=== PATIENT | male | born 1955 | race Caucasian/White ===

== ENCOUNTER 2021-02-10 14:35 | Inpatient (IN) | payer MEDICARE, MEDICAID, SELFPAY ==
[2021-02-10] VITALS (17 sets, daily range): BP systolic 111–136; BP diastolic 11–86; PULSE 93–125; RESP 23–47; TEMP 36.7–37.4; O2SAT 28–97
--- NOTE | ~2021-02-10 | XR_ITS ---
XR chest 1V portable DATE: 02/10/2021 16:22 INDICATION: Shortness of breath, cough TECHNIQUE: Portable upright AP chest on 02/10/2021 at 1611 hours COMPARISON: None FINDINGS: There is extensive diffuse bilateral pulmonary infiltrate, relatively sparing the apices du e to bullous change. Probable cardiomegaly, although heart size is not optimally evaluated on AP projection because of mag nification. Aortic arch calcification. No definite pleural effusion. No apparent pneumothorax. Diffuse osteopenia. IMPRESSION: Diffuse severe bilateral pulmonary infiltrates Reviewed, dictated and finalized at location A.
--- NOTE | ~2021-02-10 | XR_ITS ---
XR chest 1V portable 02/18/2021 08:15 Indication: Dyspnea. Pneumonia. Procedure: AP portable chest Comparison: 02/10/2021 Findings: Diffuse bilateral airspace disease. There is emphysema. No significant effusion. No pneumot horax. Cardiomegaly. No acute osseous abnormality. Impression: 1: Stable diffuse bilateral airspace disease, compatible with pneumonia versus edema. 2: Emphysema. Reviewed, dictated and finalized at location B. Impression: 1: Stable diffuse bilateral airspace disease, compatible with pneumonia versus edema. 2: Emphysema.
--- NOTE | ~2021-02-10 | CT_ITS ---
EXAMINATION: CTA chest PE protocol DATE: 02/10/2021 16:53 INDICATION: Shortness of breath. Elevated d-dimer. COPD. TECHNIQUE: Computed tomography angiography (CTA) of the chest was performed with 100 mL Omnipaque-350 intravenous contrast timed to evaluate the pulmonary arteries. Coronal maximum intensity projection 3D-reconstructions were created by the technologist. Automated exposure control and iterative reconst ruction technique were employed. Exam dose: 527.67 mGy-cm total exam DLP. COMPARISON: 02/10/2021 portable AP chest FINDINGS: There is diagnostic contrast enhancement of the pulmonary arteries and no evidence of pulmo nary embolism. No thoracic aortic aneurysm or dissection is evident. Borderline heart size. No pericardial effusion or pleural effusion. Mild hilar and mediastinal lymph node prominence, likely reactive. There is severe bullous emphysema of the lungs and extensive patchy groundglass infiltrates throughou t the lung caceres, relatively sparing only the bullae which predominate in the apical areas. IMPRESSION: Severe bullous emphysema No evidence of pulmonary embolism Extensive bilateral pulmonary infiltrates suggesting extensive bilateral pneumonia Reviewed, dictated and finalized at Location A. Reviewed, dictated and finalized at location A. IMPRESSION: Severe bullous emphysema No evidence of pulmonary embolism Extensive bilateral pulmonary infiltrates suggesting extensive bilateral pneumo giacomo
--- NOTE | 2021-02-10 14:47 | PC.NURSE ---
Respiratory therapy at bedside, placed on Bipap at this time. Dr Mathew spoke with family and stated patient wishes to be transferred to [place] when stabilized where his specialists are located.
--- NOTE | 2021-02-10 14:48 | ECG_ITS ---
Measurements Intervals [place] Rate: 116 P: 77 IA: 129 QRS: 228 QRSD: 86 T: 76 QT: 231 QTc: 322 Interpretive Statements SINUS TACHYCARDIA ATRIAL PREMATURE COMPLEX BORDERLINE R WAVE PROGRESSION, ANTERIOR LEADS BORDERLINE ST-T WAVE ABNORMALITY- DIFFUSE LEADS BASELINE ARTIFACT- I, II, III, AVR, AVL, AVF, V1-V6 ABNORMAL ECG Electronically Signed On 02-10-2021 21:54:14 CDT by Vinod Villa D.O.
--- NOTE | 2021-02-10 14:51 | ED.SOB ---
HPI - SOB/Dyspnea General Chief Complaint: Shortness of Breath/Dyspnea Stated Complaint: SOB Time Seen by Provider: 02/10/21 14:48 Source: family and RN notes reviewed Mode of arrival: ambulatory Limitations: clinical condition History of Present Illness HPI Narrative: Patient is 66 years old white male brought to the emergency room in a private car by his daughter, complaining of increased shortness of breath over the last 2 weeks since he had COVID-19 vaccine for the first time. History of COPD, on 3 to 8 L/day. Patient denies any fever, chills, nausea, vomiting or chest pain. The daughter requested to transfer patient to [facility] once becomes stable because all his doctors are working there Related Data Home Medications Medication Instructions Recorded Confirmed albuterol sulfate INHALATION 02/10/21 atorvastatin 02/10/21 celecoxib mg 02/10/21 cyanocobalamin (vitamin B-12) mcg 02/10/21 fluticasone propion-salmeterol INHALATION 02/10/21 [Advair Diskus] metoprolol tartrate 02/10/21 omeprazole 02/10/21 tamsulosin mg PO 02/10/21 umeclidinium [Incruse Ellipta] INHALATION 02/10/21 Allergies Allergy/AdvReac Type Severity Reaction Status Date / Time No Known Allergies Allergy Verified 02/10/21 14:46 Review of Systems Review of Systems: ROS unobtainable: Yes unobtainable due to medical condition PMFSH Social History Social History Gender identity (if verbalized by the patient): Male Exam Narrative: Exam Narrative: General appearance: Well-developed, well-nourished, very anxious, restless, hyperventilating Skin: Normal color Head: Normocephalic, nontraumatic Eyes: Clear conjunctiva ENT: Oropharynx normal, ears normal, nose normal Neck: Supple, nontender Chest and respiratory: Diminution of air entry bilaterally, few scattered rhonchi Heart: Tachycardia Abdomen: Soft, nontender, no organomegaly, quiet bowel sounds Neurologic: Alert and oriented, hyperventilating unable to answer question because of the respiratory distress Course Course Emergency Course: Stable Consultations Consultation #1: DR ALVARADO/medical doctor at [facility] who accepted patient transfer Date: 02/10/21 Time: 18:13 Vital Signs Vital signs: Vital Signs Temperature 37.4 C 02/10/21 14:41 Pulse Rate 125 H 02/10/21 14:41 Respiratory Rate 32 H 02/10/21 14:41 Blood Pressure 136/55 L 02/10/21 14:41 Pulse Oximetry 28 L 02/10/21 14:41 Temperature 37.4 C 02/10/21 14:41 Pulse Rate 108 H 02/10/21 17:46 Respiratory Rate 24 H 02/10/21 17:46 Blood Pressure 123/63 02/10/21 17:46 Pulse Oximetry 94 02/10/21 17:46 MDM - SOB/Dyspnea MDM Narrative Medical decision making narrative: COPD exacerbation, pneumonia is my concern. Labs, chest x-ray, ABG, CPAP, albuterol and Atrovent treatment started. Further plan to follow Differential Diagnosis Differential diagnosis: Likely acute exacerbation of chronic obstructive airways disease, congestive heart failure, community acquired pneumonia and pulmonary embolism Lab Data Result diagrams: 02/10/21 14:55 02/10/21 14:55 Labs: Lab Results 02/10/21 02/10/21 02/10/21 Range/Units 14:55 14:55 14:55 WBC 11.5 H (4.5-10.0) K/mm3 RBC 4.88 (4.6-6.20) M/mm3 Hgb 13.2 L (14.0-18.0) g/dL Hct 42.2 (42.0-52.0) % MCV 86.5 (80-100) fl MCH 27.0 (26-34) pg MCHC 31.3 L (32-36) g/dl RDW 15.6 H (11.5-14.5) % Plt Count 580 H (150-375) k/mm3 MPV 9.4 (7.4-10.4) fl Immature Gran % (Auto) 3.4 H (0-0.5) % Neut % (Auto) 74.6 H (45.5-73.1) % Lymph % (A
[2021-02-10] MEDS: methylPREDNISolone SOD SUCC 125 MG VIAL 60 MG IV PUSH (14:58)
[2021-02-10] MEDS: ALBUTEROL SULFATE NEB 2.5 MG/0.5 ML INH 5 MG INHALATION (15:02)
[2021-02-10] MEDS: IPRATROPIUM BR 0.02% INH SOLN 0.5 MG/2.5 ML VIAL INHALATION (15:02)
[2021-02-10 15:19] LABS: Basophils Percent Auto 0.3 % (0.2-1.2); Eosinophils Percent Auto 0.2 % (0-4.4); Hematocrit 42.2 % (42.0-52.0); Hemoglobin 13.2 g/dL (14.0-18.0); Immature Granulocyte Absolute 0.39 K/mm3 (0.00-0.031); Immature Granulocyte Percent A 3.4 % (0-0.5); Lymphocytes Absolute Auto 1.57 K/mm3 (0.9-3.2); Lymphocytes Percent Auto 13.7 % (18.3-44.2); Mean Corpuscular HGB Conc 31.3 g/dl (32-36); Mean Corpuscular Volume 86.5 fl (80-100); Mean Platelet Volume 9.4 fl (7.4-10.4); Monocytes Absolute Auto 0.9 K/mm3 (0.1-0.6); Monocytes Percent Auto 7.8 % (2.6-8.5); Neutrophils Absolute Auto 8.6 K/mm3 (1.3-6.7); Neutrophils Percent Auto 74.6 % (45.5-73.1); Platelet Count Result 580 k/mm3 (150-375); Red Blood Count 4.88 M/mm3 (4.6-6.20); Red Cell Distribution Width 15.6 % (11.5-14.5); White Blood Count 11.5 K/mm3 (4.5-10.0)
[2021-02-10 15:27] LABS: Alanine Aminotransferase 19 U/L (4-50); Albumin Level 3.8 g/dL (3.5-5.1); Alkaline Phosphatase 87 U/L (38-126); Anion Gap 9 mmol/L (8-16); Aspartate Amino Transferase 33 U/L (17-59); Blood Urea Nitrogen 13 mg/dL (9-20); Calcium 8.8 mg/dL (8.4-10.2); Carbon Dioxide 27 mmol/L (22-30); Chloride 98 mmol/L (98-107); Estimated CRCL calculation 78 ml/min; Estimated Glomerular Filt Rate > 60; Glucose 153 mg/dL (75-110); Magnesium 1.6 mg/dL (1.6-2.3); Potassium 3.9 mmol/L (3.4-5.0); Sodium 134 mmol/L (137-145)
[2021-02-10 15:34] LABS: INR 1.2; Prothrombin Time 15.7 Seconds (11.1-14.7)
[2021-02-10 15:35] LABS: Partial Thromboplastin Time 26.7 SECONDS (22.3-36.8)
[2021-02-10 15:38] LABS: NT Pro B Type Natriuretic Pept 305 PG/ML (5-100); Troponin I < 0.012 ng/mL (0.000-0.034)
[2021-02-10 15:41] LABS: Fractional Inspired Oxygen 45 %; Oxygen Content ABG 17.1 %vol (16.0-22.0); Oxygen Saturation ABG 94.6 % (95.0-100.0); PCO2 ABG 33.3 mmHg (35.0-45.0); PO2 FiO2 Ratio Arterial Blood 1.49 %; Total Hemoglobin 13.2 g/dL (12.0-18.0); pH ABG 7.476 (7.350-7.450)
[2021-02-10 15:43] LABS: Device NON-INVASIVE VENT; Modified Allen's Test Pass; Non-Invasive Vent Rate 14 /MIN; Site Drawn RIGHT RADIAL
[2021-02-10 15:44] LABS: Non-Invasive Expiratory Pressure 8 CMH2O; Non-Invasive Inspiratory Pressure 14 CMH2O
[2021-02-10 15:51] LABS: D Dimer 2.04 ug/mL (<0.48)
--- NOTE | 2021-02-10 16:28 | PC.NURSE ---
Contacted ED respiratory to find out how pt can safely transport for CT scan. Confirmed 6L nonrebreather is ok.
--- NOTE | 2021-02-10 16:37 | PC.NURSE ---
RN checked with doctor about conversation with ED respiratory, Dr. Mathew request pt be taken to CT scan on BiPAP. ED respiratory notified.
--- NOTE | 2021-02-10 20:33 | PC.NURSE ---
marisa called for triage report, after report nurse at [facility] stated it could be days before they could get a room there, pt was informed of situation and agreed to be admitted here until a bed could be had at [facility], Dr. Fox agreed and will admit here, call out to hospitalist.
--- NOTE | 2021-02-10 21:08 | PC.NURSE ---
called [facility] again to confirm bed placement, intake nurse stated pt would not get a bed tonight and poss of tomm not any better, informed Dr. Jomar MD stated that Dr. perez wants to wait a couple hrs. before excepting pt. Racheal Hickman feels pt will get a bed before she wants to admit here. charge nurse aware.
[2021-02-11] VITALS (19 sets, daily range): BP systolic 110–141; BP diastolic 59–66; PULSE 70–107; RESP 20–35; TEMP 36–37.1; O2SAT 84–97; BMI 25.3
--- NOTE | 2021-02-11 00:42 | ADMGEN ---
This patient, Giuseppe Rosa III, was admitted to IMU Room 210-01. Patient/family oriented to hospital policies and general routines including ID bracelet, bed and alarms, visiting hours, pain management, procedures, bathroom and other care routines, personal items, smoking policy, room service/diet, and visiting hours. Information on how to activate the Rapid Response Team has been discussed. Patient/Family are encouraged to report perceived risks to care and to ask questions if they do not understand what they are told or what they should do. Anthony HERNANDEZ approx 0000
--- NOTE | 2021-02-11 01:17 | PM.IMHP ---
H&P: HPI History of Present Illness Date/Time: 02/11/21 01:17 Chief Complaint: Increased shortness of breath Narrative: 66-year-old male with past medical history of emphysema, prior pneumonectomy, and chronic hypoxic respiratory failure who presented to the ER from home via private vehicle due to increasing shortness of breath. EMS reported that the patient's oxygen saturations were 28% on arrival to the ER. The patient is usually on 2-3 L nasal cannula at rest and he is supposed to increase his oxygen to 5 L when active. In triage patient was placed on 15 L non-rebreather with oxygen saturations of 86%. He was subsequently placed on BiPAP 08/06 with improvement in oxygen saturations to the mid 90s. His ABG on BiPAP demonstrated pH of 7.47 pCO2 of 33 and PO2 of 67. The patient's reports that approximately 10 days ago the patient received his 1st med during a vaccine. The following day he had increasing shortness of breath. The patient reported that he also had increased cough at that time. He had occasional sputum production in his sputum appeared to be light albarran or brown in color. He also has some subjective fevers but did not measure his temperature., vomiting or diarrhea. He denied any loss of sense of taste or smell. He has had decreased appetite. He has no known COVID exposures. His also became sick at the same time as the patient is currently hospitalized for acute a hypoxic respiratory failure and pneumonia The patient is alert and oriented. He is only a fair historian and tells me to go asked his questions regarding his history. He was last hospitalized in early 2019. Review of Systems Review of Systems: Narrative: 12 systems were reviewed with pertinent positives and negatives per HPI. Except as documented in the HPI, all other systems were reviewed and are negative. [facility] Past Medical History Medical History (Updated 02/11/21 @ 08:38 by Kristin Barroso DO) Chronic respiratory failure with hypoxia, on home O2 therapy COPD with emphysema Essential hypertension GERD (gastroesophageal reflux disease) History of BPH Hyperlipidemia Surgical History Surgical History (Updated 02/11/21 @ 08:17 by Kristin Barroso DO) History of pneumonectomy Left upper lobe History of right inguinal hernia repair Family History Family History Other Unknown family medical history Social History Social History (Updated 02/11/21 @ 08:21 by Kristin Barroso DO) Social History: The patient is originally from [facility]. He and his moved in with her daughter December 2019 when his lost her job due to the COVID-19 pandemic. He is a former smoker who smoked 3 packs of cigarettes per day for 42 years. He quit smoking in approximately 2012. He denies any alcohol use or illicit substance use. 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 Code status: Full code Surrogate decision maker: Rosa Maria () Smoking packs per day: 3 Smoking cigarettes per day: 60.0 Years smoked: 42 Smoking pack-years: 126.00 Smoking status: Former smoker Tobacco type: cigarettes Alcohol intake: never Substance use: never Substance use type: does not use Gender identity (if verbalized by the patient): Male Spiritual care concerns: No Meds Home Medications and Allergies Home Medications Medication Instructions Recorded Confirmed Type albuterol sulfate 2 puff INHALATION PRN PRN 02/10/21 02/11/21 History atorvastatin 40 mg PO DAILY 02/10/21 02/11/21 History celecoxib 200 mg PO DAILY 02/10/21 02/11/21 History cyanocobalamin (vitamin B-12) 1,000 mcg PO DAILY 02/10/21 02/11/21 History fluticasone propion-salmeterol 1 inh INHALATION BID 02/10/21 02/11/21 History [Advair Diskus] metoprolol tartrate 50 mg PO BID 02/10/2101/24
[2021-02-11 09:55] LABS: Mean Corpuscular HGB Conc 32.4 g/dl (32-36); Mean Corpuscular Hemoglobin 27.6 pg (26-34); Mean Corpuscular Volume 85.1 fl (80-100); Mean Platelet Volume 9.2 fl (7.4-10.4); Platelet Count Result 559 k/mm3 (150-375); Red Blood Count 4.35 M/mm3 (4.6-6.20); Red Cell Distribution Width 15.4 % (11.5-14.5)
[2021-02-11 10:11] LABS: Anion Gap 9 mmol/L (8-16); Blood Urea Nitrogen 17 mg/dL (9-20); Calcium 8.9 mg/dL (8.4-10.2); Carbon Dioxide 24 mmol/L (22-30); Chloride 100 mmol/L (98-107); Estimated CRCL calculation 98 ml/min; Estimated Glomerular Filt Rate > 60; Glucose 148 mg/dL (75-110); Potassium 3.8 mmol/L (3.4-5.0); Sodium 133 mmol/L (137-145)
[2021-02-11] MEDS: UMECLIDINIUM BROMIDE 62.5 MCG ELLIPTA 1 PUFF INHALATION (11:33)
[2021-02-11] MEDS: ALBUTEROL SULFATE (*SP) AEROSOL 1 PUFF 4 PUFF INHALATION ×3 (11:33→21:11)
[2021-02-11] MEDS: ATORVASTATIN 40 MG TABLET PO (11:48)
[2021-02-11] MEDS: CYANOCOBALAMIN 1,000 MCG TABLET 1000 MCG PO (11:48)
[2021-02-11] MEDS: ENOXAPARIN 40 MG/0.4 ML SYRINGE SUB-Q ×2 (11:48→21:58)
[2021-02-11] MEDS: CELECOXIB 200 MG CAPSULE PO (11:48)
[2021-02-11] MEDS: PANTOPRAZOLE 40 MG TABLET PO ×2 (11:48→21:10)
[2021-02-11] MEDS: TAMSULOSIN HCL 0.4 MG CAPSULE PO (11:49)
[2021-02-11] MEDS: methylPREDNISolone SOD SUCC 40 MG VIAL IV PUSH ×2 (11:49→16:35)
[2021-02-11] MEDS: METOPROLOL TARTRATE 50 MG TAB PO ×2 (11:49→21:10)
--- NOTE | 2021-02-11 16:44 | PM.IMPN ---
Progress Note: A&P Assessment and Plan (1) Acute and chronic respiratory failure with hypoxia: Code(s): J96.21 - Acute and chronic respiratory failure with hypoxia Status: Acute Assessment and Plan: Acute respiratory failure most likely related to COPD exacerbation and pneumonia. Some improvement today. Able to be be weaned off the NIV. Continue to wean oxygen as tolerated down to his baseline. Continue albuterol HFA. (2) Sepsis: Qualifiers: Sepsis type: sepsis due to unspecified organism Sepsis acute organ dysfunction status: with acute organ dysfunction Severe sepsis acute organ dysfunction type: acute respiratory failure Acute respiratory failure type: with hypoxia Severe sepsis shock status: without septic shock Qualified Code(s): A41.9 - Sepsis, unspecified organism; R65.20 - Severe sepsis without septic shock; J96.01 - Acute respiratory failure with hypoxia Code(s): A41.9 - Sepsis, unspecified organism Status: Acute Assessment and Plan: Present on admission with the acute respiratory failure, tachycardia and leukocytosis related to pneumonia. Blood and sputum cultures are pending. Continue IV antibiotics. (3) Pneumonia: Qualifiers: Laterality: bilateral Lung location: unspecified part of lung Pneumonia type: due to unspecified organism Qualified Code(s): J18.9 - Pneumonia, unspecified organism Code(s): J18.9 - Pneumonia, unspecified organism Status: Acute Assessment and Plan: CTA of the chest showing no pulmonary emboli but does show extensive bilateral pulmonary infiltrates consistent with extensive bilateral pneumonia. COVID swab has been obtained. Continue albuterol. Continue IV antibiotics. (4) COPD with lower respiratory infection: Code(s): J44.0 - Chronic obstructive pulmonary disease with (acute) lower respiratory infection Status: Acute Assessment and Plan: Patient with COPD exacerbation. CT of the chest showing severe bullous emphysema. He obtains his care [facility] with plans for transfer there although patient may want to stay here now. Continue to wean oxygen as he tolerates. (5) DVT prophylaxis: Code(s): Z29.9 - Encounter for prophylactic measures, unspecified Status: Acute Assessment and Plan: Lovenox Subjective Date/time seen: 02/11/21 16:45 Interval history: 66yo male with chronic respiratory failure, COPD and HTN here for SOB. Patient has been weaned off the BiPAP and currently on 10 L high-flow nasal cannula. He feels much better today. No chest pain. Cough is minimally productive of brown sputum. No hemoptysis. Exam Narrative: Exam Narrative: AF 98.8 113/66 90 28 93% 10L Gen - NARD lying semi-recumbent in bed Chest - left base inspiratory crackles o/w very distatn BS, nml RR, no conversatinal dyspnea CV - RRR S1/S2 Abd - Soft, NT/ND, Positive BS Ext - No pedal edema Psych - Nml mood and affect Skin - Warm and dry Objective Data Vital Signs Vital Signs: Vital Signs - 24 hr 02/10/21 16:55 02/10/21 17:46 02/10/21 19:16 Temperature Pulse Rate 105 H 108 H 100 Respiratory Rate 30 H 24 H 24 H Blood Pressure 123/63 Pulse Oximetry 95 94 95 02/10/21 20:37 02/10/21 20:48 02/10/21 23:17 Temperature 98.0 F Pulse Rate 94 93 Respiratory Rate 28 H 23 H Blood Pressure 114/86 114/67 Pulse Oximetry 95 92 95 02/10/21 23:28 02/11/21 00:00 02/11/21 00:08 Temperature 97.9 F Pulse Rate 102 H 105 H Respiratory Rate 23 H 20 35 H Blood Pressure 121/60 Pulse Oximetry 95 91 94 02/11/21 02:00 02/11/21 02:21 02/11/21 04:00 Temperature 97.3 F L Pulse Rate 89 78 Respiratory Rate 22 H 23 H Blood Pressure 110/59 L Pulse Oximetry 97 96 96 02/11/21 06:00 02/11/21 08:00 02/11/21 09:15 Temperature 96.8 F L Pulse Rate 92 89 98 Respiratory Rate 28 H 20 Blood Pressure 141/63 H Pulse Oximetry 94 84 L
[2021-02-11 19:04] LABS: SARS-CoV-2 RNA PCR Positive
[2021-02-11] MEDS: REMDESIVIR 200 MG/NS 250 ML 200 MG/250 ML BAG 250 MG IVPB (21:58)
[2021-02-12] VITALS (16 sets, daily range): BP systolic 106–127; BP diastolic 53–84; PULSE 53–98; RESP 12–20; TEMP 36.2–36.6; O2SAT 91–99
[2021-02-12 05:04] LABS: Basophils Percent Auto 0.1 % (0.2-1.2); Hematocrit 35.4 % (42.0-52.0); Hemoglobin 11.3 g/dL (14.0-18.0); Immature Granulocyte Absolute 0.24 K/mm3 (0.00-0.031); Immature Granulocyte Percent A 1.8 % (0-0.5); Lymphocytes Absolute Auto 0.62 K/mm3 (0.9-3.2); Lymphocytes Percent Auto 4.6 % (18.3-44.2); Mean Corpuscular HGB Conc 31.9 g/dl (32-36); Mean Corpuscular Hemoglobin 27.9 pg (26-34); Mean Corpuscular Volume 87.4 fl (80-100); Mean Platelet Volume 9.3 fl (7.4-10.4); Monocytes Absolute Auto 1.1 K/mm3 (0.1-0.6); Monocytes Percent Auto 7.8 % (2.6-8.5); Neutrophils Absolute Auto 11.6 K/mm3 (1.3-6.7); Neutrophils Percent Auto 85.7 % (45.5-73.1); Platelet Count Result 637 k/mm3 (150-375); Red Blood Count 4.05 M/mm3 (4.6-6.20); Red Cell Distribution Width 15.6 % (11.5-14.5); White Blood Count 13.5 K/mm3 (4.5-10.0)
[2021-02-12 05:12] LABS: INR 1.2; Prothrombin Time 16.2 Seconds (11.1-14.7)
[2021-02-12 05:15] LABS: Alanine Aminotransferase 18 U/L (4-50); Anion Gap 5 mmol/L (8-16); Blood Urea Nitrogen 19 mg/dL (9-20); CRP 6.4 mg/dL (<1.0); Calcium 8.6 mg/dL (8.4-10.2); Carbon Dioxide 29 mmol/L (22-30); Chloride 101 mmol/L (98-107); Estimated CRCL calculation 87 ml/min; Estimated Glomerular Filt Rate > 60; Glucose 157 mg/dL (75-110); Lactate Dehydrogenase 465 U/L (313-618); Sodium 135 mmol/L (137-145)
[2021-02-12 05:47] LABS: D Dimer 1.31 ug/mL (<0.48)
--- NOTE | 2021-02-12 06:12 | PCRCNOTE ---
SPUTUM INDUCTION HELD DUE TO POSITIVE COVID TEST, PER DR AQUINO
[2021-02-12] MEDS: UMECLIDINIUM BROMIDE 62.5 MCG ELLIPTA 1 PUFF INHALATION (08:38)
[2021-02-12] MEDS: ALBUTEROL SULFATE (*SP) AEROSOL 1 PUFF 4 PUFF INHALATION ×3 (08:38→20:17)
[2021-02-12] MEDS: ENOXAPARIN 40 MG/0.4 ML SYRINGE SUB-Q ×2 (08:39→20:16)
[2021-02-12] MEDS: ATORVASTATIN 40 MG TABLET PO (08:39)
[2021-02-12] MEDS: CYANOCOBALAMIN 1,000 MCG TABLET 1000 MCG PO (08:39)
[2021-02-12] MEDS: METOPROLOL TARTRATE 50 MG TAB PO ×2 (08:39→20:16)
[2021-02-12] MEDS: CELECOXIB 200 MG CAPSULE PO (08:39)
[2021-02-12] MEDS: PANTOPRAZOLE 40 MG TABLET PO ×2 (08:39→20:16)
[2021-02-12] MEDS: TAMSULOSIN HCL 0.4 MG CAPSULE PO (08:39)
[2021-02-12] MEDS: DEXAMETHASONE SOD PHOS INJ 4 MG/ML VIAL 6 MG IV PUSH (08:40)
--- NOTE | 2021-02-12 16:13 | PM.IMPN ---
Progress Note: A&P Assessment and Plan (1) COPD with lower respiratory infection: Code(s): J44.0 - Chronic obstructive pulmonary disease with (acute) lower respiratory infection Status: Acute (2) Sepsis: Qualifiers: Sepsis type: sepsis due to unspecified organism Sepsis acute organ dysfunction status: with acute organ dysfunction Severe sepsis acute organ dysfunction type: acute respiratory failure Acute respiratory failure type: with hypoxia Severe sepsis shock status: without septic shock Qualified Code(s): A41.9 - Sepsis, unspecified organism; R65.20 - Severe sepsis without septic shock; J96.01 - Acute respiratory failure with hypoxia Code(s): A41.9 - Sepsis, unspecified organism Status: Acute (3) Acute and chronic respiratory failure with hypoxia: Code(s): J96.21 - Acute and chronic respiratory failure with hypoxia Status: Acute (4) Acute respiratory failure with hypoxia: Code(s): J96.01 - Acute respiratory failure with hypoxia Status: Acute (5) Pneumonia: Qualifiers: Laterality: bilateral Lung location: unspecified part of lung Pneumonia type: due to unspecified organism Qualified Code(s): J18.9 - Pneumonia, unspecified organism Code(s): J18.9 - Pneumonia, unspecified organism Status: Acute (6) Pneumonia due to COVID-19 virus: Code(s): U07.1 - COVID-19; J12.82 - Pneumonia due to coronavirus disease 2019 Status: Acute Additional Plan # Acute on chronic respiratory failure, on home oxygen 2-3 l 24 x7: cxr with bialteral pneumonia, cta with no PE. weaned off NIV. wean oxygen as toelrated. continue albuterol HFA. COVID testing positive. on decadronl and remdesivir. # Sepsis: Present on admission with the acute respiratory failure, tachycardia and leukocytosis related to pneumonia. Blood and sputum cultures are pending. Continue IV antibiotics. # Bilateral Pneumonia: CTA of the chest showing no pulmonary emboli but does show extensive bilateral pulmonary infiltrates consistent with extensive bilateral pneumonia. COVID swab positive. Continue albuterol. Continue IV antibiotics. # COPD exacerbation with lower respiratory infection: CT of the chest showing severe bullous emphysema. He obtains his care [facility] with plans for transfer there although patient may want to stay here now. Continue to wean oxygen as he tolerates. will consult pulmonary here # DVT proph: lovenox # hx of pneuonnectomy # HTN: home emdciations. Subjective Date/time seen: 02/12/21 16:13 Interval history: 66yo male with chronic respiratory failure, COPD and HTN here for SOB. he is still on hi dandy xogyen. he feeling better though in terms of his breathing. he feels he does nto need to go to [place]. no chest pain. cough present Review of Systems Review of Systems: Narrative: - CONSTITUTIONAL: Denies weight loss, fever and chills. - HEENT: Denies changes in vision and hearing - RESPIRATORY: reports SOB and cough. - CV: Denies palpitations and CP. - GI: Denies abdominal pain, nausea, vomiting and diarrhea. - : Denies dysuria and urinary frequency. - MSK: Denies myalgia and joint pain. - SKIN: Denies rash and pruritus. - NEUROLOGICAL: Denies headache and syncope. - PSYCHIATRIC: Denies recent changes in mood. Denies anxiety and depression. All systems reviewed & are unremarkable except as noted in HPI and below Exam Narrative: Exam Narrative: GENERAL: The patient is well developed, not in acute distress, on hiflo oxygen. HEENT: Nonicteric sclerae, PERRLA, EOMI. Oropharynx clear. Moist mucous membranes. Conjunctivae appear well perfused. CHEST: Chest wall is nontender. HEART: Regular rate and rhythm without murmur, rubs, or gallops LUNGS: decreased breath sounds, rhonchi presnt, no respiratory distress ABDOMEN: Soft, positive bowel sounds, non-tender, no organomegaly. SKIN: No rash, no excessive bruising, petechiae, or purpura. TREY
[2021-02-12] MEDS: REMDESIVIR 100 MG/NS 250 ML 100 MG/250 ML BAG 250 MG IVPB (20:15)
[2021-02-13] VITALS (25 sets, daily range): BP systolic 98–117; BP diastolic 49–60; PULSE 53–92; RESP 18–24; TEMP 36.1–36.7; O2SAT 94–99
[2021-02-13 05:42] LABS: INR 1.2; Prothrombin Time 15.8 Seconds (11.1-14.7)
[2021-02-13 05:48] LABS: Alanine Aminotransferase 21 U/L (4-50); Estimated CRCL calculation 87 ml/min; Estimated Glomerular Filt Rate > 60
[2021-02-13] MEDS: ALBUTEROL SULFATE (*SP) AEROSOL 1 PUFF 4 PUFF INHALATION (08:48)
[2021-02-13] MEDS: UMECLIDINIUM BROMIDE 62.5 MCG ELLIPTA 1 PUFF INHALATION (08:49)
[2021-02-13] MEDS: DEXAMETHASONE SOD PHOS INJ 4 MG/ML VIAL 6 MG IV PUSH (08:49)
[2021-02-13] MEDS: CELECOXIB 200 MG CAPSULE PO (08:50)
[2021-02-13] MEDS: ENOXAPARIN 40 MG/0.4 ML SYRINGE SUB-Q ×2 (08:50→20:36)
[2021-02-13] MEDS: METOPROLOL TARTRATE 50 MG TAB PO ×2 (08:50→20:36)
[2021-02-13] MEDS: ATORVASTATIN 40 MG TABLET PO (08:50)
[2021-02-13] MEDS: PANTOPRAZOLE 40 MG TABLET PO ×2 (08:50→20:36)
[2021-02-13] MEDS: CYANOCOBALAMIN 1,000 MCG TABLET 1000 MCG PO (08:50)
[2021-02-13] MEDS: TAMSULOSIN HCL 0.4 MG CAPSULE PO (08:50)
[2021-02-13] MEDS: IPRATROPIUM BR 0.02% INH SOLN 0.5 MG/2.5 ML VIAL INHALATION ×2 (10:03→13:40)
[2021-02-13] MEDS: BUDESONIDE RESPULE NEB 0.5 MG/2 ML AMP 1 MG INHALATION ×2 (10:03→21:09)
--- NOTE | 2021-02-13 13:05 | PM.CNPUL ---
Assessment and Plan Assessment and plan (1) Pneumonia due to COVID-19 virus: Code(s): U07.1 - COVID-19; J12.82 - Pneumonia due to coronavirus disease 2019 Status: Acute Assessment and Plan: continue with dexamethasone for 10 days continue with remdesivir for 10 days There is no significant evidence that complex and plasma improves outcomes prone positioning would be helpful if patient is able to tolerate (2) Acute and chronic respiratory failure with hypoxia: Code(s): J96.21 - Acute and chronic respiratory failure with hypoxia Status: Acute Assessment and Plan: continue high-flow oxygen weaning for O2 saturations of 92-96% (3) COPD exacerbation: Code(s): J44.1 - Chronic obstructive pulmonary disease with (acute) exacerbation Status: Acute Assessment and Plan: it is less likely that he has a superimposed bacterial infection but I will switch him to ceftriaxone and azithromycin because that can developed during the course of his illness. Zosyn can be discontinued will start Pulmicort 0.5 mg q.12 hours nebulized Will start ipratropium 0.5 mg q.6 hours nebulized. History of Present Illness History of Present Illness Consult date: 02/13/21 Chief complaint: acute respiratory failure with hypoxia Narrative: this is a very pleasant 66-year-old male with history of severe COPD on home oxygen who presents with acute COVID-19 pneumonia and acute hypoxemic respiratory failure. He is normally on 2-4 L of oxygen at home but currently on 15 L. claims his symptoms began immediately after having a fight eyes are vaccination yet all of his clothes level ones including his daughter and his son-in-law had some viral symptoms. He was started on dexamethasone and remdesivir on admission and his symptoms began a few days prior to admission. CT scan of the chest shows bibasilar mostly peripheral ground-glass infiltrates as well as severe bilateral apical bullous emphysema which is chronic. Review of Systems Review of Systems: All systems reviewed & are unremarkable except as noted in HPI and below PMFSH Past Medical History Medical History (Updated 02/13/21 @ 13:10 by Esdras Luis MD) Chronic respiratory failure with hypoxia, on home O2 therapy COPD with emphysema Essential hypertension GERD (gastroesophageal reflux disease) History of BPH Hyperlipidemia Surgical History Surgical History (Updated 02/11/21 @ 08:17 by Kristin Barroso DO) History of pneumonectomy Left upper lobe History of right inguinal hernia repair Family History Family History Other Unknown family medical history Social History Social History (Updated 02/11/21 @ 08:21 by Kristin Barroso DO) Social History: The patient is originally from [facility]. He and his moved in with her daughter December 2019 when his lost her job due to the COVID-19 pandemic. He is a former smoker who smoked 3 packs of cigarettes per day for 42 years. He quit smoking in approximately 2012. He denies any alcohol use or illicit substance use. 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 Code status: Full code Surrogate decision maker: Rosa Maria () Smoking packs per day: 3 Smoking cigarettes per day: 60.0 Years smoked: 42 Smoking pack-years: 126.00 Smoking status: Former smoker Tobacco type: cigarettes Alcohol intake: never Substance use: never Substance use type: does not use Gender identity (if verbalized by the patient): Male Spiritual care concerns: No Meds Home Medications and Allergies Home Medications Medication Instructions Recorded Confirmed Type albuterol sulfate 2 puff INHALATION PRN PRN 02/10/21 02/11/21 History atorvastatin 40 mg PO DAILY 02/10/21 02/11/21 History celecoxib
--- NOTE | 2021-02-13 13:38 | PM.IMPN ---
Progress Note: A&P Assessment and Plan (1) COPD exacerbation: Code(s): J44.1 - Chronic obstructive pulmonary disease with (acute) exacerbation Status: Acute (2) Pneumonia due to COVID-19 virus: Code(s): U07.1 - COVID-19; J12.82 - Pneumonia due to coronavirus disease 2019 Status: Acute (3) COPD with lower respiratory infection: Code(s): J44.0 - Chronic obstructive pulmonary disease with (acute) lower respiratory infection Status: Acute (4) Acute and chronic respiratory failure with hypoxia: Code(s): J96.21 - Acute and chronic respiratory failure with hypoxia Status: Acute (5) Sepsis: Qualifiers: Sepsis type: sepsis due to unspecified organism Sepsis acute organ dysfunction status: with acute organ dysfunction Severe sepsis acute organ dysfunction type: acute respiratory failure Acute respiratory failure type: with hypoxia Severe sepsis shock status: without septic shock Qualified Code(s): A41.9 - Sepsis, unspecified organism; R65.20 - Severe sepsis without septic shock; J96.01 - Acute respiratory failure with hypoxia Code(s): A41.9 - Sepsis, unspecified organism Status: Acute Additional Plan # Acute on chronic respiratory failure, on home oxygen 2-3 l 24 x7: cxr with bialteral pneumonia, cta with no PE. weaned off NIV. wean oxygen as toelrated. continue albuterol HFA. COVID testing positive. on decadronl and remdesivir. ?convalescent plasma use. he is against it though as he got worse with COVID vaccine Pfizer dose. # Sepsis: Present on admission with the acute respiratory failure, tachycardia and leukocytosis related to pneumonia. Blood and sputum cultures are pending. Continue IV antibiotics. # Bilateral Pneumonia: CTA of the chest showing no pulmonary emboli but does show extensive bilateral pulmonary infiltrates consistent with extensive bilateral pneumonia. COVID swab positive. Continue albuterol. Continue IV antibiotics. # COPD exacerbation with lower respiratory infection: CT of the chest showing severe bullous emphysema. He obtains his care [facility] with plans for transfer there although patient may want to stay here now. Continue to wean oxygen as he tolerates. pulmoanry consult reviewed. appreciate their recs. # DVT proph: lovenox # hx of pneuonnectomy # HTN: home medications. Subjective Date/time seen: 02/13/21 13:38 Interval history: 66yo male with chronic respiratory failure, COPD and HTN here for SOB. he is still on hi dandy xogyen. he is feeling better overall though still on same amount of oxygen. he is ambualting better and gets less sob upon exertion. coughing up some with albuterol linahler that he gets. Review of Systems Review of Systems: Narrative: - CONSTITUTIONAL: Denies weight loss, fever and chills. - HEENT: Denies changes in vision and hearing - RESPIRATORY: reports SOB and cough. - CV: Denies palpitations and CP. - GI: Denies abdominal pain, nausea, vomiting and diarrhea. - : Denies dysuria and urinary frequency. - MSK: Denies myalgia and joint pain. - SKIN: Denies rash and pruritus. - NEUROLOGICAL: Denies headache and syncope. - PSYCHIATRIC: Denies recent changes in mood. Denies anxiety and depression. All systems reviewed & are unremarkable except as noted in HPI and below Exam Narrative: Exam Narrative: GENERAL: The patient is well developed, not in acute distress, on hiflo oxygen. HEENT: Nonicteric sclerae, PERRLA, EOMI. Oropharynx clear. Moist mucous membranes. Conjunctivae appear well perfused. CHEST: Chest wall is nontender. HEART: Regular rate and rhythm without murmur, rubs, or gallops LUNGS: decreased breath sounds, rhonchi presnt, no respiratory distress ABDOMEN: Soft, positive bowel sounds, non-tender, no organomegaly. SKIN: No rash, no excessive bruising, petechiae, or purpura. NEUROLOGIC: Cranial nerves II-XII intact, alert and oriented x 3, no gross motor deficits EXTREMIT
[2021-02-13] MEDS: REMDESIVIR 100 MG/NS 250 ML 100 MG/250 ML BAG 250 MG IVPB (20:35)
[2021-02-13] MEDS: ALBUTEROL SULFATE NEB 2.5 MG/0.5 ML INH INHALATION (21:09)
[2021-02-13 22:58] LABS: Pneumococcal Antigen Urine Not Detected (Not Detected)
[2021-02-14] VITALS (28 sets, daily range): BP systolic 102–119; BP diastolic 47–67; PULSE 52–108; RESP 16–23; TEMP 36.1–36.8; O2SAT 92–100
[2021-02-14] MEDS: ALBUTEROL SULFATE NEB 2.5 MG/0.5 ML INH INHALATION ×4 (02:19→20:28)
[2021-02-14 05:24] LABS: Alanine Aminotransferase 32 U/L (4-50); Estimated CRCL calculation 87 ml/min; Estimated Glomerular Filt Rate > 60
[2021-02-14 05:29] LABS: INR 1.3; Prothrombin Time 16.7 Seconds (11.1-14.7)
[2021-02-14] MEDS: BUDESONIDE RESPULE NEB 0.5 MG/2 ML AMP 1 MG INHALATION ×2 (07:42→20:28)
[2021-02-14] MEDS: CELECOXIB 200 MG CAPSULE PO (08:26)
[2021-02-14] MEDS: CYANOCOBALAMIN 1,000 MCG TABLET 1000 MCG PO (08:26)
[2021-02-14] MEDS: ATORVASTATIN 40 MG TABLET PO (08:26)
[2021-02-14] MEDS: METOPROLOL TARTRATE 50 MG TAB PO ×2 (08:26→20:27)
[2021-02-14] MEDS: DEXAMETHASONE SOD PHOS INJ 4 MG/ML VIAL 6 MG IV PUSH (08:27)
[2021-02-14] MEDS: PANTOPRAZOLE 40 MG TABLET PO ×2 (08:27→20:27)
[2021-02-14] MEDS: TAMSULOSIN HCL 0.4 MG CAPSULE PO (08:27)
[2021-02-14] MEDS: ENOXAPARIN 40 MG/0.4 ML SYRINGE SUB-Q ×2 (08:27→20:26)
--- NOTE | 2021-02-14 11:34 | PM.IMPN ---
Progress Note: A&P Assessment and Plan (1) COPD exacerbation: Code(s): J44.1 - Chronic obstructive pulmonary disease with (acute) exacerbation Status: Acute (2) Pneumonia due to COVID-19 virus: Code(s): U07.1 - COVID-19; J12.82 - Pneumonia due to coronavirus disease 2019 Status: Acute (3) Sepsis: Qualifiers: Sepsis type: sepsis due to unspecified organism Sepsis acute organ dysfunction status: with acute organ dysfunction Severe sepsis acute organ dysfunction type: acute respiratory failure Acute respiratory failure type: with hypoxia Severe sepsis shock status: without septic shock Qualified Code(s): A41.9 - Sepsis, unspecified organism; R65.20 - Severe sepsis without septic shock; J96.01 - Acute respiratory failure with hypoxia Code(s): A41.9 - Sepsis, unspecified organism Status: Acute (4) Acute and chronic respiratory failure with hypoxia: Code(s): J96.21 - Acute and chronic respiratory failure with hypoxia Status: Acute Additional Plan # Acute on chronic respiratory failure, on home oxygen 2-3 l 24 x7: cxr with bialteral pneumonia, cta with no PE. weaned off NIV. wean oxygen as toelrated. continue albuterol HFA. COVID testing positive. on decadronl and remdesivir. ?convalescent plasma use. he is against it though as he got worse with COVID vaccine Pfizer dose. # Sepsis: Present on admission with the acute respiratory failure, tachycardia and leukocytosis related to pneumonia. Blood and sputum cultures are pending. Continue IV antibiotics. switched to cef and azithr by pulmoanry. sputum culture with normal oral armando. # Bilateral Pneumonia: CTA of the chest showing no pulmonary emboli but does show extensive bilateral pulmonary infiltrates consistent with extensive bilateral pneumonia. COVID swab positive. Continue albuterol. Continue IV antibiotics. # COPD exacerbation with lower respiratory infection: CT of the chest showing severe bullous emphysema. He obtains his care [facility] with plans for transfer there although patient may want to stay here now. Continue to wean oxygen as he tolerates. pulmoanry consult reviewed. appreciate their recs. # DVT proph: lovenox # hx of pneuonnectomy # HTN: home medications. Subjective Date/time seen: 02/14/21 11:34 Interval history: 66yo male with chronic respiratory failure, COPD and HTN here for SOB. he went on bipap last ngiht for few hours. he feeling better everyday. his oxyge level is down to 10 l today. he desaturates easy when he exerts. Review of Systems Review of Systems: Narrative: - CONSTITUTIONAL: Denies weight loss, fever and chills. - HEENT: Denies changes in vision and hearing - RESPIRATORY: reports SOB and cough. - CV: Denies palpitations and CP. - GI: Denies abdominal pain, nausea, vomiting and diarrhea. - : Denies dysuria and urinary frequency. - MSK: Denies myalgia and joint pain. - SKIN: Denies rash and pruritus. - NEUROLOGICAL: Denies headache and syncope. - PSYCHIATRIC: Denies recent changes in mood. Denies anxiety and depression. All systems reviewed & are unremarkable except as noted in HPI and below Constitutional: Constitutional: Reports fatigue and Reports weakness Neurologic: Reports weakness Endocrine: Endocrine: Reports fatigue Exam Narrative: Exam Narrative: GENERAL: The patient is well developed, not in acute distress, on hiflo oxygen. HEENT: Nonicteric sclerae, PERRLA, EOMI. Oropharynx clear. Moist mucous membranes. Conjunctivae appear well perfused. CHEST: Chest wall is nontender. HEART: Regular rate and rhythm without murmur, rubs, or gallops LUNGS: decreased breath sounds, rhonchi presnt, no respiratory distress ABDOMEN: Soft, positive bowel sounds, non-tender, no organomegaly. SKIN: No rash, no excessive bruising, petechiae, or purpura. NEUROLOGIC: Cranial nerves II-XII intact, alert and oriented x 3, no gross motor deficits EXTREMITIES:
[2021-02-14 17:46] LABS: Legionella pneumophila Ag Ur Not Detected (Not Detected)
[2021-02-14] MEDS: REMDESIVIR 100 MG/NS 250 ML 100 MG/250 ML BAG 250 MG IVPB (20:27)
[2021-02-15] VITALS (24 sets, daily range): BP systolic 101–138; BP diastolic 50–60; PULSE 58–96; RESP 18–24; TEMP 36.1–36.6; O2SAT 90–100
[2021-02-15] MEDS: ALBUTEROL SULFATE NEB 2.5 MG/0.5 ML INH INHALATION ×4 (01:33→22:20)
[2021-02-15 04:48] LABS: Hematocrit 34.9 % (42.0-52.0); Hemoglobin 10.8 g/dL (14.0-18.0); Mean Corpuscular HGB Conc 30.9 g/dl (32-36); Mean Corpuscular Hemoglobin 27.1 pg (26-34); Mean Corpuscular Volume 87.5 fl (80-100); Mean Platelet Volume 9.2 fl (7.4-10.4); Platelet Count Result 751 k/mm3 (150-375); Red Blood Count 3.99 M/mm3 (4.6-6.20); Red Cell Distribution Width 15.9 % (11.5-14.5); White Blood Count 12.8 K/mm3 (4.5-10.0)
[2021-02-15 04:59] LABS: INR 1.3; Prothrombin Time 16.6 Seconds (11.1-14.7)
[2021-02-15 05:03] LABS: Alanine Aminotransferase 37 U/L (4-50); Anion Gap 2 mmol/L (8-16); Blood Urea Nitrogen 17 mg/dL (9-20); Calcium 8.1 mg/dL (8.4-10.2); Carbon Dioxide 29 mmol/L (22-30); Chloride 105 mmol/L (98-107); Estimated CRCL calculation 87 ml/min; Estimated Glomerular Filt Rate > 60; Glucose 97 mg/dL (75-110); Sodium 136 mmol/L (137-145)
[2021-02-15 05:44] LABS: Band Neutrophils Percent 1 % (0-6); Lymphocytes Absolute Manual 1.66 K/mm3 (1.1-4.5); Monocytes Absolute Manual 0.38 K/mm3 (0.1-0.90); Monocytes Percent Manual 3 % (3-9); Neutrophils Absolute Manual 10.75 K/mm3 (1.3-6.7); Neutrophils Percent Manual 83 % (46-73); Total Cells Counted 100
[2021-02-15 05:45] LABS: Atypical Lymphocytes Present; Large Platelets Present; Ovalocytes 1+ (NORMAL)
[2021-02-15] MEDS: METOPROLOL TARTRATE 50 MG TAB PO ×2 (08:34→21:14)
[2021-02-15] MEDS: PANTOPRAZOLE 40 MG TABLET PO ×2 (08:34→21:14)
[2021-02-15] MEDS: ATORVASTATIN 40 MG TABLET PO (08:34)
[2021-02-15] MEDS: CELECOXIB 200 MG CAPSULE PO (08:34)
[2021-02-15] MEDS: CYANOCOBALAMIN 1,000 MCG TABLET 1000 MCG PO (08:34)
[2021-02-15] MEDS: TAMSULOSIN HCL 0.4 MG CAPSULE PO (08:34)
[2021-02-15] MEDS: DEXAMETHASONE SOD PHOS INJ 4 MG/ML VIAL 6 MG IV PUSH (08:35)
[2021-02-15] MEDS: ENOXAPARIN 40 MG/0.4 ML SYRINGE SUB-Q ×2 (08:35→21:14)
[2021-02-15] MEDS: BUDESONIDE RESPULE NEB 0.5 MG/2 ML AMP 1 MG INHALATION ×2 (09:19→22:20)
--- NOTE | 2021-02-15 11:08 | PM.PNPUL ---
Progress Note: A&P Assessment and Plan (1) COPD exacerbation: Code(s): J44.1 - Chronic obstructive pulmonary disease with (acute) exacerbation Status: Acute Assessment and Plan: Continue current bronchodilator regimen by nebulization. Wean for oxygen her O2 sats of 92-96%. (2) Pneumonia due to COVID-19 virus: Code(s): U07.1 - COVID-19; J12.82 - Pneumonia due to coronavirus disease 2019 Status: Acute Assessment and Plan: He is clinically improving: continue with dexamethasone for 10 days continue with remdesivir for 10 days (3) Acute and chronic respiratory failure with hypoxia: Code(s): J96.21 - Acute and chronic respiratory failure with hypoxia Status: Acute Subjective Date/time seen: 02/15/21 11:08 Interval history: He appears to be clinically improving. Oxygen demands are weaning. He feels better. Review of Systems Review of Systems: All systems reviewed & are unremarkable except as noted in HPI and below Exam Const: General: cooperative, healthy appearing, comfortable, no acute distress, well developed, alert, awake and Physically active HENMT: Head: normal to inspection, normocephalic and atraumatic Eyes: General: appearance normal, both eyes and all related structures Neck: Neck: trachea midline and supple Resp: Effort & Inspection: normal respiratory effort Auscultation: clear to auscultation bilaterally and diminished lung sounds Cardio: Rate: regular rate Rhythm: regular rhythm Heart sounds: S1 normal heart sound present and S2 normal heart sound present GI: Inspection: normal to inspection Auscultation: normal bowel sounds Skin: General skin exam: no rashes or lesions noted Neuro: General: oriented to person, oriented to place, oriented to time and patient oriented x3 Cognition (Neuro): normal cognition Speech: normal speech Psych: Appearance: grossly normal and well kempt Mental Status: mental status grossly normal Objective Data Vital Signs Vital Signs: Vital Signs - 24 hr 02/14/21 11:54 02/14/21 12:00 02/14/21 14:00 Temperature 36.6 C Pulse Rate 67 65 85 Respiratory Rate 22 H Blood Pressure 106/55 L Pulse Oximetry 97 97 02/14/21 14:19 02/14/21 14:30 02/14/21 16:00 Temperature 36.8 C Pulse Rate 74 74 75 Respiratory Rate 20 20 16 Blood Pressure 102/47 L Pulse Oximetry 94 02/14/21 18:00 02/14/21 20:00 02/14/21 20:27 Temperature 36.1 C L Pulse Rate 84 77 83 Respiratory Rate 20 Blood Pressure 116/58 L Pulse Oximetry 99 02/14/21 20:28 02/14/21 20:45 02/14/21 22:00 Temperature Pulse Rate 76 77 76 Respiratory Rate 20 20 Blood Pressure Pulse Oximetry 99 02/14/21 22:42 02/14/21 23:38 02/15/21 00:00 Temperature 36.2 C L Pulse Rate 64 63 63 Respiratory Rate 23 H 21 H 21 H Blood Pressure 119/67 Pulse Oximetry 98 100 100 02/15/21 01:38 02/15/21 01:39 02/15/21 01:48 Temperature Pulse Rate 58 L 58 L 71 Respiratory Rate 23 H 23 H 22 H Blood Pressure Pulse Oximetry 99 02/15/21 01:52 02/15/21 01:58 02/15/21 03:36 Temperature 36.6 C Pulse Rate 75 70 Respiratory Rate 18 Blood Pressure 120/60 Pulse Oximetry 95 96 02/15/21 03:47 02/15/21 04:00 02/15/21 05:35 Temperature Pulse Rate 70 83 75 Respiratory Rate 18 Blood Pressure Pulse Oximetry 96 02/15/21 08:00 02/15/21 08:34 02/15/21 09:19 Temperature 36.1 C L Pulse Rate 70 80 84 Respiratory Rate 24 H 20 Blood Pressure 138/60 Pulse Oximetry 94 96 02/15/21 09:35 02/15/21 10:00 Temperature Pulse Rate 96 82 Respiratory Rate 20 Blood Pressure Pulse Oximetry Intake/Output Intake/Output: Intake & Output 02/12/21 02/13/21 02/14/21 02/15/21 23:59 23:59 23:59 23:59 Intake Total 1170 3810 4240 Output Total 9961 699 9376 730 Balance -340 2250 1714 -355 Meds/Results Medications: Active Medications Generic Name Dose Route Start Last Admin Tr
--- NOTE | 2021-02-15 12:10 | PC.NURSE ---
This patient, Giuseppe Rosa III, was received from [facility] [place] on 02/15/21 at 1210. Patient/family oriented to unit policies and routines. Report received from Allen HERNANDEZ
--- NOTE | 2021-02-15 14:20 | PM.IMPN ---
Progress Note: A&P Assessment and Plan (1) COPD exacerbation: Code(s): J44.1 - Chronic obstructive pulmonary disease with (acute) exacerbation Status: Acute (2) Pneumonia due to COVID-19 virus: Code(s): U07.1 - COVID-19; J12.82 - Pneumonia due to coronavirus disease 2019 Status: Acute (3) COPD with lower respiratory infection: Code(s): J44.0 - Chronic obstructive pulmonary disease with (acute) lower respiratory infection Status: Acute (4) Acute and chronic respiratory failure with hypoxia: Code(s): J96.21 - Acute and chronic respiratory failure with hypoxia Status: Acute (5) Sepsis: Qualifiers: Sepsis type: sepsis due to unspecified organism Sepsis acute organ dysfunction status: with acute organ dysfunction Severe sepsis acute organ dysfunction type: acute respiratory failure Acute respiratory failure type: with hypoxia Severe sepsis shock status: without septic shock Qualified Code(s): A41.9 - Sepsis, unspecified organism; R65.20 - Severe sepsis without septic shock; J96.01 - Acute respiratory failure with hypoxia Code(s): A41.9 - Sepsis, unspecified organism Status: Acute Additional Plan # Acute on chronic respiratory failure, on home oxygen 2-3 l 24 x7: cxr with bialteral pneumonia, cta with no PE. weaned off NIV. wean oxygen as toelrated. continue albuterol HFA. COVID testing positive. on decadronl and remdesivir. ?convalescent plasma use. he is against it though as he got worse with COVID vaccine Pfizer dose. COntineu remdesivir for 10 days?? # Sepsis: Present on admission with the acute respiratory failure, tachycardia and leukocytosis related to pneumonia. Blood and sputum cultures are pending. Continue IV antibiotics. switched to cef and azithr by pulmoanry. sputum culture with normal oral armando. # Bilateral Pneumonia: CTA of the chest showing no pulmonary emboli but does show extensive bilateral pulmonary infiltrates consistent with extensive bilateral pneumonia. COVID swab positive. Continue albuterol. Continue IV antibiotics. # COPD exacerbation with lower respiratory infection: CT of the chest showing severe bullous emphysema. He obtains his care [facility] with plans for transfer there although patient may want to stay here now. Continue to wean oxygen as he tolerates. pulmoanry consult reviewed. appreciate their recs. # DVT proph: lovenox # hx of pneuonnectomy # HTN: home medications. downgrde, clinically improoved. plan for remdesivir 5 days total, decadron for 10 days. home soon hopefully. Subjective Date/time seen: 02/15/21 14:20 Interval history: 66yo male with chronic respiratory failure, COPD and HTN here for SOB. no overnight events. feeling better. sob is improving. his oxygen needs are lower as well, no fever, chills. Review of Systems Review of Systems: Narrative: - CONSTITUTIONAL: Denies weight loss, fever and chills. - HEENT: Denies changes in vision and hearing - RESPIRATORY: reports SOB and cough. - CV: Denies palpitations and CP. - GI: Denies abdominal pain, nausea, vomiting and diarrhea. - : Denies dysuria and urinary frequency. - MSK: Denies myalgia and joint pain. - SKIN: Denies rash and pruritus. - NEUROLOGICAL: Denies headache and syncope. - PSYCHIATRIC: Denies recent changes in mood. Denies anxiety and depression. All systems reviewed & are unremarkable except as noted in HPI and below Constitutional: Constitutional: Reports fatigue and Reports weakness Neurologic: Reports weakness Endocrine: Endocrine: Reports fatigue Exam Narrative: Exam Narrative: GENERAL: The patient is well developed, not in acute distress, on hiflo oxygen. HEENT: Nonicteric sclerae, PERRLA, EOMI. Oropharynx clear. Moist mucous membranes. Conjunctivae appear well perfused. CHEST: Chest wall is nontender. HEART: Regular rate and rhythm without murmur, rubs, or gallops LUNGS: decreased breath s
[2021-02-15] MEDS: REMDESIVIR 100 MG/NS 250 ML 100 MG/250 ML BAG 250 MG IVPB (20:05)
[2021-02-16] VITALS (18 sets, daily range): BP systolic 102–120; BP diastolic 49–69; PULSE 61–78; RESP 18–24; TEMP 36.2–36.6; O2SAT 90–96
--- NOTE | 2021-02-16 00:46 | PC.NURSE ---
2445: Pt c/o heartburn and says he takes Nexium at home. Reports that he cannot sleep. Dr. Thai Campa notified and aware. Will take care of it.//cr
[2021-02-16] MEDS: CALCIUM CARBONATE (TUMS) 500 MG (200 MG ELEMENTAL) PO ×2 (01:36→20:22)
[2021-02-16] MEDS: ALBUTEROL SULFATE NEB 2.5 MG/0.5 ML INH INHALATION ×4 (02:38→20:43)
[2021-02-16] MEDS: PANTOPRAZOLE 40 MG TABLET PO (08:24)
[2021-02-16] MEDS: METOPROLOL TARTRATE 50 MG TAB PO ×2 (08:24→20:22)
[2021-02-16] MEDS: CELECOXIB 200 MG CAPSULE PO (08:26)
[2021-02-16] MEDS: DEXAMETHASONE SOD PHOS INJ 4 MG/ML VIAL 6 MG IV PUSH (08:26)
[2021-02-16] MEDS: TAMSULOSIN HCL 0.4 MG CAPSULE PO (08:26)
[2021-02-16] MEDS: ATORVASTATIN 40 MG TABLET PO (08:26)
[2021-02-16] MEDS: CYANOCOBALAMIN 1,000 MCG TABLET 1000 MCG PO (08:26)
[2021-02-16] MEDS: ENOXAPARIN 40 MG/0.4 ML SYRINGE SUB-Q ×2 (08:27→20:22)
[2021-02-16] MEDS: BUDESONIDE RESPULE NEB 0.5 MG/2 ML AMP 1 MG INHALATION ×2 (09:17→20:43)
--- NOTE | 2021-02-16 12:41 | PM.PNPUL ---
Progress Note: A&P Assessment and Plan (1) COPD exacerbation: Code(s): J44.1 - Chronic obstructive pulmonary disease with (acute) exacerbation Status: Acute Assessment and Plan: Continue current bronchodilator regimen by nebulization. Wean for oxygen her O2 sats of 92-96%. (2) Pneumonia due to COVID-19 virus: Code(s): U07.1 - COVID-19; J12.82 - Pneumonia due to coronavirus disease 2019 Status: Acute Assessment and Plan: He is clinically improving: continue with dexamethasone for 10 days continue with remdesivir for 10 days (3) Acute and chronic respiratory failure with hypoxia: Code(s): J96.21 - Acute and chronic respiratory failure with hypoxia Status: Acute Subjective Date/time seen: 02/16/21 12:41 Interval history: The patient continues to feel better. BiPAP can be discontinued. he is currently on 5 L of oxygen and his baseline dose is 3-4 L. Review of Systems Review of Systems: All systems reviewed & are unremarkable except as noted in HPI and below Exam Const: General: cooperative, healthy appearing, comfortable, no acute distress, well developed, alert, awake and Physically active HENMT: Head: normal to inspection, normocephalic and atraumatic Eyes: General: appearance normal, both eyes and all related structures Neck: Neck: trachea midline and supple Resp: Effort & Inspection: normal respiratory effort Auscultation: clear to auscultation bilaterally and diminished lung sounds Cardio: Rate: regular rate Rhythm: regular rhythm Heart sounds: S1 normal heart sound present and S2 normal heart sound present GI: Inspection: normal to inspection Auscultation: normal bowel sounds Skin: General skin exam: no rashes or lesions noted Neuro: General: oriented to person, oriented to place, oriented to time and patient oriented x3 Cognition (Neuro): normal cognition Speech: normal speech Psych: Appearance: grossly normal and well kempt Mental Status: mental status grossly normal Objective Data Vital Signs Vital Signs: Vital Signs - 24 hr 02/15/21 14:21 02/15/21 14:31 02/15/21 16:00 Temperature 36.4 C Pulse Rate 72 96 78 Respiratory Rate 20 20 24 H Blood Pressure 101/57 L Pulse Oximetry 92 02/15/21 17:15 02/15/21 20:00 02/15/21 22:21 Temperature 36.4 C Pulse Rate 78 66 Respiratory Rate 18 18 Blood Pressure 114/55 L Pulse Oximetry 90 94 93 02/15/21 22:42 02/16/21 00:00 02/16/21 02:39 Temperature 36.2 C L Pulse Rate 66 64 64 Respiratory Rate 18 18 18 Blood Pressure 119/63 Pulse Oximetry 90 02/16/21 02:50 02/16/21 04:00 02/16/21 08:00 Temperature 36.4 C L 36.4 C Pulse Rate 67 75 75 Respiratory Rate 18 18 24 H Blood Pressure 109/62 115/69 Pulse Oximetry 90 91 02/16/21 08:24 02/16/21 08:25 02/16/21 09:21 Temperature Pulse Rate 76 73 Respiratory Rate 18 Blood Pressure Pulse Oximetry 92 96 02/16/21 09:34 02/16/21 12:00 Temperature 36.4 C Pulse Rate 64 68 Respiratory Rate 18 20 Blood Pressure 111/59 L Pulse Oximetry 96 Intake/Output Intake/Output: Intake & Output 02/13/21 02/14/21 02/15/21 02/16/21 23:59 23:59 23:59 23:59 Intake Total 3810 4240 1810 1040 Output Total 800 2585 1230 Balance 3010 2275 382 9794 Meds/Results Medications: Active Medications Generic Name Dose Route Start Last Admin Trade Name Freq PRN Reason Stop Dose Admin Albuterol 2.5 mg 02/13/21 20:00 02/16/21 09:17 Albuterol Sulfate Neb 2.5 Mg/0.5 Ml Inh INHALATION 2.5 mg Q6HRT LIZET Administration Atorvastatin Calcium 40 mg 02/11/21 09:00 02/16/21 08:26 Atorvastatin 40 Mg Tablet PO 40 mg DAILY LIZET Administration Budesonide 1 mg 02/13/21 09:10 02/16/21 09:17 Budesonide Respule Neb 0.5 Mg/2 Ml Amp INHALATION 1 mg Q12HRT LIZET Administration Calcium Carbonate 200 mg 02/16/21 00:57 02/16/21 01:36 Calcium Carbonate (Tums) 500 Mg (200 Mg Elemental) PO 200
--- NOTE | 2021-02-16 14:04 | PM.IMPN ---
Progress Note: A&P Assessment and Plan (1) COPD exacerbation: Code(s): J44.1 - Chronic obstructive pulmonary disease with (acute) exacerbation Status: Acute (2) Pneumonia due to COVID-19 virus: Code(s): U07.1 - COVID-19; J12.82 - Pneumonia due to coronavirus disease 2019 Status: Acute (3) COPD with lower respiratory infection: Code(s): J44.0 - Chronic obstructive pulmonary disease with (acute) lower respiratory infection Status: Acute (4) Acute and chronic respiratory failure with hypoxia: Code(s): J96.21 - Acute and chronic respiratory failure with hypoxia Status: Acute (5) Sepsis: Qualifiers: Sepsis type: sepsis due to unspecified organism Sepsis acute organ dysfunction status: with acute organ dysfunction Severe sepsis acute organ dysfunction type: acute respiratory failure Acute respiratory failure type: with hypoxia Severe sepsis shock status: without septic shock Qualified Code(s): A41.9 - Sepsis, unspecified organism; R65.20 - Severe sepsis without septic shock; J96.01 - Acute respiratory failure with hypoxia Code(s): A41.9 - Sepsis, unspecified organism Status: Acute Additional Plan # Acute on chronic respiratory failure, on home oxygen 2-3 l 24 x7: cxr with bialteral pneumonia, cta with no PE. weaned off NIV. wean oxygen as toelrated. continue albuterol HFA. COVID testing positive. on decadronl and remdesivir. ?convalescent plasma use. he is against it though as he got worse with COVID vaccine Pfizer dose. COntineu remdesivir for 10 days # Sepsis: Present on admission with the acute respiratory failure, tachycardia and leukocytosis related to pneumonia. Blood and sputum cultures are pending. Continue IV antibiotics. switched to cef and azithr by pulmoanry. sputum culture with normal oral armando. # Bilateral Pneumonia: CTA of the chest showing no pulmonary emboli but does show extensive bilateral pulmonary infiltrates consistent with extensive bilateral pneumonia. COVID swab positive. Continue albuterol. Continue IV antibiotics. # COPD exacerbation with lower respiratory infection: CT of the chest showing severe bullous emphysema. He obtains his care [facility] with plans for transfer there although patient may want to stay here now. Continue to wean oxygen as he tolerates. pulmoanry consult reviewed. appreciate their recs. # DVT proph: lovenox # hx of pneuonnectomy # HTN: home medications. downgrde, clinically improoved. plan for remdesivir 10 days totoal and decadron 10 days total. Subjective Date/time seen: 02/16/21 14:04 Interval history: 66yo male with chronic respiratory failure, COPD and HTN here for SOB. he is working with therapy this am, feeling better, cough and sob on exertion persists, Review of Systems Review of Systems: All systems reviewed & are unremarkable except as noted in HPI and below Constitutional: Constitutional: Reports fatigue and Reports weakness Neurologic: Reports weakness Endocrine: Endocrine: Reports fatigue Exam Narrative: Exam Narrative: GENERAL: The patient is well developed, not in acute distress, on hiflo oxygen. HEENT: Nonicteric sclerae, PERRLA, EOMI. Oropharynx clear. Moist mucous membranes. Conjunctivae appear well perfused. CHEST: Chest wall is nontender. HEART: Regular rate and rhythm without murmur, rubs, or gallops LUNGS: decreased breath sounds, rhonchi presnt, no respiratory distress ABDOMEN: Soft, positive bowel sounds, non-tender, no organomegaly. SKIN: No rash, no excessive bruising, petechiae, or purpura. NEUROLOGIC: Cranial nerves II-XII intact, alert and oriented x 3, no gross motor deficits EXTREMITIES: no edema, cyanosis or clubbing Objective Data Vital Signs Vital Signs: Vital Signs - 24 hr 02/15/21 14:21 02/15/21 14:31 02/15/21 16:00 Temperature 97.6 F Pulse Rate 72 96 78 Respiratory Rate 20 20 24 H Blood Pressure 101/57 L Pulse Oximetry
[2021-02-17] VITALS (17 sets, daily range): BP systolic 95–124; BP diastolic 56–70; PULSE 67–92; RESP 20–24; TEMP 36.3–36.7; O2SAT 92–94
[2021-02-17] MEDS: ALBUTEROL SULFATE NEB 2.5 MG/0.5 ML INH INHALATION ×4 (02:41→20:29)
[2021-02-17] MEDS: TAMSULOSIN HCL 0.4 MG CAPSULE PO (08:47)
[2021-02-17] MEDS: CYANOCOBALAMIN 1,000 MCG TABLET 1000 MCG PO (08:47)
[2021-02-17] MEDS: CELECOXIB 200 MG CAPSULE PO (08:47)
[2021-02-17] MEDS: PANTOPRAZOLE 40 MG TABLET PO (08:47)
[2021-02-17] MEDS: DEXAMETHASONE SOD PHOS INJ 4 MG/ML VIAL 6 MG IV PUSH (08:47)
[2021-02-17] MEDS: METOPROLOL TARTRATE 50 MG TAB PO ×2 (08:48→20:14)
[2021-02-17] MEDS: ATORVASTATIN 40 MG TABLET PO (08:48)
[2021-02-17] MEDS: ENOXAPARIN 40 MG/0.4 ML SYRINGE SUB-Q ×2 (08:52→20:14)
[2021-02-17] MEDS: BUDESONIDE RESPULE NEB 0.5 MG/2 ML AMP 1 MG INHALATION ×2 (09:25→20:29)
[2021-02-17 09:43] LABS: Alanine Aminotransferase 41 U/L (4-50); Estimated CRCL calculation 78 ml/min; Estimated Glomerular Filt Rate > 60
[2021-02-17 09:55] LABS: INR 1.2; Prothrombin Time 15.7 Seconds (11.1-14.7)
[2021-02-17] MEDS: REMDESIVIR 100 MG/NS 250 ML 100 MG/250 ML BAG 250 MG IVPB (12:09)
--- NOTE | 2021-02-17 12:56 | PM.PNPUL ---
Progress Note: A&P Assessment and Plan (1) COPD exacerbation: Code(s): J44.1 - Chronic obstructive pulmonary disease with (acute) exacerbation Status: Acute Assessment and Plan: Continue current bronchodilator regimen by nebulization. Wean for oxygen her O2 sats of 92-96%. (2) Pneumonia due to COVID-19 virus: Code(s): U07.1 - COVID-19; J12.82 - Pneumonia due to coronavirus disease 2019 Status: Acute Assessment and Plan: He is clinically improving: continue with dexamethasone for 10 days continue with remdesivir for 10 days (3) Acute and chronic respiratory failure with hypoxia: Code(s): J96.21 - Acute and chronic respiratory failure with hypoxia Status: Acute Subjective Date/time seen: 02/17/21 12:56 Interval history: Continues to slowly improve. He is starting to ambulate more. Oxygen is at 5 L today. Review of Systems Review of Systems: All systems reviewed & are unremarkable except as noted in HPI and below Exam Const: General: cooperative, healthy appearing, comfortable, no acute distress, well developed, alert, awake and Physically active HENMT: Head: normal to inspection, normocephalic and atraumatic Eyes: General: appearance normal, both eyes and all related structures Neck: Neck: trachea midline and supple Resp: Effort & Inspection: normal respiratory effort Auscultation: clear to auscultation bilaterally and diminished lung sounds Cardio: Rate: regular rate Rhythm: regular rhythm Heart sounds: S1 normal heart sound present and S2 normal heart sound present GI: Inspection: normal to inspection Auscultation: normal bowel sounds Skin: General skin exam: no rashes or lesions noted Neuro: General: oriented to person, oriented to place, oriented to time and patient oriented x3 Cognition (Neuro): normal cognition Speech: normal speech Psych: Appearance: grossly normal and well kempt Mental Status: mental status grossly normal Objective Data Vital Signs Vital Signs: Vital Signs - 24 hr 02/16/21 14:22 02/16/21 14:35 02/16/21 15:59 Temperature 36.6 C Pulse Rate 72 77 78 Pulse Rate [With Activity During Therapy Session] Respiratory Rate 20 20 20 Blood Pressure 120/49 L Pulse Oximetry 91 02/16/21 20:00 02/16/21 20:43 02/16/21 20:54 Temperature 36.6 C Pulse Rate 76 78 75 Pulse Rate [With Activity During Therapy Session] Respiratory Rate 18 18 18 Blood Pressure 113/53 L Pulse Oximetry 92 93 02/16/21 23:45 02/17/21 02:41 02/17/21 02:51 Temperature 36.6 C Pulse Rate 61 73 77 Pulse Rate [With Activity During Therapy Session] Respiratory Rate 18 20 20 Blood Pressure 102/55 L Pulse Oximetry 91 02/17/21 04:00 02/17/21 08:00 02/17/21 08:45 Temperature 36.6 C 36.6 C Pulse Rate 90 69 Pulse Rate [With Activity During Therapy Session] Respiratory Rate 20 24 H Blood Pressure 108/61 118/68 Pulse Oximetry 93 94 93 02/17/21 08:48 02/17/21 08:55 02/17/21 09:40 Temperature Pulse Rate 80 73 Pulse Rate [With Activity During Therapy Session] 92 Respiratory Rate 20 Blood Pressure Pulse Oximetry 93 02/17/21 09:50 02/17/21 12:00 Temperature 36.3 C L Pulse Rate 76 67 Pulse Rate [With Activity During Therapy Session] Respiratory Rate 20 24 H Blood Pressure 95/56 L Pulse Oximetry 94 Intake/Output Intake/Output: Intake & Output 02/14/21 02/15/21 02/16/21 02/17/21 23:59 23:59 23:59 23:59 Intake Total 4240 1810 2130 1170 Output Total 2585 1230 650 700 Balance 6295 193 8939 470 Meds/Results Medications: Active Medications Generic Name Dose Route Start Last Admin Trade Name Freq PRN Reason Stop Dose Admin Albuterol 2.5 mg 02/13/21 20:00 02/17/21 09:25 Albuterol Sulfate Neb 2.5 Mg/0.5 Ml Inh INHALATION 2.5 mg Q6HRT LIZET Administration Atorvastatin Calcium 40 mg 02/11/21 09:00 02/17/21 08:48 Atorvastatin 40 Mg Tablet PO 40 mg DAILY [facility]
--- NOTE | 2021-02-17 13:17 | PM.IMPN ---
Progress Note: A&P Additional Plan # Acute on chronic respiratory failure, on home oxygen 2-3 l 24 x7: cxr with bialteral pneumonia, cta with no PE. weaned off NIV. wean oxygen as toelrated. continue albuterol HFA. COVID testing positive. on decadronl and remdesivir. ?convalescent plasma use. he is against it though as he got worse with COVID vaccine Pfizer dose. COntineu remdesivir for 10 days, fell off from the protocol order. reordered. goes for 5 more days. will stop his azirhromycin today. finished 5 day course. # Sepsis: Present on admission with the acute respiratory failure, tachycardia and leukocytosis related to pneumonia. Blood and sputum cultures are pending. Continue IV antibiotics. switched to cef and azithr by pulmoanry. sputum culture with normal oral armando. # Bilateral Pneumonia: CTA of the chest showing no pulmonary emboli but does show extensive bilateral pulmonary infiltrates consistent with extensive bilateral pneumonia. COVID swab positive. Continue albuterol. Continue IV antibiotics. # COPD exacerbation with lower respiratory infection: CT of the chest showing severe bullous emphysema. He obtains his care [facility] with plans for transfer there although patient may want to stay here now. Continue to wean oxygen as he tolerates. pulmoanry consult reviewed. appreciate their recs. # DVT proph: lovenox # hx of pneuonnectomy # HTN: home medications. downgrde, clinically improoved. plan for remdesivir 10 days totoal and decadron 10 days total. Subjective Date/time seen: 02/17/21 13:17 Interval history: 66yo male with chronic respiratory failure, COPD and HTN here for SOB. he is working with physical therapy and walked in the room. he got sob but this is improving. he is coughing some. no chest pain. Review of Systems Review of Systems: Narrative: - CONSTITUTIONAL: Denies weight loss, fever and chills. - HEENT: Denies changes in vision and hearing - RESPIRATORY: reports SOB and cough. - CV: Denies palpitations and CP. - GI: Denies abdominal pain, nausea, vomiting and diarrhea. - : Denies dysuria and urinary frequency. - MSK: Denies myalgia and joint pain. - SKIN: Denies rash and pruritus. - NEUROLOGICAL: Denies headache and syncope. - PSYCHIATRIC: Denies recent changes in mood. Denies anxiety and depression. All systems reviewed & are unremarkable except as noted in HPI and below Constitutional: Constitutional: Reports fatigue and Reports weakness Neurologic: Reports weakness Endocrine: Endocrine: Reports fatigue Exam Narrative: Exam Narrative: GENERAL: The patient is well developed, not in acute distress, on hiflo oxygen. HEENT: Nonicteric sclerae, PERRLA, EOMI. Oropharynx clear. Moist mucous membranes. Conjunctivae appear well perfused. CHEST: Chest wall is nontender. HEART: Regular rate and rhythm without murmur, rubs, or gallops LUNGS: decreased breath sounds, rhonchi presnt, no respiratory distress ABDOMEN: Soft, positive bowel sounds, non-tender, no organomegaly. SKIN: No rash, no excessive bruising, petechiae, or purpura. NEUROLOGIC: Cranial nerves II-XII intact, alert and oriented x 3, no gross motor deficits EXTREMITIES: no edema, cyanosis or clubbing Objective Data Vital Signs Vital Signs: Vital Signs - 24 hr 02/16/21 14:22 02/16/21 14:35 02/16/21 15:59 Temperature 97.8 F Pulse Rate 72 77 78 Pulse Rate [With Activity During Therapy Session] Respiratory Rate 20 20 20 Blood Pressure 120/49 L Pulse Oximetry 91 02/16/21 20:00 02/16/21 20:43 02/16/21 20:54 Temperature 97.8 F Pulse Rate 76 78 75 Pulse Rate [With Activity During Therapy Session] Respiratory Rate 18 18 18 Blood Pressure 113/53 L Pulse Oximetry 92 93 02/16/21 23:45 02/17/21 02:41 02/17/21 02:51 Temperature 97.8 F Pulse Rate 61 73 77 Pulse Rate [With Activity During Therapy Session] Respiratory Rate 18 20 20 Blood Pressure 102/55 L Pulse Oximetry
[2021-02-17] MEDS: CALCIUM CARBONATE (TUMS) 500 MG (200 MG ELEMENTAL) PO (20:18)
[2021-02-18] VITALS (19 sets, daily range): BP systolic 99–125; BP diastolic 52–63; PULSE 59–80; RESP 16–20; TEMP 36.3–37.2; O2SAT 90–95
[2021-02-18] MEDS: ALBUTEROL SULFATE NEB 2.5 MG/0.5 ML INH INHALATION ×4 (01:25→20:24)
[2021-02-18 06:21] LABS: INR 1.1; Prothrombin Time 15.1 Seconds (11.1-14.7)
[2021-02-18 06:33] LABS: Alanine Aminotransferase 34 U/L (4-50); Estimated CRCL calculation 78 ml/min; Estimated Glomerular Filt Rate > 60
[2021-02-18] MEDS: DEXAMETHASONE SOD PHOS INJ 4 MG/ML VIAL 6 MG IV PUSH (08:13)
[2021-02-18] MEDS: ENOXAPARIN 40 MG/0.4 ML SYRINGE SUB-Q ×2 (08:13→20:39)
[2021-02-18] MEDS: CELECOXIB 200 MG CAPSULE PO (08:14)
[2021-02-18] MEDS: ATORVASTATIN 40 MG TABLET PO (08:14)
[2021-02-18] MEDS: PANTOPRAZOLE 40 MG TABLET PO (08:14)
[2021-02-18] MEDS: TAMSULOSIN HCL 0.4 MG CAPSULE PO (08:14)
[2021-02-18] MEDS: METOPROLOL TARTRATE 50 MG TAB PO ×2 (08:14→20:39)
[2021-02-18] MEDS: CYANOCOBALAMIN 1,000 MCG TABLET 1000 MCG PO (08:14)
[2021-02-18] MEDS: BUDESONIDE RESPULE NEB 0.5 MG/2 ML AMP 1 MG INHALATION ×2 (08:59→20:25)
--- NOTE | 2021-02-18 09:54 | PCNWS ---
Weekly nutritional screen. Patient is tolerating current diet-heart healthy with adequate intake-greater than 75% of meals. No weight loss reported. No nutritional needs at this time.
[2021-02-18] MEDS: REMDESIVIR 100 MG/NS 250 ML 100 MG/250 ML BAG 250 MG IVPB (09:55)
--- NOTE | 2021-02-18 10:04 | PM.PNPUL ---
Progress Note: A&P Assessment and Plan (1) Pneumonia due to COVID-19 virus: Code(s): U07.1 - COVID-19; J12.82 - Pneumonia due to coronavirus disease 2019 Status: Acute Assessment and Plan: Patient improving and now 95% back to normal. On 3 L with 91% and on 3.5 L 92%. He wears 2-3L at home and self adjusts this for his symptoms and activity and 2 l at night. Sputum wiht normal armando and I DC ceftriaxone today (completed 7 days). Agree with remdesivir for total 10 days and dexamethsone 6 mg IV for total of 10 days. Obtain apnea link on 2 L and home O2 assessment prior to discharge to determine oxygen requirements at rest, with ambulation and when sleeps. Obtain CXR prior to discharge to serve as a discharge baseline. Prefers to follow up with his pulmonary doctors at [facility]. Discussed with Dr. Sanders, will sign off, please call with any questions. (2) COPD exacerbation: Code(s): J44.1 - Chronic obstructive pulmonary disease with (acute) exacerbation Status: Acute Assessment and Plan: Home medications are advair 500/50 at 1 puff BID, incruse ellipta 62.5 at 1 puff Qday and albuterol rescue. Currenlty no wheezes on budsonide 1 mg neb Q 12, albuterol 2.5 neb Q 6 and I will add ipratroprium 0.5 mg neb Q 6. Discharge on prior home medicine regimen. Subjective Date/time seen: 02/18/21 10:04 Interval history: Patient continues to improve, states he is 95% better now, saturations on 3 L 91% and on 3.5 L 92%. He wears 2-3L at home and self adjusts this for his symptoms. I DC ceftriaxone today (completed 7 days). Review of Systems Review of Systems: All systems reviewed & are unremarkable except as noted in HPI and below Eyes: Eyes: Reports no additional eye complaints ENT: Reports system reviewed and no additional complaints, except as documented Cardiovascular: Cardiovascular: Reports no additional cardiovascular complaints Respiratory: Respiratory: Reports no additional respiratory complaints Gastrointestinal: Gastrointestinal: Reports no additional gastrointestinal complaints Musculoskeletal: Musculoskeletal: Reports no additional musculoskeletal complaints Integumentary/Breasts: Skin/Breast: Reports system reviewed and no additional complaints, except as docu Neurologic: Reports system reviewed and no additional complaints, except as documented Psychiatric: Psychiatric: Reports no additional psychiatric complaints Endocrine: Endocrine: Reports no additional endocrine complaints Exam Const: General: cooperative and healthy appearing Orientation/consciousness: oriented to person, oriented to place and oriented to time HENMT: Head: normal to inspection Ears: hearing grossly normal bilaterally Mouth: Yes Normal oral and palatal mucosa present Throat: tonsils absent Eyes: General: appearance normal, both eyes and all related structures Neck: Neck: normal visual inspection Chest: Chest palpation & inspection: normal inspection of the chest Resp: Effort & Inspection: normal respiratory effort and able to speak in complete sentences Auscultation: crackles, no rales, no rhonchi, no wheezes and diminished lung sounds (upper) Cardio: Jugular venous distension: no JVD GI: Inspection: normal to inspection Skin: General skin exam: normal color Neuro: General: oriented to person, oriented to place and oriented to time Extrem: General: normal to inspection Psych: Appearance: grossly normal Objective Data Vital Signs Vital Signs: Vital Signs - 24 hr 02/17/21 12:00 02/17/21 14:27 02/17/21 14:46 Temperature 36.3 C L Pulse Rate 67 73 76 Respiratory Rate 24 H 20 20 Blood Pressure 95/56 L Pulse Oximetry 94 02/17/21 15:54 02/17/21 20:00 02/17/21 20:14 Temperature 36.7 C 36.4 C Pulse Rate 83 70 83 Respiratory Rate 24 H 20 Blood Pressure 124/70 110/59 L Pulse Oximetry 94 92 02/17/21 20:29 02/17/21 20:39 02/18/21 00
--- NOTE | 2021-02-18 12:16 | PM.IMPN ---
Progress Note: A&P Additional Plan # Acute on chronic respiratory failure, on home oxygen 2-3 l 24 x7: cxr with bialteral pneumonia, cta with no PE. weaned off NIV. wean oxygen as toelrated. continue albuterol HFA. COVID testing positive. on decadronl and remdesivir. ?convalescent plasma use. he is against it though as he got worse with COVID vaccine Pfizer dose. COntineu remdesivir for 10 days, fell off from the protocol order. reordered. goes for 5 more days. stoped azithromycin 02/17. pulmoanry pans to stop ceftraixone tday finished the 7 days course . # Sepsis: Present on admission with the acute respiratory failure, tachycardia and leukocytosis related to pneumonia. Blood and sputum cultures are pending. Continue IV antibiotics. switched to cef and azithr by pulmoanry. sputum culture with normal oral armando. # Bilateral Pneumonia: CTA of the chest showing no pulmonary emboli but does show extensive bilateral pulmonary infiltrates consistent with extensive bilateral pneumonia. COVID swab positive. Continue albuterol. Continue IV antibiotics. # COPD exacerbation with lower respiratory infection: CT of the chest showing severe bullous emphysema. He obtains his care [facility] with plans for transfer there although patient may want to stay here now. Continue to wean oxygen as he tolerates. pulmoanry consult reviewed. appreciate their recs. # DVT proph: lovenox # hx of pneuonnectomy # HTN: home medications. downgrde, clinically improoved. plan for remdesivir 10 days totoal and decadron 10 days total. apnea link a nigth prior to the discharge. along with home oxgyen evaluation. ordered for 02/20 night, home oxygen eval on 02/20. for planned discharge on 02/21 after finishig his last remdesivir dosing. Subjective Date/time seen: 02/18/21 12:16 Interval history: 66yo male with chronic respiratory failure, COPD and HTN here for SOB. he is feeling better everyday. no nausea, vomitig. sob on exertion. almost back to baseline. no fever, chlls. no chest pain. Review of Systems Review of Systems: Narrative: - CONSTITUTIONAL: Denies weight loss, fever and chills. - HEENT: Denies changes in vision and hearing - RESPIRATORY: repots SOB and cough. - CV: Denies palpitations and CP. - GI: Denies abdominal pain, nausea, vomiting and diarrhea. - : Denies dysuria and urinary frequency. - MSK: Denies myalgia and joint pain. - SKIN: Denies rash and pruritus. - NEUROLOGICAL: Denies headache and syncope. - PSYCHIATRIC: Denies recent changes in mood. Denies anxiety and depression. All systems reviewed & are unremarkable except as noted in HPI and below Constitutional: Constitutional: Reports fatigue and Reports weakness Neurologic: Reports weakness Endocrine: Endocrine: Reports fatigue Exam Narrative: Exam Narrative: GENERAL: The patient is well developed, not in acute distress, on hiflo oxygen. HEENT: Nonicteric sclerae, PERRLA, EOMI. Oropharynx clear. Moist mucous membranes. Conjunctivae appear well perfused. CHEST: Chest wall is nontender. HEART: Regular rate and rhythm without murmur, rubs, or gallops LUNGS: decreased breath sounds, rhonchi presnt, no respiratory distress ABDOMEN: Soft, positive bowel sounds, non-tender, no organomegaly. SKIN: No rash, no excessive bruising, petechiae, or purpura. NEUROLOGIC: Cranial nerves II-XII intact, alert and oriented x 3, no gross motor deficits EXTREMITIES: no edema, cyanosis or clubbing Objective Data Vital Signs Vital Signs: Vital Signs - 24 hr 02/17/21 14:27 02/17/21 14:46 02/17/21 15:54 Temperature 98.0 F Pulse Rate 73 76 83 Respiratory Rate 20 20 24 H Blood Pressure 124/70 Pulse Oximetry 94 02/17/21 20:00 02/17/21 20:14 02/17/21 20:29 Temperature 97.6 F Pulse Rate 70 83 81 Respiratory Rate 20 22 H Blood Pressure 110/59 L Pulse Oximetry 92 93 02/17/21 20:39 02/18/21 00:00 02/18/21 01:25 Temperature 98 F Pulse Rate 80
[2021-02-18] MEDS: IPRATROPIUM BR 0.02% INH SOLN 0.5 MG/2.5 ML VIAL INHALATION ×2 (13:35→20:25)
[2021-02-18] MEDS: CALCIUM CARBONATE (TUMS) 500 MG (200 MG ELEMENTAL) PO (20:43)
[2021-02-19] VITALS (14 sets, daily range): BP systolic 96–122; BP diastolic 46–62; PULSE 57–89; RESP 16–22; TEMP 36.3–36.8; O2SAT 86–95
[2021-02-19] MEDS: ALBUTEROL SULFATE NEB 2.5 MG/0.5 ML INH INHALATION ×4 (02:06→19:59)
[2021-02-19] MEDS: IPRATROPIUM BR 0.02% INH SOLN 0.5 MG/2.5 ML VIAL INHALATION ×4 (02:07→19:59)
[2021-02-19 06:17] LABS: INR 1.2; Prothrombin Time 15.7 Seconds (11.1-14.7)
[2021-02-19 06:25] LABS: Alanine Aminotransferase 32 U/L (4-50); Estimated CRCL calculation 78 ml/min; Estimated Glomerular Filt Rate > 60
[2021-02-19] MEDS: BUDESONIDE RESPULE NEB 0.5 MG/2 ML AMP 1 MG INHALATION ×2 (08:20→19:59)
[2021-02-19] MEDS: ATORVASTATIN 40 MG TABLET PO (09:08)
[2021-02-19] MEDS: CYANOCOBALAMIN 1,000 MCG TABLET 1000 MCG PO (09:08)
[2021-02-19] MEDS: CELECOXIB 200 MG CAPSULE PO (09:08)
[2021-02-19] MEDS: DEXAMETHASONE SOD PHOS INJ 4 MG/ML VIAL 6 MG IV PUSH (09:09)
[2021-02-19] MEDS: PANTOPRAZOLE 40 MG TABLET PO (09:09)
[2021-02-19] MEDS: TAMSULOSIN HCL 0.4 MG CAPSULE PO (09:09)
[2021-02-19] MEDS: REMDESIVIR 100 MG/NS 250 ML 100 MG/250 ML BAG 250 MG IVPB (09:09)
[2021-02-19] MEDS: ENOXAPARIN 40 MG/0.4 ML SYRINGE SUB-Q ×2 (09:09→21:15)
[2021-02-19] MEDS: METOPROLOL TARTRATE 50 MG TAB PO ×2 (09:10→21:14)
--- NOTE | 2021-02-19 15:58 | PM.IMPN ---
Progress Note: A&P Assessment and Plan (1) Acute and chronic respiratory failure with hypoxia: Code(s): J96.21 - Acute and chronic respiratory failure with hypoxia Status: Acute Assessment and Plan: Acute respiratory failure related to COPD exacerbation and COVID pneumonia. Able to be be weaned off the NIV. Also now able to wean down to his 2L O2. Continue nebs. Home O2 evaluation to assess needs when ambulating. Home soon. (2) Sepsis: Qualifiers: Acute respiratory failure type: with hypoxia Sepsis acute organ dysfunction status: with acute organ dysfunction Sepsis type: sepsis due to unspecified organism Severe sepsis acute organ dysfunction type: acute respiratory failure Severe sepsis shock status: without septic shock Qualified Code(s): A41.9 - Sepsis, unspecified organism; R65.20 - Severe sepsis without septic shock; J96.01 - Acute respiratory failure with hypoxia Code(s): A41.9 - Sepsis, unspecified organism Status: Acute Assessment and Plan: Present on admission with the acute respiratory failure, tachycardia and leukocytosis related to COVID pneumonia. Blood and sputum cultures are negative. Symptoms improved. (3) Pneumonia due to COVID-19 virus: Code(s): U07.1 - COVID-19; J12.82 - Pneumonia due to coronavirus disease 2019 Status: Acute Assessment and Plan: CTA of the chest showing no pulmonary emboli but does show extensive bilateral pulmonary infiltrates consistent with extensive bilateral pneumonia. COVID swab positive. Patient is on his 2nd 5 day course of Remdesivir. He is day 8 of dexamethasone. Continue albuterol. (4) COPD with lower respiratory infection: Code(s): J44.0 - Chronic obstructive pulmonary disease with (acute) lower respiratory infection Status: Acute Assessment and Plan: Patient with COPD exacerbation. CT of the chest showing severe bullous emphysema. He obtains his care [facility]. Continue to wean oxygen as he tolerates. Continue steroids and nebulizer treatments as mentioned above. (5) DVT prophylaxis: Code(s): Z29.9 - Encounter for prophylactic measures, unspecified Status: Acute Assessment and Plan: Lovenox Subjective Date/time seen: 02/19/21 15:58 Interval history: 66yo male with chronic respiratory failure, COPD and HTN here for SOB. Resuming care. Chart reviewed. Patient feels well. Shortness of breath is better. He is walking in the room. Cough is improved. Exam Narrative: Exam Narrative: AF 97.3 102/56 80 20 95% Gen - NARD lying semi recumbent in bed Chest -dry inspiratory crackles in the right base otherwise distant breath sounds. Normal respiratory rate. No conversational dyspnea. CV - RRR S1/S2 Abd - Soft, NT/ND, Positive BS Ext - No pedal edema Psych - Nml mood and affect Skin - Warm and dry Objective Data Vital Signs Vital Signs: Vital Signs - 24 hr 02/18/21 16:00 02/18/21 20:00 02/18/21 20:27 Temperature 97.8 F 99.0 F Pulse Rate 60 71 80 Respiratory Rate 16 18 20 Blood Pressure 99/52 L 109/52 L Pulse Oximetry 90 91 91 02/18/21 20:39 02/18/21 23:48 02/19/21 02:10 Temperature 98.1 F Pulse Rate 79 59 L 66 Respiratory Rate 20 20 22 H Blood Pressure 106/59 L Pulse Oximetry 92 02/19/21 02:18 02/19/21 04:00 02/19/21 08:00 Temperature 98.2 F 97.3 F L Pulse Rate 57 L 68 71 Respiratory Rate 20 20 16 Blood Pressure 102/57 L 102/56 L Pulse Oximetry 93 90 02/19/21 08:15 02/19/21 08:20 02/19/21 08:39 Temperature Pulse Rate 75 76 Respiratory Rate 20 20 Blood Pressure Pulse Oximetry 86 L 02/19/21 09:10 02/19/21 09:24 02/19/21 13:51 Temperature Pulse Rate 62 72 Respiratory Rate 20 Blood Pressure Pulse Oximetry 95 02/19/21 14:03 Temperature Pulse Rate 80 Respiratory Rate 20 Blood Pressure Pulse Oximetry Intake/Output Intake/Output: Intake & Output
[2021-02-19] MEDS: CALCIUM CARBONATE (TUMS) 500 MG (200 MG ELEMENTAL) PO (21:14)
[2021-02-19] MEDS: ACETAMINOPHEN 325 MG TABLET 650 MG PO (22:45)
[2021-02-19] MEDS: FAMOTIDINE 20 MG/2 ML VIAL IV PUSH (22:58)
[2021-02-20] VITALS (24 sets, daily range): BP systolic 99–139; BP diastolic 50–98; PULSE 54–96; RESP 16–22; TEMP 36–37; O2SAT 85–93
[2021-02-20] MEDS: IPRATROPIUM BR 0.02% INH SOLN 0.5 MG/2.5 ML VIAL INHALATION ×4 (02:07→20:24)
[2021-02-20] MEDS: ALBUTEROL SULFATE NEB 2.5 MG/0.5 ML INH INHALATION ×4 (02:07→20:24)
[2021-02-20 07:17] LABS: Alanine Aminotransferase 32 U/L (4-50); Estimated CRCL calculation 87 ml/min; Estimated Glomerular Filt Rate > 60
[2021-02-20 07:21] LABS: INR 1.2; Prothrombin Time 15.3 Seconds (11.1-14.7)
[2021-02-20] MEDS: BUDESONIDE RESPULE NEB 0.5 MG/2 ML AMP 1 MG INHALATION ×2 (08:33→20:24)
[2021-02-20] MEDS: CELECOXIB 200 MG CAPSULE PO (09:26)
[2021-02-20] MEDS: PANTOPRAZOLE 40 MG TABLET PO (09:26)
[2021-02-20] MEDS: TAMSULOSIN HCL 0.4 MG CAPSULE PO (09:26)
[2021-02-20] MEDS: CYANOCOBALAMIN 1,000 MCG TABLET 1000 MCG PO (09:26)
[2021-02-20] MEDS: ATORVASTATIN 40 MG TABLET PO (09:26)
[2021-02-20] MEDS: METOPROLOL TARTRATE 50 MG TAB PO ×2 (09:26→21:15)
[2021-02-20] MEDS: DEXAMETHASONE SOD PHOS INJ 4 MG/ML VIAL 6 MG IV PUSH (09:27)
[2021-02-20] MEDS: ENOXAPARIN 40 MG/0.4 ML SYRINGE SUB-Q ×2 (09:27→21:14)
[2021-02-20] MEDS: REMDESIVIR 100 MG/NS 250 ML 100 MG/250 ML BAG 250 MG IVPB (09:27)
--- NOTE | 2021-02-20 09:34 | PCRCNOTE ---
HOME O2 EVAL COMPLETE, 2 LITERS AT REST AND 5 LITERS WITH ACTIVITY. PT'S ALREADY HAS HOME O2. HIS WILL BRING IN HIS PORTABLE CONCENTRATOR.
--- NOTE | 2021-02-20 17:30 | PM.IMPN ---
Progress Note: A&P Assessment and Plan (1) Acute and chronic respiratory failure with hypoxia: Code(s): J96.21 - Acute and chronic respiratory failure with hypoxia Status: Acute Assessment and Plan: Acute respiratory failure related to COPD exacerbation and COVID pneumonia. Able to be be weaned off the NIV. Also now able to wean down to his 2L O2. Home O2 evaluation showing 2L at rest and 5L with activity. Continue nebs. Home tomorrow. (2) Sepsis: Qualifiers: Acute respiratory failure type: with hypoxia Sepsis acute organ dysfunction status: with acute organ dysfunction Sepsis type: sepsis due to unspecified organism Severe sepsis acute organ dysfunction type: acute respiratory failure Severe sepsis shock status: without septic shock Qualified Code(s): A41.9 - Sepsis, unspecified organism; R65.20 - Severe sepsis without septic shock; J96.01 - Acute respiratory failure with hypoxia Code(s): A41.9 - Sepsis, unspecified organism Status: Acute Assessment and Plan: Present on admission with the acute respiratory failure, tachycardia and leukocytosis related to COVID pneumonia. Blood and sputum cultures are negative. Symptoms improved. (3) Pneumonia due to COVID-19 virus: Code(s): U07.1 - COVID-19; J12.82 - Pneumonia due to coronavirus disease 2019 Status: Acute Assessment and Plan: CTA of the chest showing no pulmonary emboli but does show extensive bilateral pulmonary infiltrates consistent with extensive bilateral pneumonia. COVID swab positive. Patient is on his 2nd 5 day course of Remdesivir. He is day 9 of dexamethasone. He will finish dexamethasone and Remdesivir tomorrow. Continue albuterol. (4) COPD with lower respiratory infection: Code(s): J44.0 - Chronic obstructive pulmonary disease with (acute) lower respiratory infection Status: Acute Assessment and Plan: Patient with COPD exacerbation. CT of the chest showing severe bullous emphysema. He obtains his care [facility]. Continue to wean oxygen as he tolerates. Continue steroids and nebulizer treatments as mentioned above. (5) DVT prophylaxis: Code(s): Z29.9 - Encounter for prophylactic measures, unspecified Status: Acute Assessment and Plan: Lovenox Subjective Date/time seen: 02/20/21 17:30 Interval history: 66yo male with chronic respiratory failure, COPD and HTN here for SOB. Feels well. No complaints. Cough better. No CP. Eating okay. GASPAR still present. Feels close to his baseline Exam Narrative: Exam Narrative: AF 96.8 99/50 75 22 90% 2L Gen - NARD Chest - bibasilar inspiratory crackles otherwise distant breath sounds. CV - RRR S1/S2 Abd - Soft, NT/ND, Positive BS Ext - No pedal edema Psych - Nml mood and affect Skin - Warm and dry Objective Data Vital Signs Vital Signs: Vital Signs - 24 hr 02/19/21 20:00 02/19/21 20:15 02/20/21 00:00 Temperature 97.7 F 97.7 F Pulse Rate 62 78 65 Respiratory Rate 22 H 18 20 Blood Pressure 122/62 139/98 H Pulse Oximetry 91 93 02/20/21 02:08 02/20/21 02:16 02/20/21 04:00 Temperature 98.6 F Pulse Rate 66 54 L 70 Respiratory Rate 16 18 20 Blood Pressure 111/54 L Pulse Oximetry 90 02/20/21 08:00 02/20/21 08:30 02/20/21 08:34 Temperature 97.8 F Pulse Rate 63 70 64 Respiratory Rate 20 18 Blood Pressure 114/69 Pulse Oximetry 91 86 L 02/20/21 08:35 02/20/21 08:40 02/20/21 08:45 Temperature Pulse Rate 70 69 90 Respiratory Rate Blood Pressure Pulse Oximetry 88 L 90 85 L 02/20/21 08:50 02/20/21 08:55 02/20/21 09:00 Temperature Pulse Rate 94 96 96 Respiratory Rate Blood Pressure Pulse Oximetry 86 L 88 L 90 02/20/21 09:20 02/20/21 09:23 02/20/21 09:26 Temperature Pulse Rate 65 94 Respiratory Rate Blood Pressure Pulse Oximetry 90 91 02/20/21 13:46 02/20/21 14:00 Temperature 96.8 F L P
[2021-02-20] MEDS: FAMOTIDINE 20 MG/2 ML VIAL IV PUSH (21:15)
[2021-02-21] VITALS (7 sets, daily range): BP systolic 99–105; BP diastolic 55–56; PULSE 62–84; RESP 18–22; TEMP 36.2–36.7; O2SAT 90–96
--- NOTE | 2021-02-21 02:46 | PCRCNOTE ---
apnea study; neb tx was omitted
[2021-02-21 06:24] LABS: INR 1.2; Prothrombin Time 15.3 Seconds (11.1-14.7)
[2021-02-21 06:28] LABS: Alanine Aminotransferase 29 U/L (4-50); Estimated CRCL calculation 87 ml/min; Estimated Glomerular Filt Rate > 60
[2021-02-21] MEDS: ALBUTEROL SULFATE NEB 2.5 MG/0.5 ML INH INHALATION ×2 (07:59→13:44)
[2021-02-21] MEDS: BUDESONIDE RESPULE NEB 0.5 MG/2 ML AMP 1 MG INHALATION (08:00)
[2021-02-21] MEDS: IPRATROPIUM BR 0.02% INH SOLN 0.5 MG/2.5 ML VIAL INHALATION ×2 (08:00→13:44)
[2021-02-21] MEDS: DEXAMETHASONE SOD PHOS INJ 4 MG/ML VIAL 6 MG IV PUSH (08:42)
[2021-02-21] MEDS: FAMOTIDINE 20 MG/2 ML VIAL IV PUSH (08:43)
[2021-02-21] MEDS: ATORVASTATIN 40 MG TABLET PO (08:43)
[2021-02-21] MEDS: ENOXAPARIN 40 MG/0.4 ML SYRINGE SUB-Q (08:43)
[2021-02-21] MEDS: CYANOCOBALAMIN 1,000 MCG TABLET 1000 MCG PO (08:43)
[2021-02-21] MEDS: CELECOXIB 200 MG CAPSULE PO (08:43)
[2021-02-21] MEDS: METOPROLOL TARTRATE 50 MG TAB PO (08:43)
[2021-02-21] MEDS: PANTOPRAZOLE 40 MG TABLET PO (08:44)
[2021-02-21] MEDS: TAMSULOSIN HCL 0.4 MG CAPSULE PO (08:44)
[2021-02-21] MEDS: REMDESIVIR 100 MG/NS 250 ML 100 MG/250 ML BAG 250 MG IVPB (09:55)
--- NOTE | 2021-02-21 11:30 | PM.DS ---
DS: Admitting Diagnosis Admitting Diagnosis Admitting Diagnosis: Shortness of breath DS: Discharge Diagnosis Discharge Diagnosis (1) Acute and chronic respiratory failure with hypoxia: Code(s): J96.21 - Acute and chronic respiratory failure with hypoxia Status: Acute Assessment and Plan: Patient present with acute respiratory failure related to COPD exacerbation and COVID pneumonia. Required NIV but able to be be weaned off the NIV to HFNC. Able to wean down to his 2L O2 nasal cannula. Home O2 evaluation showing 2L at rest and 5L with activity. (2) Sepsis: Qualifiers: Sepsis type: sepsis due to unspecified organism Sepsis acute organ dysfunction status: with acute organ dysfunction Severe sepsis acute organ dysfunction type: acute respiratory failure Acute respiratory failure type: with hypoxia Severe sepsis shock status: without septic shock Qualified Code(s): A41.9 - Sepsis, unspecified organism; R65.20 - Severe sepsis without septic shock; J96.01 - Acute respiratory failure with hypoxia Code(s): A41.9 - Sepsis, unspecified organism Status: Acute Assessment and Plan: Present on admission with the acute respiratory failure, tachycardia and leukocytosis related to COVID pneumonia. Blood and sputum cultures are negative. Symptoms improved. (3) Pneumonia due to COVID-19 virus: Code(s): U07.1 - COVID-19; J12.82 - Pneumonia due to coronavirus disease 2018 Status: Acute Assessment and Plan: CTA of the chest showing no pulmonary emboli but does show extensive bilateral pulmonary infiltrates consistent with extensive bilateral pneumonia. COVID swab positive on 02/10. Patient completed a 10 day course of Remdesivir and of dexamethasone. He has had clinical improvement. (4) COPD with lower respiratory infection: Code(s): J44.0 - Chronic obstructive pulmonary disease with (acute) lower respiratory infection Status: Acute Assessment and Plan: Patient with COPD exacerbation. CT of the chest showing severe bullous emphysema. He obtains his care at [facility]. We were able to wean oxygen as he tolerates. Treatments as mentioned above. DS: Summary Hospital Course Reason for hospitalization: 66yo male with chronic respiratory failure and COPD here for acute respiratory failure from COPD exacerbation and COVID PNA. Please see H&P for details. Hospital Course: Please see above for details of hospital course. Status at Discharge Cognitive/behavioral status at discharge: Stable Time Spent with Patient Time attestation: Total time spent providing and/or coordinating discharge services: 34 minutes Time spent: Greater than 30 minutes Exam Narrative: Exam Narrative: AF 97.2 105/55 80 20 93% 2L Gen - NARD Chest - bibasilar inspiratory dry crackles otherwise distant breath sounds. Normal respiratory rate. No conversational dyspnea CV - RRR S1/S2 Abd - Soft, NT/ND, Positive BS Ext - No pedal edema Psych - Nml mood and affect Skin - Warm and dry DS: Data Data Completed and Pending Labs on day of discharge: Labs from last 24 hours 02/21/21 02/21/21 05:52 05:52 PT 15.3 H INR 1.2 Creatinine 0.80 Estim Creat Clear Calc 87 Estimated GFR > 60 ALT 29 Discharge Plan Discharge Attending physician on discharge: Nigel Morocho Consulting providers: Esdras Luis Discharging Clinician: Nigel Morocho Anticipated Discharge Date/Time: 02/21/21 11:37 Patient Disposition: Home, Self-Care Activity: as tolerated Diet: heart healthy Discharge Instructions: Please avoid large gathering, wear face coverings in public and practice social distance. Stay in a separate room from other household members if possible. Uses separate bathroom if possible Avoid contact with other members of the household and pets. Do not share personal household items like cups, towels continue tonsils.
== END 2021-02-21 14:40 | disposition home or self-care (01) | DRG 871 ==
LOC: ANHED 18:17 → ANHIMU 23:23 → ANH3MEDSUR 02-15 11:53
PROVIDERS: Internal Medicine; Admitting Provider Internal Medicine; Emergency Provider Emergency Medicine; PCP Physician Assistant; Visit Provider Internal Medicine Pulmonary Disease
DX: A41.89 Other specified sepsis (principal); U07.1 COVID-19; J12.82 Pneumonia due to coronavirus disease 2019; J96.21 Acute and chronic respiratory failure with hypoxia; R65.20 Severe sepsis without septic shock; J43.9 Emphysema, unspecified; K21.9 Gastro-esophageal reflux disease without esophagitis; N40.0 Benign prostatic hyperplasia without lower urinary tract symptoms; E78.5 Hyperlipidemia, unspecified; I10 Essential (primary) hypertension; Z87.891 Personal history of nicotine dependence; Z99.81 Dependence on supplemental oxygen
CPT/HCPCS: 36415; 36600; 71045; 71275; 80048; 80053; 82565; 82728; 82805; 83615; 83735; 83880; 84460; 84484; 85025; 85027; 85380; 85610; 85730; 86140; 87040; 87070; 87205; 87449; 87804; 87899; 93005; 94002; 94003; 94618; 94640; 94660; 94762; 96365; 96366; 96375; 97162; 97165; 99285; A9270; C9803; G0378; J0456; J0696; J1100; J1650; J1956; J2543; J2920; J2930; Q9967; U0003; U0005

== ENCOUNTER 2021-04-01 12:56 | Inpatient (IN) | payer MEDICARE, MEDICAID, SELFPAY ==
[2021-04-01] VITALS (16 sets, daily range): BP systolic 119–145; BP diastolic 68–87; PULSE 67–92; RESP 16–35; TEMP 36.8; O2SAT 92–100; BMI 24.8
--- NOTE | ~2021-04-01 | XR_ITS ---
EXAMINATION: XR chest 1V portable DATE: 04/01/2021 15:34 INDICATION: Dyspnea TECHNIQUE: frontal view of the chest was obtained. COMPARISON: Chest radiograph dated 02/18/[address] dated 04/01/2021 FINDINGS: Emphysema with severe bullous changes at the bilateral apices and paramediastinal upper lungs. Airspa ce opacities throughout the remainder of the lungs consistent with pneumonia, pulmonary edema, organi zing pneumonia or some combination thereof. Small right and tiny left pleural effusions are better ap preciated on prior CT. No pneumothorax. Cardiomegaly. IMPRESSION: 1. Diffuse bilateral lung disease which could represent pneumonia, pulmonary edema, organizing pneumo giacomo or some combination thereof. 2. Small right and tiny left pleural effusions. 3. Severe bullous emphysema with upper lung predominance. 4. Cardiomegaly. Reviewed, dictated and finalized at location A. IMPRESSION: 1. Diffuse bilateral lung disease which could represent pneumonia, pulmonary ed jesus alberto, organizing pneumonia or some combination thereof. 2. Small right and tiny left pleural effusions. 3. Severe bullous emphysema with upper lung predominance. 4. Cardiomegaly.
--- NOTE | ~2021-04-01 | XR_ITS ---
EXAMINATION: XR chest 1V portable EXAM DATE: 04/03/2021 05:15 INDICATION: Pneumonia . COVID pneumonia in January. TECHNIQUE: Portable AP frontal chest x-ray was obtained. Comparison is made to prior examination from 04/02/2021. FINDINGS: Diffuse bilateral airspace disease with sparing of the upper lung zones probably due to bul lous disease. Appearance most consistent with pneumonia. Edema also possible. The cardiomediastinal s ilhouette is prominent but magnified on this AP technique. There is no pneumothorax suspected. There are no pleural effusions. There are mild bony degenerative changes. IMPRESSION: Diffuse bilateral pneumonia unchanged. Reviewed, dictated and finalized at location A.
--- NOTE | ~2021-04-01 | CT_ITS ---
EXAMINATION: CTA chest PE protocol DATE: 04/01/2021 15:30 INDICATION: Shortness of breath. COVID-19 positive on 02/10/21. TECHNIQUE: Computed tomography angiography (CTA) of the chest was performed with 100 mL Omnipaque-350 intravenous contrast timed to evaluate the pulmonary arteries. Coronal maximum intensity projection 3D-reconstructions were created by the technologist. Automated exposure control and iterative reconst ruction technique were employed. The dose-length product was 483.64 mGy-cm. COMPARISON: Chest CT 02/10/2021 FINDINGS: There is severe emphysema. There is a staple line at left lung apex. There are groundglass and airspace opacities and septal thickening involving all lobes. There are small bilateral pleural e ffusions. The heart size is normal. No pericardial effusion. There is no pulmonary embolus. There is mild thoracic spondylosis. There is a compression fracture of T3 with less than 1/5 loss of height. IMPRESSION: 1. No pulmonary embolus. 2. Worsened diffuse lung disease, consistent with COVID-19 pneumonia superimposed on severe emphysema . 3. Worsened small pleural effusions. Reviewed, dictated and finalized at location A. IMPRESSION: 1. No pulmonary embolus. 2. Worsened diffuse lung disease, consistent with COVID-19 pneumonia superimpos ed on severe emphysema. 3. Worsened small pleural effusions.
--- NOTE | ~2021-04-01 | XR_ITS ---
EXAMINATION: XR chest 1V portable EXAM DATE: 04/02/2021 05:26 INDICATION: Respiratory failure . COVID pneumonia in January. TECHNIQUE: Portable AP frontal chest x-ray was obtained. Comparison is made to prior examination from 04/01/2021. FINDINGS: Diffuse bilateral airspace disease with sparing of the upper lung zones probably due to bul lous disease. Appearance most consistent with pneumonia. Edema also possible. The cardiomediastinal s ilhouette is prominent but magnified on this AP technique. There is no pneumothorax suspected. There are no pleural effusions. There are mild bony degenerative changes. IMPRESSION: Diffuse bilateral pneumonia unchanged compared to yesterday. Reviewed, dictated and finalized at location A.
--- NOTE | 2021-04-01 13:07 | ECG_ITS ---
Measurements Intervals Sandy Rate: 88 P: AL: 0 QRS: -21 QRSD: 97 T: 40 QT: 345 QTc: 418 Interpretive Statements SINUS RHYTHM ATRIAL PREMATURE COMPLEXES DELAYED PRECORDIAL R/S TRANSITION BASELINE ARTIFACT- I, II, III, AVL, AVF, V1, V3, V5-V6 ABNORMAL ECG Electronically Signed On 04-01-2021 21:03:11 CDT by Vinod Villa D.O.
--- NOTE | 2021-04-01 13:34 | ED.SOB ---
HPI - SOB/Dyspnea General Chief Complaint: Shortness of Breath/Dyspnea Stated Complaint: SOB Time Seen by Provider: 04/01/21 13:19 Source: patient and family Mode of arrival: ambulatory Limitations: no limitations History of Present Illness HPI Narrative: Patient is a 66-year-old male with a history of chronic respiratory failure, COPD and recent Covid pneumonia in January who presents for evaluation of shortness of breath. Patient was recently hospitalized at [facility], discharged home March 22 for COPD exacerbation. Patient was doing well at home over the past week when his dyspnea and oxygen requirement began to increase over the past 48 hours. Patient denies fever, chills, chest pain. He reports increased shortness of breath despite albuterol treatments at home. No current antibiotic or steroids. In the past, patient is followed at this facility and with pulmonology. Patient was diagnosed with Covid February 10 after his first vaccination. He was hospitalized at this facility for 12 days but did not require intubation. Patient oxygen saturation 76% on 8L via nasal cannula at the time of assessment. Patient was placed on BiPAP due to respiratory distress. Patient otherwise is awake and alert. Related Data Home Medications Medication Instructions Recorded Confirmed Incruse Ellipta 1 inh INHALATION DAILY 02/10/21 02/11/21 albuterol sulfate 2 puff INHALATION PRN PRN 02/10/21 02/11/21 atorvastatin 40 mg PO DAILY 02/10/21 02/11/21 celecoxib 200 mg PO DAILY 02/10/21 02/11/21 cyanocobalamin (vitamin B-12) 1,000 mcg PO DAILY 02/10/21 02/11/21 fluticasone propion-salmeterol 1 inh INHALATION BID 02/10/21 02/11/21 [Advair Diskus] metoprolol tartrate 50 mg PO BID 02/10/21 02/11/21 omeprazole 40 mg PO DAILY 02/10/21 02/11/21 tamsulosin 0.4 mg PO DAILY 02/10/21 02/11/21 Allergies Allergy/AdvReac Type Severity Reaction Status Date / Time No Known Allergies Allergy Verified 02/10/21 14:46 Review of Systems Review of Systems: ROS unobtainable: Yes unobtainable due to medical condition PMFSH Past Medical History Medical History Chronic respiratory failure with hypoxia, on home O2 therapy COPD with emphysema Essential hypertension GERD (gastroesophageal reflux disease) History of BPH Hyperlipidemia Surgical History Surgical History History of pneumonectomy Left upper lobe History of right inguinal hernia repair Family History Family History Other Unknown family medical history Social History Social History Social History: The patient is originally from [facility]. He and his moved in with her daughter December 2019 when his lost her job due to the COVID-19 pandemic. He is a former smoker who smoked 3 packs of cigarettes per day for 42 years. He quit smoking in approximately 2012. He denies any alcohol use or illicit substance use. 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 Code status: Full code Surrogate decision maker: Rosa Maria () Smoking packs per day: 3 Smoking cigarettes per day: 60.0 Years smoked: 42 Smoking pack-years: 126.00 Smoking status: Former smoker Tobacco type: cigarettes Alcohol intake: never Substance use: never Substance use type: does not use Gender identity (if verbalized by the patient): Male Spiritual care concerns: No Exam Narrative: Exam Narrative: GENERAL: Awake, alert, conversant HEAD: Normocephalic, atraumatic. EYES: PERRLA and EOMI. ENT: Nares clear, no rhinorrhea or epistaxis. Mucous membranes moist. NECK: Supple. CHEST: Respiratory distress, tachypneic, hypoxic oxygen saturations 77% on room air
[2021-04-01] MEDS: ALBUTEROL SULFATE NEB 2.5 MG/0.5 ML INH 20 MG INHALATION (13:54)
[2021-04-01] MEDS: IPRATROPIUM BR 0.02% INH SOLN 0.5 MG/2.5 ML VIAL 2 MG INHALATION (13:54)
[2021-04-01] MEDS: methylPREDNISolone SOD SUCC 125 MG VIAL IV PUSH (14:05)
[2021-04-01] MEDS: SODIUM CHLORIDE 0.9% IV 1,000 ML 999 ML IV CONT (14:05)
[2021-04-01 14:09] LABS: Alveolar/Arterial O2 Gradient 342.6 mmHg; Base Excess ABG 1.7 mEq/l (+/-2.0); Carboxyhemoglobin 0.8 % THb (0-2.0); Fractional Inspired Oxygen 70 %; HCO3 ABG 26.2 mEq/l (22.0-26.0); Methemoglobin ABG 0.3 %THb (0-1.5); Oxygen Content ABG 20.2 %vol (16.0-22.0); Oxygen Saturation ABG 98.2 % (95.0-100.0); Oxyhemoglobin 96.7 % THb (90.0-100.0); PCO2 ABG 40.7 mmHg (35.0-45.0); PO2 ABG 112.8 mmHg (80.0-100.0); PO2 FiO2 Ratio Arterial Blood 1.61 %; Reduced Hemoglobin 2.2 %THb (0-5.0); Total Hemoglobin 14.8 g/dL (12.0-18.0); pH ABG 7.426 (7.350-7.450)
[2021-04-01 14:10] LABS: Device NON-INVASIVE VENT; Non-Invasive Expiratory Pressure 8 CMH2O; Non-Invasive Inspiratory Pressure 14 CMH2O; Non-Invasive Vent Rate 16 /MIN; Site Drawn LEFT BRACHIAL
[2021-04-01] MEDS: MAGNESIUM SULF 2 GM/WATER 50ML 2 GM/50 ML BAG IVPB (14:10)
[2021-04-01 15:00] LABS: Basophils Absolute Auto 0.1 K/mm3 (0.0-0.1); Basophils Percent Auto 0.5 % (0.2-1.2); Eosinophils Absolute Auto 0.2 K/mm3 (0-0.3); Eosinophils Percent Auto 1.6 % (0-4.4); Hematocrit 46.5 % (42.0-52.0); Hemoglobin 14.1 g/dL (14.0-18.0); Immature Granulocyte Absolute 0.33 K/mm3 (0.00-0.031); Lymphocytes Absolute Auto 2.47 K/mm3 (0.9-3.2); Lymphocytes Percent Auto 22.6 % (18.3-44.2); Mean Corpuscular HGB Conc 30.3 g/dl (32-36); Mean Corpuscular Hemoglobin 27.8 pg (26-34); Mean Corpuscular Volume 91.7 fl (80-100); Monocytes Absolute Auto 0.9 K/mm3 (0.1-0.6); Monocytes Percent Auto 7.9 % (2.6-8.5); Neutrophils Percent Auto 64.4 % (45.5-73.1); Platelet Count Result 330 k/mm3 (150-375); Red Blood Count 5.07 M/mm3 (4.6-6.20); Red Cell Distribution Width 18.8 % (11.5-14.5); White Blood Count 10.9 K/mm3 (4.5-10.0)
[2021-04-01 15:09] LABS: Alanine Aminotransferase 12 U/L (4-50); Albumin Level 3.2 g/dL (3.5-5.1); Alkaline Phosphatase 85 U/L (38-126); Anion Gap 6 mmol/L (8-16); Aspartate Amino Transferase 17 U/L (17-59); Bilirubin,Total 0.5 mg/dL (0.2-1.3); Blood Urea Nitrogen 9 mg/dL (9-20); Calcium 8.8 mg/dL (8.4-10.2); Carbon Dioxide 29 mmol/L (22-30); Chloride 104 mmol/L (98-107); Estimated CRCL calculation 80 ml/min; Estimated Glomerular Filt Rate > 60; Glucose 106 mg/dL (75-110); Potassium 3.9 mmol/L (3.4-5.0); Sodium 139 mmol/L (137-145)
[2021-04-01 16:49] LABS: NT Pro B Type Natriuretic Pept 647 pg/mL (5-100)
--- NOTE | 2021-04-01 19:30 | PC.NURSE ---
report received from DAVID Andersen.
--- NOTE | 2021-04-01 20:04 | ADMGEN ---
This patient, Giuseppe Rosa III, was admitted to IMU Room 214-01 at 1957. Patient/family oriented to hospital policies and general routines including ID bracelet, bed and alarms, visiting hours, pain management, procedures, bathroom and other care routines, personal items, smoking policy, room service/diet, and visiting hours. Information on how to activate the Rapid Response Team has been discussed. Patient/Family are encouraged to report perceived risks to care and to ask questions if they do not understand what they are told or what they should do.
--- NOTE | 2021-04-01 20:28 | PM.IMHP ---
H&P: HPI History of Present Illness Date/Time: 04/01/21 20:28 Chief Complaint: Shortness of breath Narrative: 66-year-old male with past medical history of COPD, prior left upper lobe pneumonectomy, and chronic hypoxic respiratory failure who presented to the ER with shortness of breath. The patient was diagnosed with COVID pneumonia in January 2021. He was hospitalized for couple of weeks at [facility] and discharged home for 4-5 days. He subsequently was rehospitalized for 2 weeks at [facility]. He was just discharged from the hospital 5 days ago. Since he was discharged from the hospital he has had progressive worsening shortness of breath. He reports that while he was in the hospital he was on high-flow nasal cannula. Was discharged home he was discharged back home on normal nasal cannula. His baseline home O2 requirement prior to his recent hospitalization was 3 L nasal cannula. After his most recent hospitalization he was discharged on 6 L nasal cannula. On arrival to the hospital today the patient was up to 8 L nasal cannula and satting 74%. He was and placed on 15 L non-rebreather with sats improving 85%. The patient reports that he he is okay as long as he is at rest and is not in any distress. Once he tries to exert himself in a way such as using the urinal or trying to ambulate to the bathroom he developed severe respiratory distress. He reports that he is becomes profoundly weak with the least bit of exertion. He has not had any chest pain. He denies any increased cough or congestion. He has not had any recent fevers or chills. He has not noticed any orthopnea or paroxysmal nocturnal dyspnea. He denies any lower extremity edema. He was placed on BiPAP 14/8 with 70% FiO2 backup rate of 16. His ABG was unremarkable except for an elevated PO2 of 116. He received a continuous nebulizer treatment, IV Solu-Medrol and antibiotic therapy with cefepime and vancomycin in the ER. Review of Systems Review of Systems: Narrative: 12 systems were reviewed with pertinent positives and negatives per HPI. Except as documented in the HPI, all other systems were reviewed and are negative. [facility] Past Medical History Medical History (Updated 04/01/21 @ 20:33 by Kristin Barroso DO) Chronic respiratory failure with hypoxia, on home O2 therapy COPD with emphysema Essential hypertension GERD (gastroesophageal reflux disease) History of BPH Hyperlipidemia Pneumonia due to COVID-19 virus (01/2021) Surgical History Surgical History History of pneumonectomy Left upper lobe History of right inguinal hernia repair Family History Family History Father Heart problem Social History Social History Social History: The patient is originally from [facility]. He and his moved in with her daughter December 2019 when his lost her job due to the COVID-19 pandemic. He is a former smoker who smoked 3 packs of cigarettes per day for 42 years. He quit smoking in approximately 2012. He denies any alcohol use or illicit substance use. He used to work on the [employer] for approximately 17 years before he had a back injury. 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 Code status: Full code Surrogate decision maker: Rosa Maria () Smoking packs per day: 2.5 Smoking cigarettes per day: 50.0 Years smoked: 50 Smoking pack-years: 125.00 Smoking status: Former smoker Tobacco type: cigarettes Alcohol intake: never Substance use: never Substance use type: does not use Gender identity (if verbalized by the patient): Male Spiritual care concerns: No Meds Home Medications and Allergies Home Medications Medication Instructions Recorded Confirmed Type Incruse Ellipta 1 inh INHALATION DAILY 02/10/21 04/01/21
[2021-04-01] MEDS: methylPREDNISolone SOD SUCC 125 MG VIAL 60 MG IV PUSH (20:33)
[2021-04-02] VITALS (27 sets, daily range): BP systolic 109–135; BP diastolic 51–88; PULSE 67–97; RESP 12–28; TEMP 36.1–36.8; O2SAT 88–97
[2021-04-02] MEDS: ALBUTEROL SULFATE NEB 2.5 MG/0.5 ML INH 5 MG INHALATION ×2 (02:35→10:23)
[2021-04-02] MEDS: IPRATROPIUM BR 0.02% INH SOLN 0.5 MG/2.5 ML VIAL INHALATION ×4 (02:35→22:28)
[2021-04-02] MEDS: TAMSULOSIN HCL 0.4 MG CAPSULE PO ×2 (03:16→20:39)
[2021-04-02] MEDS: methylPREDNISolone SOD SUCC 125 MG VIAL 60 MG IV PUSH ×5 (03:17→23:48)
[2021-04-02] MEDS: ATORVASTATIN 40 MG TABLET PO ×2 (03:17→20:39)
[2021-04-02] MEDS: PANTOPRAZOLE 40 MG TABLET PO ×3 (03:17→20:39)
[2021-04-02] MEDS: METOPROLOL TARTRATE 50 MG TAB PO ×3 (03:17→20:39)
[2021-04-02 04:51] LABS: Hematocrit 40.5 % (42.0-52.0); Hemoglobin 12.6 g/dL (14.0-18.0); Mean Corpuscular HGB Conc 31.1 g/dl (32-36); Mean Corpuscular Hemoglobin 27.5 pg (26-34); Mean Corpuscular Volume 88.2 fl (80-100); Mean Platelet Volume 9.5 fl (7.4-10.4); Platelet Count Result 347 k/mm3 (150-375); Red Blood Count 4.59 M/mm3 (4.6-6.20); Red Cell Distribution Width 18.1 % (11.5-14.5); White Blood Count 7.9 K/mm3 (4.5-10.0)
[2021-04-02 05:05] LABS: Anion Gap 6 mmol/L (8-16); Blood Urea Nitrogen 13 mg/dL (9-20); Calcium 8.6 mg/dL (8.4-10.2); Carbon Dioxide 26 mmol/L (22-30); Chloride 103 mmol/L (98-107); Estimated CRCL calculation 98 ml/min; Estimated Glomerular Filt Rate > 60; Glucose 201 mg/dL (75-110); Potassium 4.4 mmol/L (3.4-5.0); Sodium 135 mmol/L (137-145)
[2021-04-02] MEDS: UMECLIDINIUM BROMIDE 62.5 MCG ELLIPTA 1 PUFF INHALATION (09:26)
[2021-04-02] MEDS: CYANOCOBALAMIN 1,000 MCG TABLET 1000 MCG PO (09:27)
[2021-04-02] MEDS: CELECOXIB 200 MG CAPSULE PO (09:27)
[2021-04-02] MEDS: ENOXAPARIN 40 MG/0.4 ML SYRINGE SUB-Q (09:27)
[2021-04-02] MEDS: FLUTICASONE/SALMETEROL 230-21 MCG INHALER 1 PUFF 2 PUFF INHALATION ×2 (10:23→22:29)
--- NOTE | 2021-04-02 11:08 | PM.CNPUL ---
Assessment and Plan Assessment and plan (1) Pneumonia due to COVID-19 virus: Onset Date: 01/2021 Code(s): U07.1 - COVID-19; J12.82 - Pneumonia due to coronavirus disease 2019 Status: Inactive Assessment and Plan: Patient has a history of COVID pneumonia diagnosed on 02/10/2021 status post treatment with 10 days of Remdesivir and dexamethasone. Initially his chest x-ray showed minimal improvement on 02/18. Since that time patient has been admitted to [facility] for approximately 12 days receiving a course of steroids and was discharged on 5 L nasal cannula oxygen and 8 with activity. After he finished this course of steroids patient again deteriorated and now presents with hypoxemic respiratory failure and worsening interstitial alveolar infiltrates. He denies fever, chills, phlegm production. 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 This has been described in the literature (Annals ATS Volume 18, number 5, February 2021). I agree with empirical treatment with steroids and at this time given his severe hypoxemic respiratory failure agree with Solu-Medrol 60 mg IV q.6. I agree with empirically treating the patient with vancomycin, ceftriaxone and azithromycin for possible healthcare associated bacterial pneumonia. I will order blood cultures today. Patient has no wheezing on exam is today. I will continue albuterol and ipratropium nebulizers q.4 hours today. I will order an echocardiogram with a bubble study to exclude alternative causes for his hypoxemic respiratory failure. Regarding his hypoxemic respiratory failure I agree with high-flow nasal cannula to maintain saturations between 90-94%. Patient was empirically placed on CPAP last night but if he has increased work of breathing or hypoxemic respiratory failure I would favor BiPAP with initial settings 12/5 and 100% FiO2. Will follow with you. History of Present Illness History of Present Illness Consult date: 04/02/21 Requesting physician: Mackenzie Colbert PA-C Reason for consult: hypoxemia Chief complaint: Hypoxic Respiratory Failure,COPD Exacerbation,Pneu Narrative: This is a new pulmonary consult for hypoxemic respiratory failure. Patient with a history of COPD, history of pneumonia in 2018, history of collapsed left lung in 2019 treated at [facility] with a left upper lobectomy and talc pleurodesis after chest tube did not resolve the issue. Patient had been maintained on 2 L home O2 18/05 and is followed at [facility] on triple inhalers. Patient was discharged from [facility] in the spring of this year and then received his 1st COVID vaccination. Patient states that a few days after this he developed a respiratory illness and was admitted to [facility] from [phone] and received 10 days of rum de severe and dexamethasone for COVID pneumonia with hypoxemia. Patient was initially treated with BiPAP and high-flow nasal cannula oxygen and ultimately discharged on 3 L nasal cannula and said that he felt 95-100% normal he was walking around his house and had no issues. Patient states approximately 5 days after he was discharged from [facility] that he developed worsening shortness of breath a minimal dry cough and again had hypoxemic respiratory failure. The ambulance could not bring him to our hospital and took him to [facility]. The patient states that he was admitted to [facility] approximately 12-13 days and treated with steroids and oxygen. Patient did slowly get better and was discharged on 03/22 with 5 L of oxygen at rest and 8 L with activity. Patient was discharged with 2 days of oral steroids which he finished on 03/24. Patient states that since 03/24 he has been getting continually worse at home. He denied any fever, chills, phlegm production, hemoptysis. Patient at times would have desaturation stations at rest on 5 L into
--- NOTE | 2021-04-02 12:12 | ECHO_ITS ---
Patient Info Name: Giuseppe Rosa Age: 66 years : 1955 Gender: Male Ht: 72 in Wt: 181 lbs BSA: 2.05 m2 HR: 88 bpm BP: 110 / 51 mmHg Heart Rhythm: Sinus Rhythm Technical Quality: Fair Exam Date: 04/02/2021 2:44 PM Exam Location: [facility] Patient Status: Inpatient Admit Date: 04/01/2021 Staff Ordering Physician: Jimmie Ray MD Senior Label Specialist: Sandrine Celestin RDCS Attending Provider: Mackenzie Colbert PA-C Referring Physician: Cory MAI; Exam Type: CA echo dop bubble study w con Study Info Indications - HYPOXIA, ASSESS FOR PFO Complete two-dimentional, color flow and Doppler transthoracic echocardiogram is performed with agitated saline and with contrast to opacify the left ventricle and to improve the delineation of the left ventricle endocardial borders. Contrast/Agitated Saline Contrast/Ag. Saline: Agitated Saline Amount: 30.00 ml Administered By: Ching Dunn RN Existing IV Access: Yes Contrast/Ag. Saline: Definity Amount: 1.00 ml Administered By: Ching Dunn RN Existing IV Access: Yes Summary 1. Left ventricular systolic function is normal, estimated at 60-65%. 2. There is no increased left ventricular wall thickness. 3. The left ventricular diastolic function is grade I diastolic dysfunction. 4. Right ventricular chamber dimension is mildly enlarged. 5. Right ventricular systolic function is normal. 6. Right atrial chamber dimension is mildly enlarged. 7. There is trace mitral valve regurgitation. 8. There is mild tricuspid valve regurgitation. 9. Severe pulmonary hypertension, estimated pulmonary arterial systolic pressure is 72 mmHg. 10. Evidence of right to left interatrial shunt on bubble study seen with Valsalva only suggestive of patent foramen ovale. Left Ventricle Left ventricular chamber dimension is normal. Left ventricular systolic function is normal, estimated at 60-65%. There is no increased left ventricular wall thickness. The left ventricular diastolic function is grade I diastolic dysfunction. Right Ventricle Right ventricular chamber dimension is mildly enlarged. Right ventricular systolic function is normal. Left Atria Left atrial chamber dimension is normal. Right Atria Right atrial chamber dimension is mildly enlarged. Atrial Septum Evidence of right to left interatrial shunt on bubble study seen with Valsalva only suggestive of patent foramen ovale. Aortic Valve The aortic valve is trileaflet. There is no aortic valve stenosis. There is no aortic valve regurgitation. Pulmonic Valve The pulmonic valve is not well visualized. Mitral Valve The mitral valve has normal leaflets. There is trace mitral valve regurgitation. The mitral valve annulus is mildly calcified. Tricuspid Valve The tricuspid valve leaflets are normal. There is mild tricuspid valve regurgitation. Severe pulmonary hypertension, estimated pulmonary arterial systolic pressure is 72 mmHg. Pericardium/Pleural The pericardium appears normal. There is trivial pericardial effusion. Inferior Vena Cava Normal inferior vena cava with >50% collapse upon inspiration consistent with normal right atrial pressure, 5 mmHg. Aorta The aortic root size at the sinus of Valsalva is normal. Left Ventricular Outflow Tract Name
--- NOTE | 2021-04-02 13:12 | PM.IMPN ---
Progress Note: A&P Assessment and Plan (1) [id number] condition: Code(s): B94.8 - Sequelae of other specified infectious and parasitic diseases Status: Acute Assessment and Plan: Pt was diagnosed with COVID 02/10/21 and has not been able to fully recover with multiple hospital stays and o2 requirement -CTA showed no PE but did show worsen diffuse lung disease consistent with COVID superimposed on severe emphysema with worsened small pleural effusions -Pt now on high flow o2 and doing okay -Vanc, ceftriaxone and azithromcyin started to cover for post-viral bacterial PNA -Continue steroids 60mg Q6 -Pt was hospitalized at [place] and given steroids and abx as well. 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 (2) COPD with lower respiratory infection: Code(s): J44.0 - Chronic obstructive pulmonary disease with (acute) lower respiratory infection Status: Acute Assessment and Plan: As above -Continue solu-medrol, ipratropium, advair, and albuterol (3) Acute and chronic respiratory failure with hypoxia: Code(s): J96.21 - Acute and chronic respiratory failure with hypoxia Status: Acute Assessment and Plan: Continue O2 to keep sats >90 (4) Hyperglycemia: Code(s): R73.9 - Hyperglycemia, unspecified Status: Acute Assessment and Plan: Last glucose 201 likely due to steroids -obtain A1c in the morning -Continue with daily glucose checks at this time (5) Pneumonia: Qualifiers: Laterality: bilateral Lung location: unspecified part of lung Pneumonia type: due to unspecified organism Qualified Code(s): J18.9 - Pneumonia, unspecified organism Code(s): J18.9 - Pneumonia, unspecified organism Status: Acute Assessment and Plan: as above (6) Compression fracture: Status: Acute Assessment and Plan: New T3 compression fracture when compared to 02/10/21 -Pt denies hx of falls and has no back pain -will need bone scan outpt Time Spent With Patient Time with patient: 25 - 35 minutes Subjective Date/time seen: 04/02/21 13:12 Interval history: Pt is a 6-year-old male here for pneumonia. Patient was seen today and states his shortness of breath at rest is a bit better. He still feels short of breath with any movement or talking. He denies chest pain, nausea, vomiting, fevers, diarrhea, constipation or leg swelling. He started coughing today and is coughing up white sputum. He has been in and out of the hospital for months and is not improving. He was last in [place] and received steroids as well as antibiotics. at bedside during exam. Review of Systems Review of Systems: All systems reviewed & are unremarkable except as noted in HPI and below Exam Narrative: Exam Narrative: General: Well developed well nourished patient in NAD on high-flow oxygen HEENT: normocephalic Neck: supple Neuro: Alert and oriented x4 CV:RRR. Telemetry showing occasional PACs Resp: Decreased breath sounds bilaterally with mild crackles. No conversational dyspnea. Abd: Soft, non distended. No pain to palpation. Positive bowel sounds Extremities: No swelling, erythema, or pain to palpation. Objective Data Vital Signs Vital Signs: Vital Signs - 24 hr 04/01/21 13:16 04/01/21 14:02 04/01/21 15:01 Temperature 98.2 F Pulse Rate 81 74 71 Respiratory Rate 16 24 H 22 H Blood Pressure 119/77 Pulse Oximetry 98 04/01/21 15:03 04/01/21 15:45 04/01/21 17:48 Temperature Pulse Rate 67 70 81 Respiratory Rate 32 H 21 H 27 H Blood Pressure 135/87 Pulse Oximetry 98 100 98 04/01/21 18:01 04/01/21 19:57 04/01/21 20:06 Temperature 98.3 F Pulse Rate 82 88 87 Respiratory Rate 18 35 H Blood Pressure 133/81 145/68 H Pulse Oximetry 99 98 04/01/21 20:30 04/01/21 20:46 04/01/21 21:00 [place]
[2021-04-02] MEDS: ALBUTEROL SULFATE NEB 2.5 MG/0.5 ML INH INHALATION ×2 (14:49→22:28)
[2021-04-02] MEDS: PERFLUTREN LIPID MICROSPHERES 1.5 ML VIAL DILUTED TO 10 ML TOTAL VOLUME IV PUSH (15:49)
[2021-04-02] MEDS: SACCHAROMYCES BOULARDII 250 MG CAPSULE PO (18:26)
[2021-04-03] VITALS (34 sets, daily range): BP systolic 106–113; BP diastolic 50–57; PULSE 57–89; RESP 20–22; TEMP 36–36.6; O2SAT 93–99
[2021-04-03] MEDS: ALBUTEROL SULFATE NEB 2.5 MG/0.5 ML INH INHALATION ×4 (02:07→19:21)
[2021-04-03] MEDS: IPRATROPIUM BR 0.02% INH SOLN 0.5 MG/2.5 ML VIAL INHALATION ×4 (02:07→19:21)
[2021-04-03 03:23] LABS: Hematocrit 42.1 % (42.0-52.0); Hemoglobin 12.8 g/dL (14.0-18.0); Mean Corpuscular HGB Conc 30.4 g/dl (32-36); Mean Corpuscular Hemoglobin 27.8 pg (26-34); Mean Corpuscular Volume 91.3 fl (80-100); Mean Platelet Volume 9.4 fl (7.4-10.4); Platelet Count Result 357 k/mm3 (150-375); Red Blood Count 4.61 M/mm3 (4.6-6.20); Red Cell Distribution Width 18.6 % (11.5-14.5); White Blood Count 17.6 K/mm3 (4.5-10.0)
[2021-04-03 03:45] LABS: Anion Gap 9 mmol/L (8-16); Blood Urea Nitrogen 12 mg/dL (9-20); Calcium 8.9 mg/dL (8.4-10.2); Carbon Dioxide 24 mmol/L (22-30); Chloride 104 mmol/L (98-107); Estimated CRCL calculation 87 ml/min; Estimated Glomerular Filt Rate > 60; Glucose 216 mg/dL (75-110); Potassium 4.8 mmol/L (3.4-5.0); Sodium 137 mmol/L (137-145)
[2021-04-03 03:56] LABS: Hemoglobin A1C 6.1 % (<5.7)
[2021-04-03] MEDS: methylPREDNISolone SOD SUCC 125 MG VIAL 60 MG IV PUSH ×3 (05:45→17:10)
[2021-04-03] MEDS: ENOXAPARIN 40 MG/0.4 ML SYRINGE SUB-Q (08:00)
[2021-04-03] MEDS: PANTOPRAZOLE 40 MG TABLET PO ×2 (08:01→21:21)
[2021-04-03] MEDS: SACCHAROMYCES BOULARDII 250 MG CAPSULE PO ×3 (08:01→17:11)
[2021-04-03] MEDS: METOPROLOL TARTRATE 50 MG TAB PO ×2 (08:01→21:21)
[2021-04-03] MEDS: CYANOCOBALAMIN 1,000 MCG TABLET 1000 MCG PO (08:02)
[2021-04-03] MEDS: CELECOXIB 200 MG CAPSULE PO (09:13)
[2021-04-03] MEDS: FLUTICASONE/SALMETEROL 230-21 MCG INHALER 1 PUFF 2 PUFF INHALATION ×2 (09:26→19:23)
--- NOTE | 2021-04-03 11:08 | PM.IMPN ---
Progress Note: A&P Assessment and Plan (1) [id number] condition: Code(s): B94.8 - Sequelae of other specified infectious and parasitic diseases Status: Acute Assessment and Plan: Pt was diagnosed with COVID 02/10/21 and has not been able to fully recover with multiple hospital stays and o2 requirement -CTA showed no PE but did show worsen diffuse lung disease consistent with COVID superimposed on severe emphysema with worsened small pleural effusions -Pt now on high flow o2 and doing okay, will wean o2 as tolerated -Vanc, ceftriaxone and azithromcyin will be continued to cover for post-viral bacterial PNA. will monitor for worsening diarrhea. -Continue steroids 60mg Q6 -Pt was hospitalized at [place] and given steroids and abx as well. 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 guarded halfway prognosis. -leukocytosis likely due to steroids (2) COPD with lower respiratory infection: Code(s): J44.0 - Chronic obstructive pulmonary disease with (acute) lower respiratory infection Status: Acute Assessment and Plan: As above -Continue solu-medrol, ipratropium, advair, and albuterol (3) Acute and chronic respiratory failure with hypoxia: Code(s): J96.21 - Acute and chronic respiratory failure with hypoxia Status: Acute Assessment and Plan: Continue O2 to keep sats >90 (4) Hyperglycemia: Code(s): R73.9 - Hyperglycemia, unspecified Status: Acute Assessment and Plan: Last glucose 216 likely due to steroids -A1c 6.1--glucose worse with steroids -Continue with daily glucose checks at this time (5) Pneumonia: Qualifiers: Laterality: bilateral Lung location: unspecified part of lung Pneumonia type: due to unspecified organism Qualified Code(s): J18.9 - Pneumonia, unspecified organism Code(s): J18.9 - Pneumonia, unspecified organism Status: Acute Assessment and Plan: as above (6) Compression fracture: Status: Acute Assessment and Plan: New T3 compression fracture when compared to 02/10/21 -Pt denies hx of falls and has no back pain -will need bone scan outpt Subjective Date/time seen: 04/03/21 11:08 Interval history: Pt is a 66-year-old male here for pneumonia. Patient was seen today and states his shortness of breath at rest is a bit better but still feels very SOB with any movement. He is occasionally coughing up sputum. He denies chest pain, nausea, vomiting, fevers, constipation or leg swelling. He had one loose bm today. He has been in and out of the hospital for months and is not improving. He was last in [place] and received steroids as well as antibiotics. Exam Narrative: Exam Narrative: General: Well developed well nourished patient in NAD on high-flow oxygen HEENT: normocephalic Neck: supple Neuro: Alert and oriented x4 CV:RRR. Telemetry showing occasional PACs Resp: Decreased breath sounds bilaterally with mild crackles. No conversational dyspnea. Abd: Soft, non distended. No pain to palpation. Positive bowel sounds Extremities: No swelling, erythema, or pain to palpation. Objective Data Vital Signs Vital Signs: Vital Signs - 24 hr 04/02/21 12:00 04/02/21 14:00 04/02/21 14:49 Temperature 98.3 F Pulse Rate 91 96 89 Respiratory Rate 12 18 Blood Pressure 110/51 L Pulse Oximetry 94 04/02/21 14:57 04/02/21 16:00 04/02/21 16:48 Temperature 98.3 F Pulse Rate 88 97 Respiratory Rate 18 24 H Blood Pressure 135/88 Pulse Oximetry 88 L 91 04/02/21 18:00 04/02/21 20:00 04/02/21 20:39 Temperature 97.6 F Pulse Rate 94 88 94 Respiratory Rate 18 Blood Pressure 123/55 L Pulse Oximetry 95 04/02/21 22:00 04/02/21 22:28 04/02/21 22:32 Temperature Pulse Rate 88 80 Respiratory Rate 22 H Blood Pressure Pulse Oximetry 96
--- NOTE | 2021-04-03 17:44 | PM.PNPUL ---
Progress Note: A&P Assessment and Plan (1) Pneumonia due to COVID-19 virus: Onset Date: 01/2021 Code(s): U07.1 - COVID-19; J12.82 - Pneumonia due to coronavirus disease 2019 Status: Inactive Assessment and Plan: Patient has a history of COVID pneumonia diagnosed on 02/10/2021 status post treatment with 10 days of Remdesivir and dexamethasone. Initially his chest x-ray showed minimal improvement on 02/18. Since that time patient has been admitted to [facility] for approximately 12 days receiving a course of steroids and was discharged on 5 L nasal cannula oxygen and 8 with activity. After he finished this course of steroids patient again deteriorated and now presents with hypoxemic respiratory failure and worsening interstitial alveolar infiltrates. He denies fever, chills, phlegm production. WBC is higher, 17 from 10 K. 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 This has been described in the literature (Annals ATS Volume 18, number 5, February 2021). I agree with empirical treatment with steroids and at this time given his severe hypoxemic respiratory failure agree with Solu-Medrol 60 mg IV q.6. Treatment currently is empirically vancomycin, ceftriaxone and azithromycin for possible healthcare associated bacterial pneumonia. There is no wheezing, and albuterol and ipratropium nebulizers q.4 hours is ordered as wheezing can come and go. Echo with bubble study is negative, so no intracardiac shunt. Continue high-flow nasal cannula to maintain saturations between 90-94%. He has required empiric CPAP at night, and BiPAP BiPAP with initial settings 12/5 and 100% FiO2 might be an option if this happens again. Subjective Date/time seen: 04/03/21 17:44 Patient with a history of COPD, history of pneumonia in 2018, history of collapsed left lung in 2019 treated at [place] with a left upper lobectomy and talc pleurodesis after chest tube did not resolve the issue. Patient had been maintained on 2 L home O2 18/05 and is followed at [facility] on triple inhalers. Patient was discharged from [facility] in spring, later had his first COVID vaccination, and a few days later, he developed a respiratory illness and was admitted to [facility] from 02/10-02/21 with 10 days of Remdesivir and dexamethasone for COVID pneumonia with hypoxemia; treated with BiPAP and high-flow nasal cannula oxygen, discharged on 3 L nasal cannula feeling 95-100% normal. He was walking around his house and had no issues. Approximately 5 days after he was discharged from [facility], he developed worsening shortness of breath a minimal dry cough and again had hypoxemic respiratory failure. The ambulance could not bring him to our hospital and took him to [facility] [place]. The patient states that he was admitted to [facility] [place] approximately 12-13 days and treated with steroids and oxygen. Patient did slowly get better and was discharged on 03/22 with 5 L of oxygen at rest and 8 L with activity. Patient was discharged with 2 days of oral steroids which he finished on 03/24. Patient states that since 03/24 he has been getting continually worse at home. He denied any fever, chills, phlegm production, hemoptysis. Patient at times would have desaturation stations at rest on 5 L into the 80 percentile range. With ambulation on 8 L his saturations got 50% on 04/01 and his daughter brought him to the emergency room. On 04/01 in the emergency room patient was afebrile and had a white blood cell count of 10.9, a CT angiogram of the chest demonstrated no pulmonary embolism, severe upper lobe panlobular emphysema and worsening interstitial and alveolar infiltrates throughout both lungs compared to his CT scan from 02/10/2021. Patient was treated with BiPAP and had a blood gas on 08/06, 70% FiO2 of 7.42/41 / 112. patient
[2021-04-03] MEDS: TAMSULOSIN HCL 0.4 MG CAPSULE PO (21:21)
[2021-04-03] MEDS: ATORVASTATIN 40 MG TABLET PO (21:21)
[2021-04-04] VITALS (28 sets, daily range): BP systolic 110–117; BP diastolic 51–58; PULSE 49–100; RESP 18–22; TEMP 36.1–36.6; O2SAT 88–98
[2021-04-04] MEDS: methylPREDNISolone SOD SUCC 125 MG VIAL 60 MG IV PUSH ×5 (00:13→23:26)
[2021-04-04] MEDS: ALBUTEROL SULFATE NEB 2.5 MG/0.5 ML INH INHALATION ×4 (02:34→22:06)
[2021-04-04] MEDS: IPRATROPIUM BR 0.02% INH SOLN 0.5 MG/2.5 ML VIAL INHALATION ×4 (02:34→22:06)
[2021-04-04 05:32] LABS: Basophils Percent Auto 0.2 % (0.2-1.2); Hematocrit 37.8 % (42.0-52.0); Hemoglobin 11.8 g/dL (14.0-18.0); Immature Granulocyte Absolute 0.23 K/mm3 (0.00-0.031); Immature Granulocyte Percent A 1.4 % (0-0.5); Lymphocytes Absolute Auto 0.87 K/mm3 (0.9-3.2); Lymphocytes Percent Auto 5.3 % (18.3-44.2); Mean Corpuscular HGB Conc 31.2 g/dl (32-36); Mean Corpuscular Volume 89.8 fl (80-100); Mean Platelet Volume 10.5 fl (7.4-10.4); Monocytes Absolute Auto 0.8 K/mm3 (0.1-0.6); Monocytes Percent Auto 4.7 % (2.6-8.5); Neutrophils Absolute Auto 14.5 K/mm3 (1.3-6.7); Neutrophils Percent Auto 88.4 % (45.5-73.1); Platelet Count Result 312 k/mm3 (150-375); Red Blood Count 4.21 M/mm3 (4.6-6.20); Red Cell Distribution Width 18.6 % (11.5-14.5); White Blood Count 16.4 K/mm3 (4.5-10.0)
[2021-04-04 05:42] LABS: Anion Gap 5 mmol/L (8-16); Blood Urea Nitrogen 14 mg/dL (9-20); Carbon Dioxide 26 mmol/L (22-30); Chloride 104 mmol/L (98-107); Estimated CRCL calculation 98 ml/min; Estimated Glomerular Filt Rate > 60; Glucose 158 mg/dL (75-110); Potassium 4.9 mmol/L (3.4-5.0); Sodium 135 mmol/L (137-145)
[2021-04-04] MEDS: FLUTICASONE/SALMETEROL 230-21 MCG INHALER 1 PUFF 2 PUFF INHALATION ×2 (08:49→22:07)
[2021-04-04] MEDS: CELECOXIB 200 MG CAPSULE PO (09:31)
[2021-04-04] MEDS: SACCHAROMYCES BOULARDII 250 MG CAPSULE PO ×3 (09:31→17:18)
[2021-04-04] MEDS: CYANOCOBALAMIN 1,000 MCG TABLET 1000 MCG PO (09:31)
[2021-04-04] MEDS: ENOXAPARIN 40 MG/0.4 ML SYRINGE SUB-Q (09:32)
[2021-04-04] MEDS: METOPROLOL TARTRATE 50 MG TAB PO ×2 (09:32→20:56)
[2021-04-04] MEDS: PANTOPRAZOLE 40 MG TABLET PO ×2 (09:32→20:56)
--- NOTE | 2021-04-04 12:16 | WPDINFPN2 ---
Progress Note: A&P Assessment and Plan (1) [id number] condition: Code(s): B94.8 - Sequelae of other specified infectious and parasitic diseases Status: Acute Assessment and Plan: Dyspnea and lung infiltrates, very likely as a non infectious sequela of his SARS-CoV2 infection in January (so I agree with Dr. Chase) REC MRSA nasal screen, stop Vancomycin if negative. For potential of bacterial superinfection, otherwise continue antibacterials until AM 6/13. Call if Qs. Subjective Date/time seen: 04/04/21 12:16 Objective Data Vital Signs Vital Signs: Vital Signs - 24 hr 04/03/21 12:20 04/03/21 14:00 04/03/21 14:48 Temperature 36.1 C L Pulse Rate 75 62 Respiratory Rate 22 H Blood Pressure 113/55 L Pulse Oximetry 97 98 04/03/21 14:49 04/03/21 15:01 04/03/21 15:24 Temperature Pulse Rate 83 78 Respiratory Rate 20 20 Blood Pressure Pulse Oximetry 95 04/03/21 16:00 04/03/21 17:24 04/03/21 18:00 Temperature 36.0 C L Pulse Rate 66 57 L 75 Respiratory Rate 21 H Blood Pressure 108/57 L Pulse Oximetry 97 96 04/03/21 19:23 04/03/21 19:35 04/03/21 20:00 Temperature 36.2 C L Pulse Rate 79 84 80 Respiratory Rate 20 20 20 Blood Pressure 111/50 L Pulse Oximetry 94 95 04/03/21 21:21 04/03/21 22:00 04/03/21 23:51 Temperature 36.3 C L Pulse Rate 82 70 74 Respiratory Rate 20 Blood Pressure 106/53 L Pulse Oximetry 96 04/04/21 00:00 04/04/21 02:00 04/04/21 02:34 Temperature Pulse Rate 72 52 L 60 Respiratory Rate 18 Blood Pressure Pulse Oximetry 95 04/04/21 02:36 04/04/21 02:43 04/04/21 04:00 Temperature 36.6 C Pulse Rate 67 52 L Respiratory Rate 18 22 H Blood Pressure 110/52 L Pulse Oximetry 95 98 04/04/21 06:00 04/04/21 08:00 04/04/21 08:49 Temperature 36.5 C Pulse Rate 49 L 76 85 Respiratory Rate 20 18 Blood Pressure 117/51 L Pulse Oximetry 98 92 04/04/21 09:01 04/04/21 09:17 04/04/21 09:32 Temperature Pulse Rate 87 76 Respiratory Rate 18 Blood Pressure Pulse Oximetry 88 L Intake/Output Intake/Output: Intake & Output 04/01/21 04/02/21 04/03/21 04/04/21 23:59 23:59 23:59 23:59 Intake Total 1350 1820 1820 1270 Output Total 450 600 500 Balance 1350 1370 1220 770 Meds/Results Medications: Active Medications Generic Name Dose Route Start Last Admin Trade Name Freq PRN Reason Stop Dose Admin Acetaminophen 650 mg 04/01/21 15:50 Acetaminophen 325 Mg Tablet PO Q4H PRN Mild Pain (1-3) or Fever Albuterol 2.5 mg 04/02/21 14:00 04/04/21 08:49 Albuterol Sulfate Neb 2.5 Mg/0.5 Ml Inh INHALATION 2.5 mg Q6HRT LIZET Administration Atorvastatin Calcium 40 mg 04/01/21 21:00 04/03/21 21:21 Atorvastatin 40 Mg Tablet PO 40 mg HS LIZET Administration Celecoxib 200 mg 04/02/21 09:00 04/04/21 09:31 Celecoxib 200 Mg Capsule PO 200 mg DAILY LIZET Administration Cyanocobalamin 1,000 mcg 04/02/21 09:00 04/04/21 09:31 Cyanocobalamin 1,000 Mcg Tablet PO 1,000 mcg DAILY LIZET Administration Enoxaparin Sodium 40 mg 04/02/21 09:00 04/04/21 09:32 Enoxaparin 40 Mg/0.4 Ml Syringe SUB-Q 40 mg DAILY LIZET Administration Hydrocortisone 1 applic 04/01/21 22:57 Hydrocortisone (Proctozone-Hc) 2.5% Cream 30 Gm Tube TOPICAL QID PRN Hemorrhoids Vancomycin HCl 1,250 mg in 250 mls @ 200 mls/hr 04/02/21 04:00 04/04/21 05:40 Vancomycin 1,250 Mg/D5w 250 Ml IVPB Infused Q12H LIZET Infusion Ceftriaxone Sodium/Dextrose 1 gm in 50 mls @ 100 mls/hr 04/02/21 13:30 04/03/21 13:56 Rocephin 1 Gm/D5w 50 Ml IVPB Infused Q24H LIZET Infusion Azithromycin 500 mg in 250 mls @ 250 mls/hr 04/03/21 13:30 04/03/21 15:04 Zithromax IVPB Infused Q24H LIZET Infusion Ipratropium [place] 0.5 mg 04/01/21 20:00 04/04/21 08:49 Ipratropium Br 0.02% Inh Soln 0.5 Mg/2.5 Ml Vial INHALATION 0.5 mg Q6HRT LIZET Administration Meth
--- NOTE | 2021-04-04 14:52 | PM.IMPN ---
Progress Note: A&P Assessment and Plan (1) [id number] condition: Code(s): B94.8 - Sequelae of other specified infectious and parasitic diseases Status: Acute Assessment and Plan: Pt was diagnosed with COVID 02/10/21 and has not been able to fully recover with multiple hospital stays and o2 requirement -CTA showed no PE but did show worsen diffuse lung disease consistent with COVID superimposed on severe emphysema with worsened small pleural effusions -Pt now on high flow o2 and doing okay, will wean o2 as tolerated -Vanc, ceftriaxone and azithromcyin will be continued to cover for post-viral bacterial PNA. will monitor for worsening diarrhea (he has had 3 today that are soft). -Continue steroids 60mg Q6 -Pt was hospitalized at [place] and given steroids and abx as well. The records are not complete but it looks like he got vanc and cefepime during his stay there and then transitioned to levofloxacin at discharge. 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 -leukocytosis likely due to steroids. diarrhea likely due to abx and cdiff felt to be less likely as he has no abdominal pain and is having soft stools. (2) COPD with lower respiratory infection: Code(s): J44.0 - Chronic obstructive pulmonary disease with (acute) lower respiratory infection Status: Acute Assessment and Plan: As above -Continue solu-medrol, ipratropium, advair, and albuterol (3) Acute and chronic respiratory failure with hypoxia: Code(s): J96.21 - Acute and chronic respiratory failure with hypoxia Status: Acute Assessment and Plan: Continue O2 to keep sats >88 (4) Hyperglycemia: Code(s): R73.9 - Hyperglycemia, unspecified Status: Acute Assessment and Plan: Last glucose 158 likely due to steroids -A1c 6.1--glucose worse with steroids -Continue with daily glucose checks at this time (5) Pneumonia: Qualifiers: Laterality: bilateral Lung location: unspecified part of lung Pneumonia type: due to unspecified organism Qualified Code(s): J18.9 - Pneumonia, unspecified organism Code(s): J18.9 - Pneumonia, unspecified organism Status: Acute Assessment and Plan: as above (6) Compression fracture: Status: Acute Assessment and Plan: New T3 compression fracture when compared to 02/10/21 -Pt denies hx of falls and has no back pain -will need bone scan outpt Subjective Date/time seen: 04/04/21 14:52 Interval history: Pt is a 66-year-old male here for post-COVID pneumonia. Patient was seen today and states his shortness of breath is unchanged. He still feels okay at rest with his high flow o2 but anytime he moves he feels very SOB. He has been going to the commode just a few steps from his bed but thats about it. He is occasionally coughing up sputum. He denies chest pain, nausea, vomiting, fevers, constipation or leg swelling. He had 3 loose BMs today but states this happens with abx at times. I told him to let us know if it worsens. Exam Narrative: Exam Narrative: General: Well developed well nourished patient in NAD on high-flow oxygen HEENT: normocephalic Neck: supple Neuro: Alert and oriented x4 CV:RRR. Telemetry showing occasional PACs Resp: Decreased breath sounds bilaterally (worse in the left lung) with mild crackles. No conversational dyspnea. Abd: Soft, non distended. No pain to palpation. Positive bowel sounds Extremities: No swelling, erythema, or pain to palpation. Objective Data Vital Signs Vital Signs: Vital Signs - 24 hr 04/03/21 15:01 04/03/21 15:24 04/03/21 16:00 Temperature Pulse Rate 78 66 Respiratory Rate 20 Blood Pressure Pulse Oximetry 95 97 04/03/21 17:24 04/03/21 18:00 04/03/21 19:23 Temperature 96.8 F L Pulse Rate 57 L 75 79 Respiratory Rate 21 H 20
--- NOTE | 2021-04-04 17:14 | CONS_ITS ---
DATE OF CONSULTATION: 04/04/2021 REASON FOR CONSULTATION: Lung infiltrates and dyspnea. HISTORY OF PRESENT ILLNESS: 66-year-old male who was previously a heavy smoker, 2 packs per day for 50 years and has now quit. He has had previous left upper lobe lobectomy and also talc pleurodesis on the left side. He is on multiple inhalers and home O2 for COPD and respiratory insufficiency. He was here in January shortly after receiving initial Moderna vaccination and was found to have active coronavirus infection. He was given remdesivir and dexamethasone. He required readmission at [place] shortly after discharge for respiratory insufficiency, was there for an additional 2 weeks approximately. Since then, he has been on high rate of O2 at 5 to 8 L depending upon his exertion. He presented back to the hospital here on April 01 with recurrent and worsened shortness of breath. X-ray was again abnormal. He has been given vancomycin, ceftriaxone and azithromycin, and consultation requested today. He has also been seen by Dr. Chase and Dr. Ray. He has had no new exposures. He has had no sputum production. He has minimal to no cough. No chest pain. No fever, chills, sweats, nausea, vomiting. ALLERGIES: NONE KNOWN. HABITS: See above. No alcohol. No illicit drugs. PRESENT MEDICATIONS: He is on steroids since arrival, not chronically. PAST MEDICAL HISTORY: In addition to the above, inguinal hernia repair, BPH, GERD, hypertension. FAMILY HISTORY: Not pertinent to his present illness. SOCIAL HISTORY: He is retired, . No family at the bedside. REVIEW OF SYSTEMS: 14-point review otherwise negative. PHYSICAL EXAMINATION: GENERAL: This is a middle-aged male who appears older than his actual age, in mild respiratory distress. VITAL SIGNS: Afebrile since arrival, 113/58, 51, 18, 98% on supplemental O2. SKIN: No rashes. Warm and dry. Normal turgor. EENT: The conjunctivae appear clear. The oral mucosa is well hydrated. Teeth in good repair. NECK: No masses, thyromegaly, or meningismus. LUNGS: Dry rales throughout the lung caceres, more prominent on the right. He has no egophony, no fremitus change. Hyperresonant to percussion. CARDIAC: Soft S1, S2. Bradycardic, regular. No murmurs. No gallops. No rubs. ABDOMEN: Soft, nontender. No masses. No organomegaly. EXTREMITIES: No cyanosis. He has clubbing. There is no edema. LABORATORY DATA: Blood cultures not done until the day after admission, and these are no growth so far. White count 10.9 at admission, down to 7.9 the following day, now 16.4; hemoglobin 11.8; platelets are 312. Blood gases, 7.43, 41, 113 and that is on supplemental O2 with positive pressure ventilation. His sodium is 135, glucose 158, otherwise electrolytes normal. His A1c is 6.1%, albumin 3.2. RADIOLOGY: I personally reviewed his chest x-ray, compared to previous x-ray on 02/18, showed modest improvement in the bilateral lung infiltrates, which spare the upper lobes. No effusions. Repeat chest x-ray on April 01 showed recrudescence in lung infiltrates, on 04/02, no significant change. I also read the interpretation of his chest CTs 02/10 and 04/01. ASSESSMENT: 1. Dyspnea with lung infiltrates due to chronic obstructive pulmonary disease and recent coronavirus infection with interstitial lung disease as a result. I agree with Dr. Chase that this is likely organizing pneumonia as a sequela. Possibility of bacterial superinfection with usual respiratory pathogens is a possibility that I cannot exclude without invasive testing. 2. Chronic obstructive pulmonary disease with chronic respiratory failure. 3. Diabetes mellitus, appears to be well controlled. 4. Leukocytosis due to corticosteroids largely that was minimally abno
[2021-04-04] MEDS: ATORVASTATIN 40 MG TABLET PO (20:56)
[2021-04-04] MEDS: TAMSULOSIN HCL 0.4 MG CAPSULE PO (20:56)
[2021-04-05] VITALS (25 sets, daily range): BP systolic 99–125; BP diastolic 50–64; PULSE 46–108; RESP 18–22; TEMP 36.2–36.6; O2SAT 91–99
[2021-04-05] MEDS: ALBUTEROL SULFATE NEB 2.5 MG/0.5 ML INH INHALATION ×4 (02:40→20:09)
[2021-04-05] MEDS: IPRATROPIUM BR 0.02% INH SOLN 0.5 MG/2.5 ML VIAL INHALATION ×4 (02:40→20:09)
[2021-04-05] MEDS: methylPREDNISolone SOD SUCC 125 MG VIAL 60 MG IV PUSH ×4 (04:33→23:57)
[2021-04-05] MEDS: FLUTICASONE/SALMETEROL 230-21 MCG INHALER 1 PUFF 2 PUFF INHALATION ×2 (08:30→20:09)
[2021-04-05] MEDS: ENOXAPARIN 40 MG/0.4 ML SYRINGE SUB-Q (08:42)
[2021-04-05] MEDS: METOPROLOL TARTRATE 50 MG TAB PO ×2 (08:42→21:00)
[2021-04-05] MEDS: CELECOXIB 200 MG CAPSULE PO (08:43)
[2021-04-05] MEDS: PANTOPRAZOLE 40 MG TABLET PO ×2 (08:44→21:00)
[2021-04-05] MEDS: CYANOCOBALAMIN 1,000 MCG TABLET 1000 MCG PO (08:44)
[2021-04-05] MEDS: SACCHAROMYCES BOULARDII 250 MG CAPSULE PO ×3 (08:45→17:42)
--- NOTE | 2021-04-05 15:31 | PM.IMPN ---
Progress Note: A&P Assessment and Plan (1) [id number]-[id number] condition: Code(s): B94.8 - Sequelae of other specified infectious and parasitic diseases Status: Acute Assessment and Plan: Pt was diagnosed with COVID 02/10/21 and has not been able to fully recover with multiple hospital stays and o2 requirement -CTA showed no PE but did show worsen diffuse lung disease consistent with COVID superimposed on severe emphysema with worsened small pleural effusions -Pt now on high flow o2 and doing okay, will wean o2 as tolerated now down to 25% (improved) -Vanc, ceftriaxone and azithromcyin will be continued to cover for post-viral bacterial PNA. will monitor for worsening diarrhea (he says it is slightly improved). Plan to stop vanc if MRSA screen is negative -Continue steroids 60mg Q6 -Pt was hospitalized at [facility] and given steroids and abx as well. The records are not complete but it looks like he got vanc and cefepime during his stay there and then transitioned to levofloxacin at discharge. 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 -leukocytosis likely due to steroids. diarrhea likely due to abx and cdiff felt to be less likely as he has no abdominal pain and is having soft stools. (2) COPD with lower respiratory infection: Code(s): J44.0 - Chronic obstructive pulmonary disease with (acute) lower respiratory infection Status: Acute Assessment and Plan: As above -Continue solu-medrol, ipratropium, advair, and albuterol (3) Acute and chronic respiratory failure with hypoxia: Code(s): J96.21 - Acute and chronic respiratory failure with hypoxia Status: Acute Assessment and Plan: Continue O2 to keep sats >88 (4) Hyperglycemia: Code(s): R73.9 - Hyperglycemia, unspecified Status: Acute Assessment and Plan: Last glucose 158 likely due to steroids -A1c 6.1--glucose worse with steroids -Continue with daily glucose checks at this time (5) Pneumonia: Qualifiers: Laterality: bilateral Lung location: unspecified part of lung Pneumonia type: due to unspecified organism Qualified Code(s): J18.9 - Pneumonia, unspecified organism Code(s): J18.9 - Pneumonia, unspecified organism Status: Acute Assessment and Plan: as above (6) Compression fracture: Status: Acute Assessment and Plan: New T3 compression fracture when compared to 02/10/21 -Pt denies hx of falls and has no back pain -will need bone scan outpt Subjective Date/time seen: 04/05/21 15:31 Interval history: Pt is a 66-year-old male here for post-COVID pneumonia. Patient was seen today and states his shortness of breath is unchanged. He still feels okay at rest with his high flow o2 but anytime he moves he feels very SOB. He has been going to the commode just a few steps from his bed but that is about it. His cough is now dry. He denies chest pain, nausea, vomiting, fevers, constipation or leg swelling. Pt's soft stool is improving. He has no hx of sleep apnea and does not use cpap. Exam Narrative: Exam Narrative: General: Well developed well nourished patient in NAD on high-flow oxygen HEENT: normocephalic Neck: supple Neuro: Alert and oriented x4 CV:RRR. Telemetry showing occasional PACs with some intermitten hypoxia noted down to 85%. He also had sinus adam cardia when he sleeps. Resp: Decreased breath sounds bilaterally (worse in the left lung) with slight wheezing. No conversational dyspnea. Abd: Soft, non distended. No pain to palpation. Positive bowel sounds Extremities: No swelling, erythema, or pain to palpation. Objective Data Vital Signs Vital Signs: Vital Signs - 24 hr 04/04/21 16:00 04/04/21 18:00 04/04/21 19:28 Temperature 97 F L 97.2 F L Pulse Rate 66 62 65 Respiratory Rate 20 18 Blood Pressure 112/58 L
[2021-04-05] MEDS: TAMSULOSIN HCL 0.4 MG CAPSULE PO (21:00)
[2021-04-05] MEDS: ATORVASTATIN 40 MG TABLET PO (21:00)
[2021-04-06] VITALS (27 sets, daily range): BP systolic 112–123; BP diastolic 54–85; PULSE 61–99; RESP 16–22; TEMP 36.1–36.6; O2SAT 91–99
[2021-04-06] MEDS: ALBUTEROL SULFATE NEB 2.5 MG/0.5 ML INH INHALATION ×4 (01:54→21:04)
[2021-04-06] MEDS: IPRATROPIUM BR 0.02% INH SOLN 0.5 MG/2.5 ML VIAL INHALATION ×4 (01:54→21:04)
[2021-04-06 03:33] LABS: Hematocrit 40.5 % (42.0-52.0); Hemoglobin 12.5 g/dL (14.0-18.0); Mean Corpuscular HGB Conc 30.9 g/dl (32-36); Mean Corpuscular Hemoglobin 28.2 pg (26-34); Mean Corpuscular Volume 91.2 fl (80-100); Mean Platelet Volume 9.6 fl (7.4-10.4); Platelet Count Result 384 k/mm3 (150-375); Red Blood Count 4.44 M/mm3 (4.6-6.20); Red Cell Distribution Width 18.1 % (11.5-14.5); White Blood Count 13.9 K/mm3 (4.5-10.0)
[2021-04-06 04:11] LABS: Alanine Aminotransferase 21 U/L (4-50); Albumin Level 2.8 g/dL (3.5-5.1); Alkaline Phosphatase 62 U/L (38-126); Anion Gap 7 mmol/L (8-16); Aspartate Amino Transferase 19 U/L (17-59); Bilirubin,Total 0.4 mg/dL (0.2-1.3); Blood Urea Nitrogen 17 mg/dL (9-20); Carbon Dioxide 27 mmol/L (22-30); Chloride 103 mmol/L (98-107); Estimated CRCL calculation 98 ml/min; Estimated Glomerular Filt Rate > 60; Glucose 181 mg/dL (75-110); Potassium 4.3 mmol/L (3.4-5.0); Sodium 137 mmol/L (137-145); Vancomycin Trough 13.3 ug/mL (10.0-20.0)
[2021-04-06] MEDS: methylPREDNISolone SOD SUCC 125 MG VIAL 60 MG IV PUSH ×3 (04:40→18:49)
[2021-04-06] MEDS: ENOXAPARIN 40 MG/0.4 ML SYRINGE SUB-Q (08:45)
[2021-04-06] MEDS: METOPROLOL TARTRATE 50 MG TAB PO ×2 (08:46→21:20)
[2021-04-06] MEDS: PANTOPRAZOLE 40 MG TABLET PO ×2 (08:46→21:20)
[2021-04-06] MEDS: SACCHAROMYCES BOULARDII 250 MG CAPSULE PO ×3 (08:46→18:48)
[2021-04-06] MEDS: CELECOXIB 200 MG CAPSULE PO (08:46)
[2021-04-06] MEDS: CYANOCOBALAMIN 1,000 MCG TABLET 1000 MCG PO (08:47)
[2021-04-06] MEDS: FLUTICASONE/SALMETEROL 230-21 MCG INHALER 1 PUFF 2 PUFF INHALATION ×2 (09:38→21:04)
--- NOTE | 2021-04-06 11:08 | PM.IMPN ---
Progress Note: A&P Assessment and Plan (1) [id number] condition: Code(s): B94.8 - Sequelae of other specified infectious and parasitic diseases Status: Acute Assessment and Plan: Pt was diagnosed with COVID 02/10/21 and has not been able to fully recover with multiple hospital stays and o2 requirement -CTA showed no PE but did show worsen diffuse lung disease consistent with COVID superimposed on severe emphysema with worsened small pleural effusions -Pt now on high flow o2 and doing okay. His FiO2 is 60% with a rate of 25%. I have asked respiratory to decrease his he is 98% and the goal is to be near 90% -Vanc, ceftriaxone and azithromcyin will be continued to cover for post-viral bacterial PNA. will monitor for worsening diarrhea (he says it is slightly improved). Plan to stop vanc if MRSA screen is negative -Continue steroids 60mg Q6. If he continues to require less oxygen, this may be able to be decreased in the near future. -Pt was hospitalized at [facility] and given steroids and abx as well. The records are not complete but it looks like he got vanc and cefepime during his stay there and then transitioned to levofloxacin at discharge. 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 -leukocytosis likely due to steroids. diarrhea likely due to abx and cdiff felt to be less likely as he has no abdominal pain and is having soft stools. - He sees Dr. Greer David at [facility] and has had a pneumonectomy in the past. He quit smoking in 2011. Because of his advanced disease, I have called [facility] to see if he would be eligible for transfer. (2) COPD with lower respiratory infection: Code(s): J44.0 - Chronic obstructive pulmonary disease with (acute) lower respiratory infection Status: Acute Assessment and Plan: As above -Continue solu-medrol, ipratropium, advair, and albuterol (3) Acute and chronic respiratory failure with hypoxia: Code(s): J96.21 - Acute and chronic respiratory failure with hypoxia Status: Acute Assessment and Plan: Continue O2 to keep sats >88 (4) Hyperglycemia: Code(s): R73.9 - Hyperglycemia, unspecified Status: Acute Assessment and Plan: Last glucose 181 likely due to steroids -A1c 6.1--glucose worse with steroids -Continue with daily glucose checks at this time (5) Pneumonia: Qualifiers: Laterality: bilateral Lung location: unspecified part of lung Pneumonia type: due to unspecified organism Qualified Code(s): J18.9 - Pneumonia, unspecified organism Code(s): J18.9 - Pneumonia, unspecified organism Status: Acute Assessment and Plan: as above (6) Compression fracture: Status: Acute Assessment and Plan: New T3 compression fracture when compared to 02/10/21 -Pt denies hx of falls and has no back pain -will need bone scan outpt Subjective Date/time seen: 04/06/21 11:08 Interval history: Pt is a 66-year-old male here for post-COVID pneumonia. Patient was seen today and has no new complaints. He continues to have shortness of breath with any exertion but does just fine at rest. He has only been able to go to the commode and back. He denies chest pain, nausea, vomiting, fevers, constipation or leg swelling. Pt's soft stool and unchanged. This usually happens when he is on antibiotics. He has no hx of sleep apnea and does not use cpap. Exam Narrative: Exam Narrative: General: Well developed well nourished patient in NAD on high-flow oxygen FiO2 [place] % with a rate of 25% HEENT: normocephalic Neck: supple Neuro: Alert and oriented x4 CV:RRR. Telemetry showing slight hypoxia 87% at night. Resp: Decreased breath sounds bilaterally (worse in the left lung) with slight wheezing. No conversational dyspnea. Abd: Soft, non distended. No pain to palp
--- NOTE | 2021-04-06 13:30 | PM.PNPUL ---
Progress Note: A&P Assessment and Plan (1) Pneumonia due to COVID-19 virus: Onset Date: 01/2021 Code(s): U07.1 - COVID-19; J12.82 - Pneumonia due to coronavirus disease 2019 Status: Inactive Assessment and Plan: Patient has a history of COVID pneumonia diagnosed on 02/10/2021 status post treatment with 10 days of Remdesivir and dexamethasone. Initially his chest x-ray showed minimal improvement on 02/18. Since that time patient has been admitted to [facility] for approximately 12 days receiving a course of steroids and was discharged on 5 L nasal cannula oxygen and 8 with activity. After he finished this course of steroids patient again deteriorated and now presents with hypoxemic respiratory failure and worsening interstitial alveolar infiltrates. He denies fever, chills, phlegm production. WBC is higher, 17 from 10 K. 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 This has been described in the literature (Annals ATS Volume 18, number 5, February 2021). I agree with empirical treatment with steroids and at this time given his severe hypoxemic respiratory failure agree with Solu-Medrol 60 mg IV q.6. Treatment currently is empirically vancomycin, ceftriaxone and azithromycin for possible healthcare associated bacterial pneumonia. There is no wheezing, and albuterol and ipratropium nebulizers q.4 hours is ordered as wheezing can come and go. Echo with bubble study is negative, so no intracardiac shunt. Continue high-flow nasal cannula to maintain saturations between 90-94%. He has required empiric CPAP at night, and BiPAP BiPAP with initial settings 12/5 and 100% FiO2 might be an option if this happens again. Subjective Date/time seen: 04/06/21 13:30 Giuseppe Rosa is a 66 year old man with post COVID long hauler syndrome with hypoxemia, about the same. Review of Systems Review of Systems: All systems reviewed & are unremarkable except as noted in HPI and below Exam Const: General: cooperative and healthy appearing Orientation/consciousness: oriented to person, oriented to place and oriented to time HENMT: Head: normal to inspection Ears: hearing grossly normal bilaterally Mouth: Yes Normal oral and palatal mucosa present Throat: tonsils absent Eyes: General: appearance normal, both eyes and all related structures Neck: Neck: normal visual inspection Chest: Chest palpation & inspection: normal inspection of the chest Resp: Effort & Inspection: normal respiratory effort and able to speak in complete sentences Auscultation: crackles, no rales, no rhonchi and no wheezes Cardio: Jugular venous distension: no JVD GI: Inspection: normal to inspection Skin: General skin exam: normal color Neuro: General: oriented to person, oriented to place and oriented to time Extrem: General: normal to inspection and no pedal edema Psych: Appearance: grossly normal Objective Data Vital Signs Vital Signs: Vital Signs - 24 hr 04/05/21 14:00 04/05/21 15:15 04/05/21 15:25 Temperature Pulse Rate 85 76 78 Respiratory Rate 20 20 Blood Pressure Pulse Oximetry 04/05/21 16:00 04/05/21 18:00 04/05/21 19:34 Temperature 36.6 C 36.2 C L Pulse Rate 75 83 77 Respiratory Rate 20 22 H Blood Pressure 120/56 L 123/62 Pulse Oximetry 91 93 04/05/21 20:00 04/05/21 20:10 04/05/21 20:25 Temperature Pulse Rate 77 71 76 Respiratory Rate 22 H 20 20 Blood Pressure Pulse Oximetry 93 94 04/05/21 21:00 04/05/21 22:00 04/06/21 00:00 Temperature 36.6 C Pulse Rate 82 55 L 61 Respiratory Rate 20 Blood Pressure 114/58 L Pulse Oximetry 97 04/06/21 01:54 04/06/21 02:00 04/06/21 02:04 Temperature Pulse Rate 79 66 83 Respiratory Rate 20 20 Blood Pressure Pulse Oximetry 04/06/21 04:00 04/06/21 06:00 04/06/21 07:24 Temperature 36.2 C L
[2021-04-06] MEDS: TAMSULOSIN HCL 0.4 MG CAPSULE PO (21:20)
[2021-04-06] MEDS: ATORVASTATIN 40 MG TABLET PO (21:20)
[2021-04-07] VITALS (27 sets, daily range): BP systolic 105–127; BP diastolic 51–63; PULSE 53–93; RESP 16–20; TEMP 36.1–36.5; O2SAT 76–97
[2021-04-07] MEDS: methylPREDNISolone SOD SUCC 125 MG VIAL 60 MG IV PUSH ×5 (00:58→23:47)
[2021-04-07] MEDS: ALBUTEROL SULFATE NEB 2.5 MG/0.5 ML INH INHALATION ×4 (02:51→20:24)
[2021-04-07] MEDS: IPRATROPIUM BR 0.02% INH SOLN 0.5 MG/2.5 ML VIAL INHALATION ×4 (02:51→20:24)
[2021-04-07] MEDS: FLUTICASONE/SALMETEROL 230-21 MCG INHALER 1 PUFF 2 PUFF INHALATION ×2 (08:32→20:25)
[2021-04-07] MEDS: ENOXAPARIN 40 MG/0.4 ML SYRINGE SUB-Q (09:40)
[2021-04-07] MEDS: CYANOCOBALAMIN 1,000 MCG TABLET 1000 MCG PO (09:42)
[2021-04-07] MEDS: SACCHAROMYCES BOULARDII 250 MG CAPSULE PO ×3 (09:42→18:26)
[2021-04-07] MEDS: METOPROLOL TARTRATE 50 MG TAB PO ×2 (09:42→20:54)
[2021-04-07] MEDS: CELECOXIB 200 MG CAPSULE PO (09:42)
[2021-04-07] MEDS: PANTOPRAZOLE 40 MG TABLET PO ×2 (09:43→20:55)
--- NOTE | 2021-04-07 15:09 | PM.IMPN ---
Progress Note: A&P Assessment and Plan (1) [id number] condition: Code(s): B94.8 - Sequelae of other specified infectious and parasitic diseases Status: Acute Assessment and Plan: Pt was diagnosed with COVID 02/10/21 and has not been able to fully recover with multiple hospital stays and o2 requirement -CTA showed no PE but did show worsen diffuse lung disease consistent with COVID superimposed on severe emphysema with worsened small pleural effusions -Pt now on high flow o2 and doing okay. His FiO2 is 49% with a rate of 25%. Continue to wean -Continue ceftriaxone and azithromcyin will be continued to cover for post-viral bacterial PNA. will monitor for worsening diarrhea (he says it is slightly improved). Vanc stopped due to - MRSA screen. -Continue steroids 60mg Q6. If he continues to require less oxygen, this may be able to be decreased in the near future. -Pt was hospitalized at [facility] and given steroids and abx as well. The records are not complete but it looks like he got vanc and cefepime during his stay there and then transitioned to levofloxacin at discharge. 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 -leukocytosis likely due to steroids. diarrhea likely due to abx and cdiff felt to be less likely as he has no abdominal pain and is having soft stools. - He sees Dr. Greer David at [facility] and has had a pneumonectomy in the past. He quit smoking in 2011. Because of his advanced disease,he is being transfered to [facility] for higher level of care admitting doctor is Dr. Cornell Hoyos (2) COPD with lower respiratory infection: Code(s): J44.0 - Chronic obstructive pulmonary disease with (acute) lower respiratory infection Status: Acute Assessment and Plan: As above -Continue solu-medrol, ipratropium, advair, and albuterol (3) Acute and chronic respiratory failure with hypoxia: Code(s): J96.21 - Acute and chronic respiratory failure with hypoxia Status: Acute Assessment and Plan: Continue O2 to keep sats >88 (4) Hyperglycemia: Code(s): R73.9 - Hyperglycemia, unspecified Status: Acute Assessment and Plan: Last glucose 181 likely due to steroids -A1c 6.1--glucose worse with steroids -Continue with daily glucose checks at this time (5) Pneumonia: Qualifiers: Laterality: bilateral Lung location: unspecified part of lung Pneumonia type: due to unspecified organism Qualified Code(s): J18.9 - Pneumonia, unspecified organism Code(s): J18.9 - Pneumonia, unspecified organism Status: Acute Assessment and Plan: as above (6) Compression fracture: Status: Acute Assessment and Plan: New T3 compression fracture when compared to 02/10/21 -Pt denies hx of falls and has no back pain -will need bone scan outpt Subjective Date/time seen: 04/07/21 15:09 Interval history: Pt is a 66-year-old male here for post-COVID pneumonia. Patient was seen today and has no new complaints. He continues to have shortness of breath with any exertion but does just fine at rest. He has only been able to go to the commode and back. He denies chest pain, nausea, vomiting, fevers, constipation or leg swelling. Pt's soft stool and unchanged. This usually happens when he is on antibiotics. He has no hx of sleep apnea and does not use cpap. at bedside and her questions answered. Awaiting a bed are [facility]. Exam Narrative: Exam Narrative: General: Well developed well nourished patient in NAD on high-flow oxygen FiO2 49% with a rate of 25% HEENT: normocephalic Neck: supple Neuro: Alert and oriented x4 CV:RRR. Telemetry showing slight hypoxia 87% at times Resp: Decreased breath sounds bilaterally (worse in the left lung) with no weezing today. No conversational dyspnea. Abd: Sof
--- NOTE | 2021-04-07 20:15 | WPDINFPN2 ---
Progress Note: A&P Additional Plan 1. Bilateral pulmonary infiltrate with history of COVID-19 pneumonia. Patient is afebrile and white count is trending down. Patient is currently on methylprednisolone as well as Rocephin and azithromycin. Blood cultures have been negative. MRSA screening has been so far negative. Post COVID persistent pulmonary infiltrate with respiratory syndrome is in the differential diagnosis. Awaiting transfer to [facility] as per patient for further investigation. Continue current care. 2. Chronic obstructive pulmonary lung disease with chronic respiratory failure continue methylprednisolone 3. Type 2 diabetes recommend tighter glycemic control 4. Leukocytosis improved with white count trending down at 13,000 Subjective Date/time seen: 04/07/21 20:15 Minimal shortness of breath with exertion Exam Const: General: cooperative HENMT: Head: normal to inspection Mouth: Yes Normal oral and palatal mucosa present Eyes: General: appearance normal, both eyes and all related structures Neck: Neck: normal visual inspection Resp: Effort & Inspection: normal respiratory effort Auscultation: crackles (Faint crackles bilaterally at the bases) Cardio: Jugular venous distension: no JVD Rate: regular rate Rhythm: regular rhythm Heart sounds: S1 normal heart sound present and S2 normal heart sound present GI: GI Palp: No abdominal tenderness, No Abdominal aortic bruit present, No Soft to palpation, No Firmness to palpation present (GI), No Tenderness to palpation present (GI), No Guarding due to palpation present (GI), No Rigid due to palpation, No No hepatosplenomegaly present, No Hepatosplenomegaly present, No Hepatomegaly present, No Splenomegaly present, No Hernia present, No Palpable mass present, No Pulsatile mass present, No Aortic enlargement present, No Ascites present, No Carnett's sign positive, No Rebound tenderness present, No Bladder palpation abnormal and No Other GI palpation findings present Objective Data Vital Signs Vital Signs: Vital Signs - 24 hr 04/06/21 21:04 04/06/21 21:11 04/06/21 21:19 Temperature Pulse Rate 74 84 84 Respiratory Rate 22 H 22 H Blood Pressure Pulse Oximetry 91 04/06/21 21:20 04/06/21 22:00 04/07/21 00:00 Temperature 36.3 C L Pulse Rate 87 77 68 Respiratory Rate 20 Blood Pressure 125/59 L Pulse Oximetry 96 04/07/21 02:00 04/07/21 02:52 04/07/21 02:56 Temperature Pulse Rate 56 L 53 L 56 L Respiratory Rate 20 Blood Pressure Pulse Oximetry 93 04/07/21 03:00 04/07/21 04:00 04/07/21 06:00 Temperature 36.3 C L Pulse Rate 64 53 L 70 Respiratory Rate 20 20 Blood Pressure 125/63 Pulse Oximetry 95 04/07/21 07:57 04/07/21 08:00 04/07/21 08:33 Temperature 36.5 C Pulse Rate 87 84 86 Respiratory Rate 20 20 20 Blood Pressure 105/56 L Pulse Oximetry 97 90 90 04/07/21 08:52 04/07/21 09:00 04/07/21 09:42 Temperature Pulse Rate 75 84 Respiratory Rate 20 Blood Pressure Pulse Oximetry 76 L 04/07/21 10:00 04/07/21 11:36 04/07/21 12:00 Temperature 36.4 C L Pulse Rate 93 68 84 Respiratory Rate 20 20 Blood Pressure 127/61 Pulse Oximetry 91 90 04/07/21 14:00 04/07/21 14:01 04/07/21 14:09 Temperature Pulse Rate 80 78 80 Respiratory Rate 20 20 Blood Pressure Pulse Oximetry 04/07/21 16:00 04/07/21 18:00 04/07/21 20:00 Temperature 36.1 C L 36.3 C L Pulse Rate 82 83 90 Respiratory Rate 20 18 Blood Pressure 107/51 L 127/62 Pulse Oximetry 93 90 Intake/Output Intake/Output: Intake & Output 04/04/21 04/05/21 04/06/21 04/07/21 23:59 23:59 23:59 23:59 Intake Total 2970 2240 2330 1700 Output Total 625 1175 1350 1400 Balance 2345 1065 980 300 Meds/Results Medications: Active Medications Generic Name Dose Route Start Last Admin Trade Name Freq PRN Reason Stop Dose Admin Acetaminophen 650 mg 04/01/21 15:50 Acetaminophen 325 Mg T
[2021-04-07] MEDS: ATORVASTATIN 40 MG TABLET PO (20:54)
[2021-04-07] MEDS: TAMSULOSIN HCL 0.4 MG CAPSULE PO (20:55)
[2021-04-08] VITALS (38 sets, daily range): BP systolic 104–129; BP diastolic 52–71; PULSE 60–150; RESP 18–22; TEMP 35.6–36.5; O2SAT 93–100
--- NOTE | 2021-04-08 00:38 | ECG_ITS ---
Measurements Intervals [place] Rate: 120 P: AK: 0 QRS: 6 QRSD: 123 T: -18 QT: 309 QTc: 437 Interpretive Statements ATRIAL FIBRILLATION WITH RAPID VENTRICULAR RESPONSE DELAYED PRECORDIAL R/S TRANSITION BORDERLINE T WAVE ABNORMALITY- INFERIOR LEADS BASELINE ARTIFACT- I, III, V2 ABNORMAL ECG Electronically Signed On 04-08-2021 5:48:31 CDT by Vinod Villa D.O.
[2021-04-08] MEDS: dilTIAZem HCl INJ 25 MG/5 ML VIAL 10 MG IV PUSH (01:38)
[2021-04-08] MEDS: ENOXAPARIN 100 MG/ML SYRINGE 90 MG SUB-Q ×2 (01:38→09:25)
[2021-04-08] MEDS: IPRATROPIUM BR 0.02% INH SOLN 0.5 MG/2.5 ML VIAL INHALATION ×4 (01:54→21:35)
[2021-04-08] MEDS: ALBUTEROL SULFATE NEB 2.5 MG/0.5 ML INH INHALATION ×4 (01:54→21:35)
[2021-04-08] MEDS: AMIODARONE 150 MG/D5W 100 ML 150 MG/100 ML BAG 600 MG IV CONT (04:34)
[2021-04-08] MEDS: methylPREDNISolone SOD SUCC 125 MG VIAL 60 MG IV PUSH ×2 (05:01→17:49)
[2021-04-08 05:33] LABS: Hematocrit 42.6 % (42.0-52.0); Hemoglobin 12.9 g/dL (14.0-18.0); Mean Corpuscular HGB Conc 30.3 g/dl (32-36); Mean Corpuscular Hemoglobin 27.8 pg (26-34); Mean Corpuscular Volume 91.8 fl (80-100); Mean Platelet Volume 9.3 fl (7.4-10.4); Platelet Count Result 444 k/mm3 (150-375); Red Blood Count 4.64 M/mm3 (4.6-6.20); Red Cell Distribution Width 18.2 % (11.5-14.5); White Blood Count 17.1 K/mm3 (4.5-10.0)
[2021-04-08 05:44] LABS: Anion Gap 8 mmol/L (8-16); Blood Urea Nitrogen 22 mg/dL (9-20); Calcium 8.2 mg/dL (8.4-10.2); Carbon Dioxide 28 mmol/L (22-30); Chloride 101 mmol/L (98-107); Estimated CRCL calculation 98 ml/min; Estimated Glomerular Filt Rate > 60; Glucose 164 mg/dL (75-110); Potassium 3.8 mmol/L (3.4-5.0); Sodium 137 mmol/L (137-145)
[2021-04-08] MEDS: FLUTICASONE/SALMETEROL 230-21 MCG INHALER 1 PUFF 2 PUFF INHALATION ×2 (07:51→21:35)
--- NOTE | 2021-04-08 07:51 | ECG_ITS ---
Measurements Intervals [place] Rate: 79 P: 30 SD: 127 QRS: -9 QRSD: 87 T: 15 QT: 231 QTc: 266 Interpretive Statements SINUS RHYTHM ATRIAL COUPLET AND ATRIAL PREMATURE COMPLEX POSSIBLE LEFT ATRIAL ENLARGEMENT DELAYED PRECORDIAL R/S TRANSITION NONSPECIFIC ST & T-WAVE ABNORMALITY- INFERIOR LEADS BORDERLINE ECG Electronically Signed On 04-08-2021 9:11:29 CDT by Vinod Vilal D.O.
--- NOTE | 2021-04-08 08:28 | PCDIET ---
Weekly nutritional screen. Patient is tolerating current diet with adequate intake. No weight loss reported. No nutritional needs at this time.
[2021-04-08] MEDS: CELECOXIB 200 MG CAPSULE PO (09:25)
[2021-04-08] MEDS: METOPROLOL TARTRATE 50 MG TAB PO ×2 (09:25→21:12)
[2021-04-08] MEDS: CYANOCOBALAMIN 1,000 MCG TABLET 1000 MCG PO (09:25)
[2021-04-08] MEDS: PANTOPRAZOLE 40 MG TABLET PO ×2 (09:25→21:12)
[2021-04-08] MEDS: SACCHAROMYCES BOULARDII 250 MG CAPSULE PO ×3 (09:25→17:49)
--- NOTE | 2021-04-08 09:26 | PM.IMPN ---
Progress Note: A&P Assessment and Plan (1) Atrial fibrillation with RVR: Code(s): I48.91 - Unspecified atrial fibrillation Status: Acute Assessment and Plan: Patient went into AFib RVR last night around midnight. This is a new diagnosis for the patient and patient was asymptomatic with this. -he was given Cardizem and loading dose of amiodarone which restored him to normal sinus rhythm -will check TSH, magnesium, BNP and troponin. -patient recently had an echocardiogram and I do not think this needs to be redone unless the BNP or troponin is significantly abnormal. BNP on admission was 647 -He had no PE on admission and had been on 40mg of Lovenox since then. His hypoxia is improving. PE seems less likely. -he has been started on full dosing Lovenox 90 kg b.i.d. -cardiology consulted (2) [id number] condition: Code(s): B94.8 - Sequelae of other specified infectious and parasitic diseases Status: Acute Assessment and Plan: Pt was diagnosed with COVID 02/10/21 and has not been able to fully recover with multiple hospital stays and o2 requirement -CTA showed no PE but did show worsen diffuse lung disease consistent with COVID superimposed on severe emphysema with worsened small pleural effusions -Pt now on high flow o2 and doing okay on 15L today -Will stop azithromycin since he completed 6 days. Continue ceftriaxone and will monitor for worsening diarrhea (stable). Vanc stopped 04/07 due to - MRSA screen. -Continue steroids 60mg but change to Q12 since pt's o2 requirements are improving. -Pt was hospitalized at [facility] and given steroids and abx as well. The records are not complete but it looks like he got vanc and cefepime during his stay there and then transitioned to levofloxacin at discharge. 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 -leukocytosis likely due to steroids. diarrhea likely due to abx and cdiff felt to be less likely as he has no abdominal pain and is having soft stools. -He sees Dr. Greer David at [facility] and has had a pneumonectomy in the past. He quit smoking in 2011. Because of his advanced disease,he is being transferred to [facility] for higher level of care admitting doctor is Dr. Cornell Hoyos (3) COPD with lower respiratory infection: Code(s): J44.0 - Chronic obstructive pulmonary disease with (acute) lower respiratory infection Status: Acute Assessment and Plan: As above -Continue solu-medrol, ipratropium, advair, and albuterol (4) Acute and chronic respiratory failure with hypoxia: Code(s): J96.21 - Acute and chronic respiratory failure with hypoxia Status: Acute Assessment and Plan: Continue O2 to keep sats >88 (5) Hyperglycemia: Code(s): R73.9 - Hyperglycemia, unspecified Status: Acute Assessment and Plan: Last glucose 164 likely due to steroids -A1c 6.1--he has been on steroids for months -Continue with daily glucose checks at this time (6) Pneumonia: Qualifiers: Laterality: bilateral Lung location: unspecified part of lung Pneumonia type: due to unspecified organism Qualified Code(s): J18.9 - Pneumonia, unspecified organism Code(s): J18.9 - Pneumonia, unspecified organism Status: Acute Assessment and Plan: as above (7) Compression fracture: Status: Acute Assessment and Plan: New T3 compression fracture when compared to 02/10/21 -Pt denies hx of falls and has no back pain -will need bone scan outpt Subjective Date/time seen: 04/08/21 09:26 Interval history: Pt is a 66-year-old male here for post-COVID pneumonia. Patient was seen today and has no new complaints. He states he did not feel his heart racing overnight and that they just came in and told him that his heart was racing. He felt no lightheadedness
[2021-04-08 10:01] LABS: Magnesium 2.2 mg/dL (1.6-2.3)
[2021-04-08 10:14] LABS: NT Pro B Type Natriuretic Pept 2930 pg/mL (5-100); Troponin I 0.028 ng/mL (0.000-0.034)
[2021-04-08 10:53] LABS: Thyroid Stimulating Hormone Reflex 0.508 uIU/mL (0.465-4.68)
--- NOTE | 2021-04-08 14:33 | PM.CNCAR ---
Assessment and Plan Additional Plan 66-year-old man with advanced chronic lung disease also unfortunately with recent david virus infection and ongoing respiratory difficulties following that event. He is in the hospital now and being treated with steroids and bronchodilators and yesterday in that setting developed an episode of atrial fib with which she was apparently asymptomatic. Echocardiogram does not show any other significant structural heart problems. At this point I would recommend starting him on oral anticoagulation therapy and observing his telemetry. If he has further episodes of atrial fibrillation I would advanced to a more aggressive antiarrhythmic regimen. I would also consider discontinue use of albuterol which certainly could be stimulating the sort of arrhythmias. If he transfers to [place] his care of course will be transferred to the physicians over there while he is at [facility] we will follow up his a arrhythmias. Thank you for consulting me to see him Jimmie Reyes MD [facility] History of Present Illness History of Present Illness Consult date/time: 04/08/21 14:33 Consult reason: atrial fibrillation Reason For Visit: Hypoxic Respiratory Failure,COPD Exacerbation,Pneu Narrative: This is a 66-year-old man who I am seeing this afternoon at the request of the hospitalist for assistance with the management of atrial fibrillation. The patient has been in the hospital here at [facility] for several days because of shortness of breath he apparently has chronic severe lung disease with COPD and a previous left upper lobectomy. His lung disease is managed by a calker at [facility]. Apparently he unfortunately also developed david virus a couple of months ago and was hospitalized and neck [place] and also at [place] and was treated as an inpatient he recovered somewhat but still is more short of breath than his usual baseline. He was hospitalized here last week with increasing shortness of breath and has been managed by the hospitalist and calker he is receiving antibiotics, steroids and bronchodilators including albuterol. He does not have any known history of significant cardiac problems that he is aware of. Last evening he is on telemetry in the IM [facility] was noted to go into atrial fib with RVR. He is not complaining of any arrhythmias so I am not sure why he was on telemetry in the 1st place but in any event this was documented on telemetry and we were consulted to see him. He was given a loading dose of amiodarone and a little while later looks like he converted back to sinus rhythm. He is taking metoprolol at a dosage of 50 mg q.12 hours. Since the occurrence of atrial fib last evening he has been placed on a therapeutic dose of Lovenox. Echocardiogram done earlier during this hospitalization demonstrates normal looking left ventricular systolic function and no significant valvular pathology was identified. According to the records it because his lung disease is severe and complex there was a been request and acceptance transfer this patient over a [facility] presumably they do not have any beds because he has been here for several days after that request was made and he was accepted. He does not have any other complaints today. He denies any sense of palpitations occurring intermittently outside of the hospital he has no history of exertional chest pain orthopnea or PND he has never had a syncopal episode. Review of Systems Constitutional: Constitutional: Reports fatigue and Reports lethargy Eyes: Eyes: Reports no additional eye complaints ENT: Reports system reviewed and no additional complaints, except as documented Cardiovascular: Cardiovascular: Reports no additional cardiovascular complaints Respiratory: Respiratory: Reports dyspnea and Reports wheezing Gastrointestinal: Gastrointestinal: Reports no additional gastrointestinal complaints Musculoskeletal: Musculoskeletal: Report
[2021-04-08] MEDS: TAMSULOSIN HCL 0.4 MG CAPSULE PO (21:11)
[2021-04-08] MEDS: ATORVASTATIN 40 MG TABLET PO (21:11)
[2021-04-08] MEDS: APIXABAN 5 MG TABLET PO (21:12)
[2021-04-09] VITALS (25 sets, daily range): BP systolic 116–126; BP diastolic 56–78; PULSE 68–98; RESP 16–24; TEMP 36.3–36.6; O2SAT 92–98
[2021-04-09] MEDS: IPRATROPIUM BR 0.02% INH SOLN 0.5 MG/2.5 ML VIAL INHALATION ×4 (03:27→20:57)
[2021-04-09] MEDS: ALBUTEROL SULFATE NEB 2.5 MG/0.5 ML INH INHALATION ×4 (03:27→20:57)
[2021-04-09 05:11] LABS: Basophils Percent Auto 0.1 % (0.2-1.2); Hematocrit 39.9 % (42.0-52.0); Hemoglobin 12.5 g/dL (14.0-18.0); Immature Granulocyte Absolute 2.08 K/mm3 (0.00-0.031); Immature Granulocyte Percent A 11.4 % (0-0.5); Lymphocytes Absolute Auto 0.78 K/mm3 (0.9-3.2); Lymphocytes Percent Auto 4.3 % (18.3-44.2); Mean Corpuscular HGB Conc 31.3 g/dl (32-36); Mean Corpuscular Hemoglobin 28.5 pg (26-34); Mean Corpuscular Volume 90.9 fl (80-100); Mean Platelet Volume 9.4 fl (7.4-10.4); Monocytes Absolute Auto 1.3 K/mm3 (0.1-0.6); Monocytes Percent Auto 7.2 % (2.6-8.5); Neutrophils Absolute Auto 14.1 K/mm3 (1.3-6.7); Platelet Count Result 436 k/mm3 (150-375); Red Blood Count 4.39 M/mm3 (4.6-6.20); Red Cell Distribution Width 18.4 % (11.5-14.5); White Blood Count 18.3 K/mm3 (4.5-10.0)
[2021-04-09 05:36] LABS: Anisocytosis 1+ (NORMAL); Platelet Estimate Adequate (Adequate)
[2021-04-09 05:39] LABS: Alanine Aminotransferase 41 U/L (4-50); Albumin Level 2.7 g/dL (3.5-5.1); Alkaline Phosphatase 46 U/L (38-126); Anion Gap 5 mmol/L (8-16); Aspartate Amino Transferase 34 U/L (17-59); Bilirubin,Total 0.7 mg/dL (0.2-1.3); Blood Urea Nitrogen 30 mg/dL (9-20); Calcium 7.9 mg/dL (8.4-10.2); Carbon Dioxide 30 mmol/L (22-30); Chloride 100 mmol/L (98-107); Estimated CRCL calculation 113 ml/min; Estimated Glomerular Filt Rate > 60; Glucose 136 mg/dL (75-110); Potassium 4.1 mmol/L (3.4-5.0); Sodium 135 mmol/L (137-145)
[2021-04-09] MEDS: methylPREDNISolone SOD SUCC 125 MG VIAL 60 MG IV PUSH ×2 (06:22→18:56)
[2021-04-09] MEDS: CELECOXIB 200 MG CAPSULE PO (08:43)
[2021-04-09] MEDS: METOPROLOL TARTRATE 50 MG TAB PO ×2 (08:43→20:11)
[2021-04-09] MEDS: APIXABAN 5 MG TABLET PO ×2 (08:43→20:12)
[2021-04-09] MEDS: CYANOCOBALAMIN 1,000 MCG TABLET 1000 MCG PO (08:44)
[2021-04-09] MEDS: PANTOPRAZOLE 40 MG TABLET PO ×2 (08:44→20:12)
[2021-04-09] MEDS: SACCHAROMYCES BOULARDII 250 MG CAPSULE PO ×3 (08:44→18:04)
[2021-04-09] MEDS: FLUTICASONE/SALMETEROL 230-21 MCG INHALER 1 PUFF 2 PUFF INHALATION ×2 (09:14→20:57)
--- NOTE | 2021-04-09 10:57 | PM.IMPN ---
Progress Note: A&P Assessment and Plan (1) [id number] condition: Code(s): B94.8 - Sequelae of other specified infectious and parasitic diseases Status: Acute Assessment and Plan: Patient diagnosed with COVID 02/10/21. At that time was admitted and treated with 10-day course of dexamethasone and remdesivir and discharged from our facility 02/21. Recently was hospitalized at [place] for over 1 week, treated with steroids and discharged with supplemental oxygen 5L at rest, 8L with activity. Presents again with worsening shortness of breath. CTA showed diffuse lung disease consistent with COVID superimposed on severe emphysema with small pleural effusions. Still on high flow O2 but oxygenation requirements are improving. He remains on ceftriaxone (day 8) - appreciate infectious disease input. Completed 7-day course of azithromycin 04/08, received 7 days of IV vancomycin stopped 04/07 due to negative MRSA screen. Remains on IV solu-medrol 60mg Q12 today. Suspect in part contributing to leukocytosis. May need cardiopulmonary rehab due to long-term effects of COVID. 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 History of collapsed left lung s/p left upper lobectomy in 2019 at [facility]. Quit smoking in 2011. Because of his advanced disease, he is being transferred to [facility] for higher level of care. He is accepted to [facility] and remains on the waitlist - accepting physician is Dr. Cornell Hoyos. I called this AM, still no beds. (2) Atrial fibrillation with RVR: Code(s): I48.91 - Unspecified atrial fibrillation Status: Acute Assessment and Plan: New diagnosis, brief episode with which he was asymptomatic. Suspect may have been precipitated by acute illness. He was treated with cardizem and amiodarone at that time. Remains now in normal sinus rhythm maintained on his home Lopressor. Appreciate cardiology recommendations. Notes reviewed. He has been started on Eliquis and we will continue to monitor with telemetry for further recurrence. (3) COPD with lower respiratory infection: Code(s): J44.0 - Chronic obstructive pulmonary disease with (acute) lower respiratory infection Status: Acute Assessment and Plan: Appreciate pulmonology input. Remains on nebulized bronchodilator therapy, advair, and steroids. Can consider cutting back on albuterol or changing to Xopenex if he has further issues with A fib. (4) Acute and chronic respiratory failure with hypoxia: Code(s): J96.21 - Acute and chronic respiratory failure with hypoxia Status: Acute Assessment and Plan: Secondary to above. Wean supplemental O2 as tolerated to keep O2 saturations > 90%. (5) Hyperglycemia: Code(s): R73.9 - Hyperglycemia, unspecified Status: Acute Assessment and Plan: Blood sugar 130s this AM. Hgb A1c is 6.1% and he has been on steroids for a prolonged period of time with multiple hospitalizations. Suspect steroids contributing to hyperglycemia. Continue daily glucose checks for now and monitor. (6) Pneumonia: Qualifiers: Laterality: bilateral Lung location: unspecified part of lung Pneumonia type: due to unspecified organism Qualified Code(s): J18.9 - Pneumonia, unspecified organism Code(s): J18.9 - Pneumonia, unspecified organism Status: Acute Assessment and Plan: As above (7) Compression fracture: Status: Acute Assessment and Plan: New T3 compression fracture when compared to 02/10/21. Patient denies falls or known injury. Denies pain today. Could benefit from outpatient bone scan once stable from a respiratory standpoint. Subje
--- NOTE | 2021-04-09 13:12 | PM.PNCARD ---
Progress Note: A&P Assessment and Plan (1) Paroxysmal atrial fibrillation: Code(s): I48.0 - Paroxysmal atrial fibrillation Status: Acute Assessment and Plan: Episode of AFib RVR early childhood hours of 04/08/2021 with no recurrence. Normal LV function and no valve disease but does have respiratory disease and severe pulmonary hypertension which may be the predisposing factors for AFib. Tolerating anticoagulation with Eliquis. If AFib burden is significant we may need to increase therapy with the addition of, perhaps, diltiazem. (2) Acute and chronic respiratory failure with hypoxia: Code(s): J96.21 - Acute and chronic respiratory failure with hypoxia Status: Acute Assessment and Plan: History of COPD, lobectomy and recent COVID pneumonia. Awaiting transfer to [facility] to see is regular pulmonary physician (3) Pulmonary hypertension: Code(s): I27.20 - Pulmonary hypertension, unspecified Status: Acute Assessment and Plan: Severe pulmonary hypertension related to his severe underlying lung disease. (4) Hypertension: Code(s): I10 - Essential (primary) hypertension Status: Acute Assessment and Plan: Blood pressure control Subjective Date/time seen: 04/09/21 13:12 Interval history: 66-year-old male with chronic severe lung disease with COPD and a previous left upper lobectomy. Had COVID pneumonia in January and his respiratory status has been more impaired. 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. While here he had a transient episode of AFib lasting for several hours through the night until the morning of 04/08/2021 which was asymptomatic and he was started on Eliquis. 60-65% with no significant valve disease but severe pulmonary hypertension with an RVSP of 72 mmHg and a PFO. Date of service 04/09/2021. Follow-up for PAF.He has feels fine at rest but gets winded and short of breath with any activity. Still on high-flow oxygen with O2 sats of 95%. at bedside. Telemetry has not shown any further atrial fibrillation. Review of Systems Constitutional: Constitutional: Reports fatigue ENT: Denies epistaxis Cardiovascular: Cardiovascular: Denies chest pain, Denies pedal edema, Denies leg edema and Denies lightheadedness Respiratory: Respiratory: Reports chest congestion, Reports dyspnea and Reports dyspnea on exertion Gastrointestinal: Gastrointestinal: Denies abdominal pain Genitourinary: Genitourinary: Denies dysuria Musculoskeletal: Musculoskeletal: Denies myalgias Integumentary/Breasts: Skin/Breast: Denies rash Neurologic: Denies confusion Psychiatric: Psychiatric: Denies behavioral changes Exam Narrative: Exam Narrative: Older white male with a semi productive cough lying supine, at the bedside, no distress Const: General: comfortable and no acute distress HENMT: General nose exam: no epistaxis Eyes: EOM: EOMs intact bilaterally Neck: Neck: supple Resp: Effort & Inspection: normal respiratory effort Auscultation: diminished lung sounds Other: Few scattered rales Cardio: Rate: regular rate Rhythm: regular rhythm Heart sounds: no murmurs GI: GI Palp: Yes Soft to palpation and No Tenderness to palpation present (GI) Skin: General skin exam: normal color and no rashes or lesions noted Neuro: Cognition (Neuro): normal cognition Speech: normal speech Extrem: General: no edema and no pedal edema Psych: Mental Status: mental status grossly normal Objective Data Vital Signs Vital Signs: Vital Signs - 24 hr 04/08/21 14:00 04/08/21 14:15 04/08/21 14:24 Temperature Pulse Rate 79 76 81 Respiratory Rate 20 20 Blood Pressure Pulse Oximetry 95 97 04/08/21 14:43 04/08/21 16:00 04/08/21 16:25 Temperature
[2021-04-09] MEDS: TAMSULOSIN HCL 0.4 MG CAPSULE PO (20:11)
[2021-04-09] MEDS: ATORVASTATIN 40 MG TABLET PO (20:12)
[2021-04-10] VITALS (26 sets, daily range): BP systolic 121–131; BP diastolic 58–70; PULSE 64–119; RESP 18–24; TEMP 35.9–36.6; O2SAT 87–97
[2021-04-10] MEDS: IPRATROPIUM BR 0.02% INH SOLN 0.5 MG/2.5 ML VIAL INHALATION ×4 (02:28→21:44)
[2021-04-10] MEDS: ALBUTEROL SULFATE NEB 2.5 MG/0.5 ML INH INHALATION ×4 (02:28→21:44)
[2021-04-10] MEDS: methylPREDNISolone SOD SUCC 125 MG VIAL 60 MG IV PUSH ×2 (05:36→17:29)
[2021-04-10 05:39] LABS: Anion Gap 3 mmol/L (8-16); Blood Urea Nitrogen 31 mg/dL (9-20); Calcium 7.9 mg/dL (8.4-10.2); Carbon Dioxide 30 mmol/L (22-30); Chloride 100 mmol/L (98-107); Estimated CRCL calculation 113 ml/min; Estimated Glomerular Filt Rate > 60; Glucose 125 mg/dL (75-110); Magnesium 2.4 mg/dL (1.6-2.3); Potassium 4.7 mmol/L (3.4-5.0); Sodium 133 mmol/L (137-145)
[2021-04-10 06:30] LABS: Basophils Percent Auto 0.1 % (0.2-1.2); Hematocrit 39.7 % (42.0-52.0); Hemoglobin 12.5 g/dL (14.0-18.0); Immature Granulocyte Absolute 1.94 K/mm3 (0.00-0.031); Lymphocytes Absolute Auto 0.82 K/mm3 (0.9-3.2); Lymphocytes Percent Auto 4.2 % (18.3-44.2); Mean Corpuscular HGB Conc 31.5 g/dl (32-36); Mean Corpuscular Hemoglobin 28.2 pg (26-34); Mean Corpuscular Volume 89.6 fl (80-100); Mean Platelet Volume 8.9 fl (7.4-10.4); Monocytes Absolute Auto 1.2 K/mm3 (0.1-0.6); Monocytes Percent Auto 6.3 % (2.6-8.5); Neutrophils Absolute Auto 15.4 K/mm3 (1.3-6.7); Neutrophils Percent Auto 79.4 % (45.5-73.1); Platelet Count Result 432 k/mm3 (150-375); Red Blood Count 4.43 M/mm3 (4.6-6.20); Red Cell Distribution Width 18.2 % (11.5-14.5); White Blood Count 19.4 K/mm3 (4.5-10.0)
[2021-04-10] MEDS: CYANOCOBALAMIN 1,000 MCG TABLET 1000 MCG PO (08:24)
[2021-04-10] MEDS: PANTOPRAZOLE 40 MG TABLET PO ×2 (08:24→21:19)
[2021-04-10] MEDS: SACCHAROMYCES BOULARDII 250 MG CAPSULE PO ×3 (08:24→17:25)
[2021-04-10] MEDS: APIXABAN 5 MG TABLET PO ×2 (08:25→21:20)
[2021-04-10] MEDS: CELECOXIB 200 MG CAPSULE PO (08:25)
[2021-04-10] MEDS: METOPROLOL TARTRATE 50 MG TAB PO ×2 (08:25→21:19)
[2021-04-10] MEDS: FLUTICASONE/SALMETEROL 230-21 MCG INHALER 1 PUFF 2 PUFF INHALATION ×2 (09:11→21:45)
--- NOTE | 2021-04-10 11:39 | PM.IMPN ---
Progress Note: A&P Assessment and Plan (1) [id number] condition: Code(s): B94.8 - Sequelae of other specified infectious and parasitic diseases Status: Acute Assessment and Plan: Patient diagnosed with COVID 02/10/21. At that time was admitted and treated with 10-day course of dexamethasone and remdesivir and discharged from our facility 02/21. Recently was hospitalized at [facility] for over 1 week, treated with steroids and discharged with supplemental oxygen 5L at rest, 8L with activity. Presents again with worsening shortness of breath. CTA showed diffuse lung disease consistent with COVID superimposed on severe emphysema with small pleural effusions. Still on high flow O2 but oxygenation requirements are improving. He remains on ceftriaxone (day 9) - appreciate infectious disease input. Completed 7-day course of azithromycin 04/08, received 7 days of IV vancomycin stopped 04/07 due to negative MRSA screen. Remains on IV solu-medrol 60mg Q12 today - appreciate pulmonology input. Suspect steroids are in part contributing to leukocytosis. May need cardiopulmonary rehab due to long-term effects of COVID. 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 History of collapsed left lung s/p left upper lobectomy in 2019 at [facility]. Quit smoking in 2011. Because of his advanced disease, he is being transferred to [facility] for higher level of care. He has been accepted to [place] and remains on the waitlist - accepting physician is Dr. Cornell Hoyos. (2) Atrial fibrillation with RVR: Code(s): I48.91 - Unspecified atrial fibrillation Status: Acute Assessment and Plan: New diagnosis, brief episode 04/08 early AM with which he was asymptomatic with no further recurrence. Suspect may have been precipitated by acute illness. He was treated with cardizem and amiodarone at that time. Remains now in normal sinus rhythm maintained on his home Lopressor. Appreciate cardiology recommendations. Notes reviewed. He has been started on Eliquis and we will continue to monitor with telemetry for any further recurrence. (3) COPD with lower respiratory infection: Code(s): J44.0 - Chronic obstructive pulmonary disease with (acute) lower respiratory infection Status: Acute Assessment and Plan: Appreciate pulmonology input. Remains on nebulized bronchodilator therapy, advair, and steroids. Can consider cutting back on albuterol or changing to Xopenex if he has further issues with A fib. (4) Acute and chronic respiratory failure with hypoxia: Code(s): J96.21 - Acute and chronic respiratory failure with hypoxia Status: Acute Assessment and Plan: Secondary to above. Wean supplemental O2 as tolerated to keep O2 saturations > 90%. Improving; tolerating 4L this AM. (5) Hyperglycemia: Code(s): R73.9 - Hyperglycemia, unspecified Status: Acute Assessment and Plan: Blood sugar 125 this AM. Hgb A1c is 6.1% and he has been on steroids for a prolonged period of time with multiple hospitalizations. Suspect steroids contributing to hyperglycemia. Continue daily glucose checks for now and monitor. (6) Pneumonia: Qualifiers: Laterality: bilateral Lung location: unspecified part of lung Pneumonia type: due to unspecified organism Qualified Code(s): J18.9 - Pneumonia, unspecified organism Code(s): J18.9 - Pneumonia, unspecified organism Status: Acute Assessment and Plan: As above (7) Compression fracture: Status: Acute Assessment and Plan: New T3 compression fracture when compared to 02/10/21. Patient denies falls or known injury. Denies pain today. Could benefit from outpatient bone s
--- NOTE | 2021-04-10 13:15 | PM.PNCARD ---
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 Normal LV function and no valve disease but does have respiratory disease and severe pulmonary hypertension which may be the predisposing factors for AFib. Tolerating anticoagulation with Eliquis. If AFib burden is significant we may need to increase therapy with the addition of, perhaps, diltiazem. (2) Acute and chronic respiratory failure with hypoxia: Code(s): J96.21 - Acute and chronic respiratory failure with hypoxia Status: Acute Assessment and Plan: History of COPD, lobectomy and recent COVID pneumonia. Awaiting transfer to [facility] to see is regular pulmonary physician (3) Pulmonary hypertension: Code(s): I27.20 - Pulmonary hypertension, unspecified Status: Acute Assessment and Plan: Severe pulmonary hypertension related to his severe underlying lung disease. (4) Hypertension: Code(s): I10 - Essential (primary) hypertension Status: Acute Assessment and Plan: Blood pressure controlled. (5) Elevated brain natriuretic peptide (BNP) level: Code(s): R79.89 - Other specified abnormal findings of blood chemistry Status: Acute Assessment and Plan: BNP was 2900 on admission which makes me wonder if there is any component of volume overload/diastolic CHF to the patient's respiratory problems. Chest x-ray (personally reviewed) looks terrible with respect to his bilateral pneumonia and scarring; unable to evaluate for any CHF by chest x-ray. However he has no PND orthopnea, no JVD and no edema so I do not think he has CHF or would benefit from diuretic tx. Additional Plan At this time the patient is stable with no further AFib so I will sign off and follow at a distance. Subjective Date/time seen: 04/10/21 13:15 Interval history: 66-year-old male with chronic severe lung disease with COPD and a previous left upper lobectomy. Had COVID pneumonia in January and his respiratory status has been more impaired. 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 While here he had a transient episode of AFib lasting for several hours through the night until the morning of 04/08/2021 which was asymptomatic and he was started on Eliquis. 60-65% with no significant valve disease but severe pulmonary hypertension with an RVSP of 72 mmHg and a PFO. Date of service 04/09/2021. Follow-up for PAF.He has feels fine at rest but gets winded and short of breath with any activity. Still on high-flow oxygen with O2 sats of 95%. at bedside. Telemetry has not shown any further atrial fibrillation. Date of service 04/10/2021: Follow-up for PAF. Patient feels fine at rest but still gets winded with activity. Oxygen requirement however is down to 4 L. Still with a cough. Telemetry has not shown any further atrial fibrillation. Review of Systems Constitutional: Constitutional: Reports fatigue ENT: Denies epistaxis Cardiovascular: Cardiovascular: Denies chest pain, Denies pedal edema, Denies leg edema, Denies lightheadedness, Reports dyspnea and Reports dyspnea on exertion Respiratory: Respiratory: Reports chest congestion, Reports dyspnea and Reports dyspnea on exertion Gastrointestinal: Gastrointestinal: Denies abdominal pain Genitourinary: Genitourinary: Denies dysuria Musculoskeletal: Musculoskeletal: Denies myalgias Integumentary/Breasts: Skin/Breast: Denies rash Neurologic: Denies behavioral changes and Denies confusion Psychiatric: Psychiatric: Denies behavioral changes and Denies confusion
[2021-04-10] MEDS: TAMSULOSIN HCL 0.4 MG CAPSULE PO (21:20)
[2021-04-10] MEDS: ATORVASTATIN 40 MG TABLET PO (21:20)
[2021-04-11] VITALS (28 sets, daily range): BP systolic 106–124; BP diastolic 43–70; PULSE 59–101; RESP 18–22; TEMP 35.7–36.6; O2SAT 88–97
[2021-04-11] MEDS: IPRATROPIUM BR 0.02% INH SOLN 0.5 MG/2.5 ML VIAL INHALATION ×4 (02:30→20:23)
[2021-04-11] MEDS: ALBUTEROL SULFATE NEB 2.5 MG/0.5 ML INH INHALATION ×4 (02:30→20:23)
--- NOTE | 2021-04-11 02:39 | PC.NURSE ---
marisa called and patient is still waiting on a bed.
[2021-04-11 05:11] LABS: Basophils Absolute Auto 0.1 K/mm3 (0.0-0.1); Basophils Percent Auto 0.7 % (0.2-1.2); Hematocrit 41.4 % (42.0-52.0); Hemoglobin 12.7 g/dL (14.0-18.0); Immature Granulocyte Percent A 10.2 % (0-0.5); Lymphocytes Absolute Auto 0.66 K/mm3 (0.9-3.2); Lymphocytes Percent Auto 3.4 % (18.3-44.2); Mean Corpuscular HGB Conc 30.7 g/dl (32-36); Mean Corpuscular Hemoglobin 28.1 pg (26-34); Mean Corpuscular Volume 91.6 fl (80-100); Mean Platelet Volume 9.2 fl (7.4-10.4); Monocytes Absolute Auto 1.3 K/mm3 (0.1-0.6); Monocytes Percent Auto 6.8 % (2.6-8.5); Neutrophils Absolute Auto 15.4 K/mm3 (1.3-6.7); Neutrophils Percent Auto 78.9 % (45.5-73.1); Platelet Count Result 448 k/mm3 (150-375); Red Blood Count 4.52 M/mm3 (4.6-6.20); Red Cell Distribution Width 18.6 % (11.5-14.5); White Blood Count 19.6 K/mm3 (4.5-10.0)
[2021-04-11] MEDS: methylPREDNISolone SOD SUCC 125 MG VIAL 60 MG IV PUSH ×2 (05:24→17:12)
[2021-04-11 05:25] LABS: Anion Gap 1 mmol/L (8-16); Blood Urea Nitrogen 31 mg/dL (9-20); Calcium 7.9 mg/dL (8.4-10.2); Carbon Dioxide 33 mmol/L (22-30); Chloride 100 mmol/L (98-107); Estimated CRCL calculation 98 ml/min; Estimated Glomerular Filt Rate > 60; Glucose 127 mg/dL (75-110); Magnesium 2.4 mg/dL (1.6-2.3); Potassium 4.4 mmol/L (3.4-5.0); Sodium 134 mmol/L (137-145)
--- NOTE | 2021-04-11 07:20 | PM.TDS ---
Transfer Discharge Sum: Prov Provider Date of admission: 04/01/21 15:50 Primary care physician: Pantera Spencer, PA Admitting clinician: Nubia Reyes MD Consults: Consulting Provider: Jimmie Ray house calls nurse practitioner/MD group to consult: pulmonology Consulting Provider: Willie Simon house calls nurse practitioner/MD group to consult: infectious disease Consulting Provider: Francois Fernando; cardiology Reason for consultation: NEW AFIB RVR DS: Admitting Diagnosis Admitting Diagnosis Admitting Diagnosis: respiratory failure DS: Discharge Diagnosis Discharge Diagnosis (1) [id number] condition: Code(s): B94.8 - Sequelae of other specified infectious and parasitic diseases Status: Acute Assessment and Plan: Patient diagnosed with COVID 02/10/21. At that time was admitted and treated with 10-day course of dexamethasone and remdesivir and discharged from our facility 02/21. Recently was hospitalized at [facility] for over 1 week, treated with steroids and discharged with supplemental oxygen 5L at rest, 8L with activity. Presents again with worsening shortness of breath. CTA showed diffuse lung disease consistent with COVID superimposed on severe emphysema with small pleural effusions. Still on high flow O2 - O2 requirements fluctuating between 5 - 7 L. Will discontinue ceftriaxone after today to complete a 10-day course- appreciate infectious disease input. Completed 7-day course of azithromycin 04/08, received 7 days of IV vancomycin stopped 04/07 due to negative MRSA screen. Remains on IV solu-medrol 60mg Q12 today - appreciate pulmonology input. Suspect steroids are in part contributing to leukocytosis. May need cardiopulmonary rehab due to long-term effects of COVID. 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 History of collapsed left lung s/p left upper lobectomy in 2019 at [place]. Quit smoking in 2011. Because of his advanced disease, he is being transferred to [facility] for higher level of care. He has been accepted to [facility] & accepting physician is Dr. Cornell Hoyos. (2) Atrial fibrillation with RVR: Code(s): I48.91 - Unspecified atrial fibrillation Status: Acute Assessment and Plan: New diagnosis, brief episode 04/08 early AM with which he was asymptomatic with no further recurrence. Suspect may have been precipitated by acute illness. He was treated with cardizem and amiodarone at that time. Remains now in normal sinus rhythm maintained on his home Lopressor. Appreciate cardiology recommendations. Notes reviewed. He has been started on Eliquis and we will continue to monitor with telemetry for any further recurrence. (3) COPD with lower respiratory infection: Code(s): J44.0 - Chronic obstructive pulmonary disease with (acute) lower respiratory infection Status: Acute Assessment and Plan: Appreciate pulmonology input. Remains on nebulized bronchodilator therapy, advair, and steroids. Can consider cutting back on albuterol or changing to Xopenex if he has further issues with A fib. (4) Acute and chronic respiratory failure with hypoxia: Code(s): J96.21 - Acute and chronic respiratory failure with hypoxia Status: Acute Assessment and Plan: Secondary to above. Wean supplemental O2 as tolerated to keep O2 saturations > 90%. Tolerating 7L this AM. (5) Hyperglycemia: Code(s): R73.9 - Hyperglycemia, unspecified Status: Acute Assessment and Plan: Blood sugar 127 this AM. Hgb A1c is 6.1% and he has been on steroids for a prolonged period of time with multiple hospitalizations. Suspect steroids contributing to hyperglycemia. Continue daily glucose checks for now and monitor. (6) Pneumonia: Qualifiers:
[2021-04-11] MEDS: SACCHAROMYCES BOULARDII 250 MG CAPSULE PO ×3 (07:27→17:12)
[2021-04-11] MEDS: METOPROLOL TARTRATE 50 MG TAB PO ×2 (07:28→20:26)
[2021-04-11] MEDS: PANTOPRAZOLE 40 MG TABLET PO ×2 (07:28→20:26)
[2021-04-11] MEDS: APIXABAN 5 MG TABLET PO ×2 (07:28→20:26)
[2021-04-11] MEDS: CYANOCOBALAMIN 1,000 MCG TABLET 1000 MCG PO (07:28)
[2021-04-11] MEDS: CELECOXIB 200 MG CAPSULE PO (07:28)
[2021-04-11] MEDS: FLUTICASONE/SALMETEROL 230-21 MCG INHALER 1 PUFF 2 PUFF INHALATION ×2 (07:56→20:23)
--- NOTE | 2021-04-11 12:46 | PM.IMPN ---
Progress Note: A&P Assessment and Plan (1) [id number] condition: Code(s): B94.8 - Sequelae of other specified infectious and parasitic diseases Status: Acute Assessment and Plan: Patient diagnosed with COVID 02/10/21. At that time was admitted and treated with 10-day course of dexamethasone and remdesivir and discharged from our facility 02/21. Recently was hospitalized at [facility] for over 1 week, treated with steroids and discharged with supplemental oxygen 5L at rest, 8L with activity. Presents again with worsening shortness of breath. CTA showed diffuse lung disease consistent with COVID superimposed on severe emphysema with small pleural effusions. Still on high flow O2 - O2 requirements fluctuating between 5 - 7 L. Will discontinue ceftriaxone after today to complete a 10-day course- appreciate infectious disease input. Completed 7-day course of azithromycin 04/08, received 7 days of IV vancomycin stopped 04/07 due to negative MRSA screen. Remains on IV solu-medrol 60mg Q12 today - appreciate pulmonology input. Suspect steroids are in part contributing to leukocytosis. May need cardiopulmonary rehab due to long-term effects of COVID. 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 Quit smoking in 2011. Because of his advanced disease, he is being transferred to [facility] for higher level of care. He has been accepted to [place] and remains on the waitlist - accepting physician is Dr. Cornell Hoyos. (2) Atrial fibrillation with RVR: Code(s): I48.91 - Unspecified atrial fibrillation Status: Acute Assessment and Plan: New diagnosis, brief episode 04/08 early AM with which he was asymptomatic with no further recurrence. Suspect may have been precipitated by acute illness. He was treated with cardizem and amiodarone at that time. Remains now in normal sinus rhythm maintained on his home Lopressor. Appreciate cardiology recommendations. Notes reviewed. He has been started on Eliquis and we will continue to monitor with telemetry for any further recurrence. (3) COPD with lower respiratory infection: Code(s): J44.0 - Chronic obstructive pulmonary disease with (acute) lower respiratory infection Status: Acute Assessment and Plan: Appreciate pulmonology input. Remains on nebulized bronchodilator therapy, advair, and steroids. Can consider cutting back on albuterol or changing to Xopenex if he has further issues with A fib. (4) Acute and chronic respiratory failure with hypoxia: Code(s): J96.21 - Acute and chronic respiratory failure with hypoxia Status: Acute Assessment and Plan: Secondary to above. Wean supplemental O2 as tolerated to keep O2 saturations > 90%. Tolerating 7L this AM. (5) Hyperglycemia: Code(s): R73.9 - Hyperglycemia, unspecified Status: Acute Assessment and Plan: Blood sugar 127 this AM. Hgb A1c is 6.1% and he has been on steroids for a prolonged period of time with multiple hospitalizations. Suspect steroids contributing to hyperglycemia. Continue daily glucose checks for now and monitor. (6) Pneumonia: Qualifiers: Laterality: bilateral Lung location: unspecified part of lung Pneumonia type: due to unspecified organism Qualified Code(s): J18.9 - Pneumonia, unspecified organism Code(s): J18.9 - Pneumonia, unspecified organism Status: Acute Assessment and Plan: As above (7) Compression fracture: Status: Acute Assessment and Plan: New T3 compression fracture when compared to 4/18/21. Patient denies falls or known injury. Denies pain today. Could bene
--- NOTE | 2021-04-11 18:00 | PC.NURSE ---
Patient accepted to [facility], room 8411 at 1730, report given to Jimmie HERNANDEZ. Ambulance called, awaiting for pickup
[2021-04-11] MEDS: TAMSULOSIN HCL 0.4 MG CAPSULE PO (20:26)
[2021-04-11] MEDS: ATORVASTATIN 40 MG TABLET PO (20:26)
--- NOTE | 2021-04-11 22:29 | PC.NURSE ---
This patient, Giuseppe Rosa III, was transferred to [facility] room 8411 on 04/11/21 at 2043. Personal belongings sent with patient. Report updated with DAVID Cantrell. Appropriate documentation sent with patient.
== END 2021-04-11 20:43 | disposition short-term general hospital (02) | DRG 193 ==
LOC: ANHED 16:57 → ANHIMU 04-02 00:28
PROVIDERS: Internal Medicine; Physician Assistant; Admitting Provider Family Medicine; Emergency Provider Emergency Medicine; PCP Physician Assistant; Visit Provider Physician Assistant
DX: J18.9 Pneumonia, unspecified organism; J96.21 Acute and chronic respiratory failure with hypoxia; M48.54XA Collapsed vertebra, not elsewhere classified, thoracic region, initial encounter for fracture; B94.8 Sequelae of other specified infectious and parasitic diseases; Z99.81 Dependence on supplemental oxygen; I48.0 Paroxysmal atrial fibrillation; I27.20 Pulmonary hypertension, unspecified; J43.9 Emphysema, unspecified; R79.89 Other specified abnormal findings of blood chemistry; K21.9 Gastro-esophageal reflux disease without esophagitis; I10 Essential (primary) hypertension; E78.5 Hyperlipidemia, unspecified; N40.0 Benign prostatic hyperplasia without lower urinary tract symptoms; D72.829 Elevated white blood cell count, unspecified; E11.9 Type 2 diabetes mellitus without complications; R19.7 Diarrhea, unspecified; Z79.899 Other long term (current) drug therapy; Z87.891 Personal history of nicotine dependence; Z90.2 Acquired absence of lung [part of]
CPT/HCPCS: 36415; 36600; 71045; 71275; 80048; 80053; 80076; 80202; 82375; 82805; 83036; 83050; 83735; 83880; 84443; 84484; 85025; 85027; 87040; 87081; 93005; 94002; 94640; 96361; 96365; 96375; 99291; A9270; C8929; J0282; J0456; J0692; J0696; J1650; J2930; J3370; J3475; J7030; J7060; Q9957; Q9967

== ENCOUNTER 2021-06-21 12:03 | Inpatient (IN) | payer MEDICARE, MEDICAID, SELFPAY ==
[2021-06-21] VITALS (19 sets, daily range): BP systolic 111–159; BP diastolic 56–82; PULSE 83–115; RESP 14–34; TEMP 36–36.7; O2SAT 84–98; BMI 27.6
--- NOTE | ~2021-06-21 | XR_ITS ---
EXAMINATION: XR chest 2V EXAM DATE: 06/21/2021 12:43 INDICATION: Shortness of breath. History of COVID, left lung partial lobectomy. COPD. TECHNIQUE: Frontal and lateral projections of the chest obtained and reviewed. Comparison is made to prior examination from 04/03/2021. FINDINGS: Diffuse bilateral edema and/or pneumonia, some interval improvement in the upper lung zones compared to prior study. Cardiac silhouette is enlarged but stable in size compared to prior exam. T here is no pneumothorax suspected. Biapical capping. There are bony degenerative changes. IMPRESSION: Diffuse bilateral pneumonia and/or edema. Reviewed, dictated and finalized at location A.
--- NOTE | ~2021-06-21 | XR_ITS ---
EXAMINATION: XR chest 2V DATE: 06/24/2021 10:35 INDICATION: Cough. COVID. TECHNIQUE: PA and lateral views of the chest were obtained. COMPARISON: Chest radiograph dated 06/21/2021 and 04/13/2021 FINDINGS: Again seen is severe bullous emphysema with pleural parenchymal scarring at the bilateral upper lungs . Suture line at the left apex consistent with prior partial left upper lobectomy. Continued slight i mprovement in interstitial and airspace opacities throughout the remainder of the lungs consistent wi th improving pneumonia. No pleural effusion or pneumothorax. The cardiomediastinal silhouette is norm al. Moderate thoracic spondylosis. IMPRESSION: 1. Continuing gradual decrease in diffuse bilateral interstitial and airspace opacities consistent wi th improving COVID pneumonia. 2. Severe emphysema. Reviewed, dictated and finalized at location A. IMPRESSION: 1. Continuing gradual decrease in diffuse bilateral interstitial and airspace o pacities consistent with improving COVID pneumonia. 2. Severe emphysema.
--- NOTE | 2021-06-21 12:21 | ECG_ITS ---
Measurements Intervals [place] Rate: 84 P: 13 MD: 143 QRS: -11 QRSD: 107 T: -18 QT: 343 QTc: 407 Interpretive Statements SINUS RHYTHM ATRIAL PREMATURE COMPLEXES BORDERLINE R WAVE PROGRESSION, ANTERIOR LEADS NONSPECIFIC T-WAVE ABNORMALITY- ANTEROLAT/INF LEADS BASELINE WANDER- I, II, AVR, AVL, AVF, V1-V6 BORDERLINE ECG Electronically Signed On 06-21-2021 13:02:30 CDT by Vinod Villa D.O.
--- NOTE | 2021-06-21 12:25 | ED.SOB ---
HPI - SOB/Dyspnea General Chief Complaint: Shortness of Breath/Dyspnea Stated Complaint: SOB Time Seen by Provider: 06/21/21 12:10 Source: patient Mode of arrival: ambulatory Limitations: no limitations History of Present Illness HPI Narrative: Patient is a 66-year-old male complaining of worsening shortness of breath accompanied by cough, productive, clear yellowish sputum x5 days. Patient states that his shortness of breath is worse with exertion. Patient has a history of COPD and respiratory failure. Patient is on home oxygen at 3 L. Patient denies any chest pain, abdominal pain, nausea, vomiting, fever or chills. Related Data Home Medications Medication Instructions Recorded Confirmed Incruse Ellipta 1 inh INHALATION DAILY 02/10/21 04/01/21 atorvastatin 40 mg PO HS 02/10/21 04/01/21 cyanocobalamin (vitamin B-12) 1,000 mcg PO DAILY 02/10/21 04/01/21 fluticasone propion-salmeterol 1 inh INHALATION BID 02/10/21 04/01/21 [Advair Diskus] metoprolol tartrate 50 mg PO BID 02/10/21 04/01/21 omeprazole 40 mg PO DAILY 02/10/21 04/01/21 tamsulosin 0.4 mg PO HS 02/10/21 04/01/21 apixaban [Eliquis] mg 06/21/21 Allergies Allergy/AdvReac Type Severity Reaction Status Date / Time No Known Allergies Allergy Verified 06/21/21 16:10 Review of Systems Review of Systems: All systems reviewed & are unremarkable except as noted in HPI and below Constitutional: Constitutional: Denies body ache(s), Denies chills, Denies excessive sweating, Denies fatigue, Denies fever(s), Denies headache(s), Denies lethargy, Denies malaise, Denies weakness and Denies weight loss Eyes: Eyes: Denies blurry vision, Denies change in vision and Denies loss of vision ENT: Denies dizziness, Denies ear discharge, Denies headache(s), Denies lip swelling, Denies epistaxis, Denies nasal congestion, Denies neck pain, Denies throat swelling and Denies tongue swelling Cardiovascular: Cardiovascular: Denies chest pain, Denies chest pain at rest, Denies chest pain with activity, Denies diaphoresis, Denies rapid heart rate, Denies edema, Denies irregular heart rhythm, Denies lightheadedness and Denies palpitations Respiratory: Respiratory: Denies chest congestion and Denies hemoptysis Gastrointestinal: Gastrointestinal: Denies abdominal pain, Denies melena, Denies hematochezia, Denies diarrhea, Denies nausea, Denies vomiting and Denies hematemesis Musculoskeletal: Musculoskeletal: Denies abnormal gait, Denies deformity, Denies joint swelling, Denies limited range of motion, Denies neck pain and Denies numbness Neurologic: Denies Abnormal speech present, Denies abnormal gait, Denies confusion, Denies dizziness, Denies headache(s), Denies focal weakness, Denies loss of vision, Denies numbness, Denies Other visual disturbances, Denies Sensory deficit (Neuro) and Denies weakness Psychiatric: Psychiatric: Denies confusion, Denies depression, Denies auditory hallucinations, Denies homicidal ideation and Denies suicidal ideation Endocrine: Endocrine: Denies cold intolerance, Denies excessive sweating, Denies fatigue, Denies heat intolerance and Denies palpitations Hematologic/Lymphatic: Hematologic/Lymphatic: Denies easy bleeding and Denies easy bruising Allergic/Immunologic: Allergic/Immunologic: Denies lip swelling, Denies throat swelling and Denies tongue swelling PMFSH Past Medical History Medical History Chronic respiratory failure with hypoxia, on home O2 therapy COPD with emphysema Essential hypertension GERD (gastroesophageal reflux disease) History of BPH Hyperlipidemia Pneumonia due to COVID-19 virus (01/2021) Surgical History Surgical History History of pneumonectomy Left upper lobe History of right inguinal hernia repair Family History Family History Father Heart problem Social History
[2021-06-21] MEDS: ALBUTEROL SULFATE NEB 2.5 MG/0.5 ML INH 5 MG INHALATION ×2 (12:40→21:41)
[2021-06-21] MEDS: IPRATROPIUM BR 0.02% INH SOLN 0.5 MG/2.5 ML VIAL INHALATION ×2 (12:40→21:41)
[2021-06-21 12:46] LABS: Alveolar/Arterial O2 Gradient 160.9 mmHg; Base Excess ABG 2.2 mEq/l (+/-2.0); Carboxyhemoglobin 0.9 % THb (0-2.0); Fractional Inspired Oxygen 40 %; HCO3 ABG 26.7 mEq/l (22.0-26.0); Methemoglobin ABG 0.3 %THb (0-1.5); Oxygen Content ABG 18.5 %vol (16.0-22.0); Oxygen Saturation ABG 95.6 % (95.0-100.0); Oxyhemoglobin 93.9 % THb (90.0-100.0); PCO2 ABG 41.4 mmHg (35.0-45.0); PO2 ABG 76.7 mmHg (80.0-100.0); PO2 FiO2 Ratio Arterial Blood 1.92 %; Reduced Hemoglobin 4.9 %THb (0-5.0); pH ABG 7.428 (7.350-7.450)
[2021-06-21 12:47] LABS: Device NASAL CANNULA; Modified Allen's Test Pass; Site Drawn RIGHT RADIAL
[2021-06-21 12:49] LABS: Basophils Absolute Auto 0.1 K/mm3 (0.0-0.1); Basophils Percent Auto 0.7 % (0.2-1.2); Eosinophils Absolute Auto 0.3 K/mm3 (0-0.3); Eosinophils Percent Auto 2.4 % (0-4.4); Hematocrit 42.6 % (42.0-52.0); Immature Granulocyte Absolute 0.58 K/mm3 (0.00-0.031); Immature Granulocyte Percent A 4.3 % (0-0.5); Lymphocytes Absolute Auto 1.26 K/mm3 (0.9-3.2); Lymphocytes Percent Auto 9.4 % (18.3-44.2); Mean Corpuscular HGB Conc 30.5 g/dl (32-36); Mean Corpuscular Hemoglobin 28.3 pg (26-34); Mean Corpuscular Volume 92.8 fl (80-100); Mean Platelet Volume 9.2 fl (7.4-10.4); Monocytes Percent Auto 7.6 % (2.6-8.5); Neutrophils Absolute Auto 10.2 K/mm3 (1.3-6.7); Neutrophils Percent Auto 75.6 % (45.5-73.1); Platelet Count Result 467 k/mm3 (150-375); Red Blood Count 4.59 M/mm3 (4.6-6.20); Red Cell Distribution Width 17.5 % (11.5-14.5); White Blood Count 13.4 K/mm3 (4.5-10.0)
[2021-06-21 12:59] LABS: Anion Gap 8 mmol/L (8-16); Blood Urea Nitrogen 8 mg/dL (9-20); Calcium 9.1 mg/dL (8.4-10.2); Carbon Dioxide 27 mmol/L (22-30); Chloride 99 mmol/L (98-107); Estimated CRCL calculation 87 ml/min; Estimated Glomerular Filt Rate > 60; Glucose 113 mg/dL (65-110); Potassium 3.4 mmol/L (3.4-5.0); Sodium 134 mmol/L (137-145)
[2021-06-21 13:10] LABS: NT Pro B Type Natriuretic Pept 361 pg/mL (5-100); Troponin I 0.018 ng/mL (0.000-0.034)
[2021-06-21 13:16] LABS: Partial Thromboplastin Time 25.6 SECONDS (22.3-36.8)
[2021-06-21] MEDS: methylPREDNISolone SOD SUCC 125 MG VIAL IV PUSH (13:46)
[2021-06-21 13:47] LABS: Basophils Absolute Auto 0.1 K/mm3 (0.0-0.1); Eosinophils Absolute Auto 0.3 K/mm3 (0-0.3); Eosinophils Percent Auto 2.3 % (0-4.4); Hematocrit 43.1 % (42.0-52.0); Hemoglobin 13.2 g/dL (14.0-18.0); Immature Granulocyte Absolute 0.59 K/mm3 (0.00-0.031); Immature Granulocyte Percent A 4.6 % (0-0.5); Lymphocytes Absolute Auto 1.43 K/mm3 (0.9-3.2); Lymphocytes Percent Auto 11.2 % (18.3-44.2); Mean Corpuscular HGB Conc 30.6 g/dl (32-36); Mean Corpuscular Hemoglobin 28.5 pg (26-34); Mean Corpuscular Volume 93.1 fl (80-100); Mean Platelet Volume 9.6 fl (7.4-10.4); Monocytes Percent Auto 7.9 % (2.6-8.5); Neutrophils Absolute Auto 9.4 K/mm3 (1.3-6.7); Platelet Count Result 454 k/mm3 (150-375); Red Blood Count 4.63 M/mm3 (4.6-6.20); Red Cell Distribution Width 17.5 % (11.5-14.5); White Blood Count 12.8 K/mm3 (4.5-10.0)
[2021-06-21 14:23] LABS: Lactic Acid Reflex 1.4 mmol/L (0.7-2.1)
--- NOTE | 2021-06-21 15:27 | PC.NURSE ---
Patient was noted to have decreased oxygen saturations when he was placed on 3 liters of oxygen. O2 saturations noted to decrease to 87%. Patient was placed back on 5 liters oxygen and the EDP was notified.
--- NOTE | 2021-06-21 17:53 | PM.IMHP ---
H&P: HPI History of Present Illness Date/Time: 06/21/21 17:53 THIS IS A 66-YEAR-OLD MALE PATIENT who has a history of COPD. The patient is chronically on oxygen at 2 L at rest and then increases oxygen up to 6 L per nasal cannula with exertion. The patient stated that he contracted COVID pneumonia back in January 5 days after receiving his 1st COVID vaccine. He did not complete his 2nd round of COVID vaccine. Patient stated he has been in and out of a hospital since then. The patient stated that he was in rehab facility until 2-3 weeks ago. At that time he was checked for COVID-19 was found to be negative. The patient has been complaining of worsening shortness of breath accompanied by cough, production of an occasional yellowish sputum for the last 5 days. He denies any fever chills. The patient's O2 saturation was noted to be 84-88 upon presentation to the emergency room. Patient's oxygen was increased to 5 L per nasal cannula from 2 L per nasal cannula. Patient had a chest x-ray that was read per radiology as diffuse bilateral pneumonia and/or edema. When I assessed the patient he was talking in full sentences and had no complaints. The patient was started on azithromycin Rocephin. He is also given Solu-Medrol. His white count was noted to be 12.8. The patient stated last time he had steroids was approximately 2 weeks ago. The patient was given Solu-Medrol, nebulizer treatments, azithromycin and Rocephin. The patient is being admitted to inpatient status on the date of service of 06/21/2021. Chief Complaint: Shortness of breath Review of Systems Review of Systems: All systems reviewed & are unremarkable except as noted in HPI and below Constitutional: Constitutional: Reports as per HPI and Reports no additional constitutional complaints Eyes: Eyes: Reports as per HPI and Reports no additional eye complaints ENT: Reports system reviewed and no additional complaints, except as documented and Reports Normal hearing present Cardiovascular: Cardiovascular: Reports no additional cardiovascular complaints Respiratory: Respiratory: Reports no additional respiratory complaints and Reports no additional respiratory complaints Gastrointestinal: Gastrointestinal: Reports as per HPI and Reports no additional gastrointestinal complaints Musculoskeletal: Musculoskeletal: Reports no additional musculoskeletal complaints Integumentary/Breasts: Skin/Breast: Reports system reviewed and no additional complaints, except as docu and Reports as per HPI Neurologic: Reports system reviewed and no additional complaints, except as documented, Reports as per HPI and Reports Normal hearing present Psychiatric: Psychiatric: Reports no additional psychiatric complaints and Reports as per HPI Endocrine: Endocrine: Reports no additional endocrine complaints Hematologic/Lymphatic: Hematologic/Lymphatic: Reports no additional hematologic/lymphatic complaints Allergic/Immunologic: Allergic/Immunologic: Reports no additional allergic/immunologic complaints [facility] Past Medical History Medical History (Updated 06/21/21 @ 18:15 by Arlet Jo NP) BPH (benign prostatic hyperplasia) Chronic respiratory failure with hypoxia Chronic respiratory failure with hypoxia, on home O2 therapy COPD with emphysema Essential hypertension GERD (gastroesophageal reflux disease) History of BPH Hyperlipidemia Pneumonia due to COVID-19 virus (01/2021) Surgical History Surgical History (Updated 06/21/21 @ 18:04 by Arlet Jo NP) History of back surgery History of pneumonectomy Left upper lobe History of right inguinal hernia repair Family History Family History (Updated 06/21/21 @ 18:08 by Arlet Jo NP) Father Heart problem Mother Tuberculosis Social History Social History (Updated 06/21/21 @ 18:09 by Arlet Jo NP) Social History: The patient is originally from [facility]. He and his moved in with her daughter Ma
--- NOTE | 2021-06-21 18:18 | PC.NURSE ---
This patient, Giuseppe Rosa III, was admitted to IMU Room 200-01. Patient/family oriented to hospital policies and general routines including ID bracelet, bed and alarms, visiting hours, pain management, procedures, bathroom and other care routines, personal items, smoking policy, room service/diet, and visiting hours. Information on how to activate the Rapid Response Team has been discussed. Patient/Family are encouraged to report perceived risks to care and to ask questions if they do not understand what they are told or what they should do.
[2021-06-21] MEDS: TAMSULOSIN HCL 0.4 MG CAPSULE PO (21:43)
[2021-06-21] MEDS: METOPROLOL TARTRATE 50 MG TAB PO (21:44)
[2021-06-21] MEDS: ATORVASTATIN 40 MG TABLET PO (21:44)
[2021-06-22] VITALS (28 sets, daily range): BP systolic 118–130; BP diastolic 63–80; PULSE 74–106; RESP 20–25; TEMP 36.1–36.8; O2SAT 90–96
[2021-06-22] MEDS: ALBUTEROL SULFATE NEB 2.5 MG/0.5 ML INH 5 MG INHALATION ×4 (02:01→20:34)
[2021-06-22] MEDS: IPRATROPIUM BR 0.02% INH SOLN 0.5 MG/2.5 ML VIAL INHALATION ×4 (02:01→20:34)
[2021-06-22] MEDS: PANTOPRAZOLE 40 MG TABLET PO (08:20)
[2021-06-22] MEDS: METOPROLOL TARTRATE 50 MG TAB PO ×2 (08:20→21:02)
[2021-06-22] MEDS: CYANOCOBALAMIN 1,000 MCG TABLET 1000 MCG PO (08:21)
[2021-06-22 08:41] LABS: Basophils Percent Auto 0.2 % (0.2-1.2); Hematocrit 41.6 % (42.0-52.0); Hemoglobin 12.6 g/dL (14.0-18.0); Immature Granulocyte Absolute 0.34 K/mm3 (0.00-0.031); Immature Granulocyte Percent A 2.6 % (0-0.5); Lymphocytes Percent Auto 6.8 % (18.3-44.2); Mean Corpuscular HGB Conc 30.3 g/dl (32-36); Mean Corpuscular Hemoglobin 28.6 pg (26-34); Mean Corpuscular Volume 94.3 fl (80-100); Mean Platelet Volume 9.3 fl (7.4-10.4); Monocytes Absolute Auto 0.7 K/mm3 (0.1-0.6); Neutrophils Absolute Auto 11.3 K/mm3 (1.3-6.7); Neutrophils Percent Auto 85.4 % (45.5-73.1); Platelet Count Result 405 k/mm3 (150-375); Red Blood Count 4.41 M/mm3 (4.6-6.20); Red Cell Distribution Width 17.3 % (11.5-14.5); White Blood Count 13.2 K/mm3 (4.5-10.0)
[2021-06-22] MEDS: UMECLIDINIUM BROMIDE 62.5 MCG ELLIPTA 1 PUFF INHALATION (08:53)
[2021-06-22 08:54] LABS: Alanine Aminotransferase 11 U/L (4-50); Albumin Level 3.6 g/dL (3.5-5.1); Alkaline Phosphatase 78 U/L (38-126); Anion Gap 6 mmol/L (8-16); Aspartate Amino Transferase 22 U/L (17-59); Bilirubin,Total 0.4 mg/dL (0.2-1.3); Blood Urea Nitrogen 8 mg/dL (9-20); Calcium 9.2 mg/dL (8.4-10.2); Carbon Dioxide 26 mmol/L (22-30); Chloride 104 mmol/L (98-107); Estimated CRCL calculation 113 ml/min; Estimated Glomerular Filt Rate > 60; Glucose 140 mg/dL (65-110); Magnesium 1.8 mg/dL (1.6-2.3); Phosphorus 3.3 mg/dL (2.5-4.5); Potassium 3.9 mmol/L (3.4-5.0); Sodium 136 mmol/L (137-145)
[2021-06-22] MEDS: FLUTICASONE/SALMETEROL 230-21 MCG INHALER 1 PUFF 2 PUFF INHALATION (08:54)
[2021-06-22] MEDS: APIXABAN 5 MG TABLET PO ×2 (10:22→21:02)
--- NOTE | 2021-06-22 10:40 | PM.IMPN ---
Progress Note: A&P Assessment and Plan (1) Acute respiratory failure: Code(s): J96.00 - Acute respiratory failure, unspecified whether with hypoxia or hypercapnia Status: Acute Assessment and Plan: Acute on chronic respiratory failure: Patient uses 2 L of oxygen at baseline, with noting that he was using 5-6 L at baseline at home, which is why he came in. While here he has been on 6-8 L of oxygen. Etiology unclear, potentially related to COPD decompensation, supported by wheezing, and changing amount of phlegm. Pulmonary edema also possible, given bilateral infiltrates on chest x-ray, however patient has no documented history of congestive heart failure. Pneumonia less likely based on no fever, chills, cough producing colored sputum. COVID is possible, as patient is unvaccinated, and chest x-ray findings are consistent with COVID. Asthma less likely as his never been diagnosed. ACS less likely given nonischemic EKG and negative troponin. Pulmonary embolism less likely given Wells score of 0. -Treat for COPD decompensation with IV methylprednisolone 80 mg q.6 hours, DuoNeb breathing treatments q.6 hours, and azithromycin. Can hold home inhalers in the meantime. -Will also hold ceftriaxone, as a low index of suspicion for pneumonia at this point. Sputum culture pending, if positive can restart ceftriaxone. -Echo pending, as there is some concern for undiagnosed congestive heart failure. -If evidence of heart failure, or COPD exacerbation treatment not effective, can try IV diuresis tomorrow. -Wean oxygen as tolerated, optimal oxygen saturation in patient with COPD is between 88-92%. -COVID test is pending, in the meantime patient is in isolation with COVID precautions. If positive, will titrate steroid dose and start remdesivir. (2) Atrial fibrillation: Code(s): I48.91 - Unspecified atrial fibrillation Status: Acute Assessment and Plan: Continue 50 q.12 metoprolol tartrate, which is patient's home regimen Continue Eliquis 5 b.i.d. (3) BPH (benign prostatic hyperplasia): Code(s): N40.0 - Benign prostatic hyperplasia without lower urinary tract symptoms Status: Chronic Assessment and Plan: Continue with Flomax (4) Paroxysmal atrial fibrillation: Code(s): I48.0 - Paroxysmal atrial fibrillation Status: Chronic Assessment and Plan: Continue with Eliquis and metoprolol Time Spent With Patient Time with patient: less than 15 minutes Subjective Date/time seen: 06/22/21 10:40 Breathing improved from admission, however not feeling at baseline yet. Continues to have some mild wheezing, and some cough productive of whitish clearish phlegm. Review of Systems Review of Systems: All systems reviewed & are unremarkable except as noted in HPI and below Exam Const: General: no acute distress Neck: Neck: no JVD Resp: Effort & Inspection: normal respiratory effort Auscultation: wheezes Cardio: Rate: regular rate Rhythm: regular rhythm GI: GI Palp: Yes Soft to palpation and No Tenderness to palpation present (GI) Objective Data Vital Signs Vital Signs: Vital Signs - 24 hr 06/21/21 12:11 06/21/21 12:13 06/21/21 12:16 Temperature 98.1 F Pulse Rate 86 86 88 Respiratory Rate 22 H 21 H 27 H Blood Pressure 133/78 125/79 133/78 Pulse Oximetry 88 L 97 97 06/21/21 12:22 06/21/21 12:40 06/21/21 13:42 Temperature 97.8 F Pulse Rate 83 86 89 Respiratory Rate 23 H 18 Blood Pressure 149/76 H Pulse Oximetry 95 96 06/21/21 15:03 06/21/21 15:34 06/21/21 16:00 Temperature 98.1 F 97.8 F Pulse Rate 85 91 Respiratory Rate 16 19 Blood Pressure 137/80 155/82 H Pulse Oximetry 94 98 98 06/21/21 17:01 06/21/21 17:19 06/21/21 18:01 Temperature 97.3 F L 97.5 F L Pulse Rate 89 98 Respiratory Rate 18 22 H Blood Pressure 159/82 H 153/78 H Pulse Oximetry 98 98 98 06/21/21 18:17 06/21/21 18:27 06/21/21 20:00 Temperature 97.8 F 96.8
[2021-06-22] MEDS: methylPREDNISolone SOD SUCC 125 MG VIAL 80 MG IV PUSH ×2 (18:53→23:44)
[2021-06-22] MEDS: TAMSULOSIN HCL 0.4 MG CAPSULE PO (21:02)
[2021-06-22] MEDS: ATORVASTATIN 40 MG TABLET PO (21:02)
[2021-06-22 22:45] LABS: SARS-CoV-2 RNA PCR Negative
[2021-06-23] VITALS (25 sets, daily range): BP systolic 111–138; BP diastolic 54–67; PULSE 75–113; RESP 12–22; TEMP 36.4–37; O2SAT 90–100
[2021-06-23] MEDS: ALBUTEROL SULFATE NEB 2.5 MG/0.5 ML INH 5 MG INHALATION ×4 (02:07→20:12)
[2021-06-23] MEDS: IPRATROPIUM BR 0.02% INH SOLN 0.5 MG/2.5 ML VIAL INHALATION ×4 (02:07→20:12)
[2021-06-23 05:21] LABS: Basophils Absolute Auto 0.1 K/mm3 (0.0-0.1); Basophils Percent Auto 0.4 % (0.2-1.2); Eosinophils Percent Auto 0.1 % (0-4.4); Hematocrit 41.2 % (42.0-52.0); Hemoglobin 11.8 g/dL (14.0-18.0); Immature Granulocyte Absolute 0.23 K/mm3 (0.00-0.031); Immature Granulocyte Percent A 1.7 % (0-0.5); Lymphocytes Absolute Auto 0.42 K/mm3 (0.9-3.2); Lymphocytes Percent Auto 3.1 % (18.3-44.2); Mean Corpuscular HGB Conc 28.6 g/dl (32-36); Mean Corpuscular Hemoglobin 29.4 pg (26-34); Mean Corpuscular Volume 102.7 fl (80-100); Mean Platelet Volume 9.8 fl (7.4-10.4); Monocytes Absolute Auto 0.2 K/mm3 (0.1-0.6); Monocytes Percent Auto 1.7 % (2.6-8.5); Neutrophils Absolute Auto 12.8 K/mm3 (1.3-6.7); Platelet Count Result 383 k/mm3 (150-375); Red Blood Count 4.01 M/mm3 (4.6-6.20); Red Cell Distribution Width 17.9 % (11.5-14.5); White Blood Count 13.8 K/mm3 (4.5-10.0)
[2021-06-23] MEDS: methylPREDNISolone SOD SUCC 125 MG VIAL 80 MG IV PUSH ×3 (05:39→18:48)
[2021-06-23 07:47] LABS: Alanine Aminotransferase 14 U/L (4-50); Albumin Level 3.5 g/dL (3.5-5.1); Alkaline Phosphatase 68 U/L (38-126); Anion Gap 8 mmol/L (8-16); Aspartate Amino Transferase 16 U/L (17-59); Bilirubin,Total 0.2 mg/dL (0.2-1.3); Blood Urea Nitrogen 11 mg/dL (9-20); Calcium 9.1 mg/dL (8.4-10.2); Carbon Dioxide 26 mmol/L (22-30); Chloride 100 mmol/L (98-107); Estimated CRCL calculation 98 ml/min; Estimated Glomerular Filt Rate > 60; Glucose 271 mg/dL (65-110); Magnesium 1.9 mg/dL (1.6-2.3); Phosphorus 3.5 mg/dL (2.5-4.5); Potassium 4.2 mmol/L (3.4-5.0); Sodium 134 mmol/L (137-145)
[2021-06-23 08:09] LABS: Anisocytosis 1+ (NORMAL); Hypochromasia 1+ (NORMAL); Platelet Estimate Increased (Adequate)
[2021-06-23] MEDS: METOPROLOL TARTRATE 50 MG TAB PO ×2 (08:24→20:48)
[2021-06-23] MEDS: APIXABAN 5 MG TABLET PO ×2 (08:25→20:49)
[2021-06-23] MEDS: PANTOPRAZOLE 40 MG TABLET PO (08:25)
[2021-06-23] MEDS: CYANOCOBALAMIN 1,000 MCG TABLET 1000 MCG PO (08:25)
--- NOTE | 2021-06-23 11:05 | PM.IMPN ---
Progress Note: A&P Assessment and Plan (1) Acute respiratory failure: Code(s): J96.00 - Acute respiratory failure, unspecified whether with hypoxia or hypercapnia Status: Acute Assessment and Plan: Acute on chronic respiratory failure: Patient uses 2 L of oxygen at baseline, with noting that he was using 5-6 L at baseline at home, which is why he came in. While here he has been on 6-8 L of oxygen. Etiology unclear, potentially related to COPD decompensation, supported by wheezing, and changing amount of phlegm. Pulmonary edema also possible, given bilateral infiltrates on chest x-ray, however patient has no documented history of congestive heart failure. Pneumonia less likely based on no fever, chills, cough producing colored sputum. COVID is possible, as patient is unvaccinated, and chest x-ray findings are consistent with COVID. Asthma less likely as his never been diagnosed. ACS less likely given nonischemic EKG and negative troponin. Pulmonary embolism less likely given Wells score of 0. -Treat for COPD decompensation with IV methylprednisolone 80 mg q.6 hours, DuoNeb breathing treatments q.6 hours, and azithromycin. Can hold home inhalers in the meantime. -Will also hold ceftriaxone, as a low index of suspicion for pneumonia at this point. Sputum culture pending, if positive can restart ceftriaxone. also ordered Legionella urine today. -Echo pending, as there is some concern for undiagnosed congestive heart failure, If evidence of heart failure, can try IV diuresis tomorrow. -Wean oxygen as tolerated, brought down to 5 L most recently, optimal oxygen saturation in patient with COPD is between 88-92%. -COVID test is Negative (2) Atrial fibrillation: Code(s): I48.91 - Unspecified atrial fibrillation Status: Acute Assessment and Plan: Continue 50 q.12 metoprolol tartrate, which is patient's home regimen Continue Eliquis 5 b.i.d. (3) BPH (benign prostatic hyperplasia): Code(s): N40.0 - Benign prostatic hyperplasia without lower urinary tract symptoms Status: Chronic Assessment and Plan: Continue with Flomax Time Spent With Patient Time with patient: less than 15 minutes Subjective Date/time seen: 06/23/21 11:05 Resting comfortably in, brought oxygen down to 5 L while talking to him, and he had no difficulty. No cough, continued wheezing. No chest pain able to tolerate some exertion without dyspnea. Review of Systems Review of Systems: All systems reviewed & are unremarkable except as noted in HPI and below Exam Narrative: Resting comfortably in bed, tolerating conversation. Const: General: no acute distress Neck: Neck: no JVD Resp: Effort & Inspection: normal respiratory effort Auscultation: no crackles and wheezes Cardio: Rate: abnormal rate Rhythm: abnormal rhythm GI: GI Palp: Yes Soft to palpation and No Tenderness to palpation present (GI) Objective Data Vital Signs Vital Signs: Vital Signs - 24 hr 06/22/21 12:00 06/22/21 12:42 06/22/21 14:00 Temperature 97.6 F Pulse Rate 93 92 90 Respiratory Rate 24 H Blood Pressure 126/64 Pulse Oximetry 94 96 06/22/21 14:20 06/22/21 14:40 06/22/21 16:00 Temperature Pulse Rate 84 92 96 Respiratory Rate 20 20 Blood Pressure Pulse Oximetry 94 06/22/21 16:43 06/22/21 18:00 06/22/21 19:26 Temperature 98.2 F 97.2 F L Pulse Rate 99 102 H 93 Respiratory Rate 22 H 22 H Blood Pressure 118/63 129/63 Pulse Oximetry 95 90 06/22/21 20:00 06/22/21 20:34 06/22/21 20:35 Temperature Pulse Rate 82 96 96 Respiratory Rate 22 H 25 H Blood Pressure Pulse Oximetry 90 94 06/22/21 20:45 06/22/21 21:02 06/22/21 22:00 Temperature Pulse Rate 92 106 H 103 H Respiratory Rate 20 Blood Pressure Pulse Oximetry 06/23/21 00:00 06/23/21 02:00 06/23/21 02:07 Temperature 97.6 F Pulse Rate 113 H 80 93 Respiratory Rate 20 20 Blood Pressure 113/57 L Pulse
--- NOTE | 2021-06-23 16:24 | PC.NURSE ---
This patient, Giuseppe Rosa III, was transferred to [ 312 ] on 06/23/21 at 1615. Personal belongings sent with patient. Report given to [ DAVID Beasley]. Appropriate documentation sent with patient.
--- NOTE | 2021-06-23 16:30 | ADMGEN ---
This patient, Giuseppe Rosa III, was admitted to [facility] Surg Room 312-01 at 1627 from room 200 of IMU. Report per DAVID Torres. Patient/family oriented to hospital policies and general routines including ID bracelet, bed and alarms, visiting hours, pain management, procedures, bathroom and other care routines, personal items, smoking policy, room service/diet, and visiting hours. Information on how to activate the Rapid Response Team has been discussed. Patient/Family are encouraged to report perceived risks to care and to ask questions if they do not understand what they are told or what they should do.
[2021-06-23] MEDS: WATER FOR IRRIGATION, STERILE 1,000 ML BOTTLE 1000 ML (18:50)
[2021-06-23] MEDS: TAMSULOSIN HCL 0.4 MG CAPSULE PO (20:49)
[2021-06-23] MEDS: ATORVASTATIN 40 MG TABLET PO (20:49)
--- NOTE | 2021-06-23 22:30 | PC.NURSE ---
This nurse heard yelling down the mclean from 312. Went down the mclean to see what was happening. As this nurse came down the hallway I saw the CAREER SERVICES OFFICER Vanessa Joshua and she told me that the patient was yelling about wet wipes. Vanessa stated that he asked about the disposable wet washcloths that he had in IMU. She stated to him that we don't have those wipes up on this floor. The patient started yelling at the CAREER SERVICES OFFICER that he had them downstairs and why didn't we have them up here. I went into the patient room and the patient stated I have hemorrhoids and I need those wipes , tell her not to get loud with me, I'll get loud back . I explained to the patient that his behavior was inappropriate and stated that I was the charge nurse and if there was anything I could do to solve the problem and he stated no. he wanted to talk to the day time prep room supervisor . I relayed the message to linda Dueñas/surg technical sales manager.
[2021-06-24] VITALS (20 sets, daily range): BP systolic 117–134; BP diastolic 61–72; PULSE 67–104; RESP 20; TEMP 36.1–36.7; O2SAT 89–98
--- NOTE | 2021-06-24 | ECHOL_ITS ---
Patient Info Name: Giuseppe Rosa Age: 66 years : 1955 Gender: Male Ht: 72 in Wt: 205 lbs BSA: 2.19 m2 HR: 62 bpm BP: 117 / 61 mmHg Heart Rhythm: Sinus Rhythm Technical Quality: Fair Exam Date: 06/24/2021 2:59 PM Exam Location: [facility] Patient Status: Inpatient Admit Date: 06/21/2021 Staff Ordering Physician: Milton Mckenna MD Enterprise Application Developer: Sandrine Celestin RDCS Attending Provider: Jonna Weber MD Exam Type: CA echo limited Study Info Indications - CONCERN FOR HEART FAILURE Limited two-dimensional transthoracic echocardiogram is performed. Summary 1. Technically difficult study with limited views. 2. Left ventricular systolic function is normal, estimated at 60-65%. 3. There is mildly increased left ventricular wall thickness. 4. Left ventricular septal wall motion is abnormal with septal motion related to bundle branch block. 5. Right atrial chamber dimension is moderately enlarged. 6. Left atrial chamber dimension is mildly enlarged. 7. There is trace tricuspid valve regurgitation. 8. Moderate pulmonary hypertension, estimated pulmonary arterial systolic pressure is 46 mmHg. 9. There is trace mitral valve regurgitation. Left Ventricle Left ventricular chamber dimension is normal. Left ventricular systolic function is normal, estimated at 60-65%. There is mildly increased left ventricular wall thickness. Left ventricular septal wall motion is abnormal with septal motion related to bundle branch block. Global longitudinal strain is mildly elevated at -17 %. Technically difficult study with limited views. Right Ventricle Right ventricular chamber dimension is normal. Right ventricular systolic function is normal. Left Atria Left atrial chamber dimension is mildly enlarged. Right Atria Right atrial chamber dimension is moderately enlarged. Aortic Valve The aortic valve is not well visualized. Pulmonic Valve The pulmonic valve is not well visualized. Mitral Valve The mitral valve has normal leaflets. There is trace mitral valve regurgitation. Tricuspid Valve The tricuspid valve leaflets are normal. There is trace tricuspid valve regurgitation. Moderate pulmonary hypertension, estimated pulmonary arterial systolic pressure is 46 mmHg. Pericardium/Pleural The pericardium appears epicardial fat pad. There is small pericardial effusion. Aorta The aortic root size at the sinus of Valsalva is not well visualized. Tricuspid Valve Name Value Normal TV Regurgitation Doppler TR Peak Velocity 299 cm/s TR Peak Gradient 36 mmHg Estimated PAP/RSVP RA Pressure 10 mmHg <=5 PA Systolic Pressure 46 mmHg <36 RV Systolic Pressure 46 mmHg <36 Septae/Shunt/Generic Name Value Normal Miscellaneous Measurements right atrium Area
[2021-06-24] MEDS: methylPREDNISolone SOD SUCC 125 MG VIAL 80 MG IV PUSH ×4 (00:15→17:21)
[2021-06-24] MEDS: IPRATROPIUM BR 0.02% INH SOLN 0.5 MG/2.5 ML VIAL INHALATION ×4 (01:33→21:15)
[2021-06-24] MEDS: ALBUTEROL SULFATE NEB 2.5 MG/0.5 ML INH 5 MG INHALATION ×4 (01:33→21:15)
[2021-06-24 06:41] LABS: Basophils Absolute Auto 0.1 K/mm3 (0.0-0.1); Basophils Percent Auto 0.3 % (0.2-1.2); Hematocrit 39.7 % (42.0-52.0); Hemoglobin 11.9 g/dL (14.0-18.0); Immature Granulocyte Absolute 0.48 K/mm3 (0.00-0.031); Immature Granulocyte Percent A 2.5 % (0-0.5); Lymphocytes Absolute Auto 0.56 K/mm3 (0.9-3.2); Lymphocytes Percent Auto 2.9 % (18.3-44.2); Mean Corpuscular Hemoglobin 27.8 pg (26-34); Mean Corpuscular Volume 92.8 fl (80-100); Mean Platelet Volume 9.2 fl (7.4-10.4); Monocytes Absolute Auto 0.7 K/mm3 (0.1-0.6); Monocytes Percent Auto 3.6 % (2.6-8.5); Neutrophils Absolute Auto 17.7 K/mm3 (1.3-6.7); Neutrophils Percent Auto 90.7 % (45.5-73.1); Platelet Count Result 450 k/mm3 (150-375); Red Blood Count 4.28 M/mm3 (4.6-6.20); Red Cell Distribution Width 17.5 % (11.5-14.5); White Blood Count 19.5 K/mm3 (4.5-10.0)
[2021-06-24 07:07] LABS: Alanine Aminotransferase 15 U/L (4-50); Albumin Level 3.4 g/dL (3.5-5.1); Alkaline Phosphatase 63 U/L (38-126); Anion Gap 8 mmol/L (8-16); Aspartate Amino Transferase 17 U/L (17-59); Bilirubin,Total 0.3 mg/dL (0.2-1.3); Blood Urea Nitrogen 13 mg/dL (9-20); Calcium 9.3 mg/dL (8.4-10.2); Carbon Dioxide 28 mmol/L (22-30); Chloride 98 mmol/L (98-107); Estimated CRCL calculation 113 ml/min; Estimated Glomerular Filt Rate > 60; Glucose 211 mg/dL (65-110); Phosphorus 3.2 mg/dL (2.5-4.5); Potassium 3.7 mmol/L (3.4-5.0); Sodium 134 mmol/L (137-145)
[2021-06-24] MEDS: METOPROLOL TARTRATE 50 MG TAB PO ×2 (08:28→21:54)
[2021-06-24] MEDS: CYANOCOBALAMIN 1,000 MCG TABLET 1000 MCG PO (08:29)
[2021-06-24] MEDS: APIXABAN 5 MG TABLET PO ×2 (08:29→21:54)
[2021-06-24] MEDS: PANTOPRAZOLE 40 MG TABLET PO (08:29)
[2021-06-24] MEDS: guaiFENesin 600 MG/DEXTROMETHORPHAN 30 MG SR TAB 12 HR 1 TAB PO ×2 (11:00→21:54)
[2021-06-24] MEDS: PSEUDOEPHEDRINE HCL 30 MG TABLET 60 MG PO (11:00)
--- NOTE | 2021-06-24 12:44 | PM.IMPN ---
Progress Note: A&P Assessment and Plan (1) Acute respiratory failure: Code(s): J96.00 - Acute respiratory failure, unspecified whether with hypoxia or hypercapnia Status: Acute Assessment and Plan: Acute on chronic respiratory failure: Patient uses 2 L of oxygen at baseline, with noting that he was using 5-6 L at baseline at home, which is why he came in. While here he has been on 6-8 L of oxygen. Etiology unclear, potentially related to COPD decompensation, supported by wheezing, and changing amount of phlegm. Pulmonary edema also possible, given bilateral infiltrates on chest x-ray, however patient has no documented history of congestive heart failure. Pneumonia less likely based on no fever, chills, cough producing colored sputum. COVID is possible, as patient is unvaccinated, and chest x-ray findings are consistent with COVID. Asthma less likely as his never been diagnosed. ACS less likely given nonischemic EKG and negative troponin. Pulmonary embolism less likely given Wells score of 0. COVID test was negative -Treat for COPD decompensation with IV methylprednisolone 80 mg q.6 hours, DuoNeb breathing treatments q.6 hours, and azithromycin. Can hold home inhalers in the meantime. -Will also hold ceftriaxone, as a low index of suspicion for pneumonia at this point. Sputum culture pending, if positive can restart ceftriaxone. also ordered Legionella urine today. -Echo pending, as there is some concern for undiagnosed congestive heart failure, however as patient does have persistent dry cough, will try 40 IV Lasix empirically. -Wean oxygen as tolerated, down to 3 L this morning, optimal oxygen saturation in patient with COPD is between 88-92%. -patient has some postnasal drip, will start guaifenesin, and nasal decongestant, possibly Sudafed. -aggressive pulmonary toilet -should be noted, that MRSA swab was positive, however not uncommon in asymptomatic-patient may be only a carrier (2) Atrial fibrillation: Code(s): I48.91 - Unspecified atrial fibrillation Status: Acute Assessment and Plan: Continue 50 q.12 metoprolol tartrate, which is patient's home regimen Continue Eliquis 5 b.i.d. (3) BPH (benign prostatic hyperplasia): Code(s): N40.0 - Benign prostatic hyperplasia without lower urinary tract symptoms Status: Chronic Assessment and Plan: Continue with Flomax Subjective Date/time seen: 06/24/21 12:44 Patient's oxygenation is improving, however he still gets dyspnea with exertion. Should be noted that this is his baseline. Review of Systems Review of Systems: All systems reviewed & are unremarkable except as noted in HPI and below Exam Neck: Neck: no JVD Resp: Other: Crackles, wheezes, patient does appear coughing, however no sputum, may be some spit or clear phlegm. Cardio: Rate: regular rate Rhythm: regular rhythm Objective Data Vital Signs Vital Signs: Vital Signs - 24 hr 06/23/21 14:00 06/23/21 15:03 06/23/21 15:06 Temperature Pulse Rate 104 H 83 83 Respiratory Rate 20 20 Blood Pressure Pulse Oximetry 92 06/23/21 15:11 06/23/21 16:00 06/23/21 16:30 Temperature 98.4 F Pulse Rate 92 95 Respiratory Rate 20 12 Blood Pressure 138/66 Pulse Oximetry 90 90 06/23/21 20:00 06/23/21 20:10 06/23/21 20:25 Temperature 98.6 F Pulse Rate 99 104 H 113 H Respiratory Rate 18 20 20 Blood Pressure 111/54 L Pulse Oximetry 91 91 91 06/23/21 20:48 06/23/21 21:35 06/24/21 00:00 Temperature Pulse Rate 113 H 85 Respiratory Rate Blood Pressure Pulse Oximetry 96 06/24/21 00:30 06/24/21 01:30 06/24/21 01:44 Temperature Pulse Rate 82 78 Respiratory Rate 20 20 Blood Pressure Pulse Oximetry 96 06/24/21 03:47 06/24/21 04:00 06/24/21 05:51 Temperature 97.6 F Pulse Rate 96 89 Respiratory Rate 20 Blood Pressure 117/61 Pulse Oximetry 97 90 06/24/21 08:00 06/24/21 08:28 06/24/21 09:04 Purdin
[2021-06-24] MEDS: FUROSEMIDE INJ 40 MG/4 ML VIAL IV PUSH (13:41)
[2021-06-24] MEDS: ATORVASTATIN 40 MG TABLET PO (21:54)
[2021-06-24] MEDS: TAMSULOSIN HCL 0.4 MG CAPSULE PO (21:54)
[2021-06-25] VITALS (22 sets, daily range): BP systolic 119–136; BP diastolic 64–82; PULSE 68–146; RESP 16–24; TEMP 36.1–36.8; O2SAT 89–98
[2021-06-25] MEDS: methylPREDNISolone SOD SUCC 125 MG VIAL 80 MG IV PUSH ×5 (00:57→23:13)
[2021-06-25] MEDS: ALBUTEROL SULFATE NEB 2.5 MG/0.5 ML INH 5 MG INHALATION ×4 (02:11→21:30)
[2021-06-25] MEDS: IPRATROPIUM BR 0.02% INH SOLN 0.5 MG/2.5 ML VIAL INHALATION ×4 (02:11→21:30)
[2021-06-25 06:56] LABS: Hematocrit 40.1 % (42.0-52.0); Mean Corpuscular HGB Conc 29.9 g/dl (32-36); Mean Corpuscular Volume 93.5 fl (80-100); Mean Platelet Volume 9.1 fl (7.4-10.4); Platelet Count Result 447 k/mm3 (150-375); Red Blood Count 4.29 M/mm3 (4.6-6.20); Red Cell Distribution Width 17.2 % (11.5-14.5); White Blood Count 18.2 K/mm3 (4.5-10.0)
[2021-06-25 07:19] LABS: Magnesium 2.1 mg/dL (1.6-2.3); Phosphorus 3.5 mg/dL (2.5-4.5)
[2021-06-25] MEDS: CYANOCOBALAMIN 1,000 MCG TABLET 1000 MCG PO (08:24)
[2021-06-25] MEDS: METOPROLOL TARTRATE 50 MG TAB PO ×2 (08:24→21:57)
[2021-06-25] MEDS: APIXABAN 5 MG TABLET PO ×2 (08:24→21:58)
[2021-06-25] MEDS: PANTOPRAZOLE 40 MG TABLET PO (08:25)
[2021-06-25 08:28] LABS: Band Neutrophils Percent 3 % (0-6); Lymphocytes Absolute Manual 0.18 K/mm3 (1.1-4.5); Monocytes Absolute Manual 1.09 K/mm3 (0.1-0.90); Monocytes Percent Manual 6 % (3-9); Neutrophils Absolute Manual 16.92 K/mm3 (1.3-6.7); Neutrophils Percent Manual 90 % (46-73); Nucleated Red Blood Cells 1 %; Platelet Estimate Adequate (Adequate); Total Cells Counted 100
[2021-06-25] MEDS: PSEUDOEPHEDRINE HCL 30 MG TABLET 60 MG PO (15:01)
[2021-06-25] MEDS: guaiFENesin 600 MG/DEXTROMETHORPHAN 30 MG SR TAB 12 HR 1 TAB PO ×2 (15:01→21:57)
--- NOTE | 2021-06-25 16:28 | PM.IMPN ---
Progress Note: A&P Assessment and Plan (1) Acute respiratory failure: Code(s): J96.00 - Acute respiratory failure, unspecified whether with hypoxia or hypercapnia Status: Acute Assessment and Plan: Acute on chronic respiratory failure: Patient uses 2 L of oxygen at baseline, with noting that he was using 5-6 L at baseline at home, which is why he came in. While here he has been on 6-8 L of oxygen. Etiology unclear, potentially related to COPD decompensation, supported by wheezing, and changing amount of phlegm. Pulmonary edema also possible, given bilateral infiltrates on chest x-ray, however patient has no documented history of congestive heart failure. Pneumonia less likely based on no fever, chills, cough producing colored sputum. COVID is possible, as patient is unvaccinated, and chest x-ray findings are consistent with COVID. Asthma less likely as his never been diagnosed. ACS less likely given nonischemic EKG and negative troponin. Pulmonary embolism less likely given Wells score of 0. COVID test was negative -Treat for COPD decompensation with IV methylprednisolone 80 mg q.6 hours, DuoNeb breathing treatments q.6 hours, and azithromycin. Can hold home inhalers in the meantime. -Will also hold ceftriaxone, as a low index of suspicion for pneumonia at this point. Sputum culture pending, if positive can restart ceftriaxone. also ordered Legionella urine today. -Echo pending, as there is some concern for undiagnosed congestive heart failure, however as patient does have persistent dry cough, will try 40 IV Lasix empirically. -Wean oxygen as tolerated, down to 3 L this morning, optimal oxygen saturation in patient with COPD is between 88-92%. -patient has some postnasal drip, will start guaifenesin, and nasal decongestant, possibly Sudafed. -aggressive pulmonary toilet -should be noted, that MRSA swab was positive, however not uncommon in asymptomatic-patient may be only a carrier 06/25/21 16:28 patient is 66-year-old male with history COPD and CHF presented emergency depart with complaint of shortness of breath, patient has chest x-ray it shows improving COVID pneumonia as well as severe emphysema, patient was started methylprednisone 80 mg every 6 hours and being treated updraft, today patient states he is still short of breath denies any fever chest pain or palpitation, will continue present managed continue to monitor (2) Atrial fibrillation: Code(s): I48.91 - Unspecified atrial fibrillation Status: Acute Assessment and Plan: Continue 50 q.12 metoprolol tartrate, which is patient's home regimen Continue Eliquis 5 b.i.d. (3) BPH (benign prostatic hyperplasia): Code(s): N40.0 - Benign prostatic hyperplasia without lower urinary tract symptoms Status: Chronic Assessment and Plan: Continue with Flomax Subjective Date/time seen: 06/25/21 16:28 patient is 66-year-old male with history COPD and CHF presented emergency depart with complaint of shortness of breath, patient has chest x-ray it shows improving COVID pneumonia as well as severe emphysema, patient was started methylprednisone 80 mg every 6 hours and being treated updraft, today patient states he is still short of breath denies any fever chest pain or palpitation, will continue present managed continue to monitor Review of Systems Review of Systems: All systems reviewed & are unremarkable except as noted in HPI and below Exam Narrative: Patient is comfortable, NAD HEENT: eyes are clear and none icteric LUNGS:CTA bilateral air fair entry with rhonchi and wheeze HEART: irregularly irregular ABD: distended Lower extremities: no edema SKIN: nonjaundiced Neuro: grossly intact normal speech. Objective Data Vital Signs Vital Signs: Vital Signs - 24 hr 06/24/21 20:00 06/24/21 21:15 06/24/21 21:25 Temperature Pulse Rate 83 67 72 Respiratory Rate 20 20 Blood Pressure Pulse Oximetry 94 06/24/21
[2021-06-25] MEDS: CLOTRIMAZOLE 10 MG TROC PO ×2 (17:28→21:57)
[2021-06-25] MEDS: TAMSULOSIN HCL 0.4 MG CAPSULE PO (21:57)
[2021-06-25] MEDS: ATORVASTATIN 40 MG TABLET PO (21:58)
--- NOTE | 2021-06-25 23:02 | ECG_ITS ---
Measurements Intervals [place] Rate: 145 P: [place]: 0 QRS: 11 QRSD: 123 T: -30 QT: 289 QTc: 450 Interpretive Statements ATRIAL FIBRILLATION WITH RAPID VENTRICULAR RESPONSE INTRAVENTRICULAR CONDUCTION DELAY BORDERLINE ST-T WAVE ABNORMALITY- INFERIOR LEADS ABNORMAL ECG Electronically Signed On 06-26-2021 6:30:24 CDT by Vinod Villa D.O.
[2021-06-26] VITALS (30 sets, daily range): BP systolic 106–140; BP diastolic 59–75; PULSE 72–155; RESP 16–26; TEMP 36.1–36.9; O2SAT 91–97
[2021-06-26] MEDS: LORazepam INJ (*CRX) 2 MG/ML VIAL 0.5 MG IV PUSH (00:05)
[2021-06-26] MEDS: ALBUTEROL SULFATE NEB 2.5 MG/0.5 ML INH 5 MG INHALATION ×5 (02:41→19:54)
[2021-06-26] MEDS: IPRATROPIUM BR 0.02% INH SOLN 0.5 MG/2.5 ML VIAL INHALATION ×4 (02:42→19:54)
[2021-06-26] MEDS: METOPROLOL TARTRATE 50 MG TAB PO ×3 (04:30→20:17)
--- NOTE | 2021-06-26 05:04 | PC.NURSE ---
06/26/21 at 0504--Dr Ayala called at this time, informed of patients condition, patient less short of breath at this time but heart rate remains 140's. No further orders at this time, doctor states to give patient some time to decrease heart rate after the lopressor administration. TDialRNC
[2021-06-26] MEDS: methylPREDNISolone SOD SUCC 125 MG VIAL 80 MG IV PUSH ×3 (05:27→18:17)
[2021-06-26] MEDS: CLOTRIMAZOLE 10 MG TROC PO ×4 (08:00→20:17)
[2021-06-26] MEDS: guaiFENesin 600 MG/DEXTROMETHORPHAN 30 MG SR TAB 12 HR 1 TAB PO ×2 (08:00→20:17)
[2021-06-26] MEDS: APIXABAN 5 MG TABLET PO ×2 (08:00→20:18)
[2021-06-26] MEDS: CYANOCOBALAMIN 1,000 MCG TABLET 1000 MCG PO (08:01)
[2021-06-26] MEDS: PANTOPRAZOLE 40 MG TABLET PO (08:01)
--- NOTE | 2021-06-26 08:56 | PC.NURSE ---
06/25/21 at 2305--patient noted to have converted into Afib on telemetry, heart rate 95-142. Arlet Walden NP called and notified, new orders received. TDialRNC
[2021-06-26 10:22] LABS: Anion Gap 14 mmol/L (8-16); Blood Urea Nitrogen 23 mg/dL (9-20); Carbon Dioxide 25 mmol/L (22-30); Chloride 96 mmol/L (98-107); Estimated CRCL calculation 98 ml/min; Estimated Glomerular Filt Rate > 60; Glucose 232 mg/dL (65-110); Magnesium 2.4 mg/dL (1.6-2.3); Potassium 3.7 mmol/L (3.4-5.0); Sodium 135 mmol/L (137-145)
--- NOTE | 2021-06-26 11:52 | PCPTNOTE ---
Patient refused to participate in PT evaluation this AM stating that he fell last night trying to get to the bedside commode. I verified this with DAVID Delarosa and she clarified the story that he was trying to get out of bed on his own to the commode and lowered himself to his knees. He had told the night nurse that he did not want to get out of bed much today. When asked if PT could come back this afternoon to check on him he said he might work if he feels better.
--- NOTE | 2021-06-26 15:11 | PM.CNCAR ---
Assessment and Plan Assessment and plan (1) Atrial fibrillation with RVR: Code(s): I48.91 - Unspecified atrial fibrillation Status: Acute Assessment and Plan: Patient has a history of paroxysmal atrial fibrillation who was previously on anticoagulation and metoprolol as an outpatient. Patient is relatively asymptomatic although AFib exacerbated due to acute on chronic hypoxic respiratory failure and pneumonia. Continue systemic anticoagulation with Eliquis 5 mg b.i.d.. Continue metoprolol 50 mg p.o. b.i.d. for now. Given degree of rapid ventricular response unlikely patient will respond favorably to uptitration of beta-luis enrique at this time. -Will start pt on Diltiazem infusion 5 milligrams/hour for improved heart rate control as he remains too rapid. -Electrolytes stable continue to monitor closely. Monitor BP. Limited echocardiogram 06/24/21 EF 60-65%, mild LVH moderate right atrial enlargement mild left atrial enlargement trace tricuspid regurgitation trace mitral regurgitation moderate pulmonary hypertension RVSP 46 mm Hg. Technically difficult study. (2) Acute respiratory failure: Code(s): J96.00 - Acute respiratory failure, unspecified whether with hypoxia or hypercapnia Status: Acute Assessment and Plan: Continue O2 supplementation, antibiotics, steroids, supportive therapy. Patient reports a history of sleep apnea but declined treatment with CPAP stating he does not need it. (3) Pneumonia: Qualifiers: Laterality: bilateral Lung location: unspecified part of lung Pneumonia type: due to unspecified organism Qualified Code(s): J18.9 - Pneumonia, unspecified organism Code(s): J18.9 - Pneumonia, unspecified organism Status: Acute Assessment and Plan: As above, per Primary Service, IV antibiotics and supportive care. (4) Pulmonary hypertension: Code(s): I27.20 - Pulmonary hypertension, unspecified Status: Acute Assessment and Plan: Secondary to underlying lung disease moderate severity RVSP 46 mm Hg. (5) Hypertension: Code(s): I10 - Essential (primary) hypertension Status: Acute Assessment and Plan: Controlled, no acute issues. Continue to monitor History of Present Illness History of Present Illness Consult date/time: Date of service:06/26/21 15:11 Cardiology consultation the request of Dr. Ovalles for our opinion regarding atrial fibrillation with rapid ventricular response Requesting physician: Jessica Ovalles MD Consult reason: atrial fibrillation Reason For Visit: Acute respiratory failure/pneumonia/COPD Narrative: Patient is a 66-year-old male with a past medical history significant for COPD, chronic respiratory failure on home O2 2 L at rest 6 L with exertion recent COVID-19 infection with pneumonia January 2021, admission in March for acute hypoxic respiratory failure with newly discovered atrial fibrillation with rapid ventricular response. Patient was admitted 06/21/2021 with worsening shortness of breath with productive cough with yellow sputum for least 5 days. He denies fevers or chills. He denies palpitations, chest pain. On presentation patient was hypoxic with O2 saturations in the mid 80s. He was started on antibiotics, steroids bronchodilator therapy. Chest x-ray revealed diffuse bilateral pneumonia and was started on azithromycin and Rocephin. Patient just recently completed tapering steroids as an outpatient just prior to admission. Patient states he ran out of [employer] 2 days prior to admission as there were no refills. Patient is feeling better but still feeling rather lightheaded upon standing and states last night after standing up he felt weak in the knees and fell down, no head injury, loss of consciousness. He has no palpitations or rapid heart rate sensation at any time. At admission he was noted be in sinus rhythm however today noted to be in atrial fibrillation with rapid ve
--- NOTE | 2021-06-26 16:57 | PM.IMPN ---
Progress Note: A&P Assessment and Plan (1) Acute respiratory failure: Code(s): J96.00 - Acute respiratory failure, unspecified whether with hypoxia or hypercapnia Status: Acute Assessment and Plan: Acute on chronic respiratory failure: Patient uses 2 L of oxygen at baseline, with noting that he was using 5-6 L at baseline at home, which is why he came in. While here he has been on 6-8 L of oxygen. Etiology unclear, potentially related to COPD decompensation, supported by wheezing, and changing amount of phlegm. Pulmonary edema also possible, given bilateral infiltrates on chest x-ray, however patient has no documented history of congestive heart failure. Pneumonia less likely based on no fever, chills, cough producing colored sputum. COVID is possible, as patient is unvaccinated, and chest x-ray findings are consistent with COVID. Asthma less likely as his never been diagnosed. ACS less likely given nonischemic EKG and negative troponin. Pulmonary embolism less likely given Wells score of 0. COVID test was negative -Treat for COPD decompensation with IV methylprednisolone 80 mg q.6 hours, DuoNeb breathing treatments q.6 hours, and azithromycin. Can hold home inhalers in the meantime. -Will also hold ceftriaxone, as a low index of suspicion for pneumonia at this point. Sputum culture pending, if positive can restart ceftriaxone. also ordered Legionella urine today. -Echo pending, as there is some concern for undiagnosed congestive heart failure, however as patient does have persistent dry cough, will try 40 IV Lasix empirically. -Wean oxygen as tolerated, down to 3 L this morning, optimal oxygen saturation in patient with COPD is between 88-92%. -patient has some postnasal drip, will start guaifenesin, and nasal decongestant, possibly Sudafed. -aggressive pulmonary toilet -should be noted, that MRSA swab was positive, however not uncommon in asymptomatic-patient may be only a carrier atient is 66-year-old male with history COPD and CHF presented emergency depart with complaint of shortness of breath, patient has chest x-ray it shows improving COVID pneumonia as well as severe emphysema, patient was started methylprednisone 80 mg every 6 hours and being treated updraft, today patient states he is still short of breath denies any fever chest pain or palpitation, will continue present managed continue to monitor 06/26 today patient complains of palpitation and on telemetry patient is in AFib with RVR currently patient is on metoprolol 50 mg b.i.d. and his rate is not controlled patient was seen by Cardiology and started the patient diltiazem drip, as patient has history of severe COPD increasing metoprolol was not an option, will transfer the patient IMU, patient is only been anticoagulated with Eliquis, patient shortness of breath secondary to exacerbation of COPD patient breathing symptoms are improved will taper methylprednisone 80 mg b.i.d. from 80 mg q.6, continue updraft, continue to monitor and further recommendation to follow. (2) Atrial fibrillation: Code(s): I48.91 - Unspecified atrial fibrillation Status: Acute Assessment and Plan: Continue 50 q.12 metoprolol tartrate, which is patient's home regimen Continue Eliquis 5 b.i.d. (3) BPH (benign prostatic hyperplasia): Code(s): N40.0 - Benign prostatic hyperplasia without lower urinary tract symptoms Status: Chronic Assessment and Plan: Continue with Flomax Subjective Date/time seen: 06/26/21 16:57 08/31patient is 66-year-old male with history COPD and CHF presented emergency depart with complaint of shortness of breath, patient has chest x-ray it shows improving COVID pneumonia as well as severe emphysema, patient was started methylprednisone 80 mg every 6 hours and being treated updraft, today patient states he is still short of breath denies any fever chest pain or palpitation, will continue present managed continue to monitor
--- NOTE | 2021-06-26 17:30 | PC.NURSE ---
This patient, Giuseppe Rosa III, was received from [facility] on 06/26/21 at 1730. Patient/family oriented to unit policies and routines.
--- NOTE | 2021-06-26 18:52 | PM.IMPN ---
Progress Note: A&P Assessment and Plan (1) Acute respiratory failure: Code(s): J96.00 - Acute respiratory failure, unspecified whether with hypoxia or hypercapnia Status: Acute Assessment and Plan: Acute on chronic respiratory failure: Patient uses 2 L of oxygen at baseline, with noting that he was using 5-6 L at baseline at home, which is why he came in. While here he has been on 6-8 L of oxygen. Etiology unclear, potentially related to COPD decompensation, supported by wheezing, and changing amount of phlegm. Pulmonary edema also possible, given bilateral infiltrates on chest x-ray, however patient has no documented history of congestive heart failure. Pneumonia less likely based on no fever, chills, cough producing colored sputum. COVID is possible, as patient is unvaccinated, and chest x-ray findings are consistent with COVID. Asthma less likely as his never been diagnosed. ACS less likely given nonischemic EKG and negative troponin. Pulmonary embolism less likely given Wells score of 0. COVID test was negative -Treat for COPD decompensation with IV methylprednisolone 80 mg q.6 hours, DuoNeb breathing treatments q.6 hours, and azithromycin. Can hold home inhalers in the meantime. -Will also hold ceftriaxone, as a low index of suspicion for pneumonia at this point. Sputum culture pending, if positive can restart ceftriaxone. also ordered Legionella urine today. -Echo pending, as there is some concern for undiagnosed congestive heart failure, however as patient does have persistent dry cough, will try 40 IV Lasix empirically. -Wean oxygen as tolerated, down to 3 L this morning, optimal oxygen saturation in patient with COPD is between 88-92%. -patient has some postnasal drip, will start guaifenesin, and nasal decongestant, possibly Sudafed. -aggressive pulmonary toilet -should be noted, that MRSA swab was positive, however not uncommon in asymptomatic-patient may be only a carrier atient is 66-year-old male with history COPD and CHF presented emergency depart with complaint of shortness of breath, patient has chest x-ray it shows improving COVID pneumonia as well as severe emphysema, patient was started methylprednisone 80 mg every 6 hours and being treated updraft, today patient states he is still short of breath denies any fever chest pain or palpitation, will continue present managed continue to monitor 06/26 today patient complains of palpitation and on telemetry patient is in AFib with RVR currently patient is on metoprolol 50 mg b.i.d. and his rate is not controlled patient was seen by Cardiology and started the patient diltiazem drip, as patient has history of severe COPD increasing metoprolol was not an option, will transfer the patient IMU, patient is only been anticoagulated with Eliquis, patient shortness of breath secondary to exacerbation of COPD patient breathing symptoms are improved will taper methylprednisone 80 mg b.i.d. from 80 mg q.6, continue updraft, continue to monitor and further recommendation to follow. (2) Atrial fibrillation: Code(s): I48.91 - Unspecified atrial fibrillation Status: Acute Assessment and Plan: Continue 50 q.12 metoprolol tartrate, which is patient's home regimen Continue Eliquis 5 b.i.d. (3) BPH (benign prostatic hyperplasia): Code(s): N40.0 - Benign prostatic hyperplasia without lower urinary tract symptoms Status: Chronic Assessment and Plan: Continue with Flomax Subjective Date/time seen: 06/26/21 18:52 Exam Narrative: Patient is comfortable, NAD HEENT: eyes are clear and none icteric LUNGS:CTA bilateral air fair entry with rhonchi and wheeze HEART: irregularly irregular ABD: distended Lower extremities: no edema SKIN: nonjaundiced Neuro: grossly intact normal speech. Objective Data Vital Signs Vital Signs: Vital Signs - 24 hr 06/25/21 20:00 06/25/21 21:30 06/25/21 21:40 Temperature Pulse Rate 92 84 78
[2021-06-26] MEDS: TAMSULOSIN HCL 0.4 MG CAPSULE PO (20:17)
[2021-06-26] MEDS: ATORVASTATIN 40 MG TABLET PO (20:17)
[2021-06-27] VITALS (24 sets, daily range): BP systolic 106–119; BP diastolic 54–72; PULSE 75–117; RESP 16–20; TEMP 36.3–36.6; O2SAT 89–96
[2021-06-27] MEDS: ALBUTEROL SULFATE NEB 2.5 MG/0.5 ML INH 5 MG INHALATION ×4 (02:23→20:41)
[2021-06-27] MEDS: IPRATROPIUM BR 0.02% INH SOLN 0.5 MG/2.5 ML VIAL INHALATION ×4 (02:24→20:41)
[2021-06-27 07:50] LABS: Legionella pneumophila Ag Ur Not Detected (Not Detected)
[2021-06-27] MEDS: CYANOCOBALAMIN 1,000 MCG TABLET 1000 MCG PO (08:19)
[2021-06-27] MEDS: guaiFENesin 600 MG/DEXTROMETHORPHAN 30 MG SR TAB 12 HR 1 TAB PO ×2 (08:19→21:04)
[2021-06-27] MEDS: APIXABAN 5 MG TABLET PO ×2 (08:19→21:04)
[2021-06-27] MEDS: PANTOPRAZOLE 40 MG TABLET PO (08:19)
[2021-06-27] MEDS: methylPREDNISolone SOD SUCC 125 MG VIAL 80 MG IV PUSH ×2 (08:19→16:00)
[2021-06-27] MEDS: METOPROLOL TARTRATE 50 MG TAB PO (08:19)
[2021-06-27 11:38] LABS: Glucose Point of Care 187 mg/dl (65-105)
--- NOTE | 2021-06-27 13:07 | PCNWS ---
Weekly nutritional screen. Patient is tolerating current diet with adequate intake. No weight loss reported. No nutritional needs at this time.
--- NOTE | 2021-06-27 13:25 | PCOTNOTE ---
Attempted to see patient twice this date however patient declined therapy both times. First attempt, patient stated, No not now. Second attempt, patient declined stating, I just got back from the potty chair, and I'm trying to catch my breath. I did all of that yesterday, so I'm not gonna do it all again today.
[2021-06-27 13:43] LABS: Anion Gap 14 mmol/L (8-16); Blood Urea Nitrogen 28 mg/dL (9-20); Calcium 8.6 mg/dL (8.4-10.2); Carbon Dioxide 25 mmol/L (22-30); Chloride 94 mmol/L (98-107); Estimated CRCL calculation 87 ml/min; Estimated Glomerular Filt Rate > 60; Glucose 258 mg/dL (65-110); Magnesium 2.4 mg/dL (1.6-2.3); Sodium 133 mmol/L (137-145)
--- NOTE | 2021-06-27 13:49 | PCPTNOTE ---
Patient declined PT this afternoon. Patient states he returned to bed after using the bathroom and feels winded. Patient states I can't do it today. PT will continue to follow per plan of care.
--- NOTE | 2021-06-27 16:27 | PM.IMPN ---
Progress Note: A&P Assessment and Plan (1) Acute respiratory failure: Code(s): J96.00 - Acute respiratory failure, unspecified whether with hypoxia or hypercapnia Status: Acute Assessment and Plan: Acute on chronic respiratory failure: Patient uses 2 L of oxygen at baseline, with noting that he was using 5-6 L at baseline at home, which is why he came in. While here he has been on 6-8 L of oxygen. Etiology unclear, potentially related to COPD decompensation, supported by wheezing, and changing amount of phlegm. Pulmonary edema also possible, given bilateral infiltrates on chest x-ray, however patient has no documented history of congestive heart failure. Pneumonia less likely based on no fever, chills, cough producing colored sputum. COVID is possible, as patient is unvaccinated, and chest x-ray findings are consistent with COVID. Asthma less likely as his never been diagnosed. ACS less likely given nonischemic EKG and negative troponin. Pulmonary embolism less likely given Wells score of 0. COVID test was negative -Treat for COPD decompensation with IV methylprednisolone 80 mg q.6 hours, DuoNeb breathing treatments q.6 hours, and azithromycin. Can hold home inhalers in the meantime. -Will also hold ceftriaxone, as a low index of suspicion for pneumonia at this point. Sputum culture pending, if positive can restart ceftriaxone. also ordered Legionella urine today. -Echo pending, as there is some concern for undiagnosed congestive heart failure, however as patient does have persistent dry cough, will try 40 IV Lasix empirically. -Wean oxygen as tolerated, down to 3 L this morning, optimal oxygen saturation in patient with COPD is between 88-92%. -patient has some postnasal drip, will start guaifenesin, and nasal decongestant, possibly Sudafed. -aggressive pulmonary toilet -should be noted, that MRSA swab was positive, however not uncommon in asymptomatic-patient may be only a carrier 06/27/21 16:27 [id number] is 66-year-old male with history COPD and CHF presented emergency depart with complaint of shortness of breath, patient has chest x-ray it shows improving COVID pneumonia as well as severe emphysema, patient was started methylprednisone 80 mg every 6 hours and being treated updraft, today patient states he is still short of breath denies any fever chest pain or palpitation, will continue present managed continue to monitor 06/26 today patient complains of palpitation and on telemetry patient is in AFib with RVR currently patient is on metoprolol 50 mg b.i.d. and his rate is not controlled patient was seen by Cardiology and started the patient diltiazem drip, as patient has history of severe COPD increasing metoprolol was not an option, will transfer the patient IMU, patient is only been anticoagulated with Eliquis, patient shortness of breath secondary to exacerbation of COPD patient breathing symptoms are improved will taper methylprednisone 80 mg b.i.d. from 80 mg q.6, continue updraft, continue to monitor and further recommendation to follow. 06/27 currently patient in IMU diltiazem drip his rate is trending, he has no complaint of chest pain or palpitation, patient be seen by Cardiology and further recommendation to follow, patient with a exacerbation of COPD being treated with methylprednisone 80 mg b.i.d. was tapered yesterday from 80 mg q.6, patient remains clinically stable will continue to monitor, appreciate Cardiology input. patient respiratory symptom remained stable will taper Solu-Medrol to once a day tomorrow. (2) Atrial fibrillation: Code(s): I48.91 - Unspecified atrial fibrillation Status: Acute Assessment and Plan: Continue 50 q.12 metoprolol tartrate, which is patient's home regimen Continue Eliquis 5 b.i.d. (3) BPH (benign prostatic hyperplasia): Code(s): N40.0 - Benign prostatic hyperplasia without lower urinary tract symptoms Status: Chronic Assessment and Plan: Cont
--- NOTE | 2021-06-27 16:45 | PM.PNCARD ---
Progress Note: A&P Assessment and Plan (1) Atrial fibrillation with RVR: Code(s): I48.91 - Unspecified atrial fibrillation Status: Acute Assessment and Plan: Patient has a history of paroxysmal atrial fibrillation who was previously on anticoagulation and metoprolol as an outpatient. Patient is relatively asymptomatic although AFib exacerbated due to acute on chronic hypoxic respiratory failure and pneumonia. -Continue systemic anticoagulation with Eliquis 5 mg b.i.d.. -Reduce Diltiazem to 5 milligrams/hour and stop if HR <60bpm or SBP<100mmHg. Increase Metoprolol to 75mg BID. Increase to 100mg BID in AM if HR permits and wean off Dilt gtt. Anticipate as respiratory status stabilizes heart rate will accordingly improved. -Electrolytes stable, continue to monitor closely. Monitor BP. Limited echocardiogram 06/24/21 EF 60-65%, mild LVH moderate right atrial enlargement mild left atrial enlargement trace tricuspid regurgitation trace mitral regurgitation moderate pulmonary hypertension RVSP 46 mm Hg. Technically difficult study. (2) Acute respiratory failure: Code(s): J96.00 - Acute respiratory failure, unspecified whether with hypoxia or hypercapnia Status: Acute Assessment and Plan: Continue O2 supplementation, antibiotics, steroids, supportive therapy. Patient reports a history of sleep apnea but declined treatment with CPAP stating he does not need it. (3) Pneumonia: Qualifiers: Laterality: bilateral Lung location: unspecified part of lung Pneumonia type: due to unspecified organism Qualified Code(s): J18.9 - Pneumonia, unspecified organism Code(s): J18.9 - Pneumonia, unspecified organism Status: Acute Assessment and Plan: As above, per Primary Service, IV antibiotics and supportive care. (4) Pulmonary hypertension: Code(s): I27.20 - Pulmonary hypertension, unspecified Status: Acute Assessment and Plan: Secondary to underlying lung disease moderate severity RVSP 46 mm Hg. (5) Hypertension: Code(s): I10 - Essential (primary) hypertension Status: Acute Assessment and Plan: Controlled, no acute issues. Continue to monitor Subjective Date/time seen: Date of service: 06/27/21 16:45 Follow-up for atrial fibrillation with rapid ventricular response Patient feels better. Shortness of breath improved. No new issues overnight. Heart rate much better controlled on diltiazem infusion heart rate generally in the 60s to 90s in atrial fibrillation on telemetry. Denies chest pain, palpitations, fevers or chills. No new concerns. Review of Systems Review of Systems: All systems reviewed & are unremarkable except as noted in HPI and below Constitutional: Constitutional: Reports as per HPI, Reports no additional constitutional complaints and Reports fatigue Eyes: Eyes: Reports as per HPI and Reports no additional eye complaints ENT: Reports system reviewed and no additional complaints, except as documented and Reports as per HPI Cardiovascular: Cardiovascular: Reports as per HPI, Reports no additional cardiovascular complaints, Denies chest pain, Denies diaphoresis, Denies pedal edema, Denies leg edema, Reports lightheadedness, Denies palpitations, Reports dyspnea and Reports dyspnea on exertion Respiratory: Respiratory: Reports as per HPI, Reports no additional respiratory complaints, Reports chest congestion, Reports cough, Reports dyspnea, Reports dyspnea on exertion and Reports wheezing Gastrointestinal: Gastrointestinal: Reports as per HPI, Reports no additional gastrointestinal complaints, Denies abdominal pain, Denies melena, Denies bloating, Denies hematochezia, Denies diarrhea, Denies nausea and Denies vomiting Genitourinary: Genitourinary: Reports no additional male genitourinary complaints, Reports as per HPI, Denies hematuria and Denies dysuria Musculoskeletal: Musculoskeletal: Reports no additional musculos
[2021-06-27] MEDS: METOPROLOL TARTRATE 25 MG TABLET 75 MG PO (21:04)
[2021-06-27] MEDS: TAMSULOSIN HCL 0.4 MG CAPSULE PO (21:04)
[2021-06-27] MEDS: ATORVASTATIN 40 MG TABLET PO (21:04)
[2021-06-27] MEDS: CLOTRIMAZOLE 10 MG TROC PO (21:05)
[2021-06-28] VITALS (27 sets, daily range): BP systolic 102–168; BP diastolic 53–78; PULSE 75–113; RESP 16–24; TEMP 35.6–37.1; O2SAT 90–95
[2021-06-28] MEDS: IPRATROPIUM BR 0.02% INH SOLN 0.5 MG/2.5 ML VIAL INHALATION ×4 (03:03→21:21)
[2021-06-28] MEDS: ALBUTEROL SULFATE NEB 2.5 MG/0.5 ML INH 5 MG INHALATION ×3 (03:03→13:55)
[2021-06-28 05:23] LABS: Hematocrit 40.7 % (42.0-52.0); Hemoglobin 12.2 g/dL (14.0-18.0); Mean Corpuscular Hemoglobin 28.6 pg (26-34); Mean Corpuscular Volume 95.5 fl (80-100); Mean Platelet Volume 9.2 fl (7.4-10.4); Platelet Count Result 452 k/mm3 (150-375); Red Blood Count 4.26 M/mm3 (4.6-6.20); Red Cell Distribution Width 17.2 % (11.5-14.5)
[2021-06-28 05:35] LABS: Anion Gap 9 mmol/L (8-16); Blood Urea Nitrogen 24 mg/dL (9-20); Calcium 8.5 mg/dL (8.4-10.2); Carbon Dioxide 25 mmol/L (22-30); Chloride 99 mmol/L (98-107); Estimated CRCL calculation 98 ml/min; Estimated Glomerular Filt Rate > 60; Glucose 241 mg/dL (65-110); Potassium 3.8 mmol/L (3.4-5.0); Sodium 133 mmol/L (137-145)
[2021-06-28] MEDS: guaiFENesin 600 MG/DEXTROMETHORPHAN 30 MG SR TAB 12 HR 1 TAB PO ×2 (08:42→20:51)
[2021-06-28] MEDS: CYANOCOBALAMIN 1,000 MCG TABLET 1000 MCG PO (08:42)
[2021-06-28] MEDS: APIXABAN 5 MG TABLET PO ×2 (08:42→20:50)
[2021-06-28] MEDS: PANTOPRAZOLE 40 MG TABLET PO (08:42)
[2021-06-28] MEDS: METOPROLOL TARTRATE 25 MG TABLET 75 MG PO (08:43)
[2021-06-28] MEDS: methylPREDNISolone SOD SUCC 125 MG VIAL 80 MG IV PUSH (08:43)
[2021-06-28] MEDS: METOPROLOL TARTRATE 25 MG TABLET PO (10:00)
--- NOTE | 2021-06-28 12:39 | PM.PNCARD ---
Progress Note: A&P Assessment and Plan (1) Atrial fibrillation with RVR: Code(s): I48.91 - Unspecified atrial fibrillation Status: Acute Assessment and Plan: Patient has a history of paroxysmal atrial fibrillation who was previously on anticoagulation and metoprolol as an outpatient. Patient is relatively asymptomatic although AFib exacerbated due to acute on chronic hypoxic respiratory failure and pneumonia. -Continue systemic anticoagulation with Eliquis 5 mg b.i.d.. -increase metoprolol tartrate to 100 mg b.i.d.. Tolerating well thus far. Discontinue diltiazem infusion. Monitor heart rate on telemetry. If heart rate remains stable continue current therapy without additional workup for intervention. He will follow up as an outpatient for management of atrial fibrillation. -Electrolytes stable, continue to monitor closely. Monitor BP. Limited echocardiogram 06/24/21 EF 60-65%, mild LVH moderate right atrial enlargement mild left atrial enlargement trace tricuspid regurgitation trace mitral regurgitation moderate pulmonary hypertension RVSP 46 mm Hg. Technically difficult study. (2) Acute respiratory failure: Code(s): J96.00 - Acute respiratory failure, unspecified whether with hypoxia or hypercapnia Status: Acute Assessment and Plan: Continue O2 supplementation, antibiotics, steroids, supportive therapy. Patient reports a history of sleep apnea but declined treatment with CPAP stating he does not need it. (3) Pneumonia: Qualifiers: Laterality: bilateral Lung location: unspecified part of lung Pneumonia type: due to unspecified organism Qualified Code(s): J18.9 - Pneumonia, unspecified organism Code(s): J18.9 - Pneumonia, unspecified organism Status: Acute Assessment and Plan: As above, per Primary Service, IV antibiotics and supportive care. (4) Pulmonary hypertension: Code(s): I27.20 - Pulmonary hypertension, unspecified Status: Acute Assessment and Plan: Secondary to underlying lung disease moderate severity RVSP 46 mm Hg. (5) Hypertension: Code(s): I10 - Essential (primary) hypertension Status: Acute Assessment and Plan: Controlled, no acute issues. Continue to monitor Subjective Date/time seen: Date of service: 06/28/21 12:39 Follow-up for atrial fibrillation Feels better. Short of breath but improving. Heart rate better controlled. IV diltiazem discontinued this morning, metoprolol increased. Tolerating well. He does feel fatigued denies dizziness, chest pain or palpitations. Review of Systems Review of Systems: All systems reviewed & are unremarkable except as noted in HPI and below Constitutional: Constitutional: Reports as per HPI, Reports no additional constitutional complaints and Reports fatigue Eyes: Eyes: Reports as per HPI and Reports no additional eye complaints ENT: Reports system reviewed and no additional complaints, except as documented and Reports as per HPI Cardiovascular: Cardiovascular: Reports as per HPI, Reports no additional cardiovascular complaints, Denies chest pain, Denies diaphoresis, Denies pedal edema, Denies leg edema, Reports lightheadedness, Denies palpitations, Reports dyspnea and Reports dyspnea on exertion Respiratory: Respiratory: Reports as per HPI, Reports no additional respiratory complaints, Reports chest congestion, Reports cough, Reports dyspnea, Reports dyspnea on exertion and Reports wheezing Gastrointestinal: Gastrointestinal: Reports as per HPI, Reports no additional gastrointestinal complaints, Denies abdominal pain, Denies melena, Denies bloating, Denies hematochezia, Denies diarrhea, Denies nausea and Denies vomiting Genitourinary: Genitourinary: Reports no additional male genitourinary complaints, Reports as per HPI, Denies hematuria and Denies dysuria Musculoskeletal: Musculoskeletal: Reports no additional musculoskeletal complaints and Reports
--- NOTE | 2021-06-28 13:29 | PCPTNOTE ---
Attempted to see patient in AM for Physical Therapy. Patient stated that he did not want to do therapy due to having a hard time breathing. Patient stated, They just cranked up my oxygen. Therapist told patient that she would check back later with him. Attempted to see patient in PM for Physical Therapy. Patient stated that he did not want to do therapy due to just getting back into bed and he was too tired. RN notified about attempts to see patient for Physical Therapy. Therapist told patient that Physical Therapy will see him tomorrow. Patient stated that he would like to do therapy tomorrow.
--- NOTE | 2021-06-28 16:15 | PM.IMPN ---
Progress Note: A&P Assessment and Plan (1) Acute respiratory failure: Code(s): J96.00 - Acute respiratory failure, unspecified whether with hypoxia or hypercapnia Status: Acute Assessment and Plan: Acute on chronic respiratory failure: Patient uses 2 L of oxygen at baseline, with noting that he was using 5-6 L at baseline at home, which is why he came in. While here he has been on 6-8 L of oxygen. Etiology unclear, potentially related to COPD decompensation, supported by wheezing, and changing amount of phlegm. Pulmonary edema also possible, given bilateral infiltrates on chest x-ray, however patient has no documented history of congestive heart failure. Pneumonia less likely based on no fever, chills, cough producing colored sputum. COVID is possible, as patient is unvaccinated, and chest x-ray findings are consistent with COVID. Asthma less likely as his never been diagnosed. ACS less likely given nonischemic EKG and negative troponin. Pulmonary embolism less likely given Wells score of 0. COVID test was negative -Treat for COPD decompensation with IV methylprednisolone 80 mg q.6 hours, DuoNeb breathing treatments q.6 hours, and azithromycin. Can hold home inhalers in the meantime. -Will also hold ceftriaxone, as a low index of suspicion for pneumonia at this point. Sputum culture pending, if positive can restart ceftriaxone. also ordered Legionella urine today. -Echo pending, as there is some concern for undiagnosed congestive heart failure, however as patient does have persistent dry cough, will try 40 IV Lasix empirically. -Wean oxygen as tolerated, down to 3 L this morning, optimal oxygen saturation in patient with COPD is between 88-92%. -patient has some postnasal drip, will start guaifenesin, and nasal decongestant, possibly Sudafed. -aggressive pulmonary toilet -should be noted, that MRSA swab was positive, however not uncommon in asymptomatic-patient may be only a carrier 06/27/21 16:27 [id number] is 66-year-old male with history COPD and CHF presented emergency depart with complaint of shortness of breath, patient has chest x-ray it shows improving COVID pneumonia as well as severe emphysema, patient was started methylprednisone 80 mg every 6 hours and being treated updraft, today patient states he is still short of breath denies any fever chest pain or palpitation, will continue present managed continue to monitor 06/26 today patient complains of palpitation and on telemetry patient is in AFib with RVR currently patient is on metoprolol 50 mg b.i.d. and his rate is not controlled patient was seen by Cardiology and started the patient diltiazem drip, as patient has history of severe COPD increasing metoprolol was not an option, will transfer the patient IMU, patient is only been anticoagulated with Eliquis, patient shortness of breath secondary to exacerbation of COPD patient breathing symptoms are improved will taper methylprednisone 80 mg b.i.d. from 80 mg q.6, continue updraft, continue to monitor and further recommendation to follow. 06/27 currently patient in IMU diltiazem drip his rate is trending, he has no complaint of chest pain or palpitation, patient be seen by Cardiology and further recommendation to follow, patient with a exacerbation of COPD being treated with methylprednisone 80 mg b.i.d. was tapered yesterday from 80 mg q.6, patient remains clinically stable will continue to monitor, appreciate Cardiology input. patient respiratory symptom remained stable will taper Solu-Medrol to once a day tomorrow. 06/28 Patient with history of atrial fibrillation went into RVR was seen by Cardiology place the patient on diltiazem drip, rate is trending down, today DW with Cardiology diltiazem drip is stopped and patient metoprolol is now increased 100 mg b.i.d. rate is trending down will continue to monitor, patient anticoagulated with Eliquis, patient with exacerbation of COPD lung sounds much better will taper methylpredni
[2021-06-28] MEDS: ATORVASTATIN 40 MG TABLET PO (20:51)
[2021-06-28] MEDS: TAMSULOSIN HCL 0.4 MG CAPSULE PO (20:51)
[2021-06-28] MEDS: METOPROLOL TARTRATE 50 MG TAB 100 MG PO (20:51)
[2021-06-28] MEDS: LEVALBUTEROL HFA (*SP) 15 GM INHALER 2 PUFF INHALATION (21:21)
[2021-06-29] VITALS (10 sets, daily range): BP systolic 105–122; BP diastolic 66–74; PULSE 53–107; RESP 16–18; TEMP 36.1–36.6; O2SAT 90–96
[2021-06-29] MEDS: IPRATROPIUM BR 0.02% INH SOLN 0.5 MG/2.5 ML VIAL INHALATION (03:15)
[2021-06-29 05:44] LABS: Hematocrit 39.5 % (42.0-52.0); Mean Corpuscular HGB Conc 30.4 g/dl (32-36); Mean Corpuscular Volume 92.3 fl (80-100); Mean Platelet Volume 9.5 fl (7.4-10.4); Platelet Count Result 467 k/mm3 (150-375); Red Blood Count 4.28 M/mm3 (4.6-6.20); Red Cell Distribution Width 17.1 % (11.5-14.5); White Blood Count 21.1 K/mm3 (4.5-10.0)
[2021-06-29 06:02] LABS: Anion Gap 6 mmol/L (8-16); Blood Urea Nitrogen 26 mg/dL (9-20); Calcium 8.2 mg/dL (8.4-10.2); Carbon Dioxide 29 mmol/L (22-30); Chloride 99 mmol/L (98-107); Estimated CRCL calculation 87 ml/min; Estimated Glomerular Filt Rate > 60; Glucose 160 mg/dL (65-110); Potassium 4.2 mmol/L (3.4-5.0); Sodium 134 mmol/L (137-145)
[2021-06-29] MEDS: METOPROLOL TARTRATE 50 MG TAB 100 MG PO (08:42)
[2021-06-29] MEDS: predniSONE 20 MG TABLET 60 MG PO (08:43)
[2021-06-29] MEDS: guaiFENesin 600 MG/DEXTROMETHORPHAN 30 MG SR TAB 12 HR 1 TAB PO (08:44)
[2021-06-29] MEDS: PANTOPRAZOLE 40 MG TABLET PO (08:44)
[2021-06-29] MEDS: APIXABAN 5 MG TABLET PO (08:44)
[2021-06-29] MEDS: CYANOCOBALAMIN 1,000 MCG TABLET 1000 MCG PO (08:44)
--- NOTE | 2021-06-29 11:12 | PM.DS ---
DS: Admitting Diagnosis Admitting Diagnosis COPD exacerbation DS: Discharge Diagnosis Discharge Diagnosis (1) Acute respiratory failure: Qualifiers: Respiratory failure complication: hypoxia Qualified Code(s): J96.01 - Acute respiratory failure with hypoxia Code(s): J96.00 - Acute respiratory failure, unspecified whether with hypoxia or hypercapnia Status: Acute Assessment and Plan: Acute on chronic respiratory failure: Patient uses 2 L of oxygen at baseline, with noting that he was using 5-6 L at baseline at home, which is why he came in. While here he has been on 6-8 L of oxygen. Etiology unclear, potentially related to COPD decompensation, supported by wheezing, and changing amount of phlegm. Pulmonary edema also possible, given bilateral infiltrates on chest x-ray, however patient has no documented history of congestive heart failure. Pneumonia less likely based on no fever, chills, cough producing colored sputum. COVID is possible, as patient is unvaccinated, and chest x-ray findings are consistent with COVID. Asthma less likely as his never been diagnosed. ACS less likely given nonischemic EKG and negative troponin. Pulmonary embolism less likely given Wells score of 0. COVID test was negative -Treat for COPD decompensation with IV methylprednisolone 80 mg q.6 hours, DuoNeb breathing treatments q.6 hours, and azithromycin. Can hold home inhalers in the meantime. -Will also hold ceftriaxone, as a low index of suspicion for pneumonia at this point. Sputum culture pending, if positive can restart ceftriaxone. also ordered Legionella urine today. -Echo pending, as there is some concern for undiagnosed congestive heart failure, however as patient does have persistent dry cough, will try 40 IV Lasix empirically. -Wean oxygen as tolerated, down to 3 L this morning, optimal oxygen saturation in patient with COPD is between 88-92%. -patient has some postnasal drip, will start guaifenesin, and nasal decongestant, possibly Sudafed. -aggressive pulmonary toilet -should be noted, that MRSA swab was positive, however not uncommon in asymptomatic-patient may be only a carrier 06/27/21 16:27 08/31patient is 66-year-old male with history COPD and CHF presented emergency depart with complaint of shortness of breath, patient has chest x-ray it shows improving COVID pneumonia as well as severe emphysema, patient was started methylprednisone 80 mg every 6 hours and being treated updraft, today patient states he is still short of breath denies any fever chest pain or palpitation, will continue present managed continue to monitor 06/26 today patient complains of palpitation and on telemetry patient is in AFib with RVR currently patient is on metoprolol 50 mg b.i.d. and his rate is not controlled patient was seen by Cardiology and started the patient diltiazem drip, as patient has history of severe COPD increasing metoprolol was not an option, will transfer the patient IMU, patient is only been anticoagulated with Eliquis, patient shortness of breath secondary to exacerbation of COPD patient breathing symptoms are improved will taper methylprednisone 80 mg b.i.d. from 80 mg q.6, continue updraft, continue to monitor and further recommendation to follow. 06/27 currently patient in IMU diltiazem drip his rate is trending, he has no complaint of chest pain or palpitation, patient be seen by Cardiology and further recommendation to follow, patient with a exacerbation of COPD being treated with methylprednisone 80 mg b.i.d. was tapered yesterday from 80 mg q.6, patient remains clinically stable will continue to monitor, appreciate Cardiology input. patient respiratory symptom remained stable will taper Solu-Medrol to once a day tomorrow. 06/28 Patient with history of atrial fibrillation went into RVR was seen by Cardiology place the patient on diltiazem drip, rate is trending down, today DW with Cardiology diltiazem drip is stopped and patient m
--- NOTE | 2021-06-29 11:37 | PM.PNCARD ---
Progress Note: A&P Assessment and Plan (1) Atrial fibrillation with RVR: Code(s): I48.91 - Unspecified atrial fibrillation Status: Acute Assessment and Plan: Patient has a history of paroxysmal atrial fibrillation who was previously on anticoagulation and metoprolol as an outpatient. Patient is relatively asymptomatic although AFib exacerbated due to acute on chronic hypoxic respiratory failure and pneumonia. -Continue systemic anticoagulation with Eliquis 5 mg b.i.d. Told pt he should not stop it even if prescription runs out (which he did in the past). -metoprolol tartrate increased to 100 mg b.i.d.. Tolerating well thus far; a fib control adequate. -He will follow up as an outpatient for management of atrial fibrillation. Limited echocardiogram 06/24/21 EF 60-65%, mild LVH moderate right atrial enlargement mild left atrial enlargement trace tricuspid regurgitation trace mitral regurgitation moderate pulmonary hypertension RVSP 46 mm Hg. Technically difficult stud y. (2) Acute respiratory failure: Qualifiers: Respiratory failure complication: hypoxia Qualified Code(s): J96.01 - Acute respiratory failure with hypoxia Code(s): J96.00 - Acute respiratory failure, unspecified whether with hypoxia or hypercapnia Status: Acute Assessment and Plan: Continue O2 supplementation, antibiotics, steroids, supportive therapy. Patient reports a history of sleep apnea but declined treatment with CPAP stating he does not need it. Improved, prob will be discharged today. (3) Pneumonia: Qualifiers: Laterality: bilateral Lung location: unspecified part of lung Pneumonia type: due to unspecified organism Qualified Code(s): J18.9 - Pneumonia, unspecified organism Code(s): J18.9 - Pneumonia, unspecified organism Status: Acute Assessment and Plan: As above, per Primary Service, IV antibiotics and supportive care. (4) Pulmonary hypertension: Code(s): I27.20 - Pulmonary hypertension, unspecified Status: Acute Assessment and Plan: Secondary to underlying lung disease moderate severity RVSP 46 mm Hg. (5) Hypertension: Code(s): I10 - Essential (primary) hypertension Status: Acute Assessment and Plan: Controlled, no acute issues. Continue to monitor Subjective Date/time seen: 06/29/21 11:37 Interval history: Follow-up for atrial fibrillation 06/28/2021: Feels better. Short of breath but improving. Heart rate better controlled. IV diltiazem discontinued this morning, metoprolol increased. Tolerating well. He does feel fatigued denies dizziness, chest pain or palpitations. Date of Service 06/29/2021: Says he is going home today, still of 4 L O2 (uses 2 at rest, 4 w/ activity at home). SOB getting to [facility], which is more than his usual. No palps. TEle shows a fib rates 90-105, sometimes up to 110. Review of Systems Constitutional: Constitutional: Reports fatigue ENT: Denies epistaxis Cardiovascular: Cardiovascular: Denies chest pain, Denies pedal edema, Denies leg edema, Denies lightheadedness and Denies palpitations Respiratory: Respiratory: Denies cough and Reports dyspnea on exertion Gastrointestinal: Gastrointestinal: Denies abdominal pain Genitourinary: Genitourinary: Denies dysuria Musculoskeletal: Musculoskeletal: Denies back pain Integumentary/Breasts: Skin/Breast: Denies rash Neurologic: Reports system reviewed and no additional complaints, except as documented Psychiatric: Psychiatric: Reports no additional psychiatric complaints Exam Const: General: comfortable and no acute distress HENMT: General nose exam: no epistaxis Eyes: EOM: EOMs intact bilaterally Neck: Neck: supple Resp: Effort & Inspection: normal respiratory effort Auscultation: no rhonchi, no wheezes and diminished lung sounds Other: decreased BS throughout Car
--- NOTE | 2021-06-29 16:03 | PC.NURSE ---
Patient discharged to home today at 1440. Discharge education was provided and home medication was returned. Patient had no further questions at this time.
== END 2021-06-29 14:40 | disposition home health service (06) | DRG 189 ==
LOC: ANHED 16:50 → ANHIMU 06-22 07:21 → ANH3MEDSUR 06-24 08:06 → ANHIMU 06-29 11:16 → ANH3MEDSUR 07-03 14:23 → ANHIMU 07-03 14:23
PROVIDERS: Family Medicine; Internal Medicine; Admitting Provider Hospitalist; Emergency Provider Emergency Medicine; PCP Physician Assistant; Visit Provider Internal Medicine
DX: J96.21 Acute and chronic respiratory failure with hypoxia (principal); J43.9 Emphysema, unspecified; Z20.822 Contact with and (suspected) exposure to COVID-19; Z99.81 Dependence on supplemental oxygen; K21.9 Gastro-esophageal reflux disease without esophagitis; N40.0 Benign prostatic hyperplasia without lower urinary tract symptoms; E78.5 Hyperlipidemia, unspecified; Z86.16 Personal history of COVID-19; Z87.891 Personal history of nicotine dependence; I48.0 Paroxysmal atrial fibrillation; I11.0 Hypertensive heart disease with heart failure; I50.9 Heart failure, unspecified; R42 Dizziness and giddiness; I27.20 Pulmonary hypertension, unspecified
CPT/HCPCS: 36415; 36600; 71046; 80048; 80053; 82375; 82805; 82948; 83050; 83605; 83735; 83880; 84100; 84484; 85025; 85027; 85610; 85730; 87040; 87081; 87449; 93005; 93308; 94640; 96365; 96368; 96375; 97161; 97165; 97530; 97535; 99291; A9270; C9803; J0456; J0696; J1940; J2060; J2930; J7512; U0003; U0005

== ENCOUNTER 2021-07-20 16:57 | Inpatient (IN) | payer MEDICARE, MEDICAID, SELFPAY ==
[2021-07-20] VITALS (45 sets, daily range): BP systolic 112–158; BP diastolic 70–111; PULSE 71–102; RESP 14–48; TEMP 36.3–36.6; O2SAT 86–99; BMI 27.1
--- NOTE | ~2021-07-20 | XR_ITS ---
EXAMINATION: XR chest 1V portable DATE: 07/20/2021 17:35 INDICATION: COPD presenting with increasing dyspnea TECHNIQUE: frontal view of the chest was obtained. COMPARISON: Chest radiograph dated 06/24/2021 FINDINGS: And seen is severe bullous emphysema in the bilateral upper lung zones. Interval progression of diffu se airspace opacities throughout both lungs. No pneumothorax or definitive pleural effusion. The card iomediastinal silhouette is normal. IMPRESSION: 1. Worsening diffuse bilateral lung disease which could represent pneumonia and/or pulmonary edema boland perimposed over severe upper lung predominant emphysema. Reviewed, dictated and finalized at location A. IMPRESSION: 1. Worsening diffuse bilateral lung disease which could represent pneumonia and /or pulmonary edema superimposed over severe upper lung predominant emphysema.
--- NOTE | ~2021-07-20 | CT_ITS ---
EXAMINATION: CTA chest PE protocol DATE: 07/20/2021 19:03 INDICATION: Dyspnea. Elevated d-dimer. TECHNIQUE: Computed tomography (CT) pulmonary angiogram of the chest was performed with 100 mL Omnipa que-350 intravenous contrast. Additional 3D reconstructions utilizing coronal maximum intensity proje ction (MIP) were performed. Automated exposure control and iterative reconstruction technique were em ployed. The dose-length product was 524.59 mGy-cm. COMPARISON: 04/11/2021 FINDINGS: Excellent contrast opacification of the pulmonary arteries. There is mild streak artifact from dense contrast in the superior vena cava and right atrium. Mild to moderate scattered respiratory motion ar tifact, greatest at the lower lung zones where it decreases sensitivity in the smaller subsegmental p ulmonary arteries. No pulmonary embolism. Again seen is severe emphysema with upper lung predominant prominent bullous changes. Suture line at the left apex. Interval decrease in size of a now 6 mm left apical nodule. Persistent diffuse groundglass opacities throughout both lungs with improvement of th e prior more dense small patchy areas of consolidation. Decrease in size of a now small right and tin y left pleural effusions. Heart size is normal. No pericardial effusion. Thoracic aorta is normal in caliber with no dissection. Mild likely reactive mediastinal and bilateral hilar lymphadenopathy. Mod erate thoracic spondylosis. Again seen is a T3 superior endplate compression fracture with one third central vertebral body height loss. IMPRESSION: 1. No pulmonary embolism, sensitivity decreased in some of the smaller basilar subsegmental pulmonary arteries due to respiratory motion. 2. Some interval improvement in diffuse lung disease consistent with COVID pneumonia and/or pulmonary edema superimposed over severe emphysema. 3. Decreased small right and tiny left pleural effusions. Reviewed, dictated and finalized at location A. IMPRESSION: 1. No pulmonary embolism, sensitivity decreased in some of the smaller basilar subsegmental pulmonary arteries due to respiratory motion. 2. Some interval improvement in diffuse lung disease consistent with COVID pneu monia and/or pulmonary edema superimposed over severe emphysema. 3. Decreased small right and tiny left pleural effusions.
--- NOTE | ~2021-07-20 | XR_ITS ---
EXAMINATION: XR chest 2V EXAM DATE: 07/23/2021 09:23 INDICATION: COPD, pneumonia. Home oxygen. TECHNIQUE: Frontal and lateral projections of the chest obtained and reviewed. Comparison is made to prior examination from 07/20/2021, 06/24/2021. FINDINGS: Extensive bilateral abnormal reticulation with regions of confluence appears unchanged com pared to prior studies. Pneumonia and/or edema likely, superimposed on chronic interstitial lung dise ase and emphysema. Mild cardiomegaly. No pneumothorax or pleural effusion. There are bony degenerativ e changes. IMPRESSION: Persistent diffuse abnormal reticulation likely pneumonia or edema superimposed on chroni c emphysema and interstitial lung disease. Reviewed, dictated and finalized at location A. IMPRESSION: Persistent diffuse abnormal reticulation likely pneumonia or edema superimposed on chronic emphysema and interstitial lung disease.
--- NOTE | 2021-07-20 16:58 | ECG_ITS ---
Measurements Intervals [place] Rate: 91 P: 32 FL: 131 QRS: -12 QRSD: 91 T: 17 QT: 380 QTc: 470 Interpretive Statements SINUS RHYTHM ATRIAL PREMATURE COMPLEXES BORDERLINE R WAVE PROGRESSION, ANTERIOR LEADS BORDERLINE ST-T WAVE ABNORMALITY- DIFFUSE LEADS BASELINE ARTIFACT- I, II, III, AVR, AVL, AVF, V1, V3-V6 ABNORMAL ECG Electronically Signed On 07-20-2021 18:50:02 CDT by Vinod Villa D.O.
[2021-07-20 17:32] LABS: Hematocrit 43.6 % (42.0-52.0); Hemoglobin 13.1 g/dL (14.0-18.0); Mean Corpuscular Hemoglobin 28.5 pg (26-34); Mean Corpuscular Volume 94.8 fl (80-100); Mean Platelet Volume 8.9 fl (7.4-10.4); Platelet Count Result 666 k/mm3 (150-375); Red Cell Distribution Width 17.7 % (11.5-14.5); White Blood Count 11.1 K/mm3 (4.5-10.0)
[2021-07-20] MEDS: ALBUTEROL SULFATE NEB 2.5 MG/0.5 ML INH 5 MG INHALATION ×4 (17:40→18:25)
[2021-07-20] MEDS: IPRATROPIUM BR 0.02% INH SOLN 0.5 MG/2.5 ML VIAL INHALATION ×4 (17:40→18:25)
[2021-07-20 17:45] LABS: Anion Gap 9 mmol/L (8-16); Blood Urea Nitrogen 8 mg/dL (9-20); Calcium 8.9 mg/dL (8.4-10.2); Carbon Dioxide 29 mmol/L (22-30); Chloride 104 mmol/L (98-107); Estimated CRCL calculation 78 ml/min; Estimated Glomerular Filt Rate > 60; Glucose 141 mg/dL (65-110); Lactic Acid Reflex 2.4 mmol/L (0.7-2.1); Potassium 3.5 mmol/L (3.4-5.0); Sodium 142 mmol/L (137-145)
[2021-07-20 17:57] LABS: Band Neutrophils Percent 1 % (0-6); D Dimer 2.29 ug/mL (<0.48); Lymphocytes Absolute Manual 2.55 K/mm3 (1.1-4.5); Monocytes Absolute Manual 1.44 K/mm3 (0.1-0.90); Monocytes Percent Manual 13 % (3-9); Neutrophils Percent Manual 63 % (46-73); Platelet Estimate Increased (Adequate); Total Cells Counted 100
[2021-07-20 17:58] LABS: Anisocytosis 2+ (NORMAL); Hypochromasia 1+ (NORMAL)
[2021-07-20 18:09] LABS: Alanine Aminotransferase 14 U/L (4-50); Alkaline Phosphatase 83 U/L (38-126); Aspartate Amino Transferase 25 U/L (17-59); Bilirubin,Total 0.4 mg/dL (0.2-1.3)
[2021-07-20] MEDS: methylPREDNISolone SOD SUCC 125 MG VIAL IV PUSH (18:12)
[2021-07-20 18:18] LABS: NT Pro B Type Natriuretic Pept 2310 pg/mL (5-100)
[2021-07-20 18:45] LABS: Alveolar/Arterial O2 Gradient 123.8 mmHg; Base Excess ABG 2.2 mEq/l (+/-2.0); Fractional Inspired Oxygen 30 %; HCO3 ABG 25.8 mEq/l (22.0-26.0); Oxygen Content ABG 15.8 %vol (16.0-22.0); Oxyhemoglobin 81.8 % THb (90.0-100.0); PCO2 ABG 36.9 mmHg (35.0-45.0); PO2 FiO2 Ratio Arterial Blood 1.56 %; Total Hemoglobin 13.8 g/dL (12.0-18.0); pH ABG 7.462 (7.350-7.450)
[2021-07-20 18:47] LABS: Oxygen Saturation ABG 85.2 % (95.0-100.0); PO2 ABG 46.7 mmHg (80.0-100.0)
[2021-07-20 18:48] LABS: Device BIPAP; Expiratory Pressure 5 cmH2O; Inspiratory Pressure 10 cmH2O; Modified Allen's Test Pass; Site Drawn LEFT RADIAL
--- NOTE | 2021-07-20 19:12 | ED.SOB ---
HPI - SOB/Dyspnea General Chief Complaint: Shortness of Breath/Dyspnea Stated Complaint: SOB Time Seen by Provider: 07/20/21 17:12 Source: patient and old records reviewed History of Present Illness HPI Narrative: Patient reports with shortness of breath. Reports his shortness of breath got progressively worse throughout the day. He has a known history of COPD and CHF he was discharged approximately 1 month ago for acute respiratory distress. Patient also reports chronic cough denies fevers denies focal areas of pain such as chest pain or abdominal pain denies any nausea or vomiting Related Data Home Medications Medication Instructions Recorded Confirmed Incruse Ellipta 1 inh INHALATION DAILY 02/10/21 07/20/21 atorvastatin 40 mg PO HS 02/10/21 07/20/21 cyanocobalamin (vitamin B-12) 1,000 mcg PO DAILY 02/10/21 07/20/21 fluticasone propion-salmeterol 1 inh INHALATION BID 02/10/21 07/20/21 [Advair Diskus] metoprolol tartrate 100 mg PO BID 02/10/21 07/20/21 omeprazole 40 mg PO DAILY 02/10/21 07/20/21 tamsulosin 0.4 mg PO HS 02/10/21 07/20/21 Allergies Allergy/AdvReac Type Severity Reaction Status Date / Time No Known Allergies Allergy Verified 07/20/21 17:05 Review of Systems Review of Systems: CONSTITUTIONAL: Denies fever, chills, or sweats. EYES: Denies visual changes, redness, or discharge. ENT: Denies rhinorrhea, congestion, sore throat, or otalgia. CARDIOVASCULAR: Denies chest pain, palpitations, or edema. RESPIRATORY: Reports cough and shortness of breath GASTROINTESTINAL: Denies abdominal pain, nausea, vomiting, or diarrhea. GENITOURINARY: Denies dysuria or hematuria. SKIN: Denies rash or itching. MUSCULOSKELETAL: Denies back pain, joint pain, or myalgia. NEUROLOGIC: Denies headache, numbness, dizziness, or weakness. PSYCHIATRIC: Denies anxiety or depression. All systems reviewed & are unremarkable except as noted in HPI and below PMFSH Past Medical History Medical History BPH (benign prostatic hyperplasia) Chronic respiratory failure with hypoxia Chronic respiratory failure with hypoxia, on home O2 therapy COPD with emphysema Essential hypertension GERD (gastroesophageal reflux disease) History of BPH Hyperlipidemia Pneumonia due to COVID-19 virus (01/2021) Surgical History Surgical History History of back surgery History of pneumonectomy Left upper lobe History of right inguinal hernia repair Family History Family History Father Heart problem Mother Tuberculosis Social History Social History Social History: The patient is originally from [facility]. He and his moved in with her daughter December 2019 when his lost her job due to the COVID-19 pandemic. He is a former smoker who smoked 3 packs of cigarettes per day for 42 years. He quit smoking in approximately 2012. He denies any alcohol use or illicit substance use. 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 He has 3 children Code status: Full code Surrogate decision maker: Rosa Maria () Smoking packs per day: 3 Smoking cigarettes per day: 60.0 Years smoked: 42 Smoking pack-years: 126.00 Smoking status: Former smoker Tobacco type: cigarettes Second hand tobacco smoke exposure: No Alcohol intake: never Substance use: never Substance use type: does not use Gender identity (if verbalized by the patient): Male Spiritual care concerns: No Exam Narrative: GENERAL: Patient acute respiratory distress HEAD: Normocephalic, atraumatic. EYES: PERRLA and EOMI. ENT: Nares clear, no rhinorrhea or epistaxis. Mucous membranes moist. NECK: Supple. No masses. No JVD CH
--- NOTE | 2021-07-20 19:25 | PC.NURSE ---
Report received from DAVID Posey. Assumed care of patient at this time. Patient placed back on bipap.
[2021-07-20] MEDS: FUROSEMIDE INJ 100 MG/10 ML VIAL 80 MG IV PUSH (19:26)
[2021-07-20 20:30] LABS: Reflex Lactic Acid Yes or No Add Lactic
[2021-07-20 22:01] LABS: Lactic Acid 1.6 mmol/L (0.7-2.1)
--- NOTE | 2021-07-20 22:43 | PM.IMHP ---
H&P: HPI History of Present Illness Date/Time: 07/20/21 22:43 Chief Complaint: Shortness of breath Narrative: The Patient is here in the ER with complaint of shortness of breath which has been progressively guarding worse since his discharge recently. He was discharged on 06/29/2021 and was in with pneumonia and respiratory failure. He uses 2-3 L of oxygen at baseline has underlying COPD and severe emphysema. He reports chronic cough which is unchanged and denies any fever chills. She denies any abdominal pain nausea vomiting. Upon arrival to the ER he was noted to be tachypneic and in distress with shortness of breath and was placed on BiPAP. He is currently feeling better on BiPAP and hence wants to get off the BiPAP. ED evaluation reports worsening diffuse bilateral lung disease which could represent pneumonia and/or pulmonary edema superimposed on severe upper lung predominant emphysema. CTA chest was done which ruled out PE but noted decreased small right and tiny left pleural effusions along with some interval improvement in diffuse lung disease consistent with COVID pneumonia and/or pulmonary edema some superimposed over severe emphysema. He is getting admitted for further evaluation and management. Review of Systems Review of Systems: - CONSTITUTIONAL: Denies weight loss, fever and chills. - HEENT: Denies changes in vision and hearing - RESPIRATORY: Reports SOB and cough. - CV: Denies palpitations and CP. - GI: Denies abdominal pain, nausea, vomiting and diarrhea. - : Denies dysuria and urinary frequency. - MSK: Denies myalgia and joint pain. - SKIN: Denies rash and pruritus. - NEUROLOGICAL: Denies headache and syncope. - PSYCHIATRIC: Denies recent changes in mood. Denies anxiety and depression. All systems reviewed & are unremarkable except as noted in HPI and below Constitutional: Constitutional: Reports fatigue and Reports weakness Neurologic: Reports weakness Endocrine: Endocrine: Reports fatigue PMFSH Past Medical History Medical History BPH (benign prostatic hyperplasia) Chronic respiratory failure with hypoxia Chronic respiratory failure with hypoxia, on home O2 therapy COPD with emphysema Essential hypertension GERD (gastroesophageal reflux disease) History of BPH Hyperlipidemia Pneumonia due to COVID-19 virus (01/2021) Surgical History Surgical History History of back surgery History of pneumonectomy Left upper lobe History of right inguinal hernia repair Family History Family History Father Heart problem Mother Tuberculosis Social History Social History Social History: The patient is originally from [facility]. He and his moved in with her daughter December 2019 when his lost her job due to the COVID-19 pandemic. He is a former smoker who smoked 3 packs of cigarettes per day for 42 years. He quit smoking in approximately 2012. He denies any alcohol use or illicit substance use. 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 He has 3 children Code status: Full code Surrogate decision maker: Rosa Maria () Smoking packs per day: 3 Smoking cigarettes per day: 60.0 Years smoked: 42 Smoking pack-years: 126.00 Smoking status: Former smoker Tobacco type: cigarettes Second hand tobacco smoke exposure: No Alcohol intake: never Substance use: never Substance use type: does not use Gender identity (if verbalized by the patient): Male Spiritual care concerns: No Meds Home Medications and Allergies Home Medications Medication Instructions Recorded Confirmed Type Incruse Ellipta 1 inh INHALATION DAILY 0
--- NOTE | 2021-07-20 23:23 | PC.NURSE ---
This patient, Giuseppe Rosa III, was admitted to IMU Room 201-01. Patient/family oriented to hospital policies and general routines including ID bracelet, bed and alarms, visiting hours, pain management, procedures, bathroom and other care routines, personal items, smoking policy, room service/diet, and visiting hours. Information on how to activate the Rapid Response Team has been discussed. Patient/Family are encouraged to report perceived risks to care and to ask questions if they do not understand what they are told or what they should do.
[2021-07-21] VITALS (20 sets, daily range): BP systolic 109–148; BP diastolic 57–81; PULSE 69–130; RESP 12–26; TEMP 36.5–37.2; O2SAT 89–98
--- NOTE | 2021-07-21 07:22 | PM.IMPN ---
Progress Note: A&P Assessment and Plan (1) Acute and chronic respiratory failure with hypoxia: Code(s): J96.21 - Acute and chronic respiratory failure with hypoxia Status: Acute (2) COPD exacerbation: Code(s): J44.1 - Chronic obstructive pulmonary disease with (acute) exacerbation Status: Acute (3) Pulmonary hypertension: Code(s): I27.20 - Pulmonary hypertension, unspecified Status: Acute (4) Paroxysmal atrial fibrillation: Code(s): I48.0 - Paroxysmal atrial fibrillation Status: Chronic (5) Pneumonia: Qualifiers: Laterality: bilateral Lung location: unspecified part of lung Pneumonia type: due to unspecified organism Qualified Code(s): J18.9 - Pneumonia, unspecified organism Code(s): J18.9 - Pneumonia, unspecified organism Status: Acute (6) Suspected COVID-19 virus infection: Code(s): Z20.822 - Contact with and (suspected) exposure to COVID-19 Status: Acute (7) Hypertension: Code(s): I10 - Essential (primary) hypertension Status: Acute (8) Elevated brain natriuretic peptide (BNP) level: Code(s): R79.89 - Other specified abnormal findings of blood chemistry Status: Acute Additional Plan 66yo male with acute on chronic respiratory failure, requiring 2-3L at baseline related to severe COPD requiring up to 6L over the last day or so. Etiology not certain, but copd most likely explanation: -No PE on CT angio -EKG not supportive of ACS, obtainting troponin. -COVID test positive in January, but negative in May. Repeat pending -BNP 2300 with some question of edema on cxr; echo from a few weeks ago showing preserved EF & GI diastolic dysfunction, will diurese 40 IV daily lasix -pneumonia a little less likely given no fever or significant leukocytosis, will d/c ctx when able -he has baseline pulm htn with RVSP 46, and history of left pneumonectomy, no doubt contributing to chronic respiratory failure As such treat for copd exacerbation: 60 q6 methylpred, azx, q6 breathing treatments, with prn albuterol for breakthrough s/x and follow pending labs Continue Eliquis for AFib, and home regimen of metoprolol 100 BID for rate control Patient is DNR, will discuss again today with him. Time Spent With Patient Time with patient: less than 15 minutes Subjective Date/time seen: 07/21/21 07:22 6L NC mild resp distress, but able to hold conversation Review of Systems Review of Systems: All systems reviewed & are unremarkable except as noted in HPI and below Exam Const: General: no acute distress Neck: Neck: no JVD Resp: Other: diffuse crackles some labored breathing 6L NC to maintain saturations Cardio: Rate: regular rate Rhythm: regular rhythm Objective Data Vital Signs Vital Signs: Vital Signs - 24 hr 07/20/21 16:59 07/20/21 17:18 07/20/21 17:25 Temperature 97.3 F L Pulse Rate 102 H 74 Respiratory Rate 48 H 28 H Blood Pressure 145/70 H Pulse Oximetry 90 86 L 94 07/20/21 17:29 07/20/21 17:30 07/20/21 17:35 Temperature Pulse Rate 79 77 83 Respiratory Rate 27 H 25 H 22 H Blood Pressure 129/74 Pulse Oximetry 95 94 07/20/21 17:40 07/20/21 17:45 07/20/21 17:47 Temperature Pulse Rate 85 89 82 Respiratory Rate 27 H 19 18 Blood Pressure 140/89 Pulse Oximetry 89 L 90 07/20/21 18:00 07/20/21 18:02 07/20/21 18:13 Temperature Pulse Rate 88 87 81 Respiratory Rate 25 H 25 H 23 H Blood Pressure 146/76 H 146/76 H Pulse Oximetry 89 L 93 07/20/21 18:16 07/20/21 18:17 07/20/21 18:31 Temperature Pulse Rate 71 72 87 Respiratory Rate 23 H 23 H 32 H Blood Pressure 158/72 H 128/74 Pulse Oximetry 94 95 07/20/21 18:32 07/20/21 18:45 07/20/21 18:55 Temperature Pulse Rate 86 75 89 Respiratory Rate 25 H 24 H 29 H Blood Pressure 144/85 H Pulse Oximetry 97 07/20/21 19:20 07/20/21 19:30 07/20/21 19:45 Temperature Pulse Rate 82 79 78 Respiratory Rate
[2021-07-21 08:56] LABS: Troponin I < 0.012 ng/mL (0.000-0.034)
[2021-07-21] MEDS: CYANOCOBALAMIN 1,000 MCG TABLET 1000 MCG PO (09:19)
[2021-07-21] MEDS: APIXABAN 5 MG TABLET PO ×2 (09:19→21:04)
[2021-07-21] MEDS: guaiFENesin 600 MG/DEXTROMETHORPHAN 30 MG SR TAB 12 HR 1 TAB PO ×2 (09:19→21:04)
[2021-07-21] MEDS: FUROSEMIDE INJ 40 MG/4 ML VIAL IV PUSH (09:19)
[2021-07-21] MEDS: METOPROLOL TARTRATE 50 MG TAB 100 MG PO ×2 (09:19→21:03)
[2021-07-21] MEDS: PANTOPRAZOLE 40 MG TABLET PO ×2 (09:20→17:50)
[2021-07-21] MEDS: UMECLIDINIUM BROMIDE 62.5 MCG ELLIPTA 1 PUFF INHALATION (09:20)
[2021-07-21] MEDS: methylPREDNISolone SOD SUCC 125 MG VIAL 60 MG IV PUSH ×3 (11:06→23:42)
[2021-07-21] MEDS: ALBUTEROL SULFATE NEB 2.5 MG/0.5 ML INH INHALATION ×2 (14:25→21:17)
[2021-07-21] MEDS: IPRATROPIUM BR 0.02% INH SOLN 0.5 MG/2.5 ML VIAL INHALATION ×2 (14:25→21:18)
--- NOTE | 2021-07-21 19:10 | PC.NURSE ---
Patient transferred to room 315 from room 201 in IMU via bed. Patient is alert and oriented and able to make needs known. Denies any pain or discomfort when asked. Call light within reach and oriented to its use.
[2021-07-21] MEDS: TAMSULOSIN HCL 0.4 MG CAPSULE PO (21:03)
[2021-07-21] MEDS: ATORVASTATIN 40 MG TABLET PO (21:06)
[2021-07-22] VITALS (17 sets, daily range): BP systolic 110–124; BP diastolic 57–66; PULSE 55–89; RESP 18–22; TEMP 36.5–37; O2SAT 78–94
[2021-07-22] MEDS: ALBUTEROL SULFATE NEB 2.5 MG/0.5 ML INH INHALATION ×4 (03:43→21:23)
[2021-07-22] MEDS: IPRATROPIUM BR 0.02% INH SOLN 0.5 MG/2.5 ML VIAL INHALATION ×4 (03:43→21:23)
[2021-07-22] MEDS: methylPREDNISolone SOD SUCC 125 MG VIAL 60 MG IV PUSH ×4 (05:55→23:18)
[2021-07-22 06:40] LABS: Basophils Absolute Auto 0.1 K/mm3 (0.0-0.1); Basophils Percent Auto 0.3 % (0.2-1.2); Hemoglobin 11.7 g/dL (14.0-18.0); Immature Granulocyte Absolute 0.67 K/mm3 (0.00-0.031); Immature Granulocyte Percent A 3.9 % (0-0.5); Lymphocytes Absolute Auto 1.05 K/mm3 (0.9-3.2); Lymphocytes Percent Auto 6.1 % (18.3-44.2); Mean Corpuscular HGB Conc 30.8 g/dl (32-36); Mean Corpuscular Hemoglobin 27.9 pg (26-34); Mean Corpuscular Volume 90.5 fl (80-100); Mean Platelet Volume 9.1 fl (7.4-10.4); Monocytes Percent Auto 5.8 % (2.6-8.5); Neutrophils Absolute Auto 14.5 K/mm3 (1.3-6.7); Neutrophils Percent Auto 83.9 % (45.5-73.1); Platelet Count Result 699 k/mm3 (150-375); Red Cell Distribution Width 17.9 % (11.5-14.5); White Blood Count 17.3 K/mm3 (4.5-10.0)
[2021-07-22 06:58] LABS: Alanine Aminotransferase 13 U/L (4-50); Albumin Level 3.5 g/dL (3.5-5.1); Alkaline Phosphatase 72 U/L (38-126); Anion Gap 9 mmol/L (8-16); Aspartate Amino Transferase 20 U/L (17-59); Bilirubin,Total 0.4 mg/dL (0.2-1.3); Blood Urea Nitrogen 13 mg/dL (9-20); Calcium 8.9 mg/dL (8.4-10.2); Carbon Dioxide 30 mmol/L (22-30); Chloride 99 mmol/L (98-107); Estimated CRCL calculation 98 ml/min; Estimated Glomerular Filt Rate > 60; Glucose 177 mg/dL (65-110); Magnesium 1.5 mg/dL (1.6-2.3); Phosphorus 3.3 mg/dL (2.5-4.5); Potassium 3.7 mmol/L (3.4-5.0); Sodium 138 mmol/L (137-145)
[2021-07-22] MEDS: FUROSEMIDE INJ 40 MG/4 ML VIAL IV PUSH (08:49)
[2021-07-22] MEDS: APIXABAN 5 MG TABLET PO ×2 (08:49→20:21)
[2021-07-22] MEDS: PANTOPRAZOLE 40 MG TABLET PO ×2 (08:49→17:06)
[2021-07-22] MEDS: guaiFENesin 600 MG/DEXTROMETHORPHAN 30 MG SR TAB 12 HR 1 TAB PO ×2 (08:49→20:21)
[2021-07-22] MEDS: UMECLIDINIUM BROMIDE 62.5 MCG ELLIPTA 1 PUFF INHALATION (08:50)
[2021-07-22] MEDS: CYANOCOBALAMIN 1,000 MCG TABLET 1000 MCG PO (08:50)
[2021-07-22] MEDS: METOPROLOL TARTRATE 50 MG TAB 100 MG PO ×2 (08:55→20:21)
[2021-07-22] MEDS: MAGNESIUM SULF 2 GM/WATER 50ML 2 GM/50 ML BAG IVPB (09:01)
--- NOTE | 2021-07-22 10:03 | PM.IMPN ---
Progress Note: A&P Assessment and Plan (1) Acute and chronic respiratory failure with hypoxia: Code(s): J96.21 - Acute and chronic respiratory failure with hypoxia Status: Acute Assessment and Plan: Patient normally wears 2-3 L/min at home due to COPD. Patient admitted for increasing shortness of breath most likely COPD exacerbation but COVID testing is pending. He admits to being noncompliant at times with wearing his oxygen continuously. He was educated about the benefits of using oxygen continuously. Wean oxygen as tolerated to baseline requirement. Start PT and OT. Increase activity as tolerated. Add incentive spirometry. Follow-up on COVID result. Encouraged him to complete his vaccination course. (2) COPD exacerbation: Code(s): J44.1 - Chronic obstructive pulmonary disease with (acute) exacerbation Status: Acute Assessment and Plan: CTA of the chest showing some interval improvement from March in the diffuse lung disease consistent with COVID pneumonia and/or pulmonary edema superimposed over severe emphysema. Patient is on azithromycin for possible bacterial pneumonia/bronchitis. He also is on Lasix IV for pulmonary edema. BNP 2300. Echo in March showed EF of 60-65%, grade 1 diastolic dysfunction, severe pulmonary hypertension and possible patent foramen ovale. He does have negative fluid balance since admission. Repeat COVID testing is pending. He remains on IV Solu-Medrol and nebulizer treatments for COPD exacerbation. Continue current treatment. Wean oxygen as tolerated back to baseline. Increase activity (3) Pulmonary hypertension: Code(s): I27.20 - Pulmonary hypertension, unspecified Status: Acute Assessment and Plan: Echocardiogram in March shows severe pulmonary hypertension with right ventricular systolic pressure of 72 mmHg. This is related to his severe COPD and severe lung disease. He did have an ApneaLink in January which showed no significant evidence of sleep apnea. (4) Paroxysmal atrial fibrillation: Code(s): I48.0 - Paroxysmal atrial fibrillation Status: Chronic Assessment and Plan: Patient's rhythm is irregular this morning. He has an EKG on admission showing sinus rhythm with PACs. Unclear if he is maintained in a sinus rhythm or paroxysmal AFib. Continue Lopressor for rate control. Continue Eliquis for stroke prophylaxis. (5) Pneumonia: Qualifiers: Laterality: bilateral Lung location: unspecified part of lung Pneumonia type: due to unspecified organism Qualified Code(s): J18.9 - Pneumonia, unspecified organism Code(s): J18.9 - Pneumonia, unspecified organism Status: Acute Assessment and Plan: As above. Continue azithromycin for now. (6) Suspected COVID-19 virus infection: Code(s): Z20.822 - Contact with and (suspected) exposure to COVID-19 Status: Acute Assessment and Plan: COVID testing pending. Follow-up on results. (7) Hypertension: Code(s): I10 - Essential (primary) hypertension Status: Acute Assessment and Plan: Patient's blood pressure was reviewed on 07/22 Blood pressure remains well controlled. Will continue current medications with metoprolol. (8) DVT prophylaxis: Code(s): Z29.9 - Encounter for prophylactic measures, unspecified Status: Acute Assessment and Plan: Christina Sanchez Date/time seen: 07/22/21 10:03 Interval history: 66yo male with chronic respiratory failure and COPD here for SOB and hypoxia. Assuming care. Chart reviewed. No chest pain . He stil feels SOB worse with exertion. Has persistenet nonproductive cough. Did have one COVID Vaccinine in December but refuses the 2nd dose because he feels this is what caused him to get COVID in January. He does admit that he sometimes takes off his O2 at home to walk to the [place] then forget to put it back on. Exam Narrative: AF
[2021-07-22 17:28] LABS: SARS-CoV-2 RNA PCR Negative
[2021-07-22] MEDS: TAMSULOSIN HCL 0.4 MG CAPSULE PO (20:21)
[2021-07-22] MEDS: ATORVASTATIN 40 MG TABLET PO (20:21)
[2021-07-23] VITALS (15 sets, daily range): BP systolic 116; BP diastolic 54–82; PULSE 58–83; RESP 16–20; TEMP 36.4–36.9; O2SAT 91–94
[2021-07-23] MEDS: IPRATROPIUM BR 0.02% INH SOLN 0.5 MG/2.5 ML VIAL INHALATION ×3 (02:13→20:27)
[2021-07-23] MEDS: ALBUTEROL SULFATE NEB 2.5 MG/0.5 ML INH INHALATION ×3 (02:13→20:26)
[2021-07-23] MEDS: methylPREDNISolone SOD SUCC 125 MG VIAL 60 MG IV PUSH ×3 (06:00→21:06)
[2021-07-23 06:38] LABS: Hematocrit 38.4 % (42.0-52.0); Mean Corpuscular HGB Conc 31.3 g/dl (32-36); Mean Corpuscular Hemoglobin 28.4 pg (26-34); Platelet Count Result 680 k/mm3 (150-375); Red Blood Count 4.22 M/mm3 (4.6-6.20); Red Cell Distribution Width 17.8 % (11.5-14.5); White Blood Count 20.5 K/mm3 (4.5-10.0)
[2021-07-23 06:55] LABS: Albumin Level 3.6 g/dL (3.5-5.1); Anion Gap 10 mmol/L (8-16); Blood Urea Nitrogen 16 mg/dL (9-20); Calcium 8.6 mg/dL (8.4-10.2); Carbon Dioxide 30 mmol/L (22-30); Chloride 95 mmol/L (98-107); Estimated CRCL calculation 98 ml/min; Estimated Glomerular Filt Rate > 60; Glucose 199 mg/dL (65-110); Phosphorus 3.4 mg/dL (2.5-4.5); Potassium 3.4 mmol/L (3.4-5.0); Sodium 135 mmol/L (137-145)
[2021-07-23] MEDS: UMECLIDINIUM BROMIDE 62.5 MCG ELLIPTA 1 PUFF INHALATION (08:43)
[2021-07-23] MEDS: CYANOCOBALAMIN 1,000 MCG TABLET 1000 MCG PO (10:00)
[2021-07-23] MEDS: FUROSEMIDE INJ 40 MG/4 ML VIAL IV PUSH (10:00)
[2021-07-23] MEDS: PANTOPRAZOLE 40 MG TABLET PO ×2 (10:00→17:00)
[2021-07-23] MEDS: guaiFENesin 600 MG/DEXTROMETHORPHAN 30 MG SR TAB 12 HR 1 TAB PO ×2 (10:00→21:05)
[2021-07-23] MEDS: APIXABAN 5 MG TABLET PO ×2 (10:00→21:05)
[2021-07-23] MEDS: METOPROLOL TARTRATE 50 MG TAB 100 MG PO (10:00)
--- NOTE | 2021-07-23 10:22 | PM.IMPN ---
Progress Note: A&P Assessment and Plan (1) Acute and chronic respiratory failure with hypoxia: Code(s): J96.21 - Acute and chronic respiratory failure with hypoxia Status: Acute Assessment and Plan: Patient normally wears 2-3 L/min at rest and 5L with activity at home due to COPD. Patient admitted for increasing shortness of breath from a COPD exacerbation. COVID-19 PCR negative. He admits to being noncompliant at times with wearing his oxygen continuously. He was educated agai today about the benefits of using oxygen continuously. Wean oxygen as tolerated to baseline requirement. Contineu PT and OT and encouraged him to be out of bed to the chair. Encourage incentive spirometry use. He was encouraged to complete his COVID vaccination course. Continue COPD treatment as below. Pulmonary consult (2) COPD exacerbation: Code(s): J44.1 - Chronic obstructive pulmonary disease with (acute) exacerbation Status: Acute Assessment and Plan: CTA of the chest showing some interval improvement from March in the diffuse lung disease consistent with pulmonary edema superimposed over severe emphysema. Patient is on azithromycin for possible bacterial pneumonia/bronchitis. He also is on Lasix IV for pulmonary edema. BNP 2300. Echo in March showed EF of 60-65%, grade 1 diastolic dysfunction, severe pulmonary hypertension and possible patent foramen ovale. He does have negative fluid balance since admission of 2L. Continue IV Solu-Medrol and nebulizer treatments for COPD exacerbation. Continue mucinex. Continue Symbicort and Incruse.. Wean oxygen as tolerated back to baseline. Plan for snf Azithromycin at discharge. Decrease Solu-Medrol (3) Pulmonary hypertension: Code(s): I27.20 - Pulmonary hypertension, unspecified Status: Acute Assessment and Plan: Echocardiogram in March shows severe pulmonary hypertension with right ventricular systolic pressure of 72 mmHg. This is related to his severe COPD and severe lung disease. He did have an ApneaLink in January which showed no significant evidence of sleep apnea. Related to above (4) Paroxysmal atrial fibrillation: Code(s): I48.0 - Paroxysmal atrial fibrillation Status: Chronic Assessment and Plan: Patient's rhythm is irregular related to PACs/PVCs. He has an EKG on admission showing sinus rhythm with PACs. Okay to stop tele. Continue Lopressor for rate control. Continue Eliquis for stroke prophylaxis. Could Lopressor contributing to his dyspnea? Discussed with Cardiology. Plan to convert from Metoprolol to Diltiazem. No need to wean metoprolol. Advance Diltiazem as HR and BP tolerates. (5) Pneumonia: Qualifiers: Laterality: bilateral Lung location: unspecified part of lung Pneumonia type: due to unspecified organism Qualified Code(s): J18.9 - Pneumonia, unspecified organism Code(s): J18.9 - Pneumonia, unspecified organism Status: Acute Assessment and Plan: As above. Continue azithromycin for now. (6) Hypertension: Code(s): I10 - Essential (primary) hypertension Status: Acute Assessment and Plan: Patient's blood pressure was reviewed on 07/23 Blood pressure remains well controlled. Will continue current medications with metoprolol. (7) DVT prophylaxis: Code(s): Z29.9 - Encounter for prophylactic measures, unspecified Status: Acute Assessment and Plan: Christina (8) Suspected COVID-19 virus infection: Code(s): Z20.822 - Contact with and (suspected) exposure to COVID-19 Status: Acute Assessment and Plan: COVID-19 PCR negative. Additional Plan Leukocytosis - WBC was 11K on admission but has climbed to 20K now felt related to the steroids. Follow. Wean steroids Subjective Date/time seen: 07/23/21 10:22 Interval history: 66yo male with chronic respiratory failure and COPD here for SOB and hypoxia.
[2021-07-23] MEDS: POTASSIUM CHLORIDE 20 MEQ TABLET 40 MEQ PO (11:15)
--- NOTE | 2021-07-23 15:06 | PC.NURSE ---
On 07/23/21, the student, [ Aaron Valentine and Rae Gottlieb], provided care and completed [employer] documentation on this patient. I have reviewed the student's documentation and agree with the findings.
--- NOTE | 2021-07-23 15:14 | PM.CNPUL ---
Assessment and Plan Assessment and plan (1) Chronic respiratory failure with hypoxia: Code(s): J96.11 - Chronic respiratory failure with hypoxia Status: Chronic (2) Pulmonary hypertension: Code(s): I27.20 - Pulmonary hypertension, unspecified Status: Acute (3) Pulmonary emphysema with fibrosis of lung: Code(s): J43.9 - Emphysema, unspecified; J84.10 - Pulmonary fibrosis, unspecified Status: Acute Assessment and Plan: Chest CTs done over the last 6 months revealed severe bullous emphysema and pulmonary fibrosis bilaterally. Review of chest imaging studies especially chest CTs showed no significant progression of the pulmonary fibrosis over the last 6 months. The patient's shortness of breath and gas exchange have worsened over the last several months because of pulmonary hypertension development. 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 Overall CPFE has an overall grim prognosis, especially when pulmonary hypertension develops. Patient's presentation does not suggest COPD exacerbation and therefore I would discontinue the IV steroids. Continue with the antibiotic as he had a mild cough with sputum production few days ago. He will remain on supplemental oxygen as ordered. The patient wants to follow-up with his pt sitter at [facility] as he might be considered for lung transplant surgery. History of Present Illness History of Present Illness Consult date: 07/23/21 Chief complaint: Acute respiratory fail/covidpui/pneumonia/copd/chf Narrative: This 66-year-old man was admitted into the hospital with progressively increasing shortness of breath. The patient has chronic hypoxemic respiratory failure related to COPD and pulmonary fibrosis and has been on supplemental oxygen at home. He stated that he has been more short of breath since December following hospitalization for COVID-19 infection. He uses oxygen at 2-3 liters/minute at rest and up to 5-6 liters/minute with exercise. Patient has been hospitalized on multiple occasions over the last 6 months mostly for shortness of breath. He reported increasing shortness of breath especially with activities but no fever chills hemoptysis orthopnea or lower extremity edema. He had a mild cough with out any sputum production approximately couple days ago. Currently he has been treated for possible COPD exacerbation with antibiotics bronchodilators and IV steroids. Patient sees regularly a pt sitter at [facility]. Approximately a year and half ago he underwent thoracic surgery at [facility], most likely for bullous emphysema complicated by pneumothorax. Review of Systems Review of Systems: The patient reported no weight changes. Patient has had good appetite. Patient denied having fever chills or night sweats. Patient has no chest pain palpitations or orthopnea. Patient denied having cough or wheezing. Patient reported acid reflux symptoms. Patient denied having abdominal pain, diarrhea, constipation, nausea or vomiting. Patient has no urinary complaints. Patient not having lower extremity edema. He denied having any joint pain. He has no skin rashes. [facility] Past Medical History Medical History BPH (benign prostatic hyperplasia) Chronic respiratory failure with hypoxia Chronic respiratory failure with hypoxia, on home O2 therapy COPD with emphysema Essential hypertension GERD (gastroesophageal reflux disease) History of BPH Hyperlipidemia Pneumonia due to COVID-19 virus (01/2021) Surgical History Surgical History History of back surgery History of pneumonectomy Left upper lobe History of right inguinal hernia repair Family History Family History Father Heart pro
[2021-07-23] MEDS: dilTIAZem HCL 30 MG TABLET PO ×2 (17:01→23:41)
[2021-07-23] MEDS: AZITHROMYCIN 250 MG TABLET PO (17:01)
[2021-07-23] MEDS: ATORVASTATIN 40 MG TABLET PO (21:05)
[2021-07-23] MEDS: TAMSULOSIN HCL 0.4 MG CAPSULE PO (21:05)
[2021-07-24] VITALS (11 sets, daily range): BP systolic 116–135; BP diastolic 54–66; PULSE 61–81; RESP 18–22; TEMP 36.1–36.7; O2SAT 91–97
[2021-07-24] MEDS: ALBUTEROL SULFATE NEB 2.5 MG/0.5 ML INH INHALATION ×4 (02:51→20:26)
[2021-07-24] MEDS: IPRATROPIUM BR 0.02% INH SOLN 0.5 MG/2.5 ML VIAL INHALATION ×4 (02:51→20:26)
[2021-07-24] MEDS: methylPREDNISolone SOD SUCC 125 MG VIAL 60 MG IV PUSH (05:48)
[2021-07-24] MEDS: dilTIAZem HCL 30 MG TABLET PO ×3 (05:48→16:31)
[2021-07-24 06:37] LABS: Basophils Absolute Auto 0.2 K/mm3 (0.0-0.1); Basophils Percent Auto 0.8 % (0.2-1.2); Hematocrit 39.3 % (42.0-52.0); Hemoglobin 12.1 g/dL (14.0-18.0); Lymphocytes Absolute Auto 0.84 K/mm3 (0.9-3.2); Lymphocytes Percent Auto 4.5 % (18.3-44.2); Mean Corpuscular HGB Conc 30.8 g/dl (32-36); Mean Corpuscular Hemoglobin 28.1 pg (26-34); Mean Corpuscular Volume 91.4 fl (80-100); Mean Platelet Volume 9.2 fl (7.4-10.4); Monocytes Absolute Auto 1.3 K/mm3 (0.1-0.6); Monocytes Percent Auto 7.2 % (2.6-8.5); Neutrophils Percent Auto 80.5 % (45.5-73.1); Platelet Count Result 672 k/mm3 (150-375); Red Cell Distribution Width 17.4 % (11.5-14.5); White Blood Count 18.7 K/mm3 (4.5-10.0)
[2021-07-24 07:02] LABS: Anion Gap 9 mmol/L (8-16); Blood Urea Nitrogen 20 mg/dL (9-20); Calcium 8.7 mg/dL (8.4-10.2); Carbon Dioxide 32 mmol/L (22-30); Chloride 95 mmol/L (98-107); Estimated CRCL calculation 87 ml/min; Estimated Glomerular Filt Rate > 60; Glucose 218 mg/dL (65-110); Potassium 3.5 mmol/L (3.4-5.0); Sodium 136 mmol/L (137-145)
[2021-07-24] MEDS: CYANOCOBALAMIN 1,000 MCG TABLET 1000 MCG PO (09:30)
[2021-07-24] MEDS: guaiFENesin 600 MG/DEXTROMETHORPHAN 30 MG SR TAB 12 HR 1 TAB PO ×2 (09:31→20:43)
[2021-07-24] MEDS: APIXABAN 5 MG TABLET PO ×2 (09:31→20:43)
[2021-07-24] MEDS: FUROSEMIDE INJ 40 MG/4 ML VIAL IV PUSH (09:31)
[2021-07-24] MEDS: PANTOPRAZOLE 40 MG TABLET PO ×2 (09:31→16:31)
--- NOTE | 2021-07-24 09:37 | PM.IMPN ---
Progress Note: A&P Assessment and Plan (1) Acute and chronic respiratory failure with hypoxia: Code(s): J96.21 - Acute and chronic respiratory failure with hypoxia Status: Acute Assessment and Plan: Patient normally wears 2-3 L/min at rest and 5L with activity at home due to COPD. Patient admitted for increasing shortness of breath from a COPD exacerbation. COVID-19 PCR negative. He admits to being noncompliant at times with wearing his oxygen continuously. He was educated about the benefits of using oxygen continuously. Wean oxygen as tolerated to baseline requirement. Continue PT and OT and encouraged him to be out of bed to the chair. Encourage incentive spirometry use. He was encouraged to complete his COVID vaccination course. Continue COPD treatment as below. Pulmonary consulted and appreciate their input. (2) COPD exacerbation: Code(s): J44.1 - Chronic obstructive pulmonary disease with (acute) exacerbation Status: Acute Assessment and Plan: CTA of the chest showing some interval improvement from March in the diffuse lung disease consistent with pulmonary edema superimposed over severe emphysema. Patient is on azithromycin for possible bacterial pneumonia/bronchitis. He also is on Lasix IV for pulmonary edema. BNP 2300. Echo in March showed EF of 60-65%, grade 1 diastolic dysfunction, severe pulmonary hypertension and possible patent foramen ovale. Spoke with Pulmonary: will stop IV Solu-Medrol. Discussed mikjennifer danaana rosa feels better and less SOB with steroids so he recommended Pred 40mg daily. Continue nebulizer treatments. Continue Mucinex. Continue Symbicort and Incruse. Wean oxygen as tolerated back to baseline. Home O2 evaluation. (3) Pulmonary hypertension: Code(s): I27.20 - Pulmonary hypertension, unspecified Status: Acute Assessment and Plan: Echocardiogram in March shows severe pulmonary hypertension with right ventricular systolic pressure of 72 mmHg. This is related to his severe COPD and severe lung disease. He did have an ApneaLink in January which showed no significant evidence of sleep apnea. Related to above (4) Paroxysmal atrial fibrillation: Code(s): I48.0 - Paroxysmal atrial fibrillation Status: Chronic Assessment and Plan: Patient's rhythm is irregular related to PACs/PVCs. He has an EKG on admission showing sinus rhythm with PACs. Lopressor changed to Diltiazem after discussion with Change Attendant. Continue Eliquis for stroke prophylaxis. HR and BP stable so will change to Cardizem CD tomorrow. (5) Pneumonia: Qualifiers: Laterality: bilateral Lung location: unspecified part of lung Pneumonia type: due to unspecified organism Qualified Code(s): J18.9 - Pneumonia, unspecified organism Code(s): J18.9 - Pneumonia, unspecified organism Status: Acute Assessment and Plan: As above. Continue azithromycin to complete a course. Spoke with Pre Assembly Wirer who did not recommend continued Azithromycin treatment. (6) Hypertension: Code(s): I10 - Essential (primary) hypertension Status: Acute Assessment and Plan: Patient's blood pressure was reviewed on 07/24 Blood pressure remains well controlled. Will continue current medications with diltiazem. (7) DVT prophylaxis: Code(s): Z29.9 - Encounter for prophylactic measures, unspecified Status: Acute Assessment and Plan: Christina (8) Suspected COVID-19 virus infection: Code(s): Z20.822 - Contact with and (suspected) exposure to COVID-19 Status: Acute Assessment and Plan: COVID-19 PCR negative. Additional Plan Leukocytosis - WBC was 11K on admission but climbed to 20K felt related to the steroids. WBC better today with weaning steroids. Follow Subjective Date/time seen: 07/24/21 09:37 Interval history: 66yo male with chronic respiratory failure and COPD here for SOB and hypoxia.
--- NOTE | 2021-07-24 09:50 | PM.PNPUL ---
Progress Note: A&P Assessment and Plan (1) Pulmonary emphysema with fibrosis of lung: Code(s): J43.9 - Emphysema, unspecified; J84.10 - Pulmonary fibrosis, unspecified Status: Acute Assessment and Plan: This 66-year-old man has chronic hypoxemic respiratory failure related to combined pulmonary fibrosis emphysema. Patient has developed pulmonary hypertension which is quite prevalent in this disease. Patient has had multiple hospitalizations due to shortness of breath over the last 6 months. Chest imaging studies showed no significant progression of pulmonary fibrosis over the last 6 months. He will continue with supportive treatment at this point as there is no effective treatment. He will be using oxygen 2-3 liters/minute at rest and up to 5 liters/minute with activities. Patient was encouraged to use his home oximeter to monitor the O2 sats. Since there is no evidence of COPD exacerbation- no sputum production absence of wheezing on physical exam- I would decrease steroids to prednisone 40 mg p.o. daily just for 5 days. Case was discussed with Dr. Morocho the patient's hospitalist. The patient will follow with his medical technical writer at [facility]. (2) Chronic respiratory failure with hypoxia: Code(s): J96.11 - Chronic respiratory failure with hypoxia Status: Chronic (3) Pulmonary hypertension: Code(s): I27.20 - Pulmonary hypertension, unspecified Status: Acute Subjective Date/time seen: 07/24/21 09:50 patient without any new respiratory symptoms. He has no cough fever chills hemoptysis or chest pain. He continues to have shortness of breath with any activity. Review of Systems Review of Systems: All systems reviewed & are unremarkable except as noted in HPI and below (H& P) Exam Narrative: GENERAL APPEARANCE: Well developed, well nourished, alert and cooperative, and appears to be in mild respiratory distress while on supplemental oxygen SKIN: Inspection of the skin reveals no rashes, ulcerations or petechiae. HEENT: Sclerae anicteric and conjunctivae pink and moist. Extraocular movements were intact and pupils were equal, round. The oral mucosa, hard and soft palate, tongue and posterior pharynx were normal; edentulous NECK: Supple. There was no thyroid enlargement, and no tenderness, or masses were felt. CHEST: increased AP diameter and normal contour without any kyphoscoliosis. Chest wall expansion asymmetrical bilaterally. LUNGS: crackles at bases posteriorly and distal breath sounds in upper lobes posteriorly. CARDIAC: There was a regular rate and rhythm without any murmurs, gallops, rubs. ABDOMEN: Soft and nontender with normal bowel sounds. There was no organomegaly. LYMPH NODES: No lymphadenopathy was appreciated in the neck, or axillae. EXTREMITIES: No cyanosis; clubbing present. NEUROLOGIC: Alert and oriented x 3. Normal affect. Objective Data Vital Signs Vital Signs: Vital Signs - 24 hr 07/23/21 10:00 07/23/21 14:00 07/23/21 19:52 Temperature 36.4 C L Pulse Rate 83 61 Respiratory Rate 16 Blood Pressure 116/82 Pulse Oximetry 93 93 07/23/21 20:30 07/23/21 20:38 07/23/21 22:00 Temperature 36.9 C Pulse Rate 64 66 61 Respiratory Rate 18 18 20 Blood Pressure 116/54 L Pulse Oximetry 94 91 07/24/21 02:53 07/24/21 02:59 07/24/21 06:00 Temperature 36.6 C Pulse Rate 62 64 67 Respiratory Rate 18 18 20 Blood Pressure 116/54 L Pulse Oximetry 91 07/24/21 07:27 Temperature Pulse Rate 66 Respiratory Rate 18 Blood Pressure Pulse Oximetry Intake/Output Intake/Output: Intake & Output 07/21/21 07/22/21 07/23/21 07/24/21 23:59 23:59 23:59 23:59 Intake Total 970 2530 3120 800 Output Total 950 3050 1925 600 Balance 20 -520 1195 200 Meds/Results Medications: Active Medications Generic Name Dose Route Start Last Admin Trade Name Freq PRN Reason Stop Dose Admin Acetaminophen 650 mg 07/20/21 20:21 Acetaminophen
--- NOTE | 2021-07-24 10:26 | PCOTNOTE ---
Attempted to see patient this pm. Pt sat up edge of bed for sponge bath, however upon bringing side table to patient, wheel of table hit cord and sent water onto patient's lap. Pt escalated in anger and began yelling out. I just put these pants on! I'm done! Get this shit out of here. Get it out of here. Get the hell out of here! I'm done!
[2021-07-24] MEDS: predniSONE 20 MG TABLET 40 MG PO (11:15)
--- NOTE | 2021-07-24 11:32 | PCRCNOTE ---
HOME O2 EVAL ATTEMPTED. SAO2 90% ON 5L AT REST, SAP2 DROPPED TO LOW 80'S ON 7L. DR. ENCISO NOTIFIED.
--- NOTE | 2021-07-24 14:48 | PCPTNOTE ---
Attempted therapy at this time however patient reports he has had a terrible day and is not doing therapy at this time.
[2021-07-24] MEDS: AZITHROMYCIN 250 MG TABLET PO (16:31)
[2021-07-24] MEDS: ATORVASTATIN 40 MG TABLET PO (20:43)
[2021-07-24] MEDS: TAMSULOSIN HCL 0.4 MG CAPSULE PO (20:43)
[2021-07-25] VITALS (12 sets, daily range): BP systolic 113–129; BP diastolic 48–69; PULSE 68–102; RESP 18–20; TEMP 35.8–36.6; O2SAT 89–96
[2021-07-25] MEDS: dilTIAZem HCL 30 MG TABLET PO (00:16)
[2021-07-25] MEDS: ALBUTEROL SULFATE NEB 2.5 MG/0.5 ML INH INHALATION ×4 (01:53→20:23)
[2021-07-25] MEDS: IPRATROPIUM BR 0.02% INH SOLN 0.5 MG/2.5 ML VIAL INHALATION ×4 (01:54→20:24)
[2021-07-25 06:44] LABS: Hematocrit 37.3 % (42.0-52.0); Hemoglobin 11.3 g/dL (14.0-18.0); Mean Corpuscular HGB Conc 30.3 g/dl (32-36); Mean Corpuscular Hemoglobin 28.4 pg (26-34); Mean Corpuscular Volume 93.7 fl (80-100); Mean Platelet Volume 8.7 fl (7.4-10.4); Platelet Count Result 595 k/mm3 (150-375); Red Blood Count 3.98 M/mm3 (4.6-6.20); Red Cell Distribution Width 17.7 % (11.5-14.5)
[2021-07-25] MEDS: predniSONE 20 MG TABLET 40 MG PO (08:49)
[2021-07-25] MEDS: PANTOPRAZOLE 40 MG TABLET PO ×2 (08:49→16:59)
[2021-07-25] MEDS: CYANOCOBALAMIN 1,000 MCG TABLET 1000 MCG PO (08:50)
[2021-07-25] MEDS: guaiFENesin 600 MG/DEXTROMETHORPHAN 30 MG SR TAB 12 HR 1 TAB PO ×2 (08:50→21:19)
[2021-07-25] MEDS: APIXABAN 5 MG TABLET PO ×2 (08:50→21:19)
--- NOTE | 2021-07-25 10:00 | PM.IMPN ---
Progress Note: A&P Assessment and Plan (1) Acute and chronic respiratory failure with hypoxia: Code(s): J96.21 - Acute and chronic respiratory failure with hypoxia Status: Acute Assessment and Plan: Patient normally wears 2-3 L/min at rest and 5L with activity at home due to COPD. Patient admitted for increasing shortness of breath from a COPD exacerbation. COVID-19 PCR negative. He admits to being noncompliant at times with wearing his oxygen continuously. He was educated about the benefits of using oxygen continuously. Wean oxygen as tolerated to baseline requirement. Continue PT and OT and encouraged him to be out of bed to the chair. Encourage incentive spirometry use. He was encouraged to complete his COVID vaccination course. Continue COPD treatment as below. Pulmonary consulted and appreciate their input. Have a call out to his Health Care Liaison for other recommendations. (2) COPD exacerbation: Code(s): J44.1 - Chronic obstructive pulmonary disease with (acute) exacerbation Status: Acute Assessment and Plan: CTA of the chest showing some interval improvement from March in the diffuse lung disease consistent with pulmonary edema superimposed over severe emphysema. Patient was treated with azithromycin for possible bacterial pneumonia/bronchitis. He also was on Lasix IV for pulmonary edema. BNP 2300. Echo in March showed EF of 60-65%, grade 1 diastolic dysfunction, severe pulmonary hypertension and possible patent foramen ovale. We stopped IV Solu-Medrol and changed to oral steroids. Continue nebulizer treatments. Home O2 evaluation showing 5L at rest and 7L with activity. Continue Mucinex, Symbicort and Incruse. Suspect he will be requiring higher levels of O2 now. (3) Pulmonary hypertension: Code(s): I27.20 - Pulmonary hypertension, unspecified Status: Acute Assessment and Plan: Echocardiogram in March shows severe pulmonary hypertension with right ventricular systolic pressure of 72 mmHg. This is related to his severe COPD and severe lung disease. He did have an ApneaLink in January which showed no significant evidence of sleep apnea. Related to above (4) Paroxysmal atrial fibrillation: Code(s): I48.0 - Paroxysmal atrial fibrillation Status: Chronic Assessment and Plan: Patient's rhythm is irregular but with known frequent ectopy. He has an EKG on admission showing sinus rhythm with PACs. Lopressor changed to Diltiazem after discussion with Personal Finance Instructor. Continue Eliquis for stroke prophylaxis. HR and BP stable so will continue Cardizem CD. (5) Pneumonia: Qualifiers: Laterality: bilateral Lung location: unspecified part of lung Pneumonia type: due to unspecified organism Qualified Code(s): J18.9 - Pneumonia, unspecified organism Code(s): J18.9 - Pneumonia, unspecified organism Status: Acute Assessment and Plan: As above. Treated with azithromycin. Spoke with Health Care Liaison who did not recommend continued Azithromycin treatment. Completed Ronan (6) Hypertension: Code(s): I10 - Essential (primary) hypertension Status: Acute Assessment and Plan: Patient's blood pressure was reviewed on 07/25 Blood pressure remains well controlled. Will continue current medications with diltiazem. (7) DVT prophylaxis: Code(s): Z29.9 - Encounter for prophylactic measures, unspecified Status: Acute Assessment and Plan: Christina (8) Suspected COVID-19 virus infection: Code(s): Z20.822 - Contact with and (suspected) exposure to COVID-19 Status: Acute Assessment and Plan: COVID-19 PCR negative. Additional Plan Leukocytosis - WBC was 11K on admission but climbed to 20K felt related to the steroids. WBC better yesterday but back up to 20K today. Stress response? from the hypoxia. Subjective Date/time seen: 07/25/21 10:00 Interval history: 66yo male with
--- NOTE | 2021-07-25 15:27 | PC.NURSE ---
On 07/25/21, the student, Dang SEYMOUR, provided care and completed Apalya documentation on this patient. I have reviewed the student's documentation and agree with the findings.
[2021-07-25] MEDS: TAMSULOSIN HCL 0.4 MG CAPSULE PO (21:19)
[2021-07-25] MEDS: ATORVASTATIN 40 MG TABLET PO (21:20)
[2021-07-26] VITALS (12 sets, daily range): BP systolic 108–144; BP diastolic 48–71; PULSE 66–113; RESP 12–20; TEMP 35.9–36.4; O2SAT 80–97
[2021-07-26] MEDS: IPRATROPIUM BR 0.02% INH SOLN 0.5 MG/2.5 ML VIAL INHALATION ×2 (03:21→08:23)
[2021-07-26] MEDS: ALBUTEROL SULFATE NEB 2.5 MG/0.5 ML INH INHALATION ×2 (03:21→08:23)
[2021-07-26 06:41] LABS: Hematocrit 38.9 % (42.0-52.0); Hemoglobin 11.8 g/dL (14.0-18.0); Mean Corpuscular HGB Conc 30.3 g/dl (32-36); Mean Corpuscular Hemoglobin 28.7 pg (26-34); Mean Corpuscular Volume 94.6 fl (80-100); Mean Platelet Volume 9.1 fl (7.4-10.4); Platelet Count Result 586 k/mm3 (150-375); Red Blood Count 4.11 M/mm3 (4.6-6.20); Red Cell Distribution Width 17.8 % (11.5-14.5); White Blood Count 17.6 K/mm3 (4.5-10.0)
[2021-07-26 06:53] LABS: Anion Gap 4 mmol/L (8-16); Blood Urea Nitrogen 23 mg/dL (9-20); Calcium 8.4 mg/dL (8.4-10.2); Carbon Dioxide 35 mmol/L (22-30); Chloride 96 mmol/L (98-107); Estimated CRCL calculation 87 ml/min; Estimated Glomerular Filt Rate > 60; Glucose 100 mg/dL (65-110); Potassium 3.3 mmol/L (3.4-5.0); Sodium 135 mmol/L (137-145)
[2021-07-26 07:40] LABS: Lymphocytes Absolute Manual 4.22 K/mm3 (1.1-4.5); Monocytes Percent Manual 8 % (3-9); Neutrophils Percent Manual 68 % (46-73); Total Cells Counted 100
[2021-07-26 07:43] LABS: Platelet Estimate Increased (Adequate)
[2021-07-26] MEDS: UMECLIDINIUM BROMIDE 62.5 MCG ELLIPTA 1 PUFF INHALATION (08:24)
[2021-07-26] MEDS: POTASSIUM CHLORIDE 20 MEQ TABLET 40 MEQ PO (08:24)
[2021-07-26] MEDS: CYANOCOBALAMIN 1,000 MCG TABLET 1000 MCG PO (08:24)
[2021-07-26] MEDS: PANTOPRAZOLE 40 MG TABLET PO (08:25)
[2021-07-26] MEDS: predniSONE 20 MG TABLET 40 MG PO (08:25)
[2021-07-26] MEDS: guaiFENesin 600 MG/DEXTROMETHORPHAN 30 MG SR TAB 12 HR 1 TAB PO (08:25)
[2021-07-26] MEDS: APIXABAN 5 MG TABLET PO (08:25)
--- NOTE | 2021-07-26 10:41 | PCRCNOTE ---
HOME O2 EVAL DONE, 3 L REST AND 7L ACTIVITY WITH OXYMIZER. PT HAS HOME O2, UNSURE OF COMPANY. WILL BRING IN TANK UPON D/C FOR TRANSPORT HOME. PT STATES HE HAS ALL OTHER O2 NEEDS AT HOME. ALSO HAS FOLLOW UP APPT AT [facility] NEXT WEEK PER PT.
--- NOTE | 2021-07-26 12:50 | PM.DS ---
DS: Admitting Diagnosis Discharge Date 07/26/2021 Admitting Diagnosis Shortness of breath DS: Discharge Diagnosis Discharge Diagnosis (1) Acute and chronic respiratory failure with hypoxia: Code(s): J96.21 - Acute and chronic respiratory failure with hypoxia Status: Acute Assessment and Plan: Patient states he normally wears 2-3 L/min at rest and 5L with activity at home due to COPD (later discovered he was supposed to be on 4L/8L per his hot mill shearer). Patient admitted for increasing shortness of breath from a COPD exacerbation. COVID-19 PCR negative. He admits to being noncompliant at times with wearing his oxygen continuously. He was educated about the benefits of using oxygen continuously. He was treated aggressively for his COPD. Encouraged incentive spirometry use. He has received one dose of the COVID-19 vaccine and was encouraged to complete his COVID vaccination course. Pulmonary consulted and appreciated their input. Also spoke with his Flight Paramedic and she was updated with his hospital course. Able to wean him to 3L at rest and 7L with activity with an Oxymizer. (2) COPD exacerbation: Code(s): J44.1 - Chronic obstructive pulmonary disease with (acute) exacerbation Status: Acute Assessment and Plan: CTA of the chest showing some interval improvement from March in the diffuse lung disease consistent with pulmonary edema superimposed over severe emphysema. Patient was treated with azithromycin for possible bacterial pneumonia/bronchitis. He also was on Lasix IV for pulmonary edema. BNP 2300. Echo in March showed EF of 60-65%, grade 1 diastolic dysfunction, severe pulmonary hypertension and possible patent foramen ovale. He was treated with IV Solu-Medrol and nebulizer treatments. We also continued Mucinex, Symbicort and Incruse. He was transitioned to oral steroids. (3) Pulmonary hypertension: Code(s): I27.20 - Pulmonary hypertension, unspecified Status: Acute Assessment and Plan: Echocardiogram in March shows severe pulmonary hypertension with right ventricular systolic pressure of 72 mmHg. This is related to his severe COPD and severe lung disease. He did have an ApneaLink in January which showed no significant evidence of sleep apnea. Related to above. (4) Paroxysmal atrial fibrillation: Code(s): I48.0 - Paroxysmal atrial fibrillation Status: Chronic Assessment and Plan: Patient's rhythm is irregular but with known frequent ectopy. He had an EKG on admission showing sinus rhythm with PACs. Lopressor changed to Diltiazem after discussion with [employer]'. Continue Eliquis for stroke prophylaxis. HR and BP remained well controlled with Cardizem CD. (5) Pneumonia: Qualifiers: Laterality: bilateral Lung location: unspecified part of lung Pneumonia type: due to unspecified organism Qualified Code(s): J18.9 - Pneumonia, unspecified organism Code(s): J18.9 - Pneumonia, unspecified organism Status: Acute Assessment and Plan: As above. Treated with azithromycin. Spoke with Flight Paramedic who did not recommend chronic Azithromycin treatment. Completed a course of Azithromycin. Leukocytosis with WBC 11K on admission but climbed to 20K felt related to the steroids. WBC better at 17K. No evidence of acute infectious process. (6) Hypertension: Code(s): I10 - Essential (primary) hypertension Status: Acute Assessment and Plan: Patient's blood pressure remained well controlled with diltiazem. (7) Suspected COVID-19 virus infection: Code(s): Z20.822 - Contact with and (suspected) exposure to COVID-19 Status: Acute Assessment and Plan: COVID-19 PCR negative. DS: Summary Hospital Course Reason for hospitalization: 66yo male with chronic respiratory failure and COPD here for SOB and hypoxia. Please see H&P for details. Hospital Course: Please see above
== END 2021-07-26 14:55 | disposition home health service (06) | DRG 190 ==
LOC: ANHED 19:36 → ANHIMU 22:05 → ANH3MEDSUR 07-21 19:03
PROVIDERS: Emergency Medicine; Internal Medicine; Admitting Provider Internal Medicine; Emergency Provider Emergency Medicine; PCP Physician Assistant; Visit Provider Internal Medicine
DX: J43.9 Emphysema, unspecified (principal); J96.21 Acute and chronic respiratory failure with hypoxia; J84.10 Pulmonary fibrosis, unspecified; Z20.822 Contact with and (suspected) exposure to COVID-19; I27.20 Pulmonary hypertension, unspecified; I48.0 Paroxysmal atrial fibrillation; I10 Essential (primary) hypertension; N40.0 Benign prostatic hyperplasia without lower urinary tract symptoms; K21.9 Gastro-esophageal reflux disease without esophagitis; E78.5 Hyperlipidemia, unspecified; Z66 Do not resuscitate; D72.828 Other elevated white blood cell count; T38.0X5A Adverse effect of glucocorticoids and synthetic analogues, initial encounter; Z99.81 Dependence on supplemental oxygen; Z87.891 Personal history of nicotine dependence; Z91.19 Patient's noncompliance with other medical treatment and regimen; Z86.16 Personal history of COVID-19; Z87.01 Personal history of pneumonia (recurrent)
CPT/HCPCS: 36415; 36600; 71045; 71046; 71275; 80048; 80053; 80069; 80076; 82805; 83605; 83735; 83880; 84100; 84484; 85025; 85027; 85380; 87040; 93005; 94618; 94640; 96365; 96366; 96367; 96375; 96376; 97116; 97161; 97165; 97530; 97535; 99285; A9270; C9803; G0378; J0456; J0696; J1940; J2930; J3475; J7512; Q9967; U0003; U0005

== ENCOUNTER 2021-10-22 10:37 | Emergency (ER) | payer MEDICARE, MEDICAID, SELFPAY ==
[2021-10-22] VITALS (17 sets, daily range): BP systolic 134–160; BP diastolic 72–89; PULSE 84–108; RESP 14–22; TEMP 36.8–37.1; O2SAT 87–97
--- NOTE | ~2021-10-22 | XR_ITS ---
EXAMINATION: XR chest 1V portable INDICATION: Abdominal pain, history of COPD TECHNIQUE: Portable AP chest at 1739 hours COMPARISON: 07/15/2021 FINDINGS: There are stable lucencies in the upper lung zones, consistent with emphysema. Chronic inte rstitial opacities persist throughout the mid and lower lung zones and left upper lung zone without s ignificant change. No definite superimposed opacities are identified. Cardiomegaly is noted. There is no pleural effusion or pneumothorax. IMPRESSION: 1. Chronic lung disease, likely reflecting emphysema, without superimposed acute findings identified. Reviewed, dictated and finalized at location F. E MACHINE OPERATOR IMPRESSION: 1. Chronic lung disease, likely reflecting emphysema, without superimposed acut e findings identified.
--- NOTE | ~2021-10-22 | CT_ITS ---
EXAMINATION: CT abdomen pelvis w con INDICATION: Abdominal pain TECHNIQUE: Computed tomographic images of the abdomen and pelvis were obtained after the administrati on of 100 cc of Omnipaque 350 intravenous contrast. The dose-length product (DLP) was 1321.77 mGy-cm. Automated exposure control and iterative reconstruction technique were employed. COMPARISON: 07/20/2021 FINDINGS: There is moderate emphysema. Bibasilar airspace opacities persist but have slightly improve d. The heart size is normal. Stones are present in the nondistended gallbladder. The liver, spleen, a nd adrenal glands are normal. Punctate calcification of the pancreas may reflect chronic pancreatitis . The right kidney is unremarkable. There is a 2.8 cm exophytic soft tissue density lesion of the lef t kidney lower pole. Punctate nonobstructing stones are present in the left kidney. No pathologically enlarged abdominal or pelvic lymph nodes are identified. There is no free intraperitoneal gas or charlie dence of bowel obstruction. There is a moderate-sized left inguinal hernia containing fat. Colonic di verticulosis is present without evidence of diverticulitis. There is severe lumbar spondylosis. A fat -containing umbilical hernia is noted. IMPRESSION: 1. No CT correlate for the patient's symptoms. 2. Indeterminate exophytic lesion of the left kidney lower pole which may be benign or malignant. Fol low-up with nonemergent MRI or CT without and with contrast is recommended. 3. Nonobstructing left nephrolithiasis. Reviewed, dictated and finalized at location F. NT BASED MATERIALS PUMP TENDER IMPRESSION: 1. No CT correlate for the patient's symptoms. 2. Indeterminate exophytic lesion of the left kidney lower pole which may be be nign or malignant. Follow-up with nonemergent MRI or CT without and with contra st is recommended. 3. Nonobstructing left nephrolithiasis.
--- NOTE | 2021-10-22 17:34 | ECG_ITS ---
Measurements Intervals [place] Rate: 89 P: 37 [place]: 138 QRS: -12 QRSD: 94 T: 7 QT: 312 QTc: 380 Interpretive Statements SINUS RHYTHM WITH SINUS ARRHYTHMIA ATRIAL PREMATURE COMPLEXES DELAYED PRECORDIAL R/S TRANSITION BORDERLINE T WAVE ABNORMALITY- INFERIOR LEADS BORDERLINE ECG Electronically Signed On 10-22-2021 21:54:42 ROOM SERVICE CLERK by Vinod Villa D.O.
--- NOTE | 2021-10-22 17:36 | ED.GENADULT ---
HPI - General Adult General Chief complaint: Abdominal Pain Stated complaint: right side pain Time Seen by Provider: 10/22/21 17:14 Source: patient Mode of arrival: ambulatory Limitations: no limitations History of Present Illness HPI narrative: Patient presents for evaluation of abdominal pain for the last week. He states the pain is constant, in the right upper quadrant, described as a knife stabbing (him) and severe. He does not provide me with a numerical rating to the pain. He denies any fever, chills, nausea, vomiting, urinary symptoms. He states he had not had a bowel movement in three to four days so he took a stool softener. He states he was able to have a solid bowel movement today, without the presence of blood or mucous in the stool. He does not consume ETOH. He has never had a colonoscopy. He is a former smoker and had a LINCOLN lobectomy in the past. He is on 2-3L NC at home at rest and increases to 6L with exertion. He has chronic SOB, which is not worse as of late. Denies any chest pain or cough. He is on prednisone daily at home. Lactic acid normal. Lipase normal. Trop negative. EKG with no acute ischemic changes Related Data Home Medications Medication Instructions Recorded Confirmed Incruse Ellipta 1 inh INHALATION DAILY 02/10/21 07/20/21 atorvastatin 40 mg PO HS 02/10/21 07/20/21 cyanocobalamin (vitamin B-12) 1,000 mcg PO DAILY 02/10/21 07/20/21 fluticasone propion-salmeterol 1 inh INHALATION BID 02/10/21 07/20/21 [Advair Diskus] omeprazole 40 mg PO DAILY 02/10/21 07/20/21 tamsulosin 0.4 mg PO HS 02/10/21 07/20/21 Allergies Allergy/AdvReac Type Severity Reaction Status Date / Time No Known Allergies Allergy Verified 07/20/21 17:05 Review of Systems Review of Systems: CONSTITUTIONAL: Denies fever, chills, or sweats. EYES: Denies visual changes, redness, or discharge. ENT: Denies rhinorrhea, congestion, sore throat, or otalgia. CARDIOVASCULAR: Denies chest pain, palpitations, or edema. RESPIRATORY: Reports chronic shortness of breath, not worse as of late. GASTROINTESTINAL: Reports abdominal pain. Denies nausea, vomiting, or diarrhea. GENITOURINARY: Denies dysuria or hematuria. SKIN: Denies rash or itching. MUSCULOSKELETAL: Denies back pain, joint pain, or myalgia. NEUROLOGIC: Denies headache, numbness, dizziness, or weakness. PSYCHIATRIC: Denies anxiety or depression. [facility] Past Medical History Medical History Atrial fibrillation BPH (benign prostatic hyperplasia) Chronic respiratory failure with hypoxia Chronic respiratory failure with hypoxia, on home O2 therapy COPD with emphysema Essential hypertension GERD (gastroesophageal reflux disease) History of BPH Hyperlipidemia Pneumonia due to COVID-19 virus (01/2021) Surgical History Surgical History History of back surgery History of pneumonectomy Left upper lobe History of right inguinal hernia repair Family History Family History Father Heart problem Mother Tuberculosis Social History Social History Social History: The patient is originally from [facility]. He and his moved in with her daughter December 2019 when his lost her job due to the COVID-19 pandemic. He is a former smoker who smoked 3 packs of cigarettes per day for 42 years. He quit smoking in approximately 2012. He denies any alcohol use or illicit substance use. 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 He has 3 children Code status: Full code Surrogate decision maker: Rosa Maria () Smoking packs per day: 3 Smoking cigarettes per day: 60.0 Years smoked: 42 Smoking pack-years: 1
[2021-10-22] MEDS: MORPHINE SULFATE (*CRX) 4 MG/ML INJ IV PUSH (18:07)
[2021-10-22 18:11] LABS: Basophils Absolute Auto 0.1 K/mm3 (0.0-0.1); Basophils Percent Auto 0.4 % (0.2-1.2); Eosinophils Absolute Auto 0.1 K/mm3 (0-0.3); Eosinophils Percent Auto 0.7 % (0-4.4); Hematocrit 43.9 % (42.0-52.0); Hemoglobin 13.2 g/dL (14.0-18.0); Immature Granulocyte Percent A 2.1 % (0-0.5); Lymphocytes Absolute Auto 1.16 K/mm3 (0.9-3.2); Mean Corpuscular HGB Conc 30.1 g/dl (32-36); Mean Corpuscular Volume 86.6 fl (80-100); Monocytes Absolute Auto 0.9 K/mm3 (0.1-0.6); Monocytes Percent Auto 6.1 % (2.6-8.5); Neutrophils Percent Auto 82.7 % (45.5-73.1); Platelet Count Result 446 k/mm3 (150-375); Red Blood Count 5.07 M/mm3 (4.6-6.20); Red Cell Distribution Width 17.2 % (11.5-14.5); White Blood Count 14.5 K/mm3 (4.5-10.0)
[2021-10-22 18:24] LABS: INR 1.2; Prothrombin Time 14.7 Seconds (11.1-14.7)
[2021-10-22 18:27] LABS: Alanine Aminotransferase 18 U/L (4-50); Albumin Level 4.3 g/dL (3.5-5.1); Alkaline Phosphatase 114 U/L (38-126); Anion Gap 9 mmol/L (8-16); Aspartate Amino Transferase 26 U/L (17-59); Bilirubin,Total 0.5 mg/dL (0.2-1.3); Blood Urea Nitrogen 9 mg/dL (9-20); Calcium 9.4 mg/dL (8.4-10.2); Carbon Dioxide 30 mmol/L (22-30); Chloride 99 mmol/L (98-107); Estimated CRCL calculation 70 ml/min; Estimated Glomerular Filt Rate > 60; Glucose 118 mg/dL (65-110); Lipase 59 U/L (23-300); Potassium 4.2 mmol/L (3.4-5.0); Sodium 138 mmol/L (137-145)
[2021-10-22 18:30] LABS: Lactic Acid Reflex 1.7 mmol/L (0.7-2.1)
[2021-10-22 18:39] LABS: Troponin I < 0.012 ng/mL (0.000-0.034)
[2021-10-22 19:15] LABS: Add Urine Microscopic? YES; Appearance Urine Clear (Clear); Bilirubin Urine Negative (Negative); Blood Urine 1+ (Negative); Color Urine Straw (Yellow); Glucose Urine UA Negative (Negative); Ketones Urine Negative (Negative); Leukocyte Esterase Ur Negative LEU/UL (Negative); Nitrate Urine Negative (Negative); Protein Urine Negative (Negative); Specific Grav Ur 1.012 (1.001-1.035); Urobilinogen Urine Negative mg/dL (<2.0); WBC Urine 0-3 /hpf
== END 2021-10-22 20:21 | disposition home or self-care (01) ==
PROVIDERS: Emergency Provider Nurse Practitioner; PCP Physician Assistant
DX: R31.29 Other microscopic hematuria (principal); N28.9 Disorder of kidney and ureter, unspecified; R10.9 Unspecified abdominal pain; I48.91 Unspecified atrial fibrillation; J43.9 Emphysema, unspecified; I10 Essential (primary) hypertension; K21.9 Gastro-esophageal reflux disease without esophagitis; E78.5 Hyperlipidemia, unspecified; Z87.891 Personal history of nicotine dependence; Z79.899 Other long term (current) drug therapy; Z86.16 Personal history of COVID-19
CPT/HCPCS: 36415; 71045; 74177; 80053; 81001; 83605; 83690; 84484; 85025; 85610; 85730; 93005; 96374; 99284; J2270; Q9967

== ENCOUNTER 2022-01-27 07:57 | Outpatient (CLI) | payer MEDICARE, MEDICAID, SELFPAY ==
--- NOTE | ~2022-01-27 | US_ITS ---
EXAMINATION: US abdomen complete EXAM DATE: 01/27/2022 09:12 INDICATION: Right-sided abdominal pain, intermittent. TECHNIQUE: Multiple grayscale and Doppler images of the complete abdomen were obtained (by a technolo gist who performed the scan) and subsequently reviewed. Correlation is made to CT from 10/22/2021. FINDINGS: The abdominal aorta is normal in caliber. Visualized portion IVC is patent. The pancreatic head a nd body are normal in appearance. The pancreatic tail is not visualized. There is echogenic liver parenchyma, hepatic steatosis. There are no focal liver lesions identified. There is no evidence of intrahepatic biliary duct dilation. Portal venous flow was seen in the he patopedal, normal direction and has normal Doppler waveform. Common bile duct measures 4 mm, which is normal. The gallbladder wall is normal in thickness, with ex pected amount of distention. No sonographic evidence of pericholecystic fluid. There is cholelithia sis. Technologist performing exam reports patient did not demonstrate sonographic Valentine's sign. P luda note that this sign is less reliable in patients who have received pain medication. Right kidney: There is normal contour and echogenicity. It measures 10.5 x 4.2 x 4.5 centimeters. There are no focal renal lesions identified. There is no hydronephrosis. Left kidney: There is normal contour and echogenicity. It measures 11.6 x 5.3 x 5.5 centimeters. T here are no focal renal lesions identified, no sonographic correlate to the homogeneous exophytic les ion at lower pole of left kidney on CT. There is no hydronephrosis. The spleen measures 10 centimeters and is morphologically normal. IMPRESSION: 1. Hepatic steatosis. 2. Cholelithiasis. Reviewed, dictated and finalized at location A.
== END 2022-01-27 07:58 | disposition home or self-care (01) ==
PROVIDERS: PCP Physician Assistant; Visit Provider Physician Assistant
DX: K76.0 Fatty (change of) liver, not elsewhere classified (principal); K80.20 Calculus of gallbladder without cholecystitis without obstruction
CPT/HCPCS: 76700

== ENCOUNTER 2022-06-30 08:34 | Inpatient (IN) | payer MEDICARE, MEDICAID, SELFPAY ==
[2022-06-30] VITALS (21 sets, daily range): BP systolic 132–156; BP diastolic 62–91; PULSE 91–114; RESP 15–30; TEMP 36.2–36.8; O2SAT 93–99; BMI 27.9
--- NOTE | ~2022-06-30 | CT_ITS ---
EXAMINATION: CT soft tissue neck chest wo DATE: 07/01/2022 14:42 INDICATION: Right facial swelling. TECHNIQUE: Computed tomography (CT) of the neck and chest was performed with 75 mL Omnipaque-350 intr avenous contrast. Automated exposure control and iterative reconstruction technique were employed. Th e dose-length product was 1150.12 mGy-cm. COMPARISON: Chest CT 06/30/2022 FINDINGS: CT NECK: There is extensive soft tissue gas in the face and neck. There are no pathologically enlarge d lymph nodes. There is mild mucosal thickening in the paranasal sinuses. There is a small left masto id effusion. The orbits are normal. There is severe cervical spondylosis. CT CHEST: There is severe emphysema. There is widespread septal thickening. There are groundglass and airspace opacities in the lower lobes and right middle lobe. There are a few nodules in the lungs me asuring up to 6 mm. No pleural effusion or pneumothorax. There is extensive pneumomediastinum. There is soft tissue gas in the anterior superior chest wall and supraclavicular regions, right worse than left. The heart size is normal. No pericardial effusion. There are gallstones in the gallbladder, whi ch is normal in size. There is mild thoracic spondylosis. There is mild chronic height loss of multip le vertebral bodies. IMPRESSION: 1. Extensive pneumomediastinum and extensive neck soft tissue gas. 2. Severe emphysema. 3. Stable diffuse lung disease, at least most of which is likely chronic lung disease. Superimposed p ulmonary edema or pneumonia cannot be excluded. Reviewed, dictated and finalized at location A. IMPRESSION: 1. Extensive pneumomediastinum and extensive neck soft tissue gas. 2. Severe emphysema. 3. Stable diffuse lung disease, at least most of which is likely chronic lung d isease. Superimposed pulmonary edema or pneumonia cannot be excluded.
--- NOTE | ~2022-06-30 | CT_ITS ---
EXAMINATION: CT brain wo con DATE: 07/04/2022 16:53 INDICATION: Hyponatremia TECHNIQUE: Computed tomography (CT) of the head was performed without intravenous contrast. Sagittal and coronal reconstructions were performed. The mA was adjusted according to patient size. Iterative reconstruction technique was employed. The dose-length product was 605.33 mGy-cm. COMPARISON: None FINDINGS: No acute intracranial hemorrhage, acute infarction or abnormal extra axial fluid collection. Ventricl es are normal and symmetric. No mass/mass effect. Trace left mastoid effusion. Mild mucosal thickenin g in the bilateral ethmoid and maxillary sinuses with small likely mucous retention cyst in the right maxillary sinus. There is extensive soft tissue gas which extends into the facial soft tissues and a long portions of the scalp. IMPRESSION: 1. No acute intracranial process. 2. Extensive soft tissue gas at the face and portions of the scalp. Reviewed, dictated and finalized at location A.
--- NOTE | ~2022-06-30 | CT_ITS ---
EXAMINATION:CT diagnostic chest wo con DATE: 06/30/2022 09:40 INDICATION: Shortness of breath. TECHNIQUE: Computed tomography (CT) of the chest was performed without intravenous contrast. Automate d exposure control and iterative reconstruction technique were employed. The dose-length product (DLP ) was 511.29 mGy-cm. COMPARISON: Chest CT 07/20/2021, 04/01/21, 02/10/21 FINDINGS: There is extensive pneumomediastinum and neck soft tissue gas. There is severe emphysema. T here is widespread septal thickening and groundglass and airspace opacities in a heterogeneous distri bution involving all lobes. There are a few nodules in the lungs measuring up to 6 mm. No pleural eff usion. The heart size is normal. No pericardial effusion. There are no pathologically enlarged lymph nodes. There are gallstones in the gallbladder, which is normal in size. There is diffuse hepatic larry atosis. There is severe cervical spondylosis and mild thoracic spondylosis. There is mild chronic hei ght loss of multiple vertebral bodies. IMPRESSION: 1. Extensive pneumomediastinum and neck soft tissue gas. 2. Severe emphysema. 3. Diffuse lung disease with improvement from 07/20/2021, at least most of which is likely chronic aliyah g disease. Superimposed pulmonary edema or pneumonia cannot be excluded. Reviewed, dictated and finalized at location A. IMPRESSION: 1. Extensive pneumomediastinum and neck soft tissue gas. 2. Severe emphysema. 3. Diffuse lung disease with improvement from 07/20/2021, at least most of which is likely chronic lung disease. Superimposed pulmonary edema or pneumonia masoud ot be excluded.
--- NOTE | ~2022-06-30 | XR_ITS ---
EXAMINATION: XR chest 1V portable DATE: 07/02/2022 12:01 INDICATION: Worsening subcutaneous emphysema TECHNIQUE: frontal view of the chest was obtained. COMPARISON: Chest radiograph date FINDINGS: Pneumomediastinum and prominent subcutaneous emphysema at the visualized base of the neck and supracl avicular regions. Severe bullous emphysema at the bilateral upper lung zones but no evident pneumotho rax. No significant change in interstitial and airspace opacities throughout both lungs. No pleural e ffusion. Heart size is normal. IMPRESSION: 1. Persistent pneumomediastinum and remaining large amount ascites emphysema the visualized base of t he neck. No evident pneumothorax. 2. No significant change in severe bilateral interstitial and airspace opacities and increased lucenc ies in the upper lung zones consistent with severe emphysema with superimposed lung disease which cou ld represent chronic interstitial fibrosis, more acute pulmonary edema or pneumonia or some combinati on thereof. Reviewed, dictated and finalized at location A. IMPRESSION: 1. Persistent pneumomediastinum and remaining large amount ascites emphysema th e visualized base of the neck. No evident pneumothorax. 2. No significant change in severe bilateral interstitial and airspace opacitie s and increased lucencies in the upper lung zones consistent with severe emphys jesus alberto with superimposed lung disease which could represent chronic interstitial f ibrosis, more acute pulmonary edema or pneumonia or some combination thereof.
--- NOTE | ~2022-06-30 | XR_ITS ---
EXAMINATION: XR chest 1V portable DATE: 07/02/2022 06:13 INDICATION: Pneumothorax. TECHNIQUE: A single frontal view of the chest was obtained. COMPARISON: Chest single view 06/30/2022 FINDINGS: There are lucencies in the lungs, consistent with emphysema. There are airspace and interst itial opacities in all lung zones, worst in the mid and lower lung zones. No pleural effusion or pneu mothorax. The heart size is normal. Pneumomediastinum is noted. IMPRESSION: 1. Pneumomediastinum. 2. Stable severe diffuse lung disease, likely a combination of emphysema and chronic interstitial aliyah g disease. Superimposed pneumonia cannot be excluded. Reviewed, dictated and finalized at location A. IMPRESSION: 1. Pneumomediastinum. 2. Stable severe diffuse lung disease, likely a combination of emphysema and ch ronic interstitial lung disease. Superimposed pneumonia cannot be excluded.
--- NOTE | ~2022-06-30 | XR_ITS ---
EXAMINATION: XR chest 1V portable DATE: 06/30/2022 08:59 INDICATION: Cough. TECHNIQUE: A single frontal view of the chest was obtained. COMPARISON: Chest single view 10/22/2021, chest CT 07/20/2021 FINDINGS: There are lucencies in the lungs with an upper lobe predominance, consistent with emphysema . There are airspace and interstitial opacities in all lung zones with a lower lung predominance. No pleural effusion or pneumothorax. The heart size is normal. There is soft tissue gas in the neck bila terally. Pneumomediastinum is noted. IMPRESSION: 1. Pneumomediastinum and neck soft tissue gas. 2. Chronic severe diffuse lung disease, likely a combination of emphysema and chronic interstitial blanca ng disease. Superimposed pneumonia cannot be excluded. Reviewed, dictated and finalized at location A. IMPRESSION: 1. Pneumomediastinum and neck soft tissue gas. 2. Chronic severe diffuse lung disease, likely a combination of emphysema and c hronic interstitial lung disease. Superimposed pneumonia cannot be excluded.
--- NOTE | ~2022-06-30 | XR_ITS ---
EXAMINATION: XR chest 1V portable INDICATION: COPD TECHNIQUE: Portable AP chest at 0813 hours COMPARISON: 07/03/2022 FINDINGS: Widespread soft tissue gas of the chest wall and neck and pneumomediastinum persist without significant change. The heart size is normal. There are diffuse airspace opacities without significa nt change, worst in the mid and lower lung zones. No pleural effusion or pneumothorax. Severe emphyse ma is noted. IMPRESSION: 1. Stable airspace opacities, worst in the mid and lower lung zones, consistent with emphysema and/or chronic interstitial lung disease and/or superimposed pneumonia. 2. Widespread subcutaneous emphysema and pneumomediastinum without significant change. Reviewed, dictated and finalized at location B. IMPRESSION: 1. Stable airspace opacities, worst in the mid and lower lung zones, consistent with emphysema and/or chronic interstitial lung disease and/or superimposed pn eumonia. 2. Widespread subcutaneous emphysema and pneumomediastinum without significant change.
--- NOTE | ~2022-06-30 | XR_ITS ---
EXAMINATION: XR chest 1V portable DATE: 07/03/2022 09:06 INDICATION: Chronic obstructive pulmonary disease. TECHNIQUE: A single frontal view of the chest was obtained. COMPARISON: Chest single view 07/02/2022 FINDINGS: Again seen is soft tissue gas in the neck and right chest. Pneumomediastinum is noted. Ther e are lucencies in the lungs with architectural distortion, consistent with emphysema. There are airs pace opacities and interstitial opacities involving all lung zones bilaterally, worst in the mid and lower lung zones. No pleural effusion. No pneumothorax. The heart size is normal. IMPRESSION: 1. Pneumomediastinum. 2. Stable severe diffuse lung disease, likely a combination of emphysema and chronic interstitial aliyah g disease. Superimposed pneumonia cannot be excluded. Reviewed, dictated and finalized at location A. IMPRESSION: 1. Pneumomediastinum. 2. Stable severe diffuse lung disease, likely a combination of emphysema and ch ronic interstitial lung disease. Superimposed pneumonia cannot be excluded.
--- NOTE | 2022-06-30 08:35 | ECG_ITS ---
Measurements Intervals [place] Rate: 114 P: 49 [place]: 124 QRS: -32 QRSD: 93 T: 64 QT: 326 QTc: 451 Interpretive Statements SINUS TACHYCARDIA VENTRICULAR PREMATURE COMPLEX AND FREQUENT ATRIAL PREMATURE COMPLEXES LEFT AXIS DEVIATION POOR R WAVE PROGRESSION, ANTERIOR LEADS BASELINE ARTIFACT- I, II, AVR, AVL, AVF ABNORMAL ECG COMPARED TO ECG 10/22/2021 18:17:11 SINUS TACHYCARDIA NOW PRESENT Electronically Signed On 06-30-2022 11:58:56 CDT by Vinod Villa D.O.
--- NOTE | 2022-06-30 08:42 | ED.SOB ---
HPI - SOB/Dyspnea General Chief Complaint: Shortness of Breath/Dyspnea Stated Complaint: sob Time Seen by Provider: 06/30/22 08:36 Source: RN notes reviewed History of Present Illness HPI Narrative: Patient presents emergency department from home for shortness of breath. Patient states that he began to feel short of breath last night with a cough this been nonproductive he states he also began to have large amounts of postnasal drip and drainage and he feels like he is choking on the drainage he denies any fevers or chills chest pain abdominal pain nausea or vomiting patient states he has a history of COPD and is chronically on 4 L nasal cannula at all times Related Data Home Medications Medication Instructions Recorded Confirmed atorvastatin 40 mg tablet 40 mg PO HS 02/10/21 07/20/21 cyanocobalamin (vitamin B-12) 1,000 mcg PO DAILY 02/10/21 07/20/21 1,000 mcg tablet fluticasone 500 mcg-salmeterol 50 1 inh inhalation BID 02/10/21 07/20/21 mcg/dose blistr powdr for inhalation (Advair Diskus) omeprazole 40 mg capsule,delayed 40 mg PO DAILY 02/10/21 07/20/21 release tamsulosin 0.4 mg capsule 0.4 mg PO HS 02/10/21 07/20/21 umeclidinium 62.5 mcg/actuation 1 inh inhalation DAILY 02/10/21 07/20/21 blister powder for inhalation (Incruse Ellipta) loratadine 10 mg tablet mg 06/30/22 06/30/22 metformin 500 mg tablet,extended mg PO 06/30/22 release 24 hr Allergies Allergy/AdvReac Type Severity Reaction Status Date / Time No Known Allergies Allergy Verified 06/30/22 08:46 Review of Systems Review of Systems: Gen.: Denies fevers or chills ENT: Denies congestion Respiratory: See HPI CV: Denies chest pain or palpitations GI: Denies abdominal pain nausea, emesis or diarrhea Musculoskeletal: Denies back pain or muscle pain Neuro: Denies numbness, tingling, weakness or focal weakness Skin: Denies rash Except as documented, all other systems reviewed and negative PMFSH Past Medical History Medical History Atrial fibrillation BPH (benign prostatic hyperplasia) Chronic respiratory failure with hypoxia Chronic respiratory failure with hypoxia, on home O2 therapy COPD with emphysema Essential hypertension GERD (gastroesophageal reflux disease) History of BPH Hyperlipidemia Pneumonia due to COVID-19 virus (01/2021) Surgical History Surgical History History of back surgery History of pneumonectomy Left upper lobe History of right inguinal hernia repair Family History Family History Father Heart problem Mother Tuberculosis Social History Social History Social History: The patient is originally from [facility]. He and his moved in with her daughter December 2019 when his lost her job due to the COVID-19 pandemic. He is a former smoker who smoked 3 packs of cigarettes per day for 42 years. He quit smoking in approximately 2012. He denies any alcohol use or illicit substance use. He used to work on the [place] for approximately 17 years before he had a back injury. 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 He has 3 children Code status: Full code Surrogate decision maker: Rosa Maria () Smoking packs per day: 3 Smoking cigarettes per day: 60.0 Years smoked: 42 Smoking pack-years: 126.00 Smoking status: Former smoker Tobacco type: cigarettes Second hand tobacco smoke exposure: No Alcohol intake: never Substance use: never Substance use type: does not use Gender identity (if verbalized by the patient): Male Spiritual care concerns: No Exam Narrative: APPEARANCE: Moderate respiratory distress seen upright in bed speaking in short phrases EYES: EOMI HEENT: Normocephalic, atraumatic, OMM RESPIRA
[2022-06-30 08:55] LABS: Basophils Percent Auto 0.2 % (0.2-1.2); Eosinophils Absolute Auto 0.2 K/mm3 (0-0.3); Eosinophils Percent Auto 1.8 % (0-4.4); Hematocrit 42.8 % (42.0-52.0); Hemoglobin 11.9 g/dL (14.0-18.0); Immature Granulocyte Absolute 0.14 K/mm3 (0.00-0.031); Immature Granulocyte Percent A 1.2 % (0-0.5); Lymphocytes Absolute Auto 1.29 K/mm3 (0.9-3.2); Mean Corpuscular HGB Conc 27.8 g/dl (32-36); Mean Corpuscular Hemoglobin 20.9 pg (26-34); Mean Corpuscular Volume 75.2 fl (80-100); Mean Platelet Volume 8.9 fl (7.4-10.4); Monocytes Absolute Auto 0.7 K/mm3 (0.1-0.6); Monocytes Percent Auto 5.6 % (2.6-8.5); Neutrophils Absolute Auto 9.4 K/mm3 (1.3-6.7); Neutrophils Percent Auto 80.2 % (45.5-73.1); Platelet Count Result 534 k/mm3 (150-375); Red Blood Count 5.69 M/mm3 (4.6-6.20); Red Cell Distribution Width 20.1 % (11.5-14.5); White Blood Count 11.7 K/mm3 (4.5-10.0)
[2022-06-30] MEDS: methylPREDNISolone SOD SUCC 125 MG VIAL IV PUSH (09:04)
[2022-06-30] MEDS: IPRATROPIUM BR 0.02% INH SOLN 0.5 MG/2.5 ML VIAL INHALATION ×3 (09:08→20:34)
[2022-06-30] MEDS: ALBUTEROL SULFATE NEB 2.5 MG/3 ML INH 5 MG INHALATION ×3 (09:08→20:34)
[2022-06-30 09:13] LABS: Alanine Aminotransferase 15 U/L (6-50); Albumin Level 4.2 g/dL (3.5-5.1); Alkaline Phosphatase 115 U/L (38-126); Anion Gap 13 mmol/L (8-16); Aspartate Amino Transferase 21 U/L (17-59); Bilirubin,Total 0.6 mg/dL (0.2-1.3); Blood Urea Nitrogen 13 mg/dL (9-20); Calcium 8.8 mg/dL (8.4-10.2); Carbon Dioxide 30 mmol/L (22-30); Chloride 91 mmol/L (98-107); Estimated CRCL calculation 83 ml/min; Estimated Glomerular Filt Rate > 60; Glucose 125 mg/dL (65-110); Potassium 4.2 mmol/L (3.4-5.0); Sodium 134 mmol/L (137-145)
[2022-06-30 09:13] LABS: Alveolar/Arterial O2 Gradient 176.4 mmHg; Base Excess ABG 2.7 mEq/l (+/-2.0); Carboxyhemoglobin 1.1 % THb (0-2.0); Fractional Inspired Oxygen 48 %; HCO3 ABG 26.8 mEq/l (22.0-26.0); Oxygen Saturation ABG 98.5 % (95.0-100.0); Oxyhemoglobin 97.1 % THb (90.0-100.0); PCO2 ABG 39.2 mmHg (35.0-45.0); PO2 ABG 121.5 mmHg (80.0-100.0); PO2 FiO2 Ratio Arterial Blood 2.53 %; Reduced Hemoglobin 1.8 %THb (0-5.0); Total Hemoglobin 12.3 g/dL (12.0-18.0); pH ABG 7.452 (7.350-7.450)
[2022-06-30 09:14] LABS: Device HIGH FLOW NASAL CANN; Modified Allen's Test Pass; Site Drawn LEFT RADIAL
[2022-06-30 09:15] LABS: Lactic Acid Reflex 1.6 mmol/L (0.7-2.0)
[2022-06-30 09:19] LABS: INR 1.3; Prothrombin Time 16.1 Seconds (11.1-14.7)
[2022-06-30 09:20] LABS: Partial Thromboplastin Time 26.8 SECONDS (22.3-36.8)
[2022-06-30 09:22] LABS: NT Pro B Type Natriuretic Pept 221 pg/mL (5-100)
--- NOTE | 2022-06-30 09:30 | PC.NURSE ---
PT TO CT SCAN VIA STRETCHER AT THIS TIME.
[2022-06-30 09:31] LABS: SARS-CoV-2 RNA PCR Negative
[2022-06-30 09:46] LABS: Troponin I < 0.012 ng/mL (0.000-0.034)
--- NOTE | 2022-06-30 14:30 | PM.IMHP ---
H&P: HPI History of Present Illness Date/Time: 06/30/22 14:30 Chief Complaint: Shortness of breath. Narrative: This is a 67-year-old gentleman with chronic respiratory failure on 4 L at rest and 8 L with exertion, chronic obstructive pulmonary disease, recurrent pneumothorax status post left upper lobectomy, pulmonary embolism, paroxysmal atrial fibrillation on chronic anticoagulation, and other comorbidities who presented to the emergency department from home for evaluation of shortness of breath. He is chronically short of breath and spends a lot of time in his electric scooter. He gets short of breath with day-to-day activities however since last night he has been more short of breath from baseline. He blames his shortness of breath on the fact that he does not think he is getting enough oxygen in because his sinuses have been congested. He complains of significant postnasal drip which has him coughing so hard that he is reportedly choking on the drainage. This morning when he woke up he noticed that his upper chest and neck were swollen and he felt as though he could not catch his breath and he came in for evaluation. On arrival to triage he was noted to have increased work of breathing and was reportedly grunting and in 1 to 2 word sentences. He was given a nebulizer and Solu-Medrol 125 mg with improvement. He was tachypneic and tachycardic but afebrile. White blood cell count was 11.7 though he always has a mild leukocytosis. Initial troponin was normal and his proBNP was only mildly elevated to 21. SARS-CoV-2 by PCR was negative. Chest CT showed extensive pneumomediastinum and neck soft tissue gas, severe emphysema, and diffuse lung disease at least most of which is likely chronic lung disease though superimposed pulmonary edema or pneumonia cannot be excluded. He has since been given IV antibiotics and admitted for closer monitoring and treatment. At the time my evaluation he feels much better with regards to his work of breathing though he continues to have significant postnasal drip which is quite frustrating. He denies fever, chills, sweats, headache, sore throat, chest pain, pleuritic pain, palpitations, and lower extremity edema. Review of Systems Review of Systems: Twelve systems were reviewed. No sick contacts. Appetite has been okay. No nausea or vomiting, however it sounds as though he had 1 episode of posttussive emesis either last night or early this morning. No diarrhea. Except as documented, all other systems were reviewed and are negative. [facility] Past Medical History Medical History (Updated 06/30/22 @ 22:11 by Mora Parker PA-C) Benign prostatic hyperplasia Chronic anemia Chronic anticoagulation Chronic interstitial lung disease Chronic respiratory failure with hypoxia, on home O2 therapy COPD with emphysema Essential hypertension Gastroesophageal reflux disease Gout Hyperlipidemia Paroxysmal atrial fibrillation Pneumonia due to COVID-19 virus (01/2021) Pulmonary embolism Surgical History Surgical History History of back surgery History of pneumonectomy Left upper lobe History of right inguinal hernia repair Family History Family History Father Heart problem Mother Tuberculosis Congestive heart failure Social History Social History (Updated 06/30/22 @ 22:07 by Mora Parker PA-C) Social History: The patient is originally from [place], [place]. He lives in [place] with his . They have 3 children. He is a former smoker who smoked 3 packs of cigarettes per day for 42 years. He quit smoking in approximately 2012. He denies any alcohol use or illicit substance use. He used to work on the [employer] for approximately 17 years before he had a back injury. 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 Surrogate medical decision maker: halina Gar
[2022-06-30] MEDS: methylPREDNISolone SOD SUCC 125 MG VIAL 60 MG IV PUSH ×2 (14:57→20:31)
[2022-06-30 15:14] LABS: Troponin I < 0.012 ng/mL (0.000-0.034)
[2022-06-30] MEDS: FLUTICASONE PROPIONATE 0.05% NA SPR 16 GM BTL (*BKC) 1 SPRAY NASAL (17:05)
[2022-06-30] MEDS: SALINE 0.65% NAS SOLN 44 ML BTL 1 SPRAY NASAL (17:05)
[2022-06-30] MEDS: LORATADINE 10 MG TABLET PO (17:05)
[2022-06-30] MEDS: PANTOPRAZOLE 40 MG TABLET PO (18:35)
[2022-06-30 19:37] LABS: Troponin I < 0.012 ng/mL (0.000-0.034)
[2022-06-30 20:24] LABS: Glucose Point of Care 264 mg/dl (65-105)
[2022-06-30] MEDS: ATORVASTATIN 40 MG TABLET PO (20:30)
[2022-06-30] MEDS: TAMSULOSIN HCL 0.4 MG CAPSULE PO (20:30)
[2022-06-30] MEDS: APIXABAN 5 MG TABLET PO (20:31)
[2022-07-01] VITALS (23 sets, daily range): BP systolic 135–150; BP diastolic 66–72; PULSE 70–117; RESP 12–26; TEMP 36.3–36.6; O2SAT 91–99
[2022-07-01] MEDS: ALBUTEROL SULFATE NEB 2.5 MG/3 ML INH 5 MG INHALATION ×4 (02:18→20:00)
[2022-07-01] MEDS: IPRATROPIUM BR 0.02% INH SOLN 0.5 MG/2.5 ML VIAL INHALATION ×4 (02:18→20:01)
[2022-07-01 05:02] LABS: Basophils Percent Auto 0.1 % (0.2-1.2); Hematocrit 37.8 % (42.0-52.0); Hemoglobin 10.5 g/dL (14.0-18.0); Immature Granulocyte Absolute 0.11 K/mm3 (0.00-0.031); Immature Granulocyte Percent A 0.9 % (0-0.5); Lymphocytes Absolute Auto 0.37 K/mm3 (0.9-3.2); Lymphocytes Percent Auto 3.1 % (18.3-44.2); Mean Corpuscular HGB Conc 27.8 g/dl (32-36); Mean Corpuscular Hemoglobin 20.8 pg (26-34); Mean Corpuscular Volume 74.9 fl (80-100); Mean Platelet Volume 9.1 fl (7.4-10.4); Monocytes Absolute Auto 0.4 K/mm3 (0.1-0.6); Neutrophils Absolute Auto 11.1 K/mm3 (1.3-6.7); Neutrophils Percent Auto 92.9 % (45.5-73.1); Platelet Count Result 492 k/mm3 (150-375); Red Blood Count 5.05 M/mm3 (4.6-6.20); Red Cell Distribution Width 19.5 % (11.5-14.5); White Blood Count 11.9 K/mm3 (4.5-10.0)
[2022-07-01 05:19] LABS: Alanine Aminotransferase 12 U/L (6-50); Albumin Level 3.7 g/dL (3.5-5.1); Alkaline Phosphatase 92 U/L (38-126); Anion Gap 6 mmol/L (8-16); Aspartate Amino Transferase 15 U/L (17-59); Bilirubin,Total 0.3 mg/dL (0.2-1.3); Blood Urea Nitrogen 13 mg/dL (9-20); CRP 5.8 mg/dL (<1.0); Calcium 9.1 mg/dL (8.4-10.2); Carbon Dioxide 28 mmol/L (22-30); Chloride 98 mmol/L (98-107); Estimated CRCL calculation 111 ml/min; Estimated Glomerular Filt Rate > 60; Glucose 185 mg/dL (65-110); Magnesium 2.2 mg/dL (1.6-2.3); Potassium 4.2 mmol/L (3.4-5.0); Sodium 132 mmol/L (137-145)
[2022-07-01] MEDS: methylPREDNISolone SOD SUCC 125 MG VIAL 60 MG IV PUSH ×2 (06:03→13:27)
[2022-07-01 06:23] LABS: Anisocytosis 1+ (NORMAL); Hypochromasia 1+ (NORMAL); Target Cells 1+ (NORMAL)
[2022-07-01] MEDS: FLUTICASONE/SALMETEROL 230-21 MCG INHALER 1 PUFF 2 PUFF INHALATION ×2 (07:52→20:01)
[2022-07-01 07:54] LABS: Glucose Point of Care 193 mg/dl (65-105)
[2022-07-01] MEDS: FLUTICASONE PROPIONATE 0.05% NA SPR 16 GM BTL (*BKC) 1 SPRAY NASAL ×2 (08:52→20:47)
[2022-07-01] MEDS: PANTOPRAZOLE 40 MG TABLET PO ×2 (08:54→20:48)
[2022-07-01] MEDS: LORATADINE 10 MG TABLET PO (08:54)
[2022-07-01] MEDS: metFORMIN HCL XR 500 MG TAB.SR.24H PO (08:55)
[2022-07-01] MEDS: predniSONE 10 MG TABLET PO (08:55)
[2022-07-01] MEDS: APIXABAN 5 MG TABLET PO ×2 (08:55→20:47)
[2022-07-01] MEDS: CYANOCOBALAMIN 1,000 MCG TABLET 1000 MCG PO (08:55)
--- NOTE | 2022-07-01 11:53 | PCPTNOTE ---
Attempted PT evaluation, pt refused stating I'm too weak. Pt's sitting beside and agreed to pt needing to wait another day prior to initiating PT. RN aware. Will follow
[2022-07-01 12:56] LABS: Glucose Point of Care 254 mg/dl (65-105)
[2022-07-01] MEDS: SALINE 0.65% NAS SOLN 44 ML BTL 1 SPRAY NASAL (13:26)
[2022-07-01] MEDS: INSULIN ASPART (*BKC) 100 UNITS/ML SUB-Q ×2 (13:27→16:59)
[2022-07-01 13:47] LABS: Alveolar/Arterial O2 Gradient 144.3 mmHg; Device NASAL CANNULA; Fractional Inspired Oxygen 36 %; HCO3 ABG 26.6 mEq/l (22.0-26.0); Modified Allen's Test Pass; Oxygen Content ABG 15.4 %vol (16.0-22.0); Oxygen Saturation ABG 92.9 % (95.0-100.0); Oxyhemoglobin 90.9 % THb (90.0-100.0); PCO2 ABG 41.5 mmHg (35.0-45.0); PO2 ABG 64.2 mmHg (80.0-100.0); PO2 FiO2 Ratio Arterial Blood 1.78 %; Site Drawn LEFT RADIAL; pH ABG 7.424 (7.350-7.450)
--- NOTE | 2022-07-01 14:32 | PCOTNOTE ---
Attempted to see patient for OT evaluation. Per RN the patient would like to hold therapy today due to decreased respiratory status. She states he may need to be intubated. Will check back tomorrow.
--- NOTE | 2022-07-01 16:02 | PM.IMPN ---
Progress Note: A&P Assessment and Plan (1) COPD exacerbation: Code(s): J44.1 - Chronic obstructive pulmonary disease with (acute) exacerbation Status: Acute Assessment and Plan: He has been started on scheduled bronchodilators and Solu-Medrol. Mucinex ordered to help thin secretions. He is also complaining of postnasal drip thus will order Flonase, Brayton nasal spray, and Claritin. I am not certain he has underlying pneumonia as his white blood cell count is always elevated due to chronic oral prednisone use. Due to increasing cough, purulent sputum, and increasing shortness of breath however we will continue with antibiotics. 07/01/2022 interval history: patient with history severe COPD presented with shortness of and emphysema along upper chest and neck worse on the right side, today patient appear more short of breath ABG was essentially normal to further evaluate patient had a CT scan of neck and upper chest it showed1. Extensive pneumomediastinum and extensive neck soft tissue gas.2. Severe emphysema. 3. Stable diffuse lung disease, at least most of which is likely chronic lung disease. Superimposed pulmonary edema or pneumonia cannot be excluded. 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 (2) Pneumomediastinum: Code(s): J98.2 - Interstitial emphysema Status: Acute Assessment and Plan: Probably due to persistent, harsh coughing in the setting of his significant lung disease. Will eventually resolve, monitor. (3) Chronic respiratory failure with hypoxia: Code(s): J96.11 - Chronic respiratory failure with hypoxia Status: Chronic Assessment and Plan: Currently on his home oxygen requirement. (4) Chronic anemia: Code(s): D64.9 - Anemia, unspecified Status: Acute Assessment and Plan: Stable on review of previous labs. (5) Chronic anticoagulation: Code(s): Z79.01 - watermaster (current) use of anticoagulants Status: Acute Assessment and Plan: Continue Eliquis. (6) Paroxysmal atrial fibrillation: Code(s): I48.0 - Paroxysmal atrial fibrillation Status: Chronic Assessment and Plan: Currently in a sinus rhythm. Continue diltiazem. (7) Hypertension: Code(s): I10 - Essential (primary) hypertension Status: Acute Assessment and Plan: Blood pressures were reviewed and they are stable. Continue antihypertensives and monitor. Subjective Date/time seen: 07/01/22 16:02 HPI-Narrative: This is a 67-year-old gentleman with chronic respiratory failure on 4 L at rest and 8 L with exertion, chronic obstructive pulmonary disease, recurrent pneumothorax status post left upper lobectomy, pulmonary embolism, paroxysmal atrial fibrillation on chronic anticoagulation, and other comorbidities who presented to the emergency department from home for evaluation of shortness of breath. He is chronically short of breath and spends a lot of time in his electric scooter. He gets short of breath with day-to-day activities however since last night he has been more short of breath from baseline. He blames his shortness of breath on the fact that he does not think he is getting enough oxygen in because his sinuses have been congested. He complains of significant postnasal drip which has him coughing so hard that he is reportedly choking on the drainage. This morning when he woke up he noticed that his upper chest and neck were swollen and he felt as though he could not catch his breath and he came in for evaluation. O
[2022-07-01 16:30] LABS: Glucose Point of Care 263 mg/dl (65-105)
--- NOTE | 2022-07-01 16:31 | PM.CNPUL ---
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 Chest imaging studies including chest CT showed no evidence of a pneumothorax. Patient has no signs to suggest COPD exacerbation. As stated he has been on tapering prednisone schedule to be weaned off oral steroids. Plan: I have discontinued IV steroids as there is no evidence of COPD exacerbation by clinical grounds. Patient will resume his low-dose oral steroid in a.m. we will continue to monitor his respiratory status with daily chest x-rays. 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 (2) Chronic respiratory failure with hypoxia: Code(s): J96.11 - Chronic respiratory failure with hypoxia Status: Chronic Assessment and Plan: Currently on his home oxygen requirement. (3) Chronic anemia: Code(s): D64.9 - Anemia, unspecified Status: Acute Assessment and Plan: Stable on review of previous labs. (4) Chronic anticoagulation: Code(s): Z79.01 - oysterman (current) use of anticoagulants Status: Acute Assessment and Plan: Continue Eliquis. (5) Paroxysmal atrial fibrillation: Code(s): I48.0 - Paroxysmal atrial fibrillation Status: Chronic Assessment and Plan: Currently in a sinus rhythm. Continue diltiazem. (6) Hypertension: Code(s): I10 - Essential (primary) hypertension Status: Acute Assessment and Plan: Blood pressures were reviewed and they are stable. Continue antihypertensives and monitor. (7) Pulmonary emphysema with fibrosis of lung: Code(s): J43.9 - Emphysema, unspecified; J84.10 - Pulmonary fibrosis, unspecified Status: Acute History of Present Illness History of Present Illness Consult date: 07/01/22 Chief complaint: mucoid pneumonia,ae copd,pneumomediastinum Narrative: this 67-year-old man with history of chronic hypoxemic respiratory failure presented with 1 day history of upper anterior chest and neck swelling. The patient is well known to me. He has got history of a severe bullous emphysema and pulmonary fibrosis bilaterally. I last saw the patient approximately 1 year ago. 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 The patient uses relatively high oxygen flows at rest. He he often desaturates with activities while on oxygen at 6-8 L during activities. The patient is followed by a tool turret lathe set up operator at [facility]. he has been on maintenance bronchodilators Incruse and Advair as well as short-acting bronchodilators. For the last 6 months he has been on oral prednisone, with the last dose being 5 mg daily. He has been on a tapering prednisone schedule to be weaned off oral steroids. according to the patient he walk up at night with some postnasal drip and coughing. He had no change in his chronic dyspnea or new respiratory symptoms such as sputum production wheezing chest pain palpitations orthopnea hemoptysis night sweats fever chills. When he walk up in the morning he noticed neck swelling. On evaluation in the emergency room he was found to have pneumomediastinum and neck subcutaneous emphysema on chest/neck CT. he had no new infiltrates on the chest CT. Review of Systems Review of Systems: All systems reviewed & are unremarkable except as n
[2022-07-01] MEDS: OXYMETAZOLINE HCL 0.05% NAS 15 ML BTL (*BKC) 1 SPRAY NASAL (17:31)
[2022-07-01 20:25] LABS: Glucose Point of Care 192 mg/dl (65-105)
[2022-07-01] MEDS: ATORVASTATIN 40 MG TABLET PO (20:48)
[2022-07-01] MEDS: TAMSULOSIN HCL 0.4 MG CAPSULE PO (20:48)
[2022-07-02] VITALS (21 sets, daily range): BP systolic 123–141; BP diastolic 59–79; PULSE 81–110; RESP 18–22; TEMP 36.3–36.5; O2SAT 90–98
[2022-07-02] MEDS: IPRATROPIUM BR 0.02% INH SOLN 0.5 MG/2.5 ML VIAL INHALATION ×4 (01:02→19:52)
[2022-07-02] MEDS: ALBUTEROL SULFATE NEB 2.5 MG/3 ML INH 5 MG INHALATION ×4 (01:02→19:52)
[2022-07-02 04:43] LABS: Hematocrit 38.5 % (42.0-52.0); Hemoglobin 10.8 g/dL (14.0-18.0); Mean Corpuscular HGB Conc 28.1 g/dl (32-36); Mean Corpuscular Volume 74.8 fl (80-100); Mean Platelet Volume 9.2 fl (7.4-10.4); Platelet Count Result 535 k/mm3 (150-375); Red Blood Count 5.15 M/mm3 (4.6-6.20); Red Cell Distribution Width 19.7 % (11.5-14.5); White Blood Count 21.8 K/mm3 (4.5-10.0)
[2022-07-02 05:15] LABS: Anion Gap 16 mmol/L (8-16); Blood Urea Nitrogen 13 mg/dL (9-20); Calcium 8.4 mg/dL (8.4-10.2); Carbon Dioxide 26 mmol/L (22-30); Chloride 91 mmol/L (98-107); Estimated CRCL calculation 97 ml/min; Estimated Glomerular Filt Rate > 60; Glucose 149 mg/dL (65-110); Potassium 4.1 mmol/L (3.4-5.0); Sodium 133 mmol/L (137-145)
[2022-07-02] MEDS: FLUTICASONE/SALMETEROL 230-21 MCG INHALER 1 PUFF 2 PUFF INHALATION ×2 (08:01→19:52)
[2022-07-02 08:17] LABS: Glucose Point of Care 150 mg/dl (65-105)
[2022-07-02] MEDS: FLUTICASONE PROPIONATE 0.05% NA SPR 16 GM BTL (*BKC) 1 SPRAY NASAL ×2 (09:08→20:52)
[2022-07-02] MEDS: LORATADINE 10 MG TABLET PO (09:08)
[2022-07-02] MEDS: metFORMIN HCL XR 500 MG TAB.SR.24H PO (09:08)
[2022-07-02] MEDS: APIXABAN 5 MG TABLET PO ×2 (09:09→20:51)
[2022-07-02] MEDS: PANTOPRAZOLE 40 MG TABLET PO ×2 (09:09→20:51)
[2022-07-02] MEDS: CYANOCOBALAMIN 1,000 MCG TABLET 1000 MCG PO (09:09)
[2022-07-02] MEDS: SALINE 0.65% NAS SOLN 44 ML BTL 1 SPRAY NASAL (09:09)
[2022-07-02] MEDS: SULFAMETHOXAZOLE/TRIMETHOPRIM 800/160 MG DS TABLET 1 TAB PO (09:10)
[2022-07-02] MEDS: ACETAMINOPHEN 325 MG TABLET 650 MG PO (09:47)
--- NOTE | 2022-07-02 09:47 | PM.PNPUL ---
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 Patient has no evidence of COPD exacerbation. IV steroids were discontinued. today's chest x-ray was essentially unchanged with no evidence of a pneumothorax. the patient has been on a tapering prednisone regimen by his field operations technician at . plan: continue with oral prednisone will decrease dose to 5 mg daily starting in a.m.. Continue to monitor respiratory status. Continue with current antibiotic regimen, and bronchodilators for now. Subjective Date/time seen: 07/02/22 09:47 patient with out any new respiratory symptoms. Continues to have some postnasal dripping and also neck swelling. shortness of breath about baseline, no wheezing. Review of Systems Review of Systems: All systems reviewed & are unremarkable except as noted in HPI and below (H& P) Exam Narrative: GENERAL APPEARANCE: Well developed, well nourished, alert and cooperative, and appears to be in mild respiratory distress while on supplemental oxygen SKIN: Inspection of the skin reveals no rashes, ulcerations or petechiae. HEENT: Sclerae anicteric and conjunctivae pink and moist. Extraocular movements were intact and pupils were equal, round. The oral mucosa, hard and soft palate, tongue and posterior pharynx were normal; edentulous NECK: Supple. There was no thyroid enlargement, and no tenderness, or masses were felt. Crepitus palpable CHEST: increased AP diameter and normal contour without any kyphoscoliosis. Chest wall expansion asymmetrical bilaterally. LUNGS: crackles at bases posteriorly and distal breath sounds in upper lobes posteriorly. CARDIAC: There was a regular rate and rhythm without any murmurs, gallops, rubs. ABDOMEN: Soft and nontender with normal bowel sounds. There was no organomegaly. LYMPH NODES: No lymphadenopathy was appreciated in the neck. EXTREMITIES: No cyanosis; clubbing present. NEUROLOGIC: Alert and oriented x 3. Normal affect. Objective Data Vital Signs Vital Signs: Vital Signs - 24 hr 07/01/22 10:00 07/01/22 12:12 07/01/22 13:36 Temperature 36.4 C L Pulse Rate 70 98 117 H Respiratory Rate 14 22 H Blood Pressure 136/72 Pulse Oximetry 95 Oxygen Delivery Oxygen Flow Rate 07/01/22 14:00 07/01/22 12:00 07/01/22 16:00 Temperature 36.6 C Pulse Rate 112 H 102 H 107 H Respiratory Rate 26 H 12 Blood Pressure 150/69 H Pulse Oximetry 97 Oxygen Delivery Oxygen Flow Rate 07/01/22 16:00 07/01/22 19:51 07/01/22 20:02 Temperature 36.3 C L Pulse Rate 110 H 101 H 98 Respiratory Rate 16 20 Blood Pressure 139/66 Pulse Oximetry 98 Oxygen Delivery Oxygen Flow Rate 07/01/22 20:03 07/01/22 20:15 07/01/22 20:00 Temperature Pulse Rate 102 H 102 H Respiratory Rate 20 20 Blood Pressure Pulse Oximetry 96 96 Oxygen Delivery Nasal Cannula Nasal Cannula Oxygen Flow Rate 5 5 07/01/22 20:00 07/01/22 23:35 07/02/22 01:04 Temperature Pulse Rate 92 94 97 Respiratory Rate 18 Blood Pressure Pulse Oximetry 95 Oxygen Delivery Oxygen Flow Rate 07/02/22 00:00 07/02/22 01:23 07/02/22 04:00 Temperature Pulse Rate 97 104 H 108 H Respiratory Rate 18 Blood Pressure Pulse Oximetry Oxygen Delivery Oxygen Flow Rate 07/02/22 04:00
[2022-07-02] MEDS: predniSONE 10 MG TABLET PO (09:48)
[2022-07-02 12:08] LABS: Glucose Point of Care 223 mg/dl (65-105)
[2022-07-02] MEDS: INSULIN ASPART (*BKC) 100 UNITS/ML SUB-Q (12:21)
[2022-07-02] MEDS: ARTIFICIAL TEARS OPHTH SOLN 15 ML BOTTLE 1 DROP EACH EYE (12:22)
[2022-07-02] MEDS: IBUPROFEN 600 MG TABLET PO (12:28)
--- NOTE | 2022-07-02 12:40 | PM.IMPN ---
Progress Note: A&P Assessment and Plan (1) COPD exacerbation: Code(s): J44.1 - Chronic obstructive pulmonary disease with (acute) exacerbation Status: Acute Assessment and Plan: Bronchodilators , Solu-Medrol Mucinex Flonase (2) Pneumomediastinum: Code(s): J98.2 - Interstitial emphysema Status: Acute Assessment and Plan: Probably due to persistent, harsh coughing in the setting of his significant lung disease. Will eventually resolve, monitor. pulmonary following. (3) Chronic respiratory failure with hypoxia: Code(s): J96.11 - Chronic respiratory failure with hypoxia Status: Chronic Assessment and Plan: Currently on his home oxygen requirement. (4) Chronic anemia: Code(s): D64.9 - Anemia, unspecified Status: Acute Assessment and Plan: Stable on review of previous labs. 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 (6) Paroxysmal atrial fibrillation: Code(s): I48.0 - Paroxysmal atrial fibrillation Status: Chronic Assessment and Plan: Currently in a sinus rhythm. Continue diltiazem. (7) Hypertension: Code(s): I10 - Essential (primary) hypertension Status: Acute Assessment and Plan: Blood pressures were reviewed and they are stable. Continue antihypertensives and monitor. (8) Shoulder pain: Code(s): M25.519 - Pain in unspecified shoulder Status: Acute Assessment and Plan: patient reports his likely from lifting himself out of bed. I do not given any non narcotic pain medications due to his respiratory issues. One dose of ibuprofen given. Otherwise continue Tylenol Subjective Date/time seen: 07/02/22 12:40 no new complaints other than shoulder pain. Exam Narrative: moderately obese Patient is comfortable, NAD HEENT: eyes are clear and none icteric, there is soft tissue swelling along the knee worse on the right side, no erythema or warmth LUNGS: bilateral fair air entry with rhonchi and wheezing HEART: RR S1S2 ABD: distended Lower extremities: no edema SKIN: nonjaundiced Neuro: grossly intact. Objective Data Vital Signs Vital Signs: Vital Signs - 24 hr 07/01/22 13:36 07/01/22 14:00 07/01/22 16:00 Temperature 97.8 F Pulse Rate 117 H 112 H 107 H Respiratory Rate 22 H 26 H 12 Blood Pressure 150/69 H Pulse Oximetry 97 Oxygen Delivery Oxygen Flow Rate 07/01/22 16:00 07/01/22 19:51 07/01/22 20:02 Temperature 97.4 F L Pulse Rate 110 H 101 H 98 Respiratory Rate 16 20 Blood Pressure 139/66 Pulse Oximetry 98 Oxygen Delivery Oxygen Flow Rate 07/01/22 20:03 07/01/22 20:15 07/01/22 20:00 Temperature Pulse Rate 102 H 102 H Respiratory Rate 20 20 Blood Pressure Pulse Oximetry 96 96 Oxygen Delivery Nasal Cannula Nasal Cannula Oxygen Flow Rate 5 5 07/01/22 20:00 07/01/22 23:35 07/02/22 01:04 Temperature Pulse Rate 92 94 97 Respiratory Rate 18 Blood Pressure Pulse Oximetry 95 Oxygen Delivery Oxygen Flow Rate 07/02/22 00:00 07/02/22 01:23 07/02/22 04:00 Temperature Pulse Rate 97 104 H 108 H Respiratory Rate 18 Blood Pressure Pulse Oximetry Oxygen Delivery Oxygen Flow Rate 07/02/22 04:00 07/02/22 08:02 07/02/22 08:11 Temperature 97.3 F L Pulse Rate 104 H 98 98 Respiratory Rate 20 18 18 Blood Pressure 137/79 Pulse Oximetry 98 96 Oxygen Delivery Nasal Cannula Oxygen Flow Rate 4 07/02/22 08:14 07/02/22 08:00 07/02/22 08:00 Temperature 97.4 F L Pulse Rate 103 H 99 107 H Respiratory Rate 18 20 Blood Pressure 130/76 Pulse Oximetry 98 Oxygen Delivery Oxygen Flow Rate 07/02/22 10:00 07/02/22 08:00 07/02/22 08:00 Temperature 97.4 F L Pulse Rate 106 H 99 Respiratory Rate 20 Blood Press
--- NOTE | 2022-07-02 12:55 | PCSTNOTE ---
Please refer to the Bedside Swallow Evaluation in the EMR. Please note, silent aspiration cannot be ruled out at bedside.
--- NOTE | 2022-07-02 15:53 | PCPTNOTE ---
Attempted PT evaluation, patient eyes are swollen and patient having a difficult time seeing. Patient would like to wait on PT evaluation due to impaired vision. RN aware and agreed. Will Follow.
[2022-07-02 17:01] LABS: Glucose Point of Care 140 mg/dl (65-105)
--- NOTE | 2022-07-02 20:28 | PC.NURSE ---
Called to patient bedside patient stating needs to use bathroom. This RN was told by bedside RN Khadar that due to patient's respiratory status that he should not get up out of bed. Patient became angry and yelling that he wants to speak to the head nurse because he cannot use bedpan. Explained to this patient that this RN is the charge nurse this evening and that we are concerned about patient's breathing since he is not currently functioning at his baseline. Patient states that he will have his call up here and straighten this up in the morning. Patient was informed of risks of getting out of bed, but insisted that he get up and be turned to 8L oxygen as he does this at home.
[2022-07-02] MEDS: TAMSULOSIN HCL 0.4 MG CAPSULE PO (20:52)
[2022-07-02] MEDS: ATORVASTATIN 40 MG TABLET PO (20:52)
[2022-07-02 21:36] LABS: Glucose Point of Care 161 mg/dl (65-105)
[2022-07-03] VITALS (24 sets, daily range): BP systolic 133–146; BP diastolic 60–88; PULSE 77–105; RESP 16–26; TEMP 36.1–36.8; O2SAT 90–97
[2022-07-03] MEDS: IPRATROPIUM BR 0.02% INH SOLN 0.5 MG/2.5 ML VIAL INHALATION ×4 (02:15→20:38)
[2022-07-03] MEDS: ALBUTEROL SULFATE NEB 2.5 MG/3 ML INH 5 MG INHALATION ×4 (02:15→20:37)
[2022-07-03 04:53] LABS: Hematocrit 36.7 % (42.0-52.0); Hemoglobin 10.5 g/dL (14.0-18.0); Mean Corpuscular HGB Conc 28.6 g/dl (32-36); Mean Corpuscular Hemoglobin 20.8 pg (26-34); Mean Corpuscular Volume 72.8 fl (80-100); Mean Platelet Volume 9.2 fl (7.4-10.4); Platelet Count Result 486 k/mm3 (150-375); Red Blood Count 5.04 M/mm3 (4.6-6.20); Red Cell Distribution Width 19.2 % (11.5-14.5); White Blood Count 9.8 K/mm3 (4.5-10.0)
[2022-07-03 05:26] LABS: Anion Gap 10 mmol/L (8-16); Blood Urea Nitrogen 17 mg/dL (9-20); Carbon Dioxide 29 mmol/L (22-30); Chloride 91 mmol/L (98-107); Estimated CRCL calculation 77 ml/min; Estimated Glomerular Filt Rate > 60; Glucose 116 mg/dL (65-110); Sodium 130 mmol/L (137-145)
[2022-07-03] MEDS: CYANOCOBALAMIN 1,000 MCG TABLET 1000 MCG PO (08:21)
[2022-07-03] MEDS: metFORMIN HCL XR 500 MG TAB.SR.24H PO (08:21)
[2022-07-03] MEDS: LORATADINE 10 MG TABLET PO (08:22)
[2022-07-03] MEDS: PANTOPRAZOLE 40 MG TABLET PO ×2 (08:22→20:48)
[2022-07-03] MEDS: APIXABAN 5 MG TABLET PO ×2 (08:22→20:49)
[2022-07-03] MEDS: FLUTICASONE PROPIONATE 0.05% NA SPR 16 GM BTL (*BKC) 1 SPRAY NASAL ×2 (08:31→20:49)
[2022-07-03] MEDS: FLUTICASONE/SALMETEROL 230-21 MCG INHALER 1 PUFF 2 PUFF INHALATION ×2 (09:04→20:38)
[2022-07-03 10:09] LABS: Glucose Point of Care 122 mg/dl (65-105)
--- NOTE | 2022-07-03 10:26 | PM.PNPUL ---
Subjective Date/time seen: 07/03/22 10:26 patient has no new respiratory symptoms. Shortness of breath about unchanged. More facial swelling especially around eyes. No change in voice or swallowing. Review of Systems Review of Systems: All systems reviewed & are unremarkable except as noted in HPI and below (H& P) Exam Narrative: GENERAL APPEARANCE: Well developed, well nourished, alert and cooperative, and appears to be in mild respiratory distress while on supplemental oxygen SKIN: Inspection of the skin reveals no rashes, ulcerations or petechiae. HEENT: Eye lid swelling bilaterally. The oral mucosa, hard and soft palate, tongue and posterior pharynx were normal; edentulous NECK: Supple. There was no thyroid enlargement, and no tenderness, or masses were felt. soft tissue swelling with crepitus palpable CHEST: increased AP diameter and normal contour without any kyphoscoliosis. Chest wall expansion asymmetrical bilaterally. LUNGS: crackles at bases posteriorly and distal breath sounds in upper lobes posteriorly. CARDIAC: There was a regular rate and rhythm without any murmurs, gallops, rubs. ABDOMEN: Soft and nontender with normal bowel sounds. There was no organomegaly. LYMPH NODES: No lymphadenopathy was appreciated in the neck. EXTREMITIES: No cyanosis; clubbing present. NEUROLOGIC: Alert and oriented x 3. Normal affect. Objective Data Vital Signs Vital Signs: Vital Signs - 24 hr 07/02/22 12:00 07/02/22 13:18 07/02/22 13:26 Temperature 36.3 C L Pulse Rate 100 94 102 H Pulse Rate [With Activity During Therapy Session] Respiratory Rate 22 H 18 18 Blood Pressure 128/64 Pulse Oximetry 92 Pulse Oximetry [With Activity During Therapy Session] Oxygen Delivery Oxygen Flow Rate 07/02/22 13:20 07/02/22 12:00 07/02/22 14:00 Temperature Pulse Rate 91 97 Pulse Rate [With Activity During Therapy Session] 110 H Respiratory Rate Blood Pressure Pulse Oximetry Pulse Oximetry [With Activity During Therapy Session] 90 Oxygen Delivery Nasal Cannula Oxygen Flow Rate 8 07/02/22 16:00 07/02/22 12:00 07/02/22 16:00 Temperature Pulse Rate 92 Pulse Rate [With Activity During Therapy Session] Respiratory Rate Blood Pressure Pulse Oximetry 97 94 Pulse Oximetry [With Activity During Therapy Session] Oxygen Delivery Nasal Cannula Nasal Cannula Oxygen Flow Rate 4 4 07/02/22 16:00 07/02/22 18:00 07/02/22 19:52 Temperature 36.4 C L Pulse Rate 81 105 H 110 H Pulse Rate [With Activity During Therapy Session] Respiratory Rate 22 H 18 Blood Pressure 141/66 H Pulse Oximetry 95 Pulse Oximetry [With Activity During Therapy Session] Oxygen Delivery Oxygen Flow Rate 07/02/22 19:58 07/02/22 20:00 07/02/22 20:00 Temperature Pulse Rate 107 H Pulse Rate [With Activity During Therapy Session] Respiratory Rate 18 Blood Pressure Pulse Oximetry 95 92 Pulse Oximetry [With Activity During Therapy Session] Oxygen Delivery Nasal Cannula Nasal Cannula Oxygen Flow Rate 5 5 07/02/22 20:00 07/02/22 22:00 07/02/22 23:57 Temperature 36.5 C Pulse Rate 101 H 95 92 Pulse Rate [With Activity During Therapy Session] Respiratory Rate 20 Blood Pressure 123/59 L Pulse Oximetry 90 Pulse Oximetry [With Activity During Therapy Session] Oxygen Delivery Oxygen Flow Rate 07/03/22 00:00 07/03/22 00:00 07/03/22 02:15 Temperature Pulse Rate 92 92 102 H Pulse Rate [With Activity During Therapy Session] Respiratory Rate 20 18 Blood Pressure Pulse Oximetry 90 Pulse Oximetry [With Activity During Therapy Session] Oxygen Delivery Nasal Cannula Oxygen Flow Rate 5 07/03/22 02:25 07/03/22 04:00 07/03/22 02:00 Temperature Pulse Rate 105 H 105 H 97 Pulse Rate [With Activity During Therapy Session] Respiratory Rate 23 H 23 H Blood Pressure Pulse Oximetry 96 Pulse Oximetry [With Activity Duri
--- NOTE | 2022-07-03 12:02 | PM.IMPN ---
Progress Note: A&P Assessment and Plan (1) COPD exacerbation: Code(s): J44.1 - Chronic obstructive pulmonary disease with (acute) exacerbation Status: Acute Assessment and Plan: Bronchodilators Mucinex Flonase Continue antibiotics. Titration prednisone per pulmonary (2) Pneumomediastinum: Code(s): J98.2 - Interstitial emphysema Status: Acute Assessment and Plan: Probably due to persistent, harsh coughing in the setting of his significant lung disease. Will eventually resolve, monitor. pulmonary following. (3) Chronic respiratory failure with hypoxia: Code(s): J96.11 - Chronic respiratory failure with hypoxia Status: Chronic Assessment and Plan: Currently on his home oxygen requirement. (4) Chronic anemia: Code(s): D64.9 - Anemia, unspecified Status: Acute Assessment and Plan: Stable on review of previous labs. (5) Chronic anticoagulation: Code(s): Z79.01 - alf (current) use of anticoagulants Status: Acute Assessment and Plan: Continue Eliquis. (6) Paroxysmal atrial fibrillation: Code(s): I48.0 - Paroxysmal atrial fibrillation Status: Chronic Assessment and Plan: Currently in a sinus rhythm. Continue diltiazem. (7) Hypertension: Code(s): I10 - Essential (primary) hypertension Status: Acute Assessment and Plan: Blood pressures were reviewed and they are stable. Continue antihypertensives and monitor. (8) Shoulder pain: Code(s): M25.519 - Pain in unspecified shoulder Status: Acute Assessment and Plan: patient reports his likely from lifting himself out of bed. I do not given any non narcotic pain medications due to his respiratory issues. One dose of ibuprofen given. Otherwise continue Tylenol Subjective Date/time seen: 07/03/22 12:02 No new complaints. Subcutaneous emphysema still noted Slightly worse around the eyes. Slightly better neck on the right side. Exam Narrative: moderately obese Patient is comfortable, NAD HEENT: eyes are clear and none icteric, there is soft tissue swelling along the knee worse on the right side, no erythema or warmth LUNGS: bilateral fair air entry with rhonchi and wheezing HEART: RR S1S2 ABD: distended Lower extremities: no edema SKIN: nonjaundiced Neuro: grossly intact. Objective Data Vital Signs Vital Signs: Vital Signs - 24 hr 07/02/22 13:18 07/02/22 13:26 07/02/22 13:20 Temperature Pulse Rate 94 102 H Pulse Rate [With Activity During Therapy Session] 110 H Respiratory Rate 18 18 Blood Pressure Pulse Oximetry Pulse Oximetry [With Activity During Therapy Session] 90 Oxygen Delivery Nasal Cannula Oxygen Flow Rate 8 07/02/22 14:00 07/02/22 16:00 07/02/22 16:00 Temperature Pulse Rate 97 92 Pulse Rate [With Activity During Therapy Session] Respiratory Rate Blood Pressure Pulse Oximetry 94 Pulse Oximetry [With Activity During Therapy Session] Oxygen Delivery Nasal Cannula Oxygen Flow Rate 4 07/02/22 16:00 07/02/22 18:00 07/02/22 19:52 Temperature 97.5 F L Pulse Rate 81 105 H 110 H Pulse Rate [With Activity During Therapy Session] Respiratory Rate 22 H 18 Blood Pressure 141/66 H Pulse Oximetry 95 Pulse Oximetry [With Activity During Therapy Session] Oxygen Delivery Oxygen Flow Rate 07/02/22 19:58 07/02/22 20:00 07/02/22 20:00 Temperature Pulse Rate 107 H Pulse Rate [With Activity During Therapy Session] Respiratory Rate 18 Blood Pressure Pulse Oximetry 95 92 Pulse Oximetry [With Activity During Therapy Session] Oxygen Delivery Nasal Cannula Nasal Cannula Oxygen Flow Rate 5 5 07/02/22 20:00 07/02/22 22:00 07/02/22 23:57 Temperature 97.7 F Pulse Rate 101 H 95 92 Pulse Rate [With Activity During Therapy Session] Respiratory Rate 20 Blood Pressure
--- NOTE | 2022-07-03 12:20 | PCPTNOTE ---
Attempted PT evaluation: Per RN, patient unable to safely participate due to both eyes being swollen and due to increase oxygen needs with activity. Patient agreed he can not participate at this time. Will follow
[2022-07-03 12:35] LABS: Glucose Point of Care 118 mg/dl (65-105)
[2022-07-03] MEDS: predniSONE 10 MG TABLET PO (13:23)
--- NOTE | 2022-07-03 13:52 | PC.NURSE ---
On 07/03/22, the student, [Soledad Fung], provided care and completed [facility] documentation on this patient. I have reviewed the student's documentation and agree with the findings.
[2022-07-03 15:47] LABS: Glucose Point of Care 133 mg/dl (65-105)
[2022-07-03] MEDS: TAMSULOSIN HCL 0.4 MG CAPSULE PO (20:48)
[2022-07-03] MEDS: ATORVASTATIN 40 MG TABLET PO (20:48)
[2022-07-03 21:38] LABS: Glucose Point of Care 175 mg/dl (65-105)
[2022-07-04] VITALS (22 sets, daily range): BP systolic 125–149; BP diastolic 71–80; PULSE 89–107; RESP 16–26; TEMP 36.5–36.9; O2SAT 86–100
[2022-07-04] MEDS: IPRATROPIUM BR 0.02% INH SOLN 0.5 MG/2.5 ML VIAL INHALATION ×4 (02:43→20:44)
[2022-07-04] MEDS: ALBUTEROL SULFATE NEB 2.5 MG/3 ML INH 5 MG INHALATION ×4 (02:43→20:44)
[2022-07-04 04:41] LABS: Hematocrit 34.7 % (42.0-52.0); Hemoglobin 10.3 g/dL (14.0-18.0); Mean Corpuscular HGB Conc 29.7 g/dl (32-36); Mean Corpuscular Hemoglobin 21.6 pg (26-34); Mean Corpuscular Volume 72.7 fl (80-100); Mean Platelet Volume 9.3 fl (7.4-10.4); Platelet Count Result 456 k/mm3 (150-375); Red Blood Count 4.77 M/mm3 (4.6-6.20); White Blood Count 12.9 K/mm3 (4.5-10.0)
[2022-07-04 04:51] LABS: Anion Gap 11 mmol/L (8-16); Blood Urea Nitrogen 12 mg/dL (9-20); Calcium 7.8 mg/dL (8.4-10.2); Carbon Dioxide 24 mmol/L (22-30); Chloride 88 mmol/L (98-107); Estimated CRCL calculation 111 ml/min; Estimated Glomerular Filt Rate > 60; Glucose 108 mg/dL (65-110); Potassium 4.1 mmol/L (3.4-5.0); Sodium 123 mmol/L (137-145)
[2022-07-04] MEDS: FLUTICASONE/SALMETEROL 230-21 MCG INHALER 1 PUFF 2 PUFF INHALATION ×2 (07:33→20:44)
[2022-07-04 08:12] LABS: Glucose Point of Care 125 mg/dl (65-105)
[2022-07-04] MEDS: APIXABAN 5 MG TABLET PO ×2 (09:24→21:25)
[2022-07-04] MEDS: AZITHROMYCIN 250 MG TABLET 500 MG PO (09:25)
[2022-07-04] MEDS: predniSONE 10 MG TABLET PO (09:25)
[2022-07-04] MEDS: CYANOCOBALAMIN 1,000 MCG TABLET 1000 MCG PO (09:26)
[2022-07-04] MEDS: FLUTICASONE PROPIONATE 0.05% NA SPR 16 GM BTL (*BKC) 1 SPRAY NASAL ×2 (09:26→21:25)
[2022-07-04] MEDS: metFORMIN HCL XR 500 MG TAB.SR.24H PO (09:26)
[2022-07-04] MEDS: SULFAMETHOXAZOLE/TRIMETHOPRIM 800/160 MG DS TABLET 1 TAB PO (09:26)
[2022-07-04] MEDS: PANTOPRAZOLE 40 MG TABLET PO (09:26)
[2022-07-04] MEDS: LORATADINE 10 MG TABLET PO (09:26)
--- NOTE | 2022-07-04 10:15 | PCPTNOTE ---
Attempted PT evaluation, patient continues to be safe enough to participate in PT due to medical reasons. RN aware. Please re-order when medically appropriate to participate.
--- NOTE | 2022-07-04 11:31 | PM.PNPUL ---
Progress Note: A&P Assessment and Plan (1) Pulmonary emphysema with fibrosis of lung: Code(s): J43.9 - Emphysema, unspecified; J84.10 - Pulmonary fibrosis, unspecified Status: Acute (2) Chronic respiratory failure with hypoxia: Code(s): J96.11 - Chronic respiratory failure with hypoxia Status: Chronic (3) Pulmonary hypertension: Code(s): I27.20 - Pulmonary hypertension, unspecified Status: Acute (4) Pneumomediastinum: Code(s): J98.2 - Interstitial emphysema Status: Acute Assessment and Plan: 67-year-old man with chronic hypoxemic hypercapnic respiratory failure related to combined pulmonary fibrosis/emphysema presented with pneumo mediastinum. Patient has no evidence of COPD exacerbation. IV steroids were discontinued. today's chest x-ray was essentially unchanged with no evidence of a pneumothorax. 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 plan: continue with oral prednisone will decrease dose to 5 mg daily starting in a.m.. Continue to monitor respiratory status. Continue with current antibiotic regimen, and bronchodilators for now. Patient was switched to a non-rebreather mask in an effort to increase FiO2 and thus facilitate air absorption in the soft tissues. efforts are underway to transfer patient to [facility] where he is followed by the Pulmonary Services. Subjective Date/time seen: 07/04/22 11:31 patient with worsening facial edema especially around eyes. He has no worsening shortness of breath, no voice changes. Afebrile Review of Systems Review of Systems: All systems reviewed & are unremarkable except as noted in HPI and below (H& P) Exam Narrative: GENERAL APPEARANCE: Well developed, well nourished, alert and cooperative, and appears to be in mild respiratory distress while on supplemental oxygen SKIN: Inspection of the skin reveals no rashes, ulcerations or petechiae. HEENT: Facial edema with marked eye lid swelling bilaterally. The oral mucosa, hard and soft palate, tongue and posterior pharynx were normal; edentulous NECK: Supple. There was no thyroid enlargement, and no tenderness, or masses were felt. soft tissue swelling with crepitus palpable CHEST: increased AP diameter and normal contour without any kyphoscoliosis. Chest wall expansion asymmetrical bilaterally. LUNGS: crackles at bases posteriorly and distal breath sounds in upper lobes posteriorly. CARDIAC: There was a regular rate and rhythm without any murmurs, gallops, rubs. ABDOMEN: Soft and nontender with normal bowel sounds. There was no organomegaly. EXTREMITIES: No cyanosis; clubbing present. NEUROLOGIC: Alert and oriented x 3. Normal affect. Objective Data Vital Signs Vital Signs: Vital Signs - 24 hr 07/03/22 12:00 07/03/22 12:00 07/03/22 14:23 Temperature 36.1 C L Pulse Rate 85 77 Respiratory Rate 24 H 18 Blood Pressure 133/88 Pulse Oximetry 96 96 Oxygen Delivery Nasal Cannula Oxygen Flow Rate 6 07/03/22 14:34 07/03/22 15:46 07/03/22 12:00 Temperature 36.6 C Pulse Rate 89 80 96 Respiratory Rate 16 20 Blood Pressure 138/69 Pulse Oximetry 94 Oxygen Delivery Oxygen Flow Rate 07/03/22 14:00 07/03/22 16:00 07/03/22 16:00 Temperature Pulse Rate 100 92 Respiratory Rate Blood Pressure Pulse Oximetry 96 Oxygen Delivery Nasal Cannula Oxygen Flow Rate 07/03/22 18:00 07/03/22 19:14 07/03/22 20:00 Temperature 36.8 C Pulse Rate 97 93 92 Respiratory Rate 26 H Blood Pressure 140/75 Pulse Oximetry 92 Oxygen Delivery Oxygen Flow Rate 07/03/22 20:00 07/03/22 22:00 07/03/22 23:46 Temperature 36.6 C Pulse Rate 102 H 90 Respiratory Rate 20 Blood Pressure 137/62 Pulse Oximetry 92 93 Oxygen Delivery Nasal Cannula Oxygen Flow Rate 07/04/22 00:00 07/04/22 00:00 07/04/22 02:20 Temperature Pulse Rate 104 H Respiratory Rate Bloo
[2022-07-04 11:53] LABS: Glucose Point of Care 145 mg/dl (65-105)
--- NOTE | 2022-07-04 12:10 | PM.IMPN ---
Progress Note: A&P Assessment and Plan (1) COPD exacerbation: Code(s): J44.1 - Chronic obstructive pulmonary disease with (acute) exacerbation Status: Acute Assessment and Plan: Bronchodilators Mucinex Flonase Continue antibiotics. Titration prednisone per pulmonary (2) Pneumomediastinum: Code(s): J98.2 - Interstitial emphysema Status: Acute Assessment and Plan: Probably due to persistent, harsh coughing in the setting of his significant lung disease. Will eventually resolve, monitor. pulmonary following. Will start the patient on a little bit codeine per Pulmonary to help with his cough. Otherwise spoke with [facility] and patient has been accepted for transfer over there for evaluation. (3) Chronic respiratory failure with hypoxia: Code(s): J96.11 - Chronic respiratory failure with hypoxia Status: Chronic Assessment and Plan: Currently on his home oxygen requirement. (4) Chronic anemia: Code(s): D64.9 - Anemia, unspecified Status: Acute Assessment and Plan: Stable on review of previous labs. (5) Chronic anticoagulation: Code(s): Z79.01 - USP (current) use of anticoagulants Status: Acute Assessment and Plan: Continue Eliquis. (6) Paroxysmal atrial fibrillation: Code(s): I48.0 - Paroxysmal atrial fibrillation Status: Chronic Assessment and Plan: Currently in a sinus rhythm. Continue diltiazem. (7) Hypertension: Code(s): I10 - Essential (primary) hypertension Status: Acute Assessment and Plan: Blood pressures were reviewed and they are stable. Continue antihypertensives and monitor. (8) Shoulder pain: Code(s): M25.519 - Pain in unspecified shoulder Status: Acute Assessment and Plan: patient reports his likely from lifting himself out of bed. I do not given any non narcotic pain medications due to his respiratory issues. One dose of ibuprofen given. Otherwise continue Tylenol Subjective Date/time seen: 07/04/22 12:10 subcutaneous emphysema looks a little worse today. Requiring a little more oxygen. Otherwise he is calm lying in bed. Exam Narrative: moderately obese Patient is comfortable, NAD HEENT: eyes are clear and none icteric, there is soft tissue swelling along the knee worse on the right side, no erythema or warmth LUNGS: bilateral fair air entry with rhonchi and wheezing HEART: RR S1S2 ABD: distended Lower extremities: no edema SKIN: nonjaundiced Neuro: grossly intact. Objective Data Vital Signs Vital Signs: Vital Signs - 24 hr 07/03/22 14:23 07/03/22 14:34 07/03/22 15:46 Temperature 98 F Pulse Rate 77 89 80 Respiratory Rate 18 16 20 Blood Pressure 138/69 Pulse Oximetry 94 Oxygen Delivery Oxygen Flow Rate 07/03/22 14:00 07/03/22 16:00 07/03/22 16:00 Temperature Pulse Rate 100 92 Respiratory Rate Blood Pressure Pulse Oximetry 96 Oxygen Delivery Nasal Cannula Oxygen Flow Rate 6 07/03/22 18:00 07/03/22 19:14 07/03/22 20:00 Temperature 98.3 F Pulse Rate 97 93 92 Respiratory Rate 26 H Blood Pressure 140/75 Pulse Oximetry 92 Oxygen Delivery Oxygen Flow Rate 07/03/22 20:00 07/03/22 22:00 07/03/22 23:46 Temperature 97.8 F Pulse Rate 102 H 90 Respiratory Rate 20 Blood Pressure 137/62 Pulse Oximetry 92 93 Oxygen Delivery Nasal Cannula Oxygen Flow Rate 6 07/04/22 00:00 07/04/22 00:00 07/04/22 02:20 Temperature Pulse Rate 104 H Respiratory Rate Blood Pressure Pulse Oximetry 93 86 L Oxygen Delivery Nasal Cannula Nasal Cannula Oxygen Flow Rate 6 7 07/04/22 02:00 07/03/22 20:38 07/04/22 02:43 Temperature Pulse Rate 95 87 98 Respiratory Rate 20 20 Blood Pressure Pulse Oximetry Oxygen Delivery Oxygen Flow Rate 07/03/22 20:38 07/03/22 20:50 07/04/22 02:54 Temperature
--- NOTE | 2022-07-04 12:33 | PM.CNNEP ---
Assessment and Plan Assessment and plan (1) Hyponatremia: Code(s): E87.1 - Hypo-osmolality and hyponatremia Status: Acute Assessment and Plan: the patient has chronic hyponatremia. This is most likely due to the severity of his COPD. He also has acute hyponatremia. This could be because of the pneumo mediastinum. Not have any specially high fluid intake. He is not on any medications that would cause the hyponatremia except for the pantoprazole. As stated above he was already on omeprazole. Will cut the pantoprazole to once a day. Endocrine disorders can cause this as well. Will get a cortisol level and a TSH. CORPORATE ACCOUNTANT issues can do this as well. Will get a CT of the brain. He does not have any history or evidence of recurrent cancer. will initiate a fluid restriction. All the sodium level. If it does not start coming up soon we can add Lasix and salt tablets. (2) COPD exacerbation: Code(s): J44.1 - Chronic obstructive pulmonary disease with (acute) exacerbation Status: Acute Assessment and Plan: The patient has severe COPD. He is getting supportive care. (3) Paroxysmal atrial fibrillation: Code(s): I48.0 - Paroxysmal atrial fibrillation Status: Acute Assessment and Plan: He is in sinus rhythm at the moment. History of Present Illness Reason for Consult Consult date: 07/04/22 Chief Complaint Chief complaint: mucoid pneumonia,ae copd,pneumomediastinum History of Present Illness Narrative: Giuseppe is a very pleasant 67-year-old gentleman who has multiple medical problems including chronic respiratory failure on home oxygen, severe COPD, paroxysmal atrial fibrillation, chronic anticoagulation, BPH, anemia, hypertension, GERD requiring PP eyes, gout, hyperlipidemia, pulmonary embolism, history of COVID-19 in 2020. The Patient came in with shortness of breath. This had been going on for a couple of days. He does have baseline shortness of breath anyway but then developed a stuffy nose and his dyspnea worsened. Day of admission he had an especially large coughing attack and developed swelling in his neck and face. He came to the emergency room. He was found to have subcutaneous emphysema. He had a CT scan which showed pneumo mediastinum. Was admitted to the hospital for evaluation. The patient has a low sodium chronically. This generally runs in the mid 130s. On admission, it was 134 and then has progressively dropped to today's value of 123 so renal consultation was requested. The patient does not take any narcotics, diuretics, or antidepressants. He does take omeprazole but he has been on this for years. He does not have a history of cancer, brain tumor or large stroke. Review of Systems Constitutional: Constitutional: Reports no additional constitutional complaints Eyes: Eyes: Reports no additional eye complaints ENT: Reports system reviewed and no additional complaints, except as documented Cardiovascular: Cardiovascular: Reports no additional cardiovascular complaints Respiratory: Respiratory: Reports no additional respiratory complaints Gastrointestinal: Gastrointestinal: Reports no additional gastrointestinal complaints Genitourinary: Genitourinary: Reports no additional male genitourinary complaints Musculoskeletal: Musculoskeletal: Reports no additional musculoskeletal complaints Integumentary/Breasts: Skin/Breast: Reports system reviewed and no additional complaints, except as docu Neurologic: Reports system reviewed and no additional complaints, except as documented Psychiatric: Psychiatric: Reports no additional psychiatric complaints Endocrine: Endocrine: Reports no additional endocrine complaints [facility] Past Medical History Medical History (Updated 07/04/22 @ 12:40 by Azael Chilel MD) Benign prostatic hyperplasia Chronic anemia Chronic anticoagulation Chronic interstitial lung disease Chronic res
[2022-07-04 16:26] LABS: Sodium 118 mmol/L (137-145)
[2022-07-04 16:54] LABS: Cortisol Random 5.21 ug/dL
[2022-07-04] MEDS: SODIUM CHLORIDE 3% 500 ML 100 ML IV CONT (17:43)
[2022-07-04 18:34] LABS: Glucose Point of Care 157 mg/dl (65-105)
[2022-07-04] MEDS: ATORVASTATIN 40 MG TABLET PO (21:25)
[2022-07-04] MEDS: TAMSULOSIN HCL 0.4 MG CAPSULE PO (21:25)
--- NOTE | 2022-07-04 22:34 | PC.NURSE ---
Dr. Chilel notified of patient transfer to [facility].
[2022-07-08 18:05] LABS: Albumin 3.3 g/dL (3.8-4.8); Alpha 1 Globulin 0.4 g/dL (0.2-0.3); Alpha 2 Globulin 0.9 g/dL (0.5-0.9); Beta 1 Globulin 0.4 g/dL (0.4-0.6); Gamma Globulin 0.7 g/dL (0.8-1.7); Protein, Total 5.9 g/dL (6.1-8.1)
--- NOTE | 2022-07-18 10:40 | PM.TDS ---
Transfer Discharge Sum: Prov Provider Date of admission: 06/30/22 13:02 Primary care physician: Pantera Spencer, PA Admitting clinician: Marc Morocho MD Consults: 07/01/22 14:14 Consult to Physician Routine Comment: Consulting Provider: Ned Kraft men's locker room attendant/MD group to consult: Call Person Reason for consultation: Shortness of breath, hx of COPD Has provider been notified: Yes 07/04/22 Consult to Physician Routine Comment: Spoke with and notified him of consult Consulting Provider: Azael Chilel men's locker room attendant/MD group to consult: nephrology Reason for consultation: hyponatremia Has provider been notified: Yes DS: Admitting Diagnosis Discharge Date 07/04/22 Admitting Diagnosis COPD subcutaneous emphysema DS: Discharge Diagnosis Discharge Diagnosis (1) COPD exacerbation: Code(s): J44.1 - Chronic obstructive pulmonary disease with (acute) exacerbation Status: Acute Assessment and Plan: Bronchodilators Mucinex Flonase Continue antibiotics. Titration prednisone per pulmonary (2) Pneumomediastinum: Code(s): J98.2 - Interstitial emphysema Status: Acute Assessment and Plan: Probably due to persistent, harsh coughing in the setting of his significant lung disease. Will eventually resolve, monitor. pulmonary following. Will start the patient on a little bit codeine per Pulmonary to help with his cough. Otherwise spoke with [facility] and patient has been accepted for transfer over there for evaluation. (3) Chronic respiratory failure with hypoxia: Code(s): J96.11 - Chronic respiratory failure with hypoxia Status: Chronic Assessment and Plan: Currently on his home oxygen requirement. (4) Chronic anemia: Code(s): D64.9 - Anemia, unspecified Status: Acute Assessment and Plan: Stable on review of previous labs. (5) Chronic anticoagulation: Code(s): Z79.01 - terminal carman (current) use of anticoagulants Status: Acute Assessment and Plan: Continue Eliquis. (6) Paroxysmal atrial fibrillation: Code(s): I48.0 - Paroxysmal atrial fibrillation Status: Chronic Assessment and Plan: Currently in a sinus rhythm. Continue diltiazem. (7) Hypertension: Code(s): I10 - Essential (primary) hypertension Status: Acute Assessment and Plan: Blood pressures were reviewed and they are stable. Continue antihypertensives and monitor. (8) Shoulder pain: Code(s): M25.519 - Pain in unspecified shoulder Status: Acute Assessment and Plan: patient reports his likely from lifting himself out of bed. I do not given any non narcotic pain medications due to his respiratory issues. One dose of ibuprofen given. Otherwise continue Tylenol Transfer Discharge Sum: Med Medications Active and Home Medications: Home Medications atorvastatin 40 mg tablet 40 mg PO HS 02/10/21 [History Confirmed 06/30/22] cyanocobalamin (vitamin B-12) 1,000 mcg tablet 1,000 mcg PO DAILY 02/10/21 [History Confirmed 06/30/22] fluticasone 500 mcg-salmeterol 50 mcg/dose blistr powdr for inhalation (Advair Diskus) 1 inh inhalation BID 02/10/21 [History Confirmed 06/30/22] omeprazole 40 mg capsule,delayed release 40 mg PO DAILY 02/10/21 [History Confirmed 06/30/22] tamsulosin 0.4 mg capsule 0.4 mg PO HS 02/10/21 [History Confirmed 06/30/22] umeclidinium 62.5 mcg/actuation blister powder for inhalation (Incruse Ellipta) 1 inh inhalation DAILY 02/10/21 [History Confirmed 06/30/22] apixaban 5 mg tablet (Eliquis) 5 mg PO Q12HR #60 tabs 06/29/21 [Rx Confirmed 06/30/22] diltiazem HCl 120 mg capsule,24 hr,extended release 120 mg PO QAM #30 caps 07/26/21 [Rx Confirmed 06/30/22] loratadine 10 mg tablet 10 mg PO DAILY 06/30/22 [History Confirmed 06/30/22] metformin 500 mg tablet,extended release 24 hr 500 mg PO DAILY 06/30/22 [History Confirmed 06/30/22] prednis
== END 2022-07-04 22:30 | disposition short-term general hospital (02) | DRG 200 ==
LOC: ANHED 08:49 → ANHIMU 12:23
PROVIDERS: Family Medicine; Internal Medicine Nephrology; Admitting Provider Internal Medicine; Emergency Provider Emergency Medicine; PCP Physician Assistant; Visit Provider Chiropractor
DX: J98.2 Interstitial emphysema (principal); E87.1 Hypo-osmolality and hyponatremia; J96.11 Chronic respiratory failure with hypoxia; J96.12 Chronic respiratory failure with hypercapnia; J43.9 Emphysema, unspecified; J84.10 Pulmonary fibrosis, unspecified; I48.0 Paroxysmal atrial fibrillation; D72.829 Elevated white blood cell count, unspecified; D64.9 Anemia, unspecified; E78.5 Hyperlipidemia, unspecified; I27.20 Pulmonary hypertension, unspecified; I10 Essential (primary) hypertension; K21.9 Gastro-esophageal reflux disease without esophagitis; M10.9 Gout, unspecified; M25.519 Pain in unspecified shoulder; N40.0 Benign prostatic hyperplasia without lower urinary tract symptoms; Z20.822 Contact with and (suspected) exposure to COVID-19; Z79.52 Long term (current) use of systemic steroids; Z87.891 Personal history of nicotine dependence; Z99.81 Dependence on supplemental oxygen; Z79.01 Long term (current) use of anticoagulants; Z90.2 Acquired absence of lung [part of]; Z86.711 Personal history of pulmonary embolism; Z86.16 Personal history of COVID-19
CPT/HCPCS: 36415; 36600; 70450; 70490; 71045; 71250; 80048; 80053; 82375; 82533; 82805; 82948; 83050; 83605; 83735; 83880; 83930; 84155; 84165; 84295; 84443; 84484; 85025; 85027; 85610; 85730; 86140; 87040; 87070; 87205; 92610; 93005; 94640; 96365; 96367; 96375; 97165; 99285; A9270; C9803; G0378; J0456; J0696; J1815; J2930; J7131; J7512; U0003; U0005

== ENCOUNTER 2023-02-05 11:38 | Inpatient (IN) | payer MEDICARE, MEDICAID, SELFPAY ==
[2023-02-05] VITALS (18 sets, daily range): BP systolic 114–156; BP diastolic 58–81; PULSE 86–140; RESP 18–25; TEMP 36.3–36.4; O2SAT 95–100; BMI 26.4
--- NOTE | ~2023-02-05 | XR_ITS ---
XR chest 1V portable DATE: 02/12/2023 13:34 INDICATION: Shortness of breath TECHNIQUE: Portable upright AP chest on February 12, 2023 at 1329 hours COMPARISON: February 08, 2023 portable AP chest July 04, 2022 portable AP chest 07/23/2021 PA and lateral chest FINDINGS: Bullous emphysema and extensive pulmonary interstitial fibrotic changes are again noted. Ch ronic left apical capping. Cardiomegaly. Aortic arch calcification. These findings are not significantly changed compared to 07/23/2021. There is mild blunting of left costophrenic angle suggesting mild left pleural effusion. IMPRESSION: Chronic bullous emphysema and extensive bilateral chronic interstitial changes Mild left pleural effusion Reviewed, dictated and finalized at location L. IMPRESSION: Chronic bullous emphysema and extensive bilateral chronic interstit ial changes Mild left pleural effusion
--- NOTE | ~2023-02-05 | XR_ITS ---
EXAMINATION: XR chest 1V portable INDICATION: Hypoxia TECHNIQUE: Portable AP chest at 0518 hours COMPARISON: 02/05/2023 FINDINGS: There is severe emphysema. There are minimal airspace opacities of the right mid and lower lung zones. No pleural effusion or pneumothorax. The cardiomediastinal silhouette is stable. IMPRESSION: 1. Airspace opacities of the right mid and lower lung zones, consistent with atelectasis versus pneum onia. Reviewed, dictated and finalized at location A. IMPRESSION: 1. Airspace opacities of the right mid and lower lung zones, consistent with at electasis versus pneumonia.
--- NOTE | ~2023-02-05 | XR_ITS ---
XR chest 1V portable 02/05/2023 12:26 Indication: COPD Procedure: AP portable chest Comparison: Comparison to multiple prior studies sequentially, with oldest reviewed study dated 04/2022. Findings: Severe bullous emphysema. There is mixed interstitial and airspace disease of the mid and l ower lungs which appears chronic. Small left pleural effusion. No definite pneumothorax. Impression: 1: Mixed interstitial and airspace disease of the mid and lower lungs which may represent edema or pn eumonia, without significant change. 2: Small left pleural effusion. 3: Severe emphysema. Reviewed, dictated and finalized at location L. Impression: 1: Mixed interstitial and airspace disease of the mid and lower lungs which may represent edema or pneumonia, without significant change. 2: Small left pleural effusion. 3: Severe emphysema.
--- NOTE | ~2023-02-05 | XR_ITS ---
EXAMINATION: XR chest 2V Exam Date/Time: 02/15/2023 11:13 CDT HISTORY: sob Comparison: 02/12/2023; CT chest 06/30/2022. RESULT: Lines, tubes, and devices: None. Lungs and pleura: Multiple large bullae. Patchy areas of bilateral groundglass opacities, most notab ly in the peripheral upper and mid left lung and retrocardiac lung. Diffuse reticular opacities. Pest Control Service Sales Agent jeremie left costophrenic angle blunting and bilateral apical pleural capping. Cardiomediastinal silhouette: Stable. Other: No acute osseous or upper abdominal finding. IMPRESSION: Worsening edema/infection within patchy areas of the left lung, overlying severe chronic bullous emph ysematous and interstitial change. Small left pleural effusion versus chronic pleural parenchymal sca rring. Reviewed, dictated and finalized at location K. IMPRESSION: Worsening edema/infection within patchy areas of the left lung, overlying sever e chronic bullous emphysematous and interstitial change. Small left pleural eff usion versus chronic pleural parenchymal scarring.
--- NOTE | 2023-02-05 11:44 | ECG_ITS ---
Measurements Intervals [place] Rate: 110 P: OK: 0 QRS: 6 QRSD: 89 T: 32 QT: 320 QTc: 433 Interpretive Statements ATRIAL FIBRILLATION WITH RAPID VENTRICULAR RESPONSE BASELINE ARTIFACT ABNORMAL ECG COMPARED TO ECG 06/30/2022 08:43:33 ATRIAL FIBRILLATION NOW PRESENT Electronically Signed On 02-06-2023 16:21:05 CDT by Cory Robles M.D.
[2023-02-05 11:54] LABS: Alveolar/Arterial O2 Gradient 348.5 mmHg; Base Excess ABG 4.8 mEq/l (+/-2.0); Carboxyhemoglobin 1.5 % THb (0-2.0); Device NON-REBREATHER MASK; Fractional Inspired Oxygen 80 %; HCO3 ABG 29.4 mEq/l (22.0-26.0); Methemoglobin ABG 0.3 %THb (0-1.5); Modified Allen's Test Pass; Oxygen Content ABG 13.2 %vol (16.0-22.0); Oxygen Saturation ABG 99.2 % (95.0-100.0); Oxyhemoglobin 96.9 % THb (90.0-100.0); PCO2 ABG 43.9 mmHg (35.0-45.0); PO2 ABG 175.8 mmHg (80.0-100.0); Reduced Hemoglobin 1.3 %THb (0-5.0); Site Drawn RIGHT RADIAL; Total Hemoglobin 9.4 g/dL (12.0-18.0); pH ABG 7.444 (7.350-7.450)
[2023-02-05 12:06] LABS: Basophils Absolute Auto 0.1 K/mm3 (0.0-0.1); Basophils Percent Auto 0.3 % (0.2-1.2); Eosinophils Absolute Auto 0.1 K/mm3 (0-0.3); Eosinophils Percent Auto 0.6 % (0-4.4); Hematocrit 32.8 % (42.0-52.0); Hemoglobin 8.6 g/dL (14.0-18.0); Immature Granulocyte Absolute 0.19 K/mm3 (0.00-0.031); Immature Granulocyte Percent A 1.1 % (0-0.5); Lymphocytes Absolute Auto 0.54 K/mm3 (0.9-3.2); Lymphocytes Percent Auto 3.1 % (18.3-44.2); Mean Corpuscular HGB Conc 26.2 g/dl (32-36); Mean Corpuscular Hemoglobin 17.8 pg (26-34); Mean Platelet Volume 9.2 fl (7.4-10.4); Monocytes Absolute Auto 0.8 K/mm3 (0.1-0.6); Monocytes Percent Auto 4.8 % (2.6-8.5); Neutrophils Absolute Auto 15.8 K/mm3 (1.3-6.7); Neutrophils Percent Auto 90.1 % (45.5-73.1); Nucleated Red Blood Cells Perc 0.2 % (0.0-0.2); Platelet Count Result 350 k/mm3 (150-375); Red Blood Count 4.82 M/mm3 (4.6-6.20); Red Cell Distribution Width 23.1 % (11.5-14.5); White Blood Count 17.5 K/mm3 (4.5-10.0)
--- NOTE | 2023-02-05 12:06 | ED.SOB ---
HPI - SOB/Dyspnea General Chief Complaint: Shortness of Breath/Dyspnea Stated Complaint: SOB Time Seen by Provider: 02/05/23 12:05 Source: patient Mode of arrival: EMS Limitations: no limitations History of Present Illness HPI Narrative: The patient is a 68-year-old male with a history of chronic respiratory failure on 4 to 6 L at rest, increased with exertion, previous smoker with COPD, history of pneumothorax and pneumomediastinum in June 2023, PE and proximal atrial fibrillation on chronic anticoagulation, diabetes, BPH, hypertension, presenting to the emergency department for evaluation of shortness of breath. Patient states he began to feel unwell approximately 10 days ago with cough, congestion, sinus drainage. Patient feels as if this cold is moving into his chest and has worsened his cough with increased sputum production. He denies hemoptysis. He denies fever, chills, nausea or vomiting. No frontal chest pain. He does report slight chest pain with coughing only. Patient reports oxygen has increased to 8 L with exertional activity. He denies pleuritic pain. No leg swelling or calf pain. Patient was seen by his hog confinement system manager last week and started on steroids as well as an oral antibiotic of which she does not remember the name of. Patient finished these in full and has not been feeling improved. He has been using nebulizer treatments at home with no improvement. Related Data Home Medications Medication Instructions Recorded Confirmed atorvastatin 40 mg tablet 40 mg PO HS 02/10/21 06/30/22 cyanocobalamin (vitamin B-12) 1,000 mcg PO DAILY 02/10/21 06/30/22 1,000 mcg tablet fluticasone 500 mcg-salmeterol 50 1 inh inhalation BID 02/10/21 06/30/22 mcg/dose blistr powdr for inhalation (Advair Diskus) umeclidinium 62.5 mcg/actuation 1 inh inhalation DAILY 02/10/21 06/30/22 blister powder for inhalation (Incruse Ellipta) albuterol sulfate 90 mcg/actuation inhalation 02/05/23 aerosol inhaler (Ventolin HFA) apixaban 5 mg tablet (Eliquis) mg 02/05/23 atorvastatin 40 mg tablet mg 02/05/23 diltiazem HCl 120 mg capsule,24 mg PO 02/05/23 hr,extended release (Tiadylt ER) fluticasone 500 mcg-salmeterol 50 inhalation 02/05/23 mcg/dose blistr powdr for inhalation (Advair Diskus) hydrocortisone 2.5 % topical cream 02/05/23 with perineal applicator leflunomide 20 mg tablet mg 02/05/23 loratadine 10 mg tablet mg 02/05/23 metformin 500 mg tablet,extended mg PO 02/05/23 release 24 hr metoprolol tartrate 25 mg tablet mg 02/05/23 omeprazole 40 mg capsule,delayed mg 02/05/23 release prednisone 5 mg tablet mg 02/05/23 tamsulosin 0.4 mg capsule mg PO 02/05/23 umeclidinium 62.5 mcg/actuation inhalation 02/05/23 blister powder for inhalation (Incruse Ellipta) Allergies Allergy/AdvReac Type Severity Reaction Status Date / Time No Known Allergies Allergy Verified 02/05/23 12:28 Review of Systems Review of Systems: CONSTITUTIONAL: Denies fever, chills, or sweats. EYES: Denies visual changes, redness, or discharge. ENT: Reports rhinorrhea, congestion CARDIOVASCULAR: Denies chest pain, palpitations, or edema. RESPIRATORY: Reports cough and shortness of breath GASTROINTESTINAL: Denies abdominal pain, nausea, vomiting, or diarrhea. GENITOURINARY: Denies dysuria or hematuria. SKIN: Denies rash or itching. MUSCULOSKELETAL: Denies back pain, joint pain, or myalgia. NEUROLOGIC: Denies headache, numbness, reports generalized weakness PMFSH Past Medical History Medical History Benign prostatic hyperplasia Chronic anemia Chronic anticoagulation Chronic interstitial lung disease Chronic respiratory failure with hypoxia, on home O2 therapy COPD with emphysema Essential hypertension Gastroesophageal reflux disease Gout Hyperlipidemia Hyponatremia Paroxysmal atrial fibrillation Pneumonia due to COVID-19 virus (01/2021) Pulmonary
[2023-02-05 12:22] LABS: Alanine Aminotransferase 17 U/L (6-50); Alkaline Phosphatase 72 U/L (38-126); Anion Gap 3 mmol/L (8-16); Aspartate Amino Transferase 15 U/L (17-59); Bilirubin,Total 0.7 mg/dL (0.2-1.3); Blood Urea Nitrogen 12 mg/dL (9-20); Calcium 8.8 mg/dL (8.4-10.2); Carbon Dioxide 34 mmol/L (22-30); Chloride 98 mmol/L (98-107); Estimated CRCL calculation 92 ml/min; Estimated Glomerular Filt Rate > 60; Glucose 115 mg/dL (65-110); Potassium 3.8 mmol/L (3.4-5.0); Sodium 135 mmol/L (137-145)
[2023-02-05 12:28] LABS: INR 1.5; Prothrombin Time 17.2 Seconds (11.1-14.7)
[2023-02-05 12:29] LABS: Partial Thromboplastin Time 31.8 SECONDS (22.3-36.8)
[2023-02-05 12:34] LABS: NT Pro B Type Natriuretic Pept 2000 pg/mL (19.9-100); Platelet Estimate Adequate (Adequate); Troponin I < 0.012 ng/mL (0.000-0.034)
[2023-02-05 12:35] LABS: Hypochromasia 2+ (NORMAL)
[2023-02-05 12:36] LABS: Anisocytosis 2+ (NORMAL); Poikilocytosis 2+ (NORMAL)
[2023-02-05 12:37] LABS: Microcytosis 2+ (NORMAL); Ovalocytes 1+ (NORMAL); Target Cells 1+ (NORMAL); Tear Drop Cells 1+ (NORMAL)
[2023-02-05 12:38] LABS: Schistocytes 1+ (NORMAL); Stomatocytes 1+ (NORMAL)
[2023-02-05] MEDS: ALBUTEROL SULFATE NEB 2.5 MG/3 ML INH 10 MG INHALATION (12:41)
[2023-02-05] MEDS: IPRATROPIUM BR 0.02% INH SOLN 0.5 MG/2.5 ML VIAL 1 MG INHALATION (12:41)
[2023-02-05] MEDS: methylPREDNISolone SOD SUCC 125 MG VIAL IV PUSH (12:46)
[2023-02-05] MEDS: SODIUM CHLORIDE 0.9% IV 500 ML 999 ML IV CONT (12:46)
[2023-02-05] MEDS: MAGNESIUM SULF 2 GM/WATER 50ML 2 GM/50 ML BAG IVPB (12:46)
[2023-02-05] MEDS: FUROSEMIDE INJ 40 MG/4 ML VIAL 20 MG IV PUSH (12:50)
[2023-02-05 12:53] LABS: Lactic Acid Reflex 1.5 mmol/L (0.7-2.0)
[2023-02-05 13:21] LABS: Influenza A QL RT-PCR Negative (Negative); Influenza B QL RT-PCR Negative (Negative); RSV RNA, RT-PCR Negative (Negative); SARS-CoV-2 RNA PCR Negative
[2023-02-05] MEDS: dilTIAZem 100 MG/100 ML 100 MG/100 ML BAG IV CONT (14:58)
[2023-02-05] MEDS: dilTIAZem HCl INJ 25 MG/5 ML VIAL 10 MG IV PUSH (14:58)
--- NOTE | 2023-02-05 15:00 | PM.IMHP ---
H&P: HPI History of Present Illness Date/Time: 02/05/23 15:00 Chief Complaint: Shortness of breath. 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 He has not been feeling well for approximately 10 days and incidentally he had a routine appointment with his frame assembler, Dr. Greer David, around the start of his symptoms. He was tested for COVID and influenza which were reportedly negative. He also indicates that he had a sputum culture that he was told was unremarkable. She put him on a prednisone taper and amoxicillin which he completed without much benefit. Continues to have a cough productive of yellow/white sputum, sinus congestion, postnasal drip, and increasing dyspnea on lesser and lesser exertion to the point where he is winded when walking 5 ft. He denies fever, chest pain, pleuritic pain, nausea, and vomiting. He has no sensations of racing heart or palpitations though he is in AFib/RVR at this time. He was afebrile on arrival to the emergency department. Labs were significant for a WBC count of 17.5, hemoglobin 8.6, hematocrit 32.8%, MCV 68, lactic acid 1.5, proBNP 2000, troponin less than 0.012, sodium 135, potassium 3.8. He tested negative for influenza, RSV, and COVID. Chest x-ray showed mixed interstitial and airspace disease of the mid and lower lung zones which may be edema or pneumonia, small left pleural effusion, and severe emphysema. In the ED he was given a dose of furosemide 20 mg, magnesium 2 g, methylprednisolone 125 mg, a DuoNeb, and a dose of levofloxacin. He is being admitted in this setting for further treatment of COPD exacerbation. Review of Systems Review of Systems: Twelve systems were reviewed. No fever. He denies headache and neck ache. No sick contacts. No exertional chest pain. He denies pleuritic pain. He has been having 2 to 3 episodes of diarrhea day. No orthopnea or paroxysmal nocturnal dyspnea. He has intermittent pedal edema. Except as documented, all other systems were reviewed and are negative. [facility] Past Medical History Medical History (Updated 02/05/23 @ 21:56 by Mora Parker PA-C) Benign prostatic hyperplasia Chronic anemia Chronic anticoagulation Chronic interstitial lung disease Chronic respiratory failure with hypoxia, on home O2 therapy COPD with emphysema Essential hypertension Gastroesophageal reflux disease Gout Hyperlipidemia Paroxysmal atrial fibrillation Pneumomediastinum (06/2022) Pneumonia due to COVID-19 virus (01/2021) Pulmonary embolism Surgical History Surgical History (Updated 02/05/23 @ 21:48 by Mora Parker PA-C) History of back surgery History of pneumonectomy Left upper lobe. History of right inguinal hernia repair Family History Family History Father Heart problem Mother Tuberculosis Congestive heart failure Social History Social History (Updated 02/05/23 @ 21:49 by Mora Parker PA-C) Social History: Originally from [place], [place]. He now lives in [place] with his . They have 3 children. He worked on a [employer] before a back injury put an and to that and he did Getting-in work thereafter. He smoked up to 3 packs of cigarettes a day for 42 years and quit in about 2012. No alcohol or illicit substance abuse. Surrogate medical decision maker: Rosa Mariacraig Rosa, spouse. Code status: Full code. Smoking packs per day: 3 Smoking cigarettes per day: 60.0 Years smoked: 40 Smoking pack-years: 120.00 Smoking status: Former smoker Alcohol intake: never Substance use: never Lack of Transporta
--- NOTE | 2023-02-05 16:40 | ADMGEN ---
This patient, Giuseppe Rosa III, was admitted to IMU Room 203-01. Patient/family oriented to hospital policies and general routines including ID bracelet, bed and alarms, visiting hours, pain management, procedures, bathroom and other care routines, personal items, smoking policy, room service/diet, and visiting hours. Information on how to activate the Rapid Response Team has been discussed. Patient/Family are encouraged to report perceived risks to care and to ask questions if they do not understand what they are told or what they should do.
[2023-02-05 20:11] LABS: Troponin I < 0.012 ng/mL (0.000-0.034)
[2023-02-05 22:47] LABS: Immature Reticulocyte Fraction 25.1 % (3.0-15.9); Reticulocyte Hemoglobin Conten 16.3 pg (28.2-35.7); Reticulocyte Percent 1.93 % (0.7-4.3); Reticulocytes Absolute 0.09 B/L (32.2-175.7)
[2023-02-05] MEDS: LEVALBUTEROL NEB 1.25 MG/3 ML INHALATION (23:00)
[2023-02-05 23:06] LABS: Troponin I < 0.012 ng/mL (0.000-0.034)
[2023-02-05 23:18] LABS: Hemoglobin A1C 6.5 % (<5.7)
[2023-02-05] MEDS: IPRATROPIUM BR 0.02% INH SOLN 0.5 MG/2.5 ML VIAL INHALATION (23:18)
[2023-02-05] MEDS: APIXABAN 5 MG TABLET PO (23:33)
[2023-02-05 23:36] LABS: Iron < 10 ug/dL (49-181)
[2023-02-05 23:46] LABS: Percent Iron Saturation 3 % (20-50)
[2023-02-05] MEDS: methylPREDNISolone SOD SUCC 125 MG VIAL 60 MG IV PUSH (23:50)
[2023-02-06] VITALS (28 sets, daily range): BP systolic 114–137; BP diastolic 55–72; PULSE 87–126; RESP 18–22; TEMP 36–36.4; O2SAT 96–100
--- NOTE | 2023-02-06 | ECHO_ITS ---
Patient Info Name: Giuseppe Rosa Age: 68 years : 1955 Gender: Male Ht: 72 in Wt: 195 lbs BSA: 2.13 m2 HR: 107 bpm BP: 121 / 60 mmHg Heart Rhythm: Atrial Fibrillation Technical Quality: Poor Exam Date: 02/06/2023 4:09 PM Exam Location: [facility] Card Pulmonary Patient Status: Inpatient Admit Date: 02/06/2023 Staff Ordering Physician: Nigel Morocho MD Mulcher Operator: Carly Gibbons RDCS Attending Provider: Nigel Morocho MD Referring Physician: Cory Robles MD; Exam Type: CA echo dop color flow w con Study Info Indications - pulm edema Complete two-dimensional, color flow and Doppler transthoracic echocardiogram is performed with contrast to opacify the left ventricle and to improve the deliniation of the left ventricle endocardial borders. Contrast/Agitated Saline Contrast/Ag. Saline: Definity Amount: 3.00 ml Administered By: Carly Gibbons RDCS Existing IV Access: Yes IV Access Condition: patent with no signs of infiltration Summary 1. Technically difficult study with limited views. Definity echo contrast enhancement administered. 2. Left ventricular chamber dimension is normal. 3. Left ventricular systolic function is normal, estimated at 65-70%. 4. There is mildly increased left ventricular wall thickness. 5. The left ventricular diastolic function is indeterminate. 6. Right atrial chamber dimension is moderately enlarged. 7. There is trace mitral valve regurgitation. Left Ventricle Left ventricular chamber dimension is normal. Left ventricular systolic function is normal, estimated at 65-70%. There is mildly increased left ventricular wall thickness. The left ventricular diastolic function is indeterminate. Technically difficult study with limited views. Definity echo contrast enhancement administered. Right Ventricle Right ventricular chamber dimension is normal. Right ventricular systolic function is normal. Left Atria Left atrial chamber dimension is normal. Right Atria Right atrial chamber dimension is moderately enlarged. Aortic Valve The aortic valve is not well visualized. There is no aortic valve stenosis. There is no aortic valve regurgitation. Pulmonic Valve The pulmonic valve is not well visualized. Mitral Valve The mitral valve has thickened leaflets. There is trace mitral valve regurgitation. The mitral valve annulus is mildly calcified. Tricuspid Valve The tricuspid valve leaflets are normal. There is trace tricuspid valve regurgitation. Unable to assess PA systolic pressure due to poor spectral resolution of tricuspid regurgitant jet velocity. Pericardium/Pleural The pericardium appears epicardial fat pad. There is small pericardial effusion. Inferior Vena Cava Normal inferior vena cava with >50% collapse upon inspiration consistent with normal right atrial pressure, 5 mmHg. Aorta The aortic root size at the sinus of Valsalva is normal. There is mild aortic atherosclerosis. Left Ventricular Outflow Tract Name Value Normal LVOT 2D LVOT Diameter 2.11 cm LVOT Doppler L
[2023-02-06 00:18] LABS: Thyroid Stimulating Hormone Reflex 0.124 uIU/mL (0.465-4.68)
[2023-02-06 00:22] LABS: Folic Acid 4.3 ng/mL (2.76->20); Vitamin B12 > 1000.0 pg/mL (239-931)
[2023-02-06] MEDS: IPRATROPIUM BR 0.02% INH SOLN 0.5 MG/2.5 ML VIAL INHALATION ×5 (03:25→20:28)
[2023-02-06] MEDS: LEVALBUTEROL NEB 1.25 MG/3 ML INHALATION ×5 (03:25→20:28)
[2023-02-06 04:59] LABS: Free T4 Free Thyroxine Reflex 1.35 ng/dL (0.78-2.19)
[2023-02-06 05:47] LABS: Total Triiodothyronine (T3) 0.77 NG/ML (0.97-1.69)
[2023-02-06 05:55] LABS: Anion Gap 2 mmol/L (8-16); Blood Urea Nitrogen 13 mg/dL (9-20); Calcium 8.2 mg/dL (8.4-10.2); Carbon Dioxide 33 mmol/L (22-30); Chloride 98 mmol/L (98-107); Estimated CRCL calculation 110 ml/min; Estimated Glomerular Filt Rate > 60; Glucose 179 mg/dL (65-110); Magnesium 2.3 mg/dL (1.6-2.3); Potassium 3.8 mmol/L (3.4-5.0); Sodium 133 mmol/L (137-145)
[2023-02-06 05:56] LABS: Hematocrit 29.4 % (42.0-52.0); Hemoglobin 7.6 g/dL (14.0-18.0); Mean Corpuscular HGB Conc 25.9 g/dl (32-36); Mean Corpuscular Hemoglobin 17.4 pg (26-34); Mean Corpuscular Volume 67.4 fl (80-100); Mean Platelet Volume 9.4 fl (7.4-10.4); Platelet Count Result 298 k/mm3 (150-375); Red Blood Count 4.36 M/mm3 (4.6-6.20)
[2023-02-06] MEDS: methylPREDNISolone SOD SUCC 125 MG VIAL 60 MG IV PUSH ×3 (06:24→17:53)
[2023-02-06] MEDS: FLUTICASONE/SALMETEROL 230-21 MCG INHALER 1 PUFF 2 PUFF INHALATION ×2 (07:00→20:30)
[2023-02-06] MEDS: UMECLIDINIUM BROMIDE 62.5 MCG ELLIPTA 1 PUFF INHALATION (07:00)
[2023-02-06] MEDS: metFORMIN HCL XR 500 MG TAB.SR.24H PO (09:17)
[2023-02-06] MEDS: PANTOPRAZOLE 40 MG TABLET PO ×2 (09:17→21:05)
[2023-02-06] MEDS: CYANOCOBALAMIN 1,000 MCG TABLET 1000 MCG PO (09:17)
[2023-02-06] MEDS: LORATADINE 10 MG TABLET PO (09:17)
[2023-02-06] MEDS: APIXABAN 5 MG TABLET PO ×2 (09:17→21:04)
[2023-02-06] MEDS: TAMSULOSIN HCL 0.4 MG CAPSULE PO (09:18)
[2023-02-06] MEDS: METOPROLOL TARTRATE 25 MG TABLET PO (09:18)
--- NOTE | 2023-02-06 09:37 | PM.CNCAR ---
Assessment and Plan Assessment and plan (1) Atrial fibrillation: Qualifiers: Atrial fibrillation type: paroxysmal Qualified Code(s): I48.0 - Paroxysmal atrial fibrillation Code(s): I48.91 - Unspecified atrial fibrillation Status: Acute Assessment and Plan: Patient with persistent atrial fibrillation managed with rate control and anticoagulation strategy. Now having intermittent atrial fibrillation with rapid ventricular response in setting of COPD exacerbation. He had been placed on a diltiazem drip and I am going to stop this resume his home diltiazem metoprolol, but will increase his diltiazem dose. He does also have problems with orthostatic hypotension, so hopefully he will tolerate this increase. Could also consider p.r.n. digoxin for rate control for sustained tachycardia. Continue anticoagulation with apixaban. Echocardiogram has been ordered. Will follow up with results. History of Present Illness History of Present Illness Consult date/time: 02/06/23 09:37 Reason For Visit: A Fib w/RVR,COPD Exacerbation,Pneumonia Narrative: Giuseppe Rosa is a 60-year-old male with paroxysmal atrial fibrillation. This is a patient who presented to the hospital with a chief complaint of worsening shortness of breath. Mr. Rosa has advanced COPD on 4-8 L of oxygen at home. He also has persistent atrial fibrillation that is rate controlled. He has been feeling poorly for a little over a week and was placed on a prednisone taper and antibiotic without much improvement. He states that he is having such difficulty breathing that he is unable to get out of bed and get to the commode without extreme dyspnea. He is currently being treated for COPD exacerbation and in this setting has had atrial fibrillation with rapid ventricular response. He denies feeling any palpitations or chest pain. Review of Systems Review of Systems: All systems reviewed & are unremarkable except as noted in HPI and below PMFSH Past Medical History Medical History (Updated 02/06/23 @ 14:06 by Nigel Morocho MD) Benign prostatic hyperplasia Chronic anemia Chronic anticoagulation Chronic interstitial lung disease Chronic respiratory failure with hypoxia, on home O2 therapy COPD with emphysema Essential hypertension Gastroesophageal reflux disease Gout Hyperlipidemia Paroxysmal atrial fibrillation Pneumomediastinum (06/2022) Pneumonia due to COVID-19 virus (01/2021) Pulmonary embolism Surgical History Surgical History (Updated 02/05/23 @ 21:48 by Mora Parker PA-C) History of back surgery History of pneumonectomy Left upper lobe. History of right inguinal hernia repair Family History Family History Father Heart problem Mother Tuberculosis Congestive heart failure Social History Social History (Updated 02/05/23 @ 21:49 by Mora Parker PA-C) Social History: Originally from [place], [place]. He now lives in [place] with his . They have 3 children. He worked on a [employer] before a back injury put an and to that and he did [employer] work thereafter. He smoked up to 3 packs of cigarettes a day for 42 years and quit in about 2012. No alcohol or illicit substance abuse. Surrogate medical decision maker: Rosa Maria Rosa, spouse. Code status: Full code. Smoking packs per day: 3 Smoking cigarettes per day: 60.0 Years smoked: 40 Smoking pack-years: 120.00 Smoking status: Former smoker Alcohol intake: never Substance use: never Lack of Transportation: No Lack of Food: Never True Current Housing: I Have Housing Concerned About Future Housing: No Difficulty Paying Gas/Electric Bills: No Difficulty Paying for Meds: No Currently Unemployed: No Education: High School Diploma/GED Difficulty w/ Childcare or Family Care: No Spiritual care concerns: No Meds Home Medications and
[2023-02-06 11:58] LABS: Glucose Point of Care 236 mg/dl (65-105)
[2023-02-06] MEDS: INSULIN ASPART (*BKC) 100 UNITS/ML SUB-Q (12:30)
--- NOTE | 2023-02-06 13:39 | PM.IMPN ---
Progress Note: A&P Assessment and Plan (1) Acute and chronic respiratory failure with hypoxia: Code(s): J96.21 - Acute and chronic respiratory failure with hypoxia Status: Acute Assessment and Plan: Patient presented to the ED with increasing shortness of breath and wheezing and was on 15 L non-rebreather initially. He has been weaned to 5L which is at his baseline but with significant increased WOB with activity. CXR shows findings of possible edema and/or pneumonia. Probably combination of COPD exacerbation, PNA and/or CHF exacerbation. Anemia contributing to his SOB. BNP 2000. He received a dose of Lasix in the ED. Pulmonary embolism unlikely as he is on Eliquis and states compliance. Continue levofloxacin. Continue steroids and bronchodilators. Check Echo. Repeat Lasix. (2) COPD exacerbation: Code(s): J44.1 - Chronic obstructive pulmonary disease with (acute) exacerbation Status: Acute Assessment and Plan: He has a productive cough, significant SOB, and diffuse wheezing. He was negative for influenza, COVID, and RSV. Continue scheduled bronchodilators and IV Solu-Medrol. He has also been started on levofloxacin. Follow (3) Pneumonia: Qualifiers: Laterality: bilateral Lung location: unspecified part of lung Pneumonia type: due to unspecified organism Qualified Code(s): J18.9 - Pneumonia, unspecified organism Code(s): J18.9 - Pneumonia, unspecified organism Status: Acute Assessment and Plan: As above. BCx NGTD. Sputum Cx ordered. Agree with legionella Ag given his diarrhea. Continue Levaquin. (4) Paroxysmal atrial fibrillation: Code(s): I48.0 - Paroxysmal atrial fibrillation Status: Chronic Assessment and Plan: EKG on admisison showing AFib with HR 110. Rate was highr in ED and treated with IV Diltiazem. He remains in atrial fibrillation with rate better controlled. Continue metoprolol and diltiazem. Continue Eliquis. (5) Hypertension: Code(s): I10 - Essential (primary) hypertension Status: Acute Assessment and Plan: Patient's blood pressure was reviewed on 02/06 Blood pressure remains well controlled. Will continue current medications. (6) Microcytic anemia: Code(s): D50.9 - Iron deficiency anemia, unspecified Status: Acute Assessment and Plan: Hemoglobin is nearly 2 g lower than what he typically runs. He has been having bright red blood in his stools. Iron studies consistent with iron deficiency. Will treat with IV iron starting tomorrow. GI consult toward the end of his hospital course for colonoscopy if able. Serial HH and transfuse as needed. He mentions that no blood in stool past 2 BMs. (7) Diarrhea: Code(s): R19.7 - Diarrhea, unspecified Status: Acute Assessment and Plan: Patient with loose stools for the past 10 days. Recently on Amoxicillin. CDiff ordered but patietn already stating that the diarrhea is better. Follow Subjective Date/time seen: 02/06/23 13:39 Interval history: 68yo male with chronic respiratory failure on 4 L at rest and 8 L with exertion, COPD, recurrent PTX status post left upper lobectomy, PE and pAFib here for evaluation of shortness of breath.? Patient still with shortness of breath. This is much worse when he exerts himself by using the bedside commode. No chest pain. Cough productive yellow white sputum. He has been wheezing. No leg edema. Patient has been having bright red blood per rectum for the past month or so off and on. He has been having diarrheal stools over the past 10 days but states that this has improved. He complains of nasal congestion as well. Exam Narrative: AF 96.8 121/60 107 20 98% 5L Gen - tachypneic with retractions, conversational dyspnea and mild distress (he just returned from the bedside commode) but symptoms improved with rest Chest - coarse BS with end expiratory wheezes CV - irregula
[2023-02-06 14:31] LABS: Hematocrit 30.4 % (42.0-52.0)
[2023-02-06] MEDS: FUROSEMIDE INJ 40 MG/4 ML VIAL 20 MG IV PUSH (15:38)
[2023-02-06] MEDS: PERFLUTREN LIPID MICROSPHERES 1.5 ML VIAL DILUTED TO 10 ML TOTAL VOLUME IV PUSH (16:41)
--- NOTE | 2023-02-06 16:42 | IVDEFINITY ---
Prior to administration of IV Definity the patient was educated on the risks and benefits of the imaging enhancing agent including potential adverse side effects. The patient verbalized understanding. Allergies were verified. No exclusion criteria were identified and at least one of the following inclusion criteria were met: 1) physician request, 2) patient technically difficult to image (per the [place] [employer] of Echocardiography guidelines of two or more segments not discernable within the apical view), or 3) questionable left ventricular function. ?
[2023-02-06 16:51] LABS: Glucose Point of Care 188 mg/dl (65-105)
[2023-02-06] MEDS: ATORVASTATIN 40 MG TABLET PO (21:05)
[2023-02-06] MEDS: LEFLUNOMIDE 20 MG TABLET PO (21:05)
[2023-02-07] VITALS (30 sets, daily range): BP systolic 107–133; BP diastolic 56–66; PULSE 96–131; RESP 16–24; TEMP 36–36.4; O2SAT 92–100
[2023-02-07] MEDS: IPRATROPIUM BR 0.02% INH SOLN 0.5 MG/2.5 ML VIAL INHALATION ×6 (00:53→21:11)
[2023-02-07] MEDS: LEVALBUTEROL NEB 1.25 MG/3 ML INHALATION ×6 (00:53→21:11)
[2023-02-07] MEDS: methylPREDNISolone SOD SUCC 125 MG VIAL 60 MG IV PUSH ×4 (01:00→17:45)
[2023-02-07 05:43] LABS: Hematocrit 30.4 % (42.0-52.0); Immature Granulocyte Absolute 0.09 K/mm3 (0.00-0.031); Immature Granulocyte Percent A 0.8 % (0-0.5); Lymphocytes Absolute Auto 0.13 K/mm3 (0.9-3.2); Lymphocytes Percent Auto 1.1 % (18.3-44.2); Mean Corpuscular HGB Conc 26.3 g/dl (32-36); Mean Corpuscular Hemoglobin 17.7 pg (26-34); Mean Corpuscular Volume 67.4 fl (80-100); Mean Platelet Volume 9.8 fl (7.4-10.4); Monocytes Absolute Auto 0.5 K/mm3 (0.1-0.6); Monocytes Percent Auto 4.2 % (2.6-8.5); Neutrophils Absolute Auto 10.7 K/mm3 (1.3-6.7); Neutrophils Percent Auto 93.9 % (45.5-73.1); Nucleated Red Blood Cells Absolute Auto 0.1 K/mm3 (0.0-0.012); Nucleated Red Blood Cells Perc 0.4 % (0.0-0.2); Platelet Count Result 322 k/mm3 (150-375); Red Blood Count 4.51 M/mm3 (4.6-6.20); Red Cell Distribution Width 23.5 % (11.5-14.5); White Blood Count 11.4 K/mm3 (4.5-10.0)
[2023-02-07 06:00] LABS: Alanine Aminotransferase 17 U/L (6-50); Albumin Level 3.4 g/dL (3.5-5.1); Alkaline Phosphatase 58 U/L (38-126); Anion Gap 5 mmol/L (8-16); Aspartate Amino Transferase 17 U/L (17-59); Bilirubin,Total 0.4 mg/dL (0.2-1.3); Blood Urea Nitrogen 20 mg/dL (9-20); Calcium 8.3 mg/dL (8.4-10.2); Carbon Dioxide 32 mmol/L (22-30); Chloride 95 mmol/L (98-107); Estimated CRCL calculation 84 ml/min; Estimated Glomerular Filt Rate > 60; Glucose 208 mg/dL (65-110); Magnesium 2.4 mg/dL (1.6-2.3); Phosphorus 2.6 mg/dL (2.5-4.5); Potassium 3.7 mmol/L (3.4-5.0); Sodium 132 mmol/L (137-145)
[2023-02-07 06:50] LABS: Hypochromasia 2+ (NORMAL); Platelet Estimate Adequate (Adequate)
[2023-02-07 06:51] LABS: Anisocytosis 3+ (NORMAL); Ovalocytes 1+ (NORMAL); Poikilocytosis 1+ (NORMAL); Schistocytes None Seen (NORMAL); Target Cells 1+ (NORMAL)
[2023-02-07] MEDS: FLUTICASONE/SALMETEROL 230-21 MCG INHALER 1 PUFF 2 PUFF INHALATION ×2 (07:46→21:12)
[2023-02-07] MEDS: UMECLIDINIUM BROMIDE 62.5 MCG ELLIPTA 1 PUFF INHALATION (07:46)
[2023-02-07 08:01] LABS: Glucose Point of Care 184 mg/dl (65-105)
[2023-02-07] MEDS: APIXABAN 5 MG TABLET PO ×2 (08:46→20:35)
[2023-02-07] MEDS: PANTOPRAZOLE 40 MG TABLET PO ×2 (08:47→20:35)
[2023-02-07] MEDS: metFORMIN HCL XR 500 MG TAB.SR.24H PO (08:47)
[2023-02-07] MEDS: TAMSULOSIN HCL 0.4 MG CAPSULE PO (08:47)
[2023-02-07] MEDS: CYANOCOBALAMIN 1,000 MCG TABLET 1000 MCG PO (08:47)
[2023-02-07] MEDS: METOPROLOL TARTRATE 25 MG TABLET PO (08:47)
[2023-02-07] MEDS: LORATADINE 10 MG TABLET PO (08:48)
[2023-02-07 11:36] LABS: Glucose Point of Care 204 mg/dl (65-105)
[2023-02-07] MEDS: INSULIN ASPART (*BKC) 100 UNITS/ML SUB-Q (12:09)
[2023-02-07] MEDS: SALINE 0.65% NAS SOLN 44 ML BTL 1 SPRAY NASAL (12:12)
--- NOTE | 2023-02-07 13:35 | PM.PNCARD ---
Progress Note: A&P Assessment and Plan (1) Atrial fibrillation: Qualifiers: Atrial fibrillation type: paroxysmal Qualified Code(s): I48.0 - Paroxysmal atrial fibrillation Code(s): I48.91 - Unspecified atrial fibrillation Status: Acute Assessment and Plan: Patient with persistent atrial fibrillation managed with rate control and anticoagulation strategy. Now having intermittent atrial fibrillation with rapid ventricular response in setting of COPD exacerbation. Heart rate is reasonably controlled on his usual metoprolol and a higher dose of diltiazem. He does also have problems with orthostatic hypotension, so hopefully he will tolerate this increase. Could also consider p.r.n. digoxin for rate control for sustained tachycardia. --continue metoprolol tartrate 25 mg daily --continue diltiazem 240 mg daily -- Continue anticoagulation with apixaban. (2) COPD exacerbation: Code(s): J44.1 - Chronic obstructive pulmonary disease with (acute) exacerbation Status: Acute Assessment and Plan: Treatment per Dr. Dunham. Subjective Date/time seen: Follow-up for AFib RVR. Patient is followed Dr. Robles as an outpatient. Has severe COPD on 4-5 L of O2 at home, admitted with COPD exacerbation and AFib RVR. History of orthostasis. 02/07/23 13:35 yesterday the patient's diltiazem drip was changed to diltiazem 240 mg daily (his home dose is 120 mg daily) in addition to his metoprolol tartrate 25 mg daily. Still short of breath and tachycardic with activity but relatively comfortable at rest. Cough productive of thick mucus, hard to clear. Currently on 4 L of nasal cannula. Echo showed normal systolic function, EF 65-70%, with LVH. Telemetry shows AFib heart rate in the 90s at rest, 140s with activity. Review of Systems Review of Systems: No chest pain or stomach problems. No edema. Still with productive cough, dyspnea. Exam Narrative: at the bedside Const: General: cooperative; No confusion Orientation/consciousness: oriented to person, patient oriented x3 and No confusion Other: Frequent productive cough HENMT: Mouth: Yes moist mucous membranes Eyes: General: appearance normal, both eyes and all related structures Neck: Neck: supple Resp: Effort & Inspection: abnormal respiratory effort Auscultation: rhonchi and wheezes Other: Mildly tachypneic at rest, diffuse mild wheezes and rhonchi Cardio: Rate: regular rate Rhythm: abnormal rhythm irregularly irregular Heart sounds: no murmurs GI: Inspection: normal to inspection GI Palp: No abdominal tenderness Skin: General skin exam: normal color and no rashes or lesions noted Neuro: General: oriented to person, patient oriented x3 and No confusion Extrem: Right lower extremity: no edema Left lower extremity: no edema Psych: Appearance: grossly normal Mental Status: mental status grossly normal Objective Data Vital Signs Vital Signs: Vital Signs - 24 hr 02/06/23 15:49 02/06/23 15:00 02/06/23 15:10 Temperature 97.3 F L Pulse Rate 116 H 97 94 Respiratory Rate 22 H 18 18 Blood Pressure 123/65 Pulse Oximetry 97 Oxygen Delivery Oxygen Flow Rate Fraction of Inspired Oxygen 02/06/23 14:00 02/06/23 16:00 02/06/23 16:00 Temperature Pulse Rate 103 H 113 H Respiratory Rate Blood Pressure Pulse Oximetry 97 Oxygen Delivery Nasal Cannula Oxygen Flow Rate 5 Fraction of Inspired Oxygen 02/06/23 18:00 02/06/23 20:30 02/06/23 20:34 Temperature Pulse Rate 103 H 106 H 95 Respiratory Rate 18 18 Blood Pressure Pulse Oximetry 99 Oxygen Delivery Nasal Cannula Oxygen Flow Rate 5 Fraction of Inspired Oxygen 40 02/06/23 20:48 02/06/23 20:00 02/06/23 20:00 Temperature 96.9 F L Pulse Rate 114 H 121 H Respiratory Rate 18 20 Blood Pressure 114/61 Pulse Oximetry 97 98 Oxygen Delivery Nasal Cannula Oxygen Flow Rate 5 Fraction of I
[2023-02-07 16:26] LABS: Glucose Point of Care 174 mg/dl (65-105)
--- NOTE | 2023-02-07 16:51 | PM.IMPN ---
Progress Note: A&P Assessment and Plan (1) Acute and chronic respiratory failure with hypoxia: Code(s): J96.21 - Acute and chronic respiratory failure with hypoxia Status: Acute Assessment and Plan: Patient presented to the ED with increasing shortness of breath and wheezing and was on 15 L non-rebreather initially. He has been weaned to 4L. He still has increased WOB with exertion but improving. CXR shows findings of possible edema and/or pneumonia. Probably combination of COPD exacerbation, PNA and/or CHF exacerbation. Anemia contributing to his SOB. BNP 2000. He received a dose of Lasix in the ED. Pulmonary embolism unlikely as he is on Eliquis and states compliance. Echo showing EF 65-70% with indeterminate diastolic function. Continue levofloxacin. Continue steroids and bronchodilators. Repeat CXR in the morning (2) COPD exacerbation: Code(s): J44.1 - Chronic obstructive pulmonary disease with (acute) exacerbation Status: Acute Assessment and Plan: He has a productive cough, significant SOB, and diffuse wheezing. He was negative for influenza, COVID, and RSV. Back down to baseline O2 requirement. Continue scheduled bronchodilators and IV Solu-Medrol. Continue levofloxacin. Follow (3) Pneumonia: Qualifiers: Laterality: bilateral Lung location: unspecified part of lung Pneumonia type: due to unspecified organism Qualified Code(s): J18.9 - Pneumonia, unspecified organism Code(s): J18.9 - Pneumonia, unspecified organism Status: Acute Assessment and Plan: As above. BCx NGTD. Sputum Cx ordered. Agree with legionella Ag given his diarrhea. Continue Levaquin. (4) Paroxysmal atrial fibrillation: Code(s): I48.0 - Paroxysmal atrial fibrillation Status: Chronic Assessment and Plan: EKG on admission showing AFib with HR 110. Rate was higher in ED and treated with IV Diltiazem. He remains in atrial fibrillation with rate better controlled. Continue metoprolol and higher dose diltiazem. Continue Eliquis. (5) Hypertension: Code(s): I10 - Essential (primary) hypertension Status: Acute Assessment and Plan: Patient's blood pressure was reviewed on 02/07 Blood pressure remains well controlled. Will continue current medications. (6) Microcytic anemia: Code(s): D50.9 - Iron deficiency anemia, unspecified Status: Acute Assessment and Plan: Hemoglobin is nearly 2 g lower than what he typically runs. He has been having bright red blood in his stools. Iron studies consistent with iron deficiency. GI consult toward the end of his hospital course for colonoscopy if able. Serial HH showing Hgb stable. Transfuse as needed. Will treat with IV iron. (7) Diarrhea: Code(s): R19.7 - Diarrhea, unspecified Status: Acute Assessment and Plan: Patient with loose stools for the past 10 days. Recently on Amoxicillin. CDiff ordered but symptoms already are better. Follow Subjective Date/time seen: 02/07/23 16:51 Interval history: 68yo male with chronic respiratory failure on 4 L at rest and 8 L with exertion, COPD, recurrent PTX status post left upper lobectomy, PE and pAFib here for evaluation of shortness of breath.? Slept off and on last night. No chest pain. No longer having diarrhea. Still with dyspnea on exertion. Shortness of breath at rest is better. Still having cough productive yellow white sputum but this has become less productive. Exam Narrative: AF 96.9 116/66 116 20 92% 4L Gen - NARD, less conversational dyspnea Chest - inspiratory crackles o/w distant BS. No wheezing CV - irregularly irregular. Tele showing AFib with improved HR Abd - Soft, NT/ND, Positive BS Ext - No pedal edema Neuro - Alert and oriented. Nonfocal exam. Psych - Nml mood and affect Skin - Warm and dry Objective Data Vital Signs Vital Signs: Vital Signs - 24 hr 02/06/23 18:00 02/06
[2023-02-07] MEDS: IRON SUCROSE COMPLEX 100 MG in SODIUM CHLORIDE 0.9% IV 50 ML 220 MG IVPB (18:43)
[2023-02-07 19:57] LABS: Glucose Point of Care 311 mg/dl (65-105)
[2023-02-07] MEDS: LEFLUNOMIDE 20 MG TABLET PO (20:35)
[2023-02-07] MEDS: ATORVASTATIN 40 MG TABLET PO (20:35)
[2023-02-08] VITALS (26 sets, daily range): BP systolic 115–121; BP diastolic 62–69; PULSE 87–123; RESP 18–22; TEMP 35.9–36.4; O2SAT 91–98
[2023-02-08] MEDS: IPRATROPIUM BR 0.02% INH SOLN 0.5 MG/2.5 ML VIAL INHALATION ×6 (00:38→20:10)
[2023-02-08] MEDS: LEVALBUTEROL NEB 1.25 MG/3 ML INHALATION ×6 (00:38→20:10)
[2023-02-08 05:15] LABS: Hemoglobin 7.8 g/dL (14.0-18.0); Mean Corpuscular Volume 69.1 fl (80-100); Mean Platelet Volume 9.7 fl (7.4-10.4); Platelet Count Result 293 k/mm3 (150-375); Red Blood Count 4.34 M/mm3 (4.6-6.20); Red Cell Distribution Width 22.9 % (11.5-14.5); White Blood Count 9.4 K/mm3 (4.5-10.0)
[2023-02-08 05:26] LABS: Albumin Level 3.3 g/dL (3.5-5.1); Anion Gap 4 mmol/L (8-16); Blood Urea Nitrogen 20 mg/dL (9-20); Calcium 8.2 mg/dL (8.4-10.2); Carbon Dioxide 34 mmol/L (22-30); Chloride 95 mmol/L (98-107); Estimated CRCL calculation 96 ml/min; Estimated Glomerular Filt Rate > 60; Glucose 199 mg/dL (65-110); Magnesium 2.4 mg/dL (1.6-2.3); Phosphorus 2.7 mg/dL (2.5-4.5); Potassium 3.9 mmol/L (3.4-5.0); Sodium 133 mmol/L (137-145)
[2023-02-08 05:57] LABS: Anisocytosis 1+ (NORMAL); Band Neutrophils Percent 14 % (0-6); Eosinophils Absolute Manual 0.09 K/mm3 (0.02-0.5); Eosinophils Percent Manual 1 % (0-4); Lymphocytes Absolute Manual 0.28 K/mm3 (1.1-4.5); Monocytes Absolute Manual 0.37 K/mm3 (0.1-0.90); Monocytes Percent Manual 4 % (3-9); Neutrophils Absolute Manual 8.64 K/mm3 (1.3-6.7); Neutrophils Percent Manual 78 % (46-73); Ovalocytes 1+ (NORMAL); Platelet Estimate Adequate (Adequate); Poikilocytosis 2+ (NORMAL); Total Cells Counted 100
[2023-02-08 05:58] LABS: Hypochromasia 3+ (NORMAL); Schistocytes 1+ (NORMAL)
[2023-02-08 05:59] LABS: Burr Cells 2+ (NORMAL); Microcytosis 1+ (NORMAL)
[2023-02-08 06:00] LABS: Macrocytosis 2+ (NORMAL)
[2023-02-08] MEDS: IRON SUCROSE COMPLEX 100 MG in SODIUM CHLORIDE 0.9% IV 50 ML 220 MG IVPB (07:47)
[2023-02-08] MEDS: APIXABAN 5 MG TABLET PO ×2 (07:50→20:49)
[2023-02-08] MEDS: TAMSULOSIN HCL 0.4 MG CAPSULE PO (07:50)
[2023-02-08] MEDS: CYANOCOBALAMIN 1,000 MCG TABLET 1000 MCG PO (07:50)
[2023-02-08] MEDS: LORATADINE 10 MG TABLET PO (07:50)
[2023-02-08] MEDS: metFORMIN HCL XR 500 MG TAB.SR.24H PO (07:51)
[2023-02-08] MEDS: METOPROLOL TARTRATE 25 MG TABLET PO (07:51)
[2023-02-08] MEDS: PANTOPRAZOLE 40 MG TABLET PO ×2 (07:52→20:49)
[2023-02-08 07:54] LABS: Glucose Point of Care 194 mg/dl (65-105)
[2023-02-08] MEDS: FLUTICASONE/SALMETEROL 230-21 MCG INHALER 1 PUFF 2 PUFF INHALATION ×2 (08:32→20:10)
--- NOTE | 2023-02-08 08:42 | PM.IMPN ---
Progress Note: A&P Assessment and Plan (1) Acute and chronic respiratory failure with hypoxia: Code(s): J96.21 - Acute and chronic respiratory failure with hypoxia Status: Acute Assessment and Plan: Patient presented to the ED with increasing shortness of breath and wheezing and was on 15 L non-rebreather initially. -He normally wears 4L at rest and 6-8L with activity. -BNP 2000. Admission CXR: Mixed interstitial and airspace disease of the mid and lower lungs which may represent edema or pneumonia, without significant change from Sept. -He received a dose of Lasix in the ED. -weaned to his baseline 4L. -still has increased WOB with exertion but this is on 4L. -CXR today reviewed personally shows: Airspace opacities of the right mid and lower lung zones, consistent with atelectasis versus pneumonia. Review of previous CXR imaging showing stable chronic airspace disease without change -Probably combination of COPD exacerbation, PNA, AFib/RVR and/or dCHF exacerbation. Anemia contributing to his SOB. Pulmonary embolism unlikely as he is on Eliquis and states compliance. Continue levofloxacin. Continue steroids and bronchodilators. Repeat Lasix x1. Increase activity. Increase o2 to 6-8L with exertion. (2) COPD exacerbation: Code(s): J44.1 - Chronic obstructive pulmonary disease with (acute) exacerbation Status: Acute Assessment and Plan: He has a productive cough, significant SOB, and diffuse wheezing. He was negative for influenza, COVID, and RSV. Back down to baseline O2 requirement. Continue scheduled bronchodilators. Change IV Solu-Medrol to oral Prednisone. Continue levofloxacin to complete a course. Follow (3) Pneumonia: Qualifiers: Laterality: bilateral Lung location: unspecified part of lung Pneumonia type: due to unspecified organism Qualified Code(s): J18.9 - Pneumonia, unspecified organism Code(s): J18.9 - Pneumonia, unspecified organism Status: Acute Assessment and Plan: As above. BCx NGTD. Sputum Cx pending. Agree with legionella Ag given his diarrhea. Continue Levaquin. (4) Paroxysmal atrial fibrillation: Code(s): I48.0 - Paroxysmal atrial fibrillation Status: Chronic Assessment and Plan: EKG on admission showing AFib with HR 110. Rate was higher in ED and treated with IV Diltiazem. He remains in atrial fibrillation with rate better controlled. Continue metoprolol and higher dose diltiazem. Continue Eliquis. (5) Hypertension: Code(s): I10 - Essential (primary) hypertension Status: Acute Assessment and Plan: Patient's blood pressure was reviewed on 02/08 Blood pressure remains well controlled. Will continue current medications. (6) Microcytic anemia: Code(s): D50.9 - Iron deficiency anemia, unspecified Status: Acute Assessment and Plan: Hemoglobin is nearly 2 g lower than what he typically runs. He has been having bright red blood in his stools. Iron studies consistent with iron deficiency. GI consult toward the end of his hospital course for colonoscopy if able. Serial HH showing Hgb stable. Transfuse as needed. Continue with IV iron. Add tucks pads and anusol to treat hemorrhoids. (7) Diarrhea: Code(s): R19.7 - Diarrhea, unspecified Status: Acute Assessment and Plan: Patient with loose stools for the past 10 days. Recently on Amoxicillin. Symptoms already are better. Follow Subjective Date/time seen: 02/08/23 08:42 Interval history: 68yo male with chronic respiratory failure on 4 L at rest and 8 L with exertion, COPD, recurrent PTX status post left upper lobectomy, PE and pAFib here for evaluation of shortness of breath.? Feeling well. No problems overnight. Nasal congestion has improved. Shortness of breath is better at rest. Still with significant dyspnea on exertion. He is not using more oxygen when he exerts himself. His cough is vega
[2023-02-08] MEDS: levoFLOXacin 750 MG TABLET PO (11:08)
[2023-02-08] MEDS: HYDROCORTISONE ACETATE 25 MG SUPPOSITORY RECTAL (11:08)
[2023-02-08] MEDS: polyethylene glycoL 3350 17 GM POWD.PACK PO (11:08)
[2023-02-08] MEDS: methylPREDNISolone SOD SUCC 125 MG VIAL 60 MG IV PUSH ×2 (11:09→18:29)
[2023-02-08] MEDS: FUROSEMIDE INJ 40 MG/4 ML VIAL 20 MG IV PUSH (11:11)
[2023-02-08 12:00] LABS: Glucose Point of Care 226 mg/dl (65-105)
[2023-02-08] MEDS: INSULIN ASPART (*BKC) 100 UNITS/ML SUB-Q (12:37)
[2023-02-08 16:14] LABS: Glucose Point of Care 197 mg/dl (65-105)
--- NOTE | 2023-02-08 18:14 | PM.PNCARD ---
Progress Note: A&P Assessment and Plan (1) Atrial fibrillation: Qualifiers: Atrial fibrillation type: paroxysmal Qualified Code(s): I48.0 - Paroxysmal atrial fibrillation Code(s): I48.91 - Unspecified atrial fibrillation Status: Acute Assessment and Plan: Patient with persistent atrial fibrillation managed with rate control and anticoagulation strategy. Now having intermittent atrial fibrillation with rapid ventricular response in setting of COPD exacerbation. --Heart rate is reasonably controlled on his usual metoprolol and a higher dose of diltiazem 240 mg daily. -- He does also have problems with orthostatic hypotension, so hopefully he will tolerate this increase. --continue metoprolol tartrate 25 mg daily -- Continue anticoagulation with apixaban. (2) COPD exacerbation: Code(s): J44.1 - Chronic obstructive pulmonary disease with (acute) exacerbation Status: Acute Assessment and Plan: Treatment per Dr. Dunham. Subjective Date/time seen: Follow-up for AFib RVR.? Patient is followed? Dr. Robles as an outpatient.? Has severe COPD on 4-5 L of O2 at home, admitted with COPD exacerbation and AFib RVR.? History of orthostasis.? 02/07/23? 13:35 yesterday the patient's diltiazem drip was changed to diltiazem 240 mg daily (his home dose is 120 mg daily) in addition to his metoprolol tartrate 25 mg daily.? Still short of breath and tachycardic with activity but relatively comfortable at rest.? Cough productive of thick mucus, hard to clear.? Currently on 4 L of nasal cannula.? Echo showed normal systolic function, EF 65-70%, with LVH.? Telemetry shows AFib heart rate in the 90s at rest, 140s with activity. 02/08/23 18:14 still very dyspneic with any activity such as getting up to the bedside commode. Less breathless with talking. Continues to have a cough productive of thick sticky sputum. Telemetry shows AFib rate better controlled, 90-110 ppm. Review of Systems Review of Systems: No chest pain or abdominal pain, no bleeding. No swelling. Cough and shortness of breath. Exam Narrative: at the bedside Const: General: cooperative; No confusion Orientation/consciousness: oriented to person, patient oriented x3 and No confusion Other: Frequent productive cough HENMT: Mouth: Yes moist mucous membranes Eyes: General: appearance normal, both eyes and all related structures Neck: Neck: supple Resp: Effort & Inspection: abnormal respiratory effort Auscultation: rhonchi and wheezes Other: Mildly tachypneic at rest, diffuse mild wheezes and rhonchi Cardio: Rate: regular rate Rhythm: abnormal rhythm irregularly irregular Heart sounds: no murmurs GI: Inspection: normal to inspection Skin: General skin exam: normal color and no rashes or lesions noted Neuro: General: oriented to person, patient oriented x3 and No confusion Extrem: Right lower extremity: no edema Left lower extremity: no edema Psych: Appearance: grossly normal Mental Status: mental status grossly normal Objective Data Vital Signs Vital Signs: Vital Signs - 24 hr 02/07/23 20:00 02/07/23 23:12 02/08/23 00:39 Temperature 97.5 F L 97.5 F L Pulse Rate 125 H 120 H 98 Respiratory Rate 20 20 20 Blood Pressure 133/59 L 119/56 L Pulse Oximetry 97 Oxygen Delivery Oxygen Flow Rate 02/08/23 04:00 02/08/23 00:50 02/07/23 21:30 Temperature 97.5 F L Pulse Rate 103 H 110 H 113 H Respiratory Rate 20 20 20 Blood Pressure 117/62 Pulse Oximetry 97 Oxygen Delivery Oxygen Flow Rate 02/07/23 21:45 02/07/23 20:00 02/08/23 07:51 Temperature Pulse Rate 108 H 109 H Respiratory Rate 20 Blood Pressure Pulse Oximetry 98 Oxygen Delivery Nasal Cannula Oxygen Flow Rate 4 02/07/23 20:00 02/07/23 22:00 02/08/23 00:00 Temperature Pulse Rate 117 H 106 H 102 H Respiratory Rate Blood Pressure Pulse Oximetry Oxygen Delivery Oxygen Flow
[2023-02-08 20:06] LABS: Glucose Point of Care 243 mg/dl (65-105)
[2023-02-08] MEDS: ATORVASTATIN 40 MG TABLET PO (20:49)
[2023-02-08] MEDS: LEFLUNOMIDE 20 MG TABLET PO (20:49)
[2023-02-09] VITALS (29 sets, daily range): BP systolic 109–129; BP diastolic 46–68; PULSE 93–132; RESP 20–22; TEMP 36.1–36.3; O2SAT 94–100
[2023-02-09] MEDS: LEVALBUTEROL NEB 1.25 MG/3 ML INHALATION ×6 (00:30→20:03)
[2023-02-09] MEDS: IPRATROPIUM BR 0.02% INH SOLN 0.5 MG/2.5 ML VIAL INHALATION ×6 (00:30→20:03)
[2023-02-09 04:19] LABS: Hematocrit 28.9 % (42.0-52.0); Hemoglobin 7.6 g/dL (14.0-18.0); Mean Corpuscular HGB Conc 26.3 g/dl (32-36); Mean Corpuscular Hemoglobin 18.1 pg (26-34); Mean Corpuscular Volume 68.6 fl (80-100); Mean Platelet Volume 9.7 fl (7.4-10.4); Platelet Count Result 273 k/mm3 (150-375); Red Blood Count 4.21 M/mm3 (4.6-6.20); Red Cell Distribution Width 23.1 % (11.5-14.5)
[2023-02-09 04:45] LABS: Anion Gap 2 mmol/L (8-16); Blood Urea Nitrogen 21 mg/dL (9-20); Calcium 8.1 mg/dL (8.4-10.2); Carbon Dioxide 33 mmol/L (22-30); Chloride 96 mmol/L (98-107); Estimated CRCL calculation 96 ml/min; Estimated Glomerular Filt Rate > 60; Glucose 208 mg/dL (65-110); Sodium 131 mmol/L (137-145)
[2023-02-09 07:52] LABS: Glucose Point of Care 196 mg/dl (65-105)
[2023-02-09 08:04] LABS: Glucose Point of Care 222 mg/dl (65-105)
[2023-02-09] MEDS: FLUTICASONE/SALMETEROL 230-21 MCG INHALER 1 PUFF 2 PUFF INHALATION ×2 (09:07→20:20)
[2023-02-09] MEDS: UMECLIDINIUM BROMIDE 62.5 MCG ELLIPTA 1 PUFF INHALATION (09:08)
[2023-02-09 09:40] LABS: IFOB Positive Control Positive; Immunochemical Fecal Occult Bl Positive (N)
--- NOTE | 2023-02-09 10:45 | PM.IMPN ---
Progress Note: A&P Assessment and Plan (1) Acute and chronic respiratory failure with hypoxia: Code(s): J96.21 - Acute and chronic respiratory failure with hypoxia Status: Acute Assessment and Plan: Patient presented to the ED with increasing shortness of breath and wheezing and was on 15 L non-rebreather initially. -He normally wears 4L at rest and 6-8L with activity. -BNP 2000. Admission CXR: Mixed interstitial and airspace disease of the mid and lower lungs which may represent edema or pneumonia, without significant change from Sept. -He received a dose of Lasix in the ED. -weaned to his baseline 4L at rest. -still has increased WOB with exertion -CXR 02/09 shows: Airspace opacities of the right mid and lower lung zones, consistent with atelectasis versus PNA. Review of previous CXR imaging showing stable chronic airspace disease without change -Probably combination of COPD exacerbation, PNA, AFib/RVR and/or dCHF exacerbation. Anemia contributing to his SOB. Pulmonary embolism unlikely as he is on Eliquis and states compliance. Continue levofloxacin. Add Vancomycin. Continue steroids and bronchodilators. Increase activity as tolerated (2) COPD exacerbation: Code(s): J44.1 - Chronic obstructive pulmonary disease with (acute) exacerbation Status: Acute Assessment and Plan: He has a productive cough, significant SOB, and diffuse wheezing. He was negative for influenza, COVID, and RSV. Back down to baseline O2 requirement. Continue scheduled bronchodilators and steroids. Follow (3) Pneumonia: Qualifiers: Laterality: bilateral Lung location: unspecified part of lung Pneumonia type: due to unspecified organism Qualified Code(s): J18.9 - Pneumonia, unspecified organism Code(s): J18.9 - Pneumonia, unspecified organism Status: Acute Assessment and Plan: As above. BCx NGTD. WBC was 17K but improved to 8-11K range. Sputum Cx growing yeast and Staph aureus. MRSA nasal swab positive. Was going to add Doxycycline but still symptomatic so will add Vanco IV instead. Continue Levaquin. (4) Paroxysmal atrial fibrillation: Code(s): I48.0 - Paroxysmal atrial fibrillation Status: Chronic Assessment and Plan: EKG on admission showing AFib with HR 110. Rate was higher in ED and treated with IV Diltiazem. He remains in atrial fibrillation with rate better controlled but still elevated. Continue metoprolol and higher dose diltiazem. Appreciate Cardiology input. Continue Eliquis. (5) Hypertension: Code(s): I10 - Essential (primary) hypertension Status: Acute Assessment and Plan: Patient's blood pressure was reviewed on 02/09 Blood pressure remains well controlled. Will continue current medications. (6) Microcytic anemia: Code(s): D50.9 - Iron deficiency anemia, unspecified Status: Acute Assessment and Plan: Hemoglobin is nearly 2 g lower than what he typically runs. He has been having bright red blood in his stools. Iron studies consistent with iron deficiency. GI consult toward the end of his hospital course for colonoscopy if able. Serial HH showing Hgb stable. Transfuse as needed. Stool is guaiac positive. Continue with IV iron. Continue PPI. Continue tucks pads and anusol to treat hemorrhoids. (7) Diarrhea: Code(s): R19.7 - Diarrhea, unspecified Status: Acute Assessment and Plan: Patient with loose stools for the past 10 days. Recently on Amoxicillin. Symptoms have resolved. Follow Subjective Date/time seen: 02/09/23 10:45 Interval history: 68yo male with chronic respiratory failure on 4 L at rest and 8 L with exertion, COPD, recurrent PTX status post left upper lobectomy, PE and pAFib here for evaluation of shortness of breath.? Cough is more productive with green sputum. +GASPAR that is unchanged but still worse then baseline. No hemoptysis. no CP. Eating okay. Exam N
[2023-02-09] MEDS: PANTOPRAZOLE 40 MG TABLET PO ×2 (10:51→20:26)
[2023-02-09] MEDS: TAMSULOSIN HCL 0.4 MG CAPSULE PO (10:51)
[2023-02-09] MEDS: METOPROLOL TARTRATE 25 MG TABLET PO (10:52)
[2023-02-09] MEDS: levoFLOXacin 750 MG TABLET PO (10:53)
[2023-02-09] MEDS: metFORMIN HCL XR 500 MG TAB.SR.24H PO (10:53)
[2023-02-09] MEDS: LORATADINE 10 MG TABLET PO (10:53)
[2023-02-09] MEDS: DOXYCYCLINE HYCLATE 100 MG TABLET PO (10:54)
[2023-02-09] MEDS: CYANOCOBALAMIN 1,000 MCG TABLET 1000 MCG PO (10:54)
[2023-02-09] MEDS: APIXABAN 5 MG TABLET PO ×2 (10:54→20:25)
[2023-02-09] MEDS: predniSONE 20 MG TABLET 40 MG PO (10:55)
[2023-02-09] MEDS: IRON SUCROSE COMPLEX 100 MG in SODIUM CHLORIDE 0.9% IV 50 ML 220 MG IVPB (11:01)
[2023-02-09 11:48] LABS: Glucose Point of Care 230 mg/dl (65-105)
[2023-02-09] MEDS: INSULIN ASPART (*BKC) 100 UNITS/ML SUB-Q (12:39)
[2023-02-09 17:10] LABS: Glucose Point of Care 184 mg/dl (65-105)
[2023-02-09 19:57] LABS: Glucose Point of Care 220 mg/dl (65-105)
[2023-02-09] MEDS: LEFLUNOMIDE 20 MG TABLET PO (20:25)
[2023-02-09] MEDS: ATORVASTATIN 40 MG TABLET PO (20:26)
[2023-02-09 21:58] LABS: Pneumococcal Antigen Urine Not Detected (Not Detected)
[2023-02-10] VITALS (27 sets, daily range): BP systolic 102–136; BP diastolic 40–81; PULSE 79–117; RESP 16–24; TEMP 36.3–36.9; O2SAT 92–99
[2023-02-10] MEDS: IPRATROPIUM BR 0.02% INH SOLN 0.5 MG/2.5 ML VIAL INHALATION ×6 (00:35→20:47)
[2023-02-10] MEDS: LEVALBUTEROL NEB 1.25 MG/3 ML INHALATION ×6 (00:40→20:47)
[2023-02-10 04:48] LABS: Hematocrit 28.8 % (42.0-52.0); Hemoglobin 7.6 g/dL (14.0-18.0); Immature Platelet Fraction Pct 5.2 % (0.9-11.2); Mean Corpuscular HGB Conc 26.4 g/dl (32-36); Mean Corpuscular Hemoglobin 18.2 pg (26-34); Mean Corpuscular Volume 69.1 fl (80-100); Mean Platelet Volume 9.6 fl (7.4-10.4); Platelet Count Result 250 k/mm3 (150-375); Red Blood Count 4.17 M/mm3 (4.6-6.20); Red Cell Distribution Width 23.5 % (11.5-14.5); White Blood Count 10.7 K/mm3 (4.5-10.0)
[2023-02-10 05:03] LABS: Albumin Level 2.9 g/dL (3.5-5.1); Anion Gap -3 mmol/L (8-16); Blood Urea Nitrogen 17 mg/dL (9-20); Carbon Dioxide 39 mmol/L (22-30); Chloride 97 mmol/L (98-107); Estimated CRCL calculation 84 ml/min; Estimated Glomerular Filt Rate > 60; Glucose 156 mg/dL (65-110); Magnesium 2.5 mg/dL (1.6-2.3); Phosphorus 2.4 mg/dL (2.5-4.5); Potassium 3.8 mmol/L (3.4-5.0); Sodium 133 mmol/L (137-145)
[2023-02-10 05:20] LABS: Anisocytosis 2+ (NORMAL); Band Neutrophils Percent 24 % (0-6); Lymphocytes Absolute Manual 0.21 K/mm3 (1.1-4.5); Metamyelocytes Percent 1 %; Monocytes Absolute Manual 0.32 K/mm3 (0.1-0.90); Monocytes Percent Manual 3 % (3-9); Myelocytes Percent 2 %; Neutrophils Absolute Manual 9.84 K/mm3 (1.3-6.7); Neutrophils Percent Manual 68 % (46-73); Nucleated Red Blood Cells 1 %; Platelet Estimate Adequate (Adequate); Total Cells Counted 100
[2023-02-10 05:21] LABS: Macrocytosis 1+ (NORMAL); Microcytosis 2+ (NORMAL); Ovalocytes 1+ (NORMAL); Poikilocytosis 2+ (NORMAL)
[2023-02-10 05:22] LABS: Acanthocytes 1+ (NORMAL); Burr Cells 1+ (NORMAL); Hypochromasia 3+ (NORMAL); Polychromasia 1+ (NORMAL)
[2023-02-10 05:23] LABS: Smudge Cells PRESENT
[2023-02-10] MEDS: UMECLIDINIUM BROMIDE 62.5 MCG ELLIPTA 1 PUFF INHALATION (07:20)
[2023-02-10] MEDS: FLUTICASONE/SALMETEROL 230-21 MCG INHALER 1 PUFF 2 PUFF INHALATION ×2 (07:20→20:48)
[2023-02-10 08:22] LABS: Glucose Point of Care 169 mg/dl (65-105)
[2023-02-10] MEDS: TAMSULOSIN HCL 0.4 MG CAPSULE PO (09:29)
[2023-02-10] MEDS: LORATADINE 10 MG TABLET PO (09:29)
[2023-02-10] MEDS: PANTOPRAZOLE 40 MG TABLET PO ×2 (09:29→20:37)
[2023-02-10] MEDS: metFORMIN HCL XR 500 MG TAB.SR.24H PO (09:29)
[2023-02-10] MEDS: METOPROLOL TARTRATE 25 MG TABLET PO (09:29)
[2023-02-10] MEDS: CYANOCOBALAMIN 1,000 MCG TABLET 1000 MCG PO (09:30)
[2023-02-10] MEDS: APIXABAN 5 MG TABLET PO ×2 (09:30→20:37)
[2023-02-10] MEDS: predniSONE 20 MG TABLET 40 MG PO (09:30)
[2023-02-10] MEDS: levoFLOXacin 750 MG TABLET PO (09:30)
[2023-02-10] MEDS: IRON SUCROSE COMPLEX 100 MG in SODIUM CHLORIDE 0.9% IV 50 ML 220 MG IVPB (09:33)
[2023-02-10 12:11] LABS: Glucose Point of Care 153 mg/dl (65-105)
--- NOTE | 2023-02-10 12:48 | PM.IMPN ---
Progress Note: A&P Assessment and Plan (1) Acute and chronic respiratory failure with hypoxia: Code(s): J96.21 - Acute and chronic respiratory failure with hypoxia Status: Acute Assessment and Plan: Patient presented to the ED with increasing shortness of breath and wheezing and was on 15 L non-rebreather initially. -He normally wears 4L at rest and 6-8L with activity. -BNP 2000. Admission CXR: Mixed interstitial and airspace disease of the mid and lower lungs which may represent edema or pneumonia, without significant change from Sept. -He received a dose of Lasix in the ED. -weaned to his baseline 4L at rest. -still has increased WOB with exertion -CXR 02/09 shows: Airspace opacities of the right mid and lower lung zones, consistent with atelectasis versus PNA. -Probably combination of COPD exacerbation, PNA, AFib/RVR and/or dCHF exacerbation. Anemia contributing to his SOB. Pulmonary embolism unlikely as he is on Eliquis and states compliance. -He is better overall but not back to baseline since just started Vanco for MRSA coverage on 02/09. Suspect this will improve in 1-2 days. Continue levofloxacin. Vancomycin added when MRSA nasal swab came back positive. Continue steroids and bronchodilators. Increase activity as tolerated. Weight stable but positive fluid balance. Repeat Lasix once. Add Pulmozyme. (2) COPD exacerbation: Code(s): J44.1 - Chronic obstructive pulmonary disease with (acute) exacerbation Status: Acute Assessment and Plan: He has a productive cough, significant SOB, and diffuse wheezing. He was negative for influenza, COVID, and RSV. increase O2 requirement today. Still having significant GASPAR above his baseline but no wheezing. Lasix OV once. Continue scheduled bronchodilators and steroids. Follow. PT/OT (3) Pneumonia: Qualifiers: Laterality: bilateral Lung location: unspecified part of lung Pneumonia type: due to unspecified organism Qualified Code(s): J18.9 - Pneumonia, unspecified organism Code(s): J18.9 - Pneumonia, unspecified organism Status: Acute Assessment and Plan: As above. BCx NGTD. WBC was 17K but improved to 8-11K range. Sputum Cx growing yeast and MRSA. MRSA nasal swab positive. Vancomycin added. Continue Levaquin to complete a 7 day course. (4) Paroxysmal atrial fibrillation: Code(s): I48.0 - Paroxysmal atrial fibrillation Status: Chronic Assessment and Plan: EKG on admission showing AFib with HR 110. Rate was higher in ED and treated with IV Diltiazem. He remains in atrial fibrillation with rate better controlled but still elevated. Continue home metoprolol but change to succinate. Not wheezing so will continue metoprolol for now. Continue higher dose diltiazem. Appreciate Cardiology input. Continue Eliquis. (5) Hypertension: Code(s): I10 - Essential (primary) hypertension Status: Acute Assessment and Plan: Patient's blood pressure was reviewed on 02/10 Blood pressure remains well controlled. Will continue current medications. (6) Microcytic anemia: Code(s): D50.9 - Iron deficiency anemia, unspecified Status: Acute Assessment and Plan: Hemoglobin is nearly 2 g lower than what he typically runs. He was having bright red blood in his stools prior to admission. Iron studies consistent with iron deficiency. Consider GI consult toward the end of his hospital course for colonoscopy if able. Serial HH showing Hgb low but stable. Transfuse as needed. Stool is guaiac positive. Probably hemorrhoidal. He completed IV iron. Continue PPI. Continue tucks pads and anusol to treat hemorrhoids. (7) Diarrhea: Code(s): R19.7 - Diarrhea, unspecified Status: Acute Assessment and Plan: Patient had loose stools on admission and recently on Amoxicillin. Diarrhea has resolved. Follow Subjective Date/time seen: 02/10/23 12:48 Interval history: 6
[2023-02-10 16:35] LABS: Glucose Point of Care 212 mg/dl (65-105)
--- NOTE | 2023-02-10 16:37 | PC.NURSE ---
Dr. Church reports patient is ok to downgrade to [facility].
[2023-02-10 19:34] LABS: Glucose Point of Care 245 mg/dl (65-105)
[2023-02-10 19:50] LABS: Mycoplasma IgM Antibody Titer 132 U/mL (<770)
[2023-02-10] MEDS: LEFLUNOMIDE 20 MG TABLET PO (20:37)
[2023-02-10] MEDS: ATORVASTATIN 40 MG TABLET PO (20:37)
[2023-02-10] MEDS: DORNASE ALFA INH SOLN 1 MG/ML 2.5 ML AMP 2.5 MG INHALATION (20:47)
[2023-02-11] VITALS (22 sets, daily range): BP systolic 110–122; BP diastolic 57–68; PULSE 91–128; RESP 18–24; TEMP 35.8–36.6; O2SAT 92–99
[2023-02-11 00:44] LABS: Vancomycin Trough 13.3 ug/mL (10.0-20.0)
[2023-02-11] MEDS: IPRATROPIUM BR 0.02% INH SOLN 0.5 MG/2.5 ML VIAL INHALATION ×6 (00:45→23:48)
[2023-02-11] MEDS: LEVALBUTEROL NEB 1.25 MG/3 ML INHALATION ×6 (00:46→23:48)
[2023-02-11 04:55] LABS: Hematocrit 29.5 % (42.0-52.0); Hemoglobin 7.8 g/dL (14.0-18.0); Immature Platelet Fraction Pct 6.3 % (0.9-11.2); Mean Corpuscular HGB Conc 26.4 g/dl (32-36); Mean Corpuscular Hemoglobin 18.2 pg (26-34); Mean Corpuscular Volume 68.8 fl (80-100); Mean Platelet Volume 10.2 fl (7.4-10.4); Platelet Count Result 213 k/mm3 (150-375); Red Blood Count 4.29 M/mm3 (4.6-6.20); Red Cell Distribution Width 23.9 % (11.5-14.5); White Blood Count 9.1 K/mm3 (4.5-10.0)
[2023-02-11 05:04] LABS: Anion Gap -2 mmol/L (8-16); Blood Urea Nitrogen 17 mg/dL (9-20); Calcium 7.6 mg/dL (8.4-10.2); Carbon Dioxide 38 mmol/L (22-30); Chloride 95 mmol/L (98-107); Estimated CRCL calculation 96 ml/min; Estimated Glomerular Filt Rate > 60; Glucose 140 mg/dL (65-110); Potassium 3.8 mmol/L (3.4-5.0); Sodium 131 mmol/L (137-145)
[2023-02-11 07:43] LABS: Glucose Point of Care 141 mg/dl (65-105)
[2023-02-11] MEDS: FLUTICASONE/SALMETEROL 230-21 MCG INHALER 1 PUFF 2 PUFF INHALATION ×2 (08:10→20:13)
[2023-02-11] MEDS: DORNASE ALFA INH SOLN 1 MG/ML 2.5 ML AMP 2.5 MG INHALATION ×2 (08:10→20:06)
[2023-02-11] MEDS: UMECLIDINIUM BROMIDE 62.5 MCG ELLIPTA 1 PUFF INHALATION (08:11)
[2023-02-11] MEDS: predniSONE 20 MG TABLET 40 MG PO (08:53)
[2023-02-11] MEDS: CYANOCOBALAMIN 1,000 MCG TABLET 1000 MCG PO (08:54)
[2023-02-11] MEDS: PANTOPRAZOLE 40 MG TABLET PO ×2 (08:54→20:06)
[2023-02-11] MEDS: metFORMIN HCL XR 500 MG TAB.SR.24H PO (08:54)
[2023-02-11] MEDS: METOPROLOL SUCCINATE EXT REL 12.5 MG TABCR PO (08:54)
[2023-02-11] MEDS: APIXABAN 5 MG TABLET PO ×2 (08:54→20:06)
[2023-02-11] MEDS: LORATADINE 10 MG TABLET PO (08:54)
[2023-02-11] MEDS: TAMSULOSIN HCL 0.4 MG CAPSULE PO (08:55)
[2023-02-11] MEDS: levoFLOXacin 750 MG TABLET PO (08:55)
[2023-02-11 12:09] LABS: Glucose Point of Care 170 mg/dl (65-105)
--- NOTE | 2023-02-11 15:06 | PM.IMPN ---
Progress Note: A&P Assessment and Plan (1) Acute and chronic respiratory failure with hypoxia: Code(s): J96.21 - Acute and chronic respiratory failure with hypoxia Status: Acute Assessment and Plan: Patient presented to the ED with increasing shortness of breath and wheezing and was on 15 L non-rebreather initially. -He normally wears 4L at rest and 6-8L with activity. -BNP 2000. Admission CXR: Mixed interstitial and airspace disease of the mid and lower lungs which may represent edema or pneumonia, without significant change from Sept. -He received a dose of Lasix in the ED. -weaned to his baseline 4L at rest. -still has increased WOB with exertion -CXR 02/09 shows: Airspace opacities of the right mid and lower lung zones, consistent with atelectasis versus PNA. -Probably combination of COPD exacerbation, PNA, AFib/RVR and/or dCHF exacerbation. Anemia contributing to his SOB. Pulmonary embolism unlikely as he is on Eliquis and states compliance. -He is better overall but not back to baseline since just started Vanco for MRSA coverage on 02/09. Suspect this will improve in 1-2 days. Continue levofloxacin. Vancomycin added when MRSA nasal swab came back positive. Continue steroids and bronchodilators. Increase activity as tolerated. Add Pulmozyme. (2) COPD exacerbation: Code(s): J44.1 - Chronic obstructive pulmonary disease with (acute) exacerbation Status: Acute Assessment and Plan: Continue scheduled bronchodilators and steroids. Follow. PT/OT (3) Pneumonia: Qualifiers: Laterality: bilateral Lung location: unspecified part of lung Pneumonia type: due to unspecified organism Qualified Code(s): J18.9 - Pneumonia, unspecified organism Code(s): J18.9 - Pneumonia, unspecified organism Status: Acute Assessment and Plan: As above. BCx NGTD. WBC was 17K but improved to 8-11K range. Sputum Cx growing yeast and MRSA. MRSA nasal swab positive. Vancomycin added. Continue Levaquin to complete a 7 day course. (4) Paroxysmal atrial fibrillation: Code(s): I48.0 - Paroxysmal atrial fibrillation Status: Chronic Assessment and Plan: EKG on admission showing AFib with HR 110. Rate was higher in ED and treated with IV Diltiazem. He remains in atrial fibrillation with rate better controlled but still elevated. Continue home metoprolol but change to succinate. Not wheezing so will continue metoprolol for now. Continue higher dose diltiazem. Appreciate Cardiology input. Continue Eliquis. (5) Hypertension: Code(s): I10 - Essential (primary) hypertension Status: Acute Assessment and Plan: Patient's blood pressure was reviewed on 02/11 Blood pressure remains well controlled. Will continue current medications. (6) Microcytic anemia: Code(s): D50.9 - Iron deficiency anemia, unspecified Status: Acute Assessment and Plan: Hemoglobin is nearly 2 g lower than what he typically runs. He was having bright red blood in his stools prior to admission. Iron studies consistent with iron deficiency. Consider GI consult toward the end of his hospital course for colonoscopy if able. Serial HH showing Hgb low but stable. Transfuse as needed. Stool is guaiac positive. Probably hemorrhoidal. He completed IV iron. Continue PPI. Continue tucks pads and anusol to treat hemorrhoids. (7) Diarrhea: Code(s): R19.7 - Diarrhea, unspecified Status: Acute Assessment and Plan: Patient had loose stools on admission and recently on Amoxicillin. Diarrhea has resolved. Follow Plan DVT prophylaxis with SCDs GI prophylaxis not indicated Code status full code Subjective Date/time seen: 02/11/23 15:06 Interval history: 68yo male with chronic respiratory failure on 4 L at rest and 8 L with exertion, COPD, recurrent PTX status post left upper lobectomy, PE and pAFib here for evaluation of shortness of b
--- NOTE | 2023-02-11 15:20 | PC.NURSE ---
This patient, Giuseppe Rosa III, was received from [facility] on 02/11/23 at 1520. Patient/family oriented to unit policies and routines
--- NOTE | 2023-02-11 15:26 | PC.NURSE ---
This patient, Giuseppe Rosa III, was transferred to [facility] on 02/11/23 at 1534. Personal belongings sent with patient. Report given to DAVID Tavarez. Appropriate documentation sent with patient.
[2023-02-11 16:45] LABS: Glucose Point of Care 249 mg/dl (65-105)
[2023-02-11] MEDS: INSULIN ASPART (*BKC) 100 UNITS/ML SUB-Q (16:48)
[2023-02-11] MEDS: ATORVASTATIN 40 MG TABLET PO (20:06)
[2023-02-11] MEDS: LEFLUNOMIDE 20 MG TABLET PO (20:07)
[2023-02-11 20:28] LABS: Glucose Point of Care 185 mg/dl (65-105)
[2023-02-12] VITALS (18 sets, daily range): BP systolic 94–131; BP diastolic 46–77; PULSE 80–116; RESP 14–22; TEMP 35.9–36.2; O2SAT 87–100
[2023-02-12 00:14] LABS: Legionella pneumophila Ag Ur Not Detected (Not Detected)
[2023-02-12] MEDS: LEVALBUTEROL NEB 1.25 MG/3 ML INHALATION ×5 (04:15→20:27)
[2023-02-12] MEDS: IPRATROPIUM BR 0.02% INH SOLN 0.5 MG/2.5 ML VIAL INHALATION ×5 (04:15→20:27)
[2023-02-12 06:26] LABS: Basophils Absolute Auto 0.1 K/mm3 (0.0-0.1); Basophils Percent Auto 0.9 % (0.2-1.2); Eosinophils Absolute Auto 0.1 K/mm3 (0-0.3); Eosinophils Percent Auto 0.6 % (0-4.4); Hematocrit 31.5 % (42.0-52.0); Hemoglobin 8.2 g/dL (14.0-18.0); Immature Granulocyte Absolute 0.77 K/mm3 (0.00-0.031); Immature Granulocyte Percent A 8.3 % (0-0.5); Immature Platelet Fraction Pct 6.4 % (0.9-11.2); Lymphocytes Absolute Auto 0.47 K/mm3 (0.9-3.2); Mean Corpuscular Hemoglobin 18.3 pg (26-34); Mean Corpuscular Volume 70.3 fl (80-100); Monocytes Absolute Auto 0.7 K/mm3 (0.1-0.6); Monocytes Percent Auto 7.2 % (2.6-8.5); Neutrophils Absolute Auto 7.3 K/mm3 (1.3-6.7); Nucleated Red Blood Cells Absolute Auto 0.2 K/mm3 (0.0-0.012); Nucleated Red Blood Cells Perc 2.1 % (0.0-0.2); Platelet Count Result 224 k/mm3 (150-375); Red Blood Count 4.48 M/mm3 (4.6-6.20); Red Cell Distribution Width 25.2 % (11.5-14.5); White Blood Count 9.3 K/mm3 (4.5-10.0)
[2023-02-12 06:34] LABS: Alanine Aminotransferase 24 U/L (6-50); Albumin Level 2.9 g/dL (3.5-5.1); Alkaline Phosphatase 50 U/L (38-126); Aspartate Amino Transferase 20 U/L (17-59); Bilirubin,Total 0.4 mg/dL (0.2-1.3); Blood Urea Nitrogen 15 mg/dL (9-20); Calcium 7.8 mg/dL (8.4-10.2); Carbon Dioxide > 40 mmol/L (22-30); Chloride 97 mmol/L (98-107); Estimated CRCL calculation 96 ml/min; Estimated Glomerular Filt Rate > 60; Glucose 102 mg/dL (65-110); Potassium 3.8 mmol/L (3.4-5.0); Sodium 133 mmol/L (137-145)
[2023-02-12 06:50] LABS: Anisocytosis 3+ (NORMAL); Hypochromasia 2+ (NORMAL); Platelet Estimate Adequate (Adequate); Schistocytes None Seen (NORMAL); Target Cells 1+ (NORMAL)
[2023-02-12 08:10] LABS: Glucose Point of Care 99 mg/dl (65-105)
[2023-02-12] MEDS: APIXABAN 5 MG TABLET PO ×2 (08:38→21:00)
[2023-02-12] MEDS: levoFLOXacin 750 MG TABLET PO (08:38)
[2023-02-12] MEDS: LORATADINE 10 MG TABLET PO (08:38)
[2023-02-12] MEDS: predniSONE 20 MG TABLET 40 MG PO (08:38)
[2023-02-12] MEDS: CYANOCOBALAMIN 1,000 MCG TABLET 1000 MCG PO (08:38)
[2023-02-12] MEDS: TAMSULOSIN HCL 0.4 MG CAPSULE PO (08:39)
[2023-02-12] MEDS: metFORMIN HCL XR 500 MG TAB.SR.24H PO (08:39)
[2023-02-12] MEDS: METOPROLOL SUCCINATE EXT REL 12.5 MG TABCR PO (08:39)
[2023-02-12] MEDS: PANTOPRAZOLE 40 MG TABLET PO ×2 (08:39→21:00)
--- NOTE | 2023-02-12 08:42 | PM.IMPN ---
Progress Note: A&P Assessment and Plan (1) COPD exacerbation: Code(s): J44.1 - Chronic obstructive pulmonary disease with (acute) exacerbation Status: Acute Assessment and Plan: Continue scheduled bronchodilators and steroids. Follow. PT/OT On pulmozyme, d/c soon (2) Pneumonia: Qualifiers: Laterality: bilateral Lung location: unspecified part of lung Pneumonia type: due to unspecified organism Qualified Code(s): J18.9 - Pneumonia, unspecified organism Code(s): J18.9 - Pneumonia, unspecified organism Status: Acute Assessment and Plan: As above. BCx NGTD. Sputum Cx growing yeast and MRSA. MRSA nasal swab positive. Vancomycin added 02/11. Continue Levaquin to complete a 10-14 day course (3) Acute and chronic respiratory failure with hypoxia: Code(s): J96.21 - Acute and chronic respiratory failure with hypoxia Status: Acute Assessment and Plan: As above Patient presented to the ED with increasing shortness of breath and wheezing and was on 15 L non-rebreather initially. He normally wears 4L at rest and 6-8L with activity. CXR 02/09: Airspace opacities of the right mid and lower lung zones, consistent with atelectasis versus PNA. Probably combination of COPD exacerbation, PNA, AFib/RVR and/or dCHF exacerbation. Anemia contributing to his SOB. Pulmonary embolism unlikely as he is on Eliquis and states compliance. (4) Paroxysmal atrial fibrillation: Code(s): I48.0 - Paroxysmal atrial fibrillation Status: Chronic Assessment and Plan: EKG on admission showing AFib with HR 110. Rate was higher in ED and treated with IV Diltiazem. He remains in atrial fibrillation with rate better controlled but still elevated. Continue home metoprolol. Continue higher dose diltiazem. Appreciate Cardiology input. Continue Eliquis. (5) Hypertension: Code(s): I10 - Essential (primary) hypertension Status: Acute Assessment and Plan: Patient's blood pressure was reviewed on 02/12 Blood pressure remains well controlled. Will continue current medications. (6) Microcytic anemia: Code(s): D50.9 - Iron deficiency anemia, unspecified Status: Acute Assessment and Plan: Hemoglobin is nearly 2 g lower than what he typically runs. He was having bright red blood in his stools prior to admission. Iron studies consistent with iron deficiency. Consider GI consult toward the end of his hospital course for colonoscopy if able. Serial HH showing Hgb low but stable. Transfuse as needed. Stool is guaiac positive. Probably hemorrhoidal. He completed IV iron. Continue PPI. Continue tucks pads and anusol to treat hemorrhoids. (7) Diarrhea: Code(s): R19.7 - Diarrhea, unspecified Status: Acute Assessment and Plan: Resolved Plan DVT prophylaxis with SCDs GI prophylaxis not indicated Code status full code Subjective Date/time seen: 02/12/23 08:42 Interval history: 68yo male with chronic respiratory failure on 4 L at rest and 8 L with exertion, COPD, recurrent PTX status post left upper lobectomy, PE and pAFib here for evaluation of shortness of breath found to have MRSA in his sputum. Patient states he feels much better today than yesterday. He states his breathing feels significantly improved. No blood in his stool. No overnight events, no fevers. Review of Systems Review of Systems: 12 point review of systems was assessed and was negative except as noted in the HPI Exam Narrative: General: No acute distress, alert and oriented per baseline HEENT: Atraumatic, normocephalic, mucous membranes moist CV: Irregularly irregular, S1, S2 Lungs: Moderate air entry throughout, no wheeze, fine crackles at bases Abdomen: Soft, nontender, nondistended Extremities: Normal to inspection Skin: No rashes noted, no lesions or wounds seen Psych: Euthymic, normal affect
[2023-02-12] MEDS: FLUTICASONE/SALMETEROL 230-21 MCG INHALER 1 PUFF 2 PUFF INHALATION ×2 (08:57→20:55)
[2023-02-12] MEDS: DORNASE ALFA INH SOLN 1 MG/ML 2.5 ML AMP 2.5 MG INHALATION ×2 (08:57→20:27)
[2023-02-12 11:46] LABS: Glucose Point of Care 160 mg/dl (65-105)
[2023-02-12 17:17] LABS: Glucose Point of Care 251 mg/dl (65-105)
[2023-02-12] MEDS: INSULIN ASPART (*BKC) 100 UNITS/ML SUB-Q (17:18)
[2023-02-12] MEDS: LEFLUNOMIDE 20 MG TABLET PO (21:00)
[2023-02-12] MEDS: ATORVASTATIN 40 MG TABLET PO (21:00)
[2023-02-12 21:40] LABS: Glucose Point of Care 154 mg/dl (65-105)
[2023-02-13] VITALS (19 sets, daily range): BP systolic 100–127; BP diastolic 58–67; PULSE 84–118; RESP 14–22; TEMP 35.7–36.4; O2SAT 92–100
[2023-02-13] MEDS: IPRATROPIUM BR 0.02% INH SOLN 0.5 MG/2.5 ML VIAL INHALATION ×5 (00:14→21:06)
[2023-02-13] MEDS: LEVALBUTEROL NEB 1.25 MG/3 ML INHALATION ×5 (00:14→21:06)
[2023-02-13 06:23] LABS: Basophils Absolute Auto 0.1 K/mm3 (0.0-0.1); Basophils Percent Auto 0.5 % (0.2-1.2); Eosinophils Absolute Auto 0.1 K/mm3 (0-0.3); Eosinophils Percent Auto 0.6 % (0-4.4); Hematocrit 31.2 % (42.0-52.0); Hemoglobin 8.2 g/dL (14.0-18.0); Immature Granulocyte Absolute 0.88 K/mm3 (0.00-0.031); Immature Granulocyte Percent A 8.3 % (0-0.5); Immature Platelet Fraction Pct 6.3 % (0.9-11.2); Lymphocytes Absolute Auto 0.47 K/mm3 (0.9-3.2); Lymphocytes Percent Auto 4.4 % (18.3-44.2); Mean Corpuscular HGB Conc 26.3 g/dl (32-36); Mean Corpuscular Hemoglobin 19.2 pg (26-34); Mean Corpuscular Volume 72.9 fl (80-100); Mean Platelet Volume 9.7 fl (7.4-10.4); Monocytes Absolute Auto 0.7 K/mm3 (0.1-0.6); Monocytes Percent Auto 6.3 % (2.6-8.5); Neutrophils Absolute Auto 8.5 K/mm3 (1.3-6.7); Neutrophils Percent Auto 79.9 % (45.5-73.1); Nucleated Red Blood Cells Absolute Auto 0.1 K/mm3 (0.0-0.012); Nucleated Red Blood Cells Perc 0.8 % (0.0-0.2); Platelet Count Result 240 k/mm3 (150-375); Red Blood Count 4.28 M/mm3 (4.6-6.20); Red Cell Distribution Width 26.4 % (11.5-14.5); White Blood Count 10.6 K/mm3 (4.5-10.0)
[2023-02-13 06:34] LABS: Alanine Aminotransferase 25 U/L (6-50); Albumin Level 2.8 g/dL (3.5-5.1); Alkaline Phosphatase 50 U/L (38-126); Anion Gap -2 mmol/L (8-16); Aspartate Amino Transferase 19 U/L (17-59); Bilirubin,Total 0.4 mg/dL (0.2-1.3); Blood Urea Nitrogen 13 mg/dL (9-20); Calcium 7.7 mg/dL (8.4-10.2); Carbon Dioxide 39 mmol/L (22-30); Chloride 95 mmol/L (98-107); Estimated CRCL calculation 96 ml/min; Estimated Glomerular Filt Rate > 60; Glucose 100 mg/dL (65-110); Potassium 3.6 mmol/L (3.4-5.0); Sodium 132 mmol/L (137-145)
[2023-02-13 07:41] LABS: Glucose Point of Care 100 mg/dl (65-105)
[2023-02-13 07:49] LABS: Hypochromasia 2+ (NORMAL); Platelet Estimate Adequate (Adequate)
[2023-02-13 07:50] LABS: Anisocytosis 2+ (NORMAL); Macrocytosis 1+ (NORMAL); Poikilocytosis 1+ (NORMAL); Schistocytes None Seen (NORMAL)
[2023-02-13] MEDS: levoFLOXacin 750 MG TABLET PO (08:24)
[2023-02-13] MEDS: predniSONE 20 MG TABLET 40 MG PO (08:24)
[2023-02-13] MEDS: METOPROLOL SUCCINATE EXT REL 12.5 MG TABCR PO (08:24)
[2023-02-13] MEDS: TAMSULOSIN HCL 0.4 MG CAPSULE PO (08:25)
[2023-02-13] MEDS: PANTOPRAZOLE 40 MG TABLET PO ×2 (08:25→20:32)
[2023-02-13] MEDS: CYANOCOBALAMIN 1,000 MCG TABLET 1000 MCG PO (08:25)
[2023-02-13] MEDS: metFORMIN HCL XR 500 MG TAB.SR.24H PO (08:25)
[2023-02-13] MEDS: APIXABAN 5 MG TABLET PO ×2 (08:25→20:32)
[2023-02-13] MEDS: LORATADINE 10 MG TABLET PO (08:27)
[2023-02-13] MEDS: FLUTICASONE/SALMETEROL 230-21 MCG INHALER 1 PUFF 2 PUFF INHALATION (08:55)
[2023-02-13] MEDS: DORNASE ALFA INH SOLN 1 MG/ML 2.5 ML AMP 2.5 MG INHALATION (08:55)
--- NOTE | 2023-02-13 09:39 | PCNWS ---
Weekly nutritional screen. Patient is tolerating current Heart Healthy diet with 100% intake. No weight loss reported. No nutritional needs at this time.
--- NOTE | 2023-02-13 09:47 | PM.CNPUL ---
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 The patient has been treated with IV steroids antibiotics and bronchodilators with significant improvement. He also received treatment for atrial fibrillation with rapid ventricular response. Clinical status is back at baseline. Currently has been on vancomycin for MRSA in sputum and also in nose. Oral prednisone has been discontinued. chest x-ray shows no new infiltrates compared to a baseline study in June of 2022. Agree with current antibiotic regimen. (2) Pulmonary emphysema with fibrosis of lung: Code(s): J43.9 - Emphysema, unspecified; J84.10 - Pulmonary fibrosis, unspecified Status: Acute (3) Atrial fibrillation: Qualifiers: Atrial fibrillation type: paroxysmal Qualified Code(s): I48.0 - Paroxysmal atrial fibrillation Code(s): I48.91 - Unspecified atrial fibrillation Status: Acute (4) Acute respiratory failure: Qualifiers: Respiratory failure complication: hypoxia Qualified Code(s): J96.01 - Acute respiratory failure with hypoxia Code(s): J96.00 - Acute respiratory failure, unspecified whether with hypoxia or hypercapnia Status: Acute (5) Pulmonary hypertension: Code(s): I27.20 - Pulmonary hypertension, unspecified Status: Acute History of Present Illness History of Present Illness Consult date: 02/13/23 Chief complaint: A Fib w/RVR,COPD Exacerbation,Pneumonia Narrative: this 68-year-old man with history of chronic hypoxemic respiratory failure presented 1 week ago with several day history of cough, congestion and increasing shortness of breath. The patient is well known to me. He has got history of severe bullous emphysema and pulmonary fibrosis bilaterally. Patient has been on relatively high oxygen flows at home. Patient is followed by [facility] at [facility]. During hospitalization in last June the patient was treated for pneumomediastinum and extensive interstitial emphysema for which he was subsequently transferred to a tertiary center where he underwent some sort of chest drainage procedure. He was in his usual state of health until approximately 7 days prior to this admission when he began to have chest congestion cough and increasing shortness of breath. When evaluated in the emergency room he was found to be in atrial fibrillation with rapid ventricular response. Since admission to the hospital he has received treatment for atrial fibrillation as well as for COPD exacerbation with IV steroids antibiotics and bronchodilators. Recent testing showed MRSA in nose and also MRSA in sputum culture. Patient has been on vancomycin IV treatment. Currently, patient thinks he is back at baseline. Last chest x-ray showed no significant changes from previous x-rays with exception of a small pleural effusion on left. in the past his echocardiogram had showed elevated pulmonary artery systolic pressure. Patient has end-stage respiratory failure requiring high FiO2 at rest, with a history of significant desaturation with any activity. Review of Systems Review of Systems: All systems reviewed & are unremarkable except as noted in HPI and below ( In HPI and below) [facility] Past Medical History Medical History (Updated 02/06/23 @ 14:06 by Nigel Morocho MD) Benign prostatic hyperplasia Chronic anemia Chronic anticoagulation Chronic interstitial lung disease Chronic respiratory failure with hypoxia, on home O2 therapy COPD with emphysema Essential hypertension Gastroesophageal reflux disease Gout Hyperlipidemia Paroxysmal atr
--- NOTE | 2023-02-13 11:24 | PM.IMPN ---
Progress Note: A&P Assessment and Plan (1) COPD exacerbation: Code(s): J44.1 - Chronic obstructive pulmonary disease with (acute) exacerbation Status: Acute Assessment and Plan: Continue scheduled bronchodilators and steroids. Follow. PT/OT On pulmozyme, d/c soon (2) Pneumonia: Qualifiers: Laterality: bilateral Lung location: unspecified part of lung Pneumonia type: due to unspecified organism Qualified Code(s): J18.9 - Pneumonia, unspecified organism Code(s): J18.9 - Pneumonia, unspecified organism Status: Acute Assessment and Plan: As above. BCx NGTD. Sputum Cx growing yeast and MRSA. MRSA nasal swab positive. Vancomycin added 02/11. Continue Levaquin to complete a 10-14 day course (3) Acute and chronic respiratory failure with hypoxia: Code(s): J96.21 - Acute and chronic respiratory failure with hypoxia Status: Acute Assessment and Plan: As above Patient presented to the ED with increasing shortness of breath and wheezing and was on 15 L non-rebreather initially. He normally wears 4L at rest and 6-8L with activity. CXR 02/09: Airspace opacities of the right mid and lower lung zones, consistent with atelectasis versus PNA. Probably combination of COPD exacerbation, PNA, AFib/RVR and/or dCHF exacerbation. Anemia contributing to his SOB. Pulmonary embolism unlikely as he is on Eliquis and states compliance. Symptoms slowly improving. Close for discharge. (4) Paroxysmal atrial fibrillation: Code(s): I48.0 - Paroxysmal atrial fibrillation Status: Chronic Assessment and Plan: EKG on admission showing AFib with HR 110. Rate was higher in ED and treated with IV Diltiazem. He remains in atrial fibrillation with rate better controlled. Continue home metoprolol. Continue higher dose diltiazem. Appreciate Cardiology input. Continue Eliquis. Stop tele (5) Hypertension: Code(s): I10 - Essential (primary) hypertension Status: Acute Assessment and Plan: Patient's blood pressure was reviewed on 02/13 Blood pressure remains well controlled. Will continue current medications. (6) Microcytic anemia: Code(s): D50.9 - Iron deficiency anemia, unspecified Status: Acute Assessment and Plan: Hemoglobin is nearly 2 g lower than what he typically runs. He was having bright red blood in his stools prior to admission. Iron studies consistent with iron deficiency. Consider GI consult toward the end of his hospital course for colonoscopy if able. Serial HH showing Hgb low but stable. Transfuse as needed. Stool is guaiac positive. Probably hemorrhoidal. He completed IV iron. Continue PPI. Continue tucks pads and anusol to treat hemorrhoids. (7) Diarrhea: Code(s): R19.7 - Diarrhea, unspecified Status: Acute Assessment and Plan: Resolved Plan DVT prophylaxis with Eliquis GI prophylaxis not indicated Code status full code Subjective Date/time seen: 02/13/23 11:24 Interval history: 68yo male with chronic respiratory failure on 4 L at rest and 8 L with exertion, COPD, recurrent PTX status post left upper lobectomy, PE and pAFib here for evaluation of shortness of breath found to have MRSA in his sputum. Assuming care. Chart reviewed. Patient has been out of bed more often. No chest pain. Minimal cough now. Still with sinus drainage but this is better as well. Nasal congestion has improved. Having loose stools. No diarrhea. More short of breath still when he exerts himself. Exam Narrative: AF 97.5 100/58 92 20 93% 6.5L nc General: No acute distress, alert and oriented per baseline HEENT: Atraumatic, normocephalic, mucous membranes moist CV: Irregularly irregular, S1, S2. Tele showing occasional tachycardia. Lungs: Moderate air entry throughout, no wheeze, bibasilar R>L crackles Abdomen: Soft, nontender, nondistended Extremities: Norm
[2023-02-13 11:47] LABS: Glucose Point of Care 134 mg/dl (65-105)
--- NOTE | 2023-02-13 13:37 | PCPTNOTE ---
Patient declined PT at this time stating he has been up several times today and gets SOB with activity. Patient states he just received a breathing treatment and he requests to rest and improve his breathing. PT will continue to follow per plan of care.
--- NOTE | 2023-02-13 14:04 | PCOTNOTE ---
Patient refused treatment this session due to not feeling well, having increased bowel movements and shortness of breath
[2023-02-13 16:17] LABS: Glucose Point of Care 287 mg/dl (65-105)
[2023-02-13] MEDS: INSULIN ASPART (*BKC) 100 UNITS/ML SUB-Q (16:41)
[2023-02-13] MEDS: LEFLUNOMIDE 20 MG TABLET PO (20:32)
[2023-02-13] MEDS: ATORVASTATIN 40 MG TABLET PO (20:32)
[2023-02-13 20:46] LABS: Glucose Point of Care 165 mg/dl (65-105)
[2023-02-14] VITALS (17 sets, daily range): BP systolic 104–124; BP diastolic 60–77; PULSE 91–115; RESP 16–24; TEMP 35.7–36.6; O2SAT 93–100
[2023-02-14 07:59] LABS: Basophils Absolute Auto 0.1 K/mm3 (0.0-0.1); Basophils Percent Auto 0.5 % (0.2-1.2); Eosinophils Percent Auto 0.4 % (0-4.4); Hematocrit 31.9 % (42.0-52.0); Hemoglobin 8.3 g/dL (14.0-18.0); Immature Granulocyte Absolute 0.86 K/mm3 (0.00-0.031); Immature Granulocyte Percent A 7.9 % (0-0.5); Immature Platelet Fraction Pct 5.9 % (0.9-11.2); Lymphocytes Absolute Auto 0.64 K/mm3 (0.9-3.2); Lymphocytes Percent Auto 5.9 % (18.3-44.2); Mean Corpuscular Hemoglobin 19.2 pg (26-34); Mean Corpuscular Volume 73.8 fl (80-100); Monocytes Absolute Auto 0.8 K/mm3 (0.1-0.6); Monocytes Percent Auto 6.9 % (2.6-8.5); Neutrophils Absolute Auto 8.5 K/mm3 (1.3-6.7); Neutrophils Percent Auto 78.4 % (45.5-73.1); Nucleated Red Blood Cells Absolute Auto 0.1 K/mm3 (0.0-0.012); Nucleated Red Blood Cells Perc 0.5 % (0.0-0.2); Platelet Count Result 252 k/mm3 (150-375); Red Blood Count 4.32 M/mm3 (4.6-6.20); Red Cell Distribution Width 27.1 % (11.5-14.5); White Blood Count 10.8 K/mm3 (4.5-10.0)
[2023-02-14 08:04] LABS: Glucose Point of Care 99 mg/dl (65-105)
[2023-02-14 08:07] LABS: Alanine Aminotransferase 25 U/L (6-50); Albumin Level 2.9 g/dL (3.5-5.1); Alkaline Phosphatase 50 U/L (38-126); Aspartate Amino Transferase 20 U/L (17-59); Bilirubin,Total 0.5 mg/dL (0.2-1.3); Blood Urea Nitrogen 12 mg/dL (9-20); Calcium 7.9 mg/dL (8.4-10.2); Carbon Dioxide > 40 mmol/L (22-30); Chloride 93 mmol/L (98-107); Estimated CRCL calculation 96 ml/min; Estimated Glomerular Filt Rate > 60; Glucose 97 mg/dL (65-110); Potassium 3.6 mmol/L (3.4-5.0); Sodium 132 mmol/L (137-145)
[2023-02-14] MEDS: metFORMIN HCL XR 500 MG TAB.SR.24H PO (08:11)
[2023-02-14] MEDS: levoFLOXacin 750 MG TABLET PO (08:11)
[2023-02-14] MEDS: PANTOPRAZOLE 40 MG TABLET PO ×2 (08:11→20:26)
[2023-02-14] MEDS: METOPROLOL SUCCINATE EXT REL 12.5 MG TABCR PO (08:11)
[2023-02-14] MEDS: TAMSULOSIN HCL 0.4 MG CAPSULE PO (08:11)
[2023-02-14] MEDS: CYANOCOBALAMIN 1,000 MCG TABLET 1000 MCG PO (08:11)
[2023-02-14] MEDS: APIXABAN 5 MG TABLET PO ×2 (08:11→20:26)
[2023-02-14] MEDS: FLUTICASONE/SALMETEROL 230-21 MCG INHALER 1 PUFF 2 PUFF INHALATION ×2 (08:45→20:12)
[2023-02-14] MEDS: IPRATROPIUM BR 0.02% INH SOLN 0.5 MG/2.5 ML VIAL INHALATION ×5 (08:45→20:12)
[2023-02-14] MEDS: LEVALBUTEROL NEB 1.25 MG/3 ML INHALATION ×5 (08:45→20:11)
[2023-02-14] MEDS: DORNASE ALFA INH SOLN 1 MG/ML 2.5 ML AMP 2.5 MG INHALATION ×2 (08:45→20:35)
[2023-02-14 09:41] LABS: Anisocytosis 1+ (NORMAL); Hypochromasia 2+ (NORMAL); Macrocytosis 1+ (NORMAL); Platelet Estimate Adequate (Adequate); Poikilocytosis 2+ (NORMAL)
[2023-02-14 09:42] LABS: Ovalocytes 1+ (NORMAL); Schistocytes 1+ (NORMAL)
[2023-02-14] MEDS: LORATADINE 10 MG TABLET PO (10:08)
--- NOTE | 2023-02-14 10:38 | PM.IMPN ---
Progress Note: A&P Assessment and Plan (1) COPD exacerbation: Code(s): J44.1 - Chronic obstructive pulmonary disease with (acute) exacerbation Status: Acute Assessment and Plan: Continue scheduled bronchodilators. Off steroids. Follow. PT/OT On pulmozyme, d/c soon (2) Pneumonia: Qualifiers: Laterality: bilateral Lung location: unspecified part of lung Pneumonia type: due to unspecified organism Qualified Code(s): J18.9 - Pneumonia, unspecified organism Code(s): J18.9 - Pneumonia, unspecified organism Status: Acute Assessment and Plan: As above. BCx NGTD. Sputum Cx growing yeast and MRSA. MRSA nasal swab positive. Vancomycin added 02/11. Continue Levaquin to complete a 10-14 day course. Change to Doxycycline tomorrow. (3) Acute and chronic respiratory failure with hypoxia: Code(s): J96.21 - Acute and chronic respiratory failure with hypoxia Status: Acute Assessment and Plan: As above. Patient presented to the ED with increasing shortness of breath and wheezing and was on 15 L non-rebreather initially. He normally wears 4L at rest and 6-8L with activity. CXR 02/09: Airspace opacities of the right mid and lower lung zones, consistent with atelectasis versus PNA. Probably combination of COPD exacerbation, PNA, AFib/RVR and/or dCHF exacerbation. Anemia contributing to his SOB. Pulmonary embolism unlikely as he is on Eliquis and states compliance. Symptoms slowly improving. Close for discharge. (4) Paroxysmal atrial fibrillation: Code(s): I48.0 - Paroxysmal atrial fibrillation Status: Chronic Assessment and Plan: EKG on admission showing AFib with HR 110. Rate was higher in ED and treated with IV Diltiazem. He remains in atrial fibrillation with rate better controlled. Continue home metoprolol. Continue higher dose diltiazem. Appreciate Cardiology input. Continue Eliquis. (5) Hypertension: Code(s): I10 - Essential (primary) hypertension Status: Acute Assessment and Plan: Patient's blood pressure was reviewed on 02/14 Blood pressure remains well controlled. Will continue current medications. (6) Microcytic anemia: Code(s): D50.9 - Iron deficiency anemia, unspecified Status: Acute Assessment and Plan: Hemoglobin is nearly 2 g lower than what he typically runs. He was having bright red blood in his stools prior to admission. Iron studies consistent with iron deficiency. Consider GI consult toward the end of his hospital course for colonoscopy if able. Serial HH showing Hgb low but stable. Transfuse as needed. Stool is guaiac positive. Probably hemorrhoidal. He completed IV iron. Continue PPI. Continue tucks pads and anusol to treat hemorrhoids. (7) Diarrhea: Code(s): R19.7 - Diarrhea, unspecified Status: Acute Assessment and Plan: Resolved Plan DVT prophylaxis with Eliquis GI prophylaxis not indicated Code status full code Subjective Date/time seen: 02/14/23 10:38 Interval history: 68yo male with chronic respiratory failure on 4 L at rest and 8 L with exertion, COPD, recurrent PTX status post left upper lobectomy, PE and pAFib here for evaluation of shortness of breath found to have MRSA in his sputum. No problems overnight. Has been up to the chair most of the morning. No chest pain or shortness of breath. Does have the dyspnea on exertion which is unchanged. He does feel like he is ?getting better? Exam Narrative: AF 96.3 121/68 102 20 94% 4L nc General: NARD sitting up in chair HEENT: Atraumatic, normocephalic, mucous membranes moist CV: Irregularly irregular, S1, S2 Lungs: bibasilar faint crackles. end-expiratory wheeze anteriorly Abdomen: Soft, nontender, nondistended Extremities: No edema Skin: warm and dry Psych: Euthymic, normal affect Objective Data Vital Signs Vital Signs: Vital Signs - 24 hr
[2023-02-14 11:37] LABS: Glucose Point of Care 132 mg/dl (65-105)
--- NOTE | 2023-02-14 12:49 | PM.PNPUL ---
Progress Note: A&P Assessment and Plan (1) COPD exacerbation: Code(s): J44.1 - Chronic obstructive pulmonary disease with (acute) exacerbation Status: Acute Assessment and Plan: 68-year-old man with chronic hypoxemic respiratory failure? 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 The patient has been treated with IV steroids antibiotics and bronchodilators with significant improvement. ? He also received treatment for atrial fibrillation with rapid ventricular response. Clinical status is back at baseline.? Currently has been on vancomycin for MRSA in sputum and also in nose.? Oral prednisone has been discontinued.? ? chest x-ray shows no new infiltrates compared to a baseline study in June of 2022. Agree with current antibiotic regimen. 02/14. Respiratory status stable over the last 24 hours. Plan: continue with current regimen. Out of bed to chair, ambulate in room. (2) Pulmonary emphysema with fibrosis of lung: Code(s): J43.9 - Emphysema, unspecified; J84.10 - Pulmonary fibrosis, unspecified Status: Acute (3) Atrial fibrillation: Qualifiers: Atrial fibrillation type: paroxysmal Qualified Code(s): I48.0 - Paroxysmal atrial fibrillation Code(s): I48.91 - Unspecified atrial fibrillation Status: Acute (4) Acute respiratory failure: Qualifiers: Respiratory failure complication: hypoxia Qualified Code(s): J96.01 - Acute respiratory failure with hypoxia Code(s): J96.00 - Acute respiratory failure, unspecified whether with hypoxia or hypercapnia Status: Acute (5) Pulmonary hypertension: Code(s): I27.20 - Pulmonary hypertension, unspecified Status: Acute (6) Paroxysmal atrial fibrillation: Code(s): I48.0 - Paroxysmal atrial fibrillation Status: Chronic Subjective Date/time seen: 02/14/23 12:49 patient has no new respiratory symptoms. Has been on antibiotics including vancomycin for Staph in sputum. Shortness of breath about baseline. afebrile, ambulating in room. Review of Systems Review of Systems: All systems reviewed & are unremarkable except as noted in HPI and below ( In HPI and below) Exam Narrative: GENERAL APPEARANCE: Well developed, well nourished, alert and cooperative, and appears to be in mild to moderate respiratory distress while on supplemental oxygen SKIN: Inspection of the skin reveals no rashes, ulcerations or petechiae. HEENT: Sclerae anicteric and conjunctivae pink and moist. Extraocular movements were intact and pupils were equal, round, and reactive to light. The oral mucosa, hard and soft palate, tongue and posterior pharynx were normal. edentulous NECK: Supple. There was no thyroid enlargement, and no tenderness, or masses were felt. LUNGS: crackles at bases posteriorly in distal breath sounds in upper lobes posteriorly CARDIAC: There was a regular rate and rhythm without any murmurs, gallops, rubs. ABDOMEN: Soft and nontender with normal bowel sounds. There was no organomegaly. LYMPH NODES: No lymphadenopathy was appreciated in the neck. EXTREMITIES: No cyanosis, clubbing or edema. NEUROLOGIC: Alert and oriented x 3. Normal affect. Objective Data Vital Signs Vital Signs: Vital Signs - 24 hr 02/13/23 13:10 02/13/23 13:29 02/13/23 16:00 Temperature 35.9 C L Pulse Rate 89 93 85 Respiratory Rate 22 H 20 16 Blood Pressure 110/59 L Pulse Oximetry 99 Oxygen Delivery Oxygen Flow Rate 02/13/23 16:55 02/13/23 17:06 02/13/23 21:08 Temperature Pulse Rate 94 102 H 84 Respiratory Rate 18 18 14 Blood Pressure Pulse Oximetry Oxygen Delivery Oxygen Flow Rate 02/13/23 20:00 02/14/23 00:00 02/14/23 04:00 Temperature 35.7 C L 36.2 C L 35.9 C L Pulse Rate 90 99 99 Respiratory Rate 14 16 16 Blood Pressure 127/67 111/73 124/77 Pulse Oximetry 98 95 9
[2023-02-14 16:39] LABS: Glucose Point of Care 165 mg/dl (65-105)
--- NOTE | 2023-02-14 17:00 | PCOTNOTE ---
Attempted to have pt participate in therapy session on this date. Pt refused to participate in any therapeutic activities, self care tasks, and or functional transfers. Pt was very agitated with therapist stating that therapy did not show up in the morning and now he was not going to do anything. Therapist explained to pt that therapy cannot always be completed in the morning due to priority pts, however, therapy will try to accommodate to pt's request. Pt was educated on the importance of continued therapy for increase independence with daily occupations. Pt continued to be agitated and would talk over therapist when education was being attempted. Pt states I don't care...it's fine with me. when therapist spoke of putting in a refusal note. Will continue per POC duration/frequency tomorrow.
[2023-02-14] MEDS: ATORVASTATIN 40 MG TABLET PO (20:26)
[2023-02-14] MEDS: LEFLUNOMIDE 20 MG TABLET PO (20:26)
[2023-02-14 21:31] LABS: Glucose Point of Care 168 mg/dl (65-105)
[2023-02-15] VITALS (21 sets, daily range): BP systolic 98–104; BP diastolic 54–59; PULSE 92–117; RESP 14–30; TEMP 36.3–37.2; O2SAT 92–100
[2023-02-15] MEDS: IPRATROPIUM BR 0.02% INH SOLN 0.5 MG/2.5 ML VIAL INHALATION ×2 (01:00→04:50)
[2023-02-15] MEDS: LEVALBUTEROL NEB 1.25 MG/3 ML INHALATION ×7 (01:00→23:27)
[2023-02-15 06:41] LABS: Basophils Absolute Auto 0.1 K/mm3 (0.0-0.1); Basophils Percent Auto 0.3 % (0.2-1.2); Eosinophils Absolute Auto 0.1 K/mm3 (0-0.3); Eosinophils Percent Auto 0.5 % (0-4.4); Hematocrit 32.2 % (42.0-52.0); Hemoglobin 8.4 g/dL (14.0-18.0); Immature Granulocyte Absolute 0.88 K/mm3 (0.00-0.031); Immature Granulocyte Percent A 6.1 % (0-0.5); Lymphocytes Absolute Auto 0.78 K/mm3 (0.9-3.2); Lymphocytes Percent Auto 5.4 % (18.3-44.2); Mean Corpuscular HGB Conc 26.1 g/dl (32-36); Mean Corpuscular Hemoglobin 19.2 pg (26-34); Mean Corpuscular Volume 73.5 fl (80-100); Mean Platelet Volume 9.4 fl (7.4-10.4); Monocytes Absolute Auto 0.9 K/mm3 (0.1-0.6); Monocytes Percent Auto 6.2 % (2.6-8.5); Neutrophils Absolute Auto 11.8 K/mm3 (1.3-6.7); Neutrophils Percent Auto 81.5 % (45.5-73.1); Nucleated Red Blood Cells Absolute Auto 0.1 K/mm3 (0.0-0.012); Nucleated Red Blood Cells Perc 0.3 % (0.0-0.2); Platelet Count Result 254 k/mm3 (150-375); Red Blood Count 4.38 M/mm3 (4.6-6.20); Red Cell Distribution Width 27.7 % (11.5-14.5); White Blood Count 14.4 K/mm3 (4.5-10.0)
[2023-02-15 06:57] LABS: Alanine Aminotransferase 22 U/L (6-50); Albumin Level 2.6 g/dL (3.5-5.1); Alkaline Phosphatase 53 U/L (38-126); Aspartate Amino Transferase 26 U/L (17-59); Bilirubin,Total 0.5 mg/dL (0.2-1.3); Blood Urea Nitrogen 11 mg/dL (9-20); Calcium 7.6 mg/dL (8.4-10.2); Carbon Dioxide > 40 mmol/L (22-30); Chloride 94 mmol/L (98-107); Estimated CRCL calculation 84 ml/min; Estimated Glomerular Filt Rate > 60; Glucose 101 mg/dL (65-110); Potassium 3.3 mmol/L (3.4-5.0); Sodium 130 mmol/L (137-145)
[2023-02-15 08:04] LABS: Glucose Point of Care 102 mg/dl (65-105)
[2023-02-15 08:18] LABS: Anisocytosis 2+ (NORMAL); Platelet Estimate Adequate (Adequate); Poikilocytosis 1+ (NORMAL)
[2023-02-15 08:19] LABS: Schistocytes 1+ (NORMAL); Target Cells 1+ (NORMAL)
[2023-02-15] MEDS: DOXYCYCLINE HYCLATE 100 MG TABLET PO ×2 (08:19→21:25)
[2023-02-15] MEDS: METOPROLOL SUCCINATE EXT REL 12.5 MG TABCR PO (08:19)
[2023-02-15] MEDS: PANTOPRAZOLE 40 MG TABLET PO ×2 (08:19→21:25)
[2023-02-15] MEDS: levoFLOXacin 750 MG TABLET PO (08:19)
[2023-02-15] MEDS: LORATADINE 10 MG TABLET PO (08:19)
[2023-02-15] MEDS: APIXABAN 5 MG TABLET PO ×2 (08:19→21:26)
[2023-02-15 08:20] LABS: Ovalocytes 1+ (NORMAL)
[2023-02-15] MEDS: TAMSULOSIN HCL 0.4 MG CAPSULE PO (08:20)
[2023-02-15] MEDS: metFORMIN HCL XR 500 MG TAB.SR.24H PO (08:20)
[2023-02-15] MEDS: CYANOCOBALAMIN 1,000 MCG TABLET 1000 MCG PO (08:20)
[2023-02-15] MEDS: DORNASE ALFA INH SOLN 1 MG/ML 2.5 ML AMP 2.5 MG INHALATION ×2 (08:49→20:07)
[2023-02-15] MEDS: FLUTICASONE/SALMETEROL 230-21 MCG INHALER 1 PUFF 2 PUFF INHALATION ×2 (08:50→20:08)
--- NOTE | 2023-02-15 10:22 | PCPTNOTE ---
Attempted to see pt for PT treatment this morning; pt declined at this time stating he doesn't feel well and didn't sleep well last night. Per IT APPLICATIONS ANALYST pt had just returned from the restroom as well. Pt did appear SOB at this time; RN notified.
--- NOTE | 2023-02-15 10:28 | ECG_ITS ---
Measurements Intervals [place] Rate: 108 P: TX: 0 QRS: -16 QRSD: 91 T: 44 QT: 306 QTc: 411 Interpretive Statements ATRIAL FIBRILLATION WITH RAPID VENTRICULAR RESPONSE ABNORMAL RHYTHM ECG COMPARED TO ECG 02/05/2023 11:50:48 NO SIGNIFICANT CHANGES Electronically Signed On 02-16-2023 6:58:13 CDT by Jimmie Reyes M.D.
--- NOTE | 2023-02-15 11:14 | PM.PNPUL ---
Progress Note: A&P Assessment and Plan (1) COPD exacerbation: Code(s): J44.1 - Chronic obstructive pulmonary disease with (acute) exacerbation Status: Acute Assessment and Plan: 68-year-old man with chronic hypoxemic respiratory failure? 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 The patient has been treated with IV steroids antibiotics and bronchodilators with significant improvement. ? He also received treatment for atrial fibrillation with rapid ventricular response. Clinical status is back at baseline.? Currently has been on vancomycin for MRSA in sputum and also in nose.? Oral prednisone has been discontinued.? ? chest x-ray shows no new infiltrates compared to a baseline study in June of 2022. Agree with current antibiotic regimen. 02/14. Respiratory status stable over the last 24 hours. Plan: continue with current regimen. Out of bed to chair, ambulate in room. 02/15> Patient had shortness of breath after using commode at bedside. He has no new respiratory symptoms. physical exam is essentially unchanged except tachycardia with irregular heart rhythm. Plan: repeat EKG and chest x-ray today. Case was discussed with patient's RN and also Dr. Morocho his hospitalist. (2) Pulmonary emphysema with fibrosis of lung: Code(s): J43.9 - Emphysema, unspecified; J84.10 - Pulmonary fibrosis, unspecified Status: Acute (3) Atrial fibrillation: Qualifiers: Atrial fibrillation type: paroxysmal Qualified Code(s): I48.0 - Paroxysmal atrial fibrillation Code(s): I48.91 - Unspecified atrial fibrillation Status: Acute (4) Acute respiratory failure: Qualifiers: Respiratory failure complication: hypoxia Qualified Code(s): J96.01 - Acute respiratory failure with hypoxia Code(s): J96.00 - Acute respiratory failure, unspecified whether with hypoxia or hypercapnia Status: Acute (5) Pulmonary hypertension: Code(s): I27.20 - Pulmonary hypertension, unspecified Status: Acute (6) Paroxysmal atrial fibrillation: Code(s): I48.0 - Paroxysmal atrial fibrillation Status: Chronic Subjective Date/time seen: 02/15/23 11:14 Patient was seen right after he had used bedside commode. Patient was short of breath, sitting up in bed bracing arms he stated that this is his usual shortness of breath after any activity. He has no other respiratory symptoms such as cough fever chills hemoptysis. Review of Systems Review of Systems: All systems reviewed & are unremarkable except as noted in HPI and below ( In HPI and below) Exam Narrative: GENERAL APPEARANCE: Well developed, well nourished, alert and cooperative, and appears to be in mild to moderate respiratory distress while on supplemental oxygen SKIN: Inspection of the skin reveals no rashes, ulcerations or petechiae. HEENT: Sclerae anicteric and conjunctivae pink and moist. Extraocular movements were intact and pupils were equal, round, and reactive to light. The oral mucosa, hard and soft palate, tongue and posterior pharynx were normal. edentulous NECK: Supple. There was no thyroid enlargement, and no tenderness, or masses were felt. LUNGS: crackles at bases posteriorly in distal breath sounds in upper lobes posteriorly CARDIAC: There was a regular rate and rhythm without any murmurs, gallops, rubs. ABDOMEN: Soft and nontender with normal bowel sounds. There was no organomegaly. LYMPH NODES: No lymphadenopathy was appreciated in the neck. EXTREMITIES: No cyanosis, clubbing or edema. NEUROLOGIC: Alert and oriented x 3. Normal affect. Objective Data Vital Signs Vital Signs: Vital Signs - 24 hr 02/14/23 13:05 02/14/23 13:15 02/14/23 12:00 Temperature 36.4 C Pulse Rate 100 103 H 95 Respiratory Rate 20 20 20 Blood Pressure 104/60 Pulse Oximetry 99 Oxygen Delivery Oxygen
[2023-02-15 11:55] LABS: Glucose Point of Care 114 mg/dl (65-105)
[2023-02-15] MEDS: UMECLIDINIUM BROMIDE 62.5 MCG ELLIPTA 1 PUFF INHALATION (12:25)
[2023-02-15] MEDS: POTASSIUM CHLORIDE 20 MEQ TABLET 40 MEQ PO (13:25)
[2023-02-15] MEDS: acetaZOLAMIDE SODIUM FOR INJ 500 MG VIAL 250 MG IV PUSH (13:26)
--- NOTE | 2023-02-15 13:53 | PM.IMPN ---
Progress Note: A&P Assessment and Plan (1) COPD exacerbation: Code(s): J44.1 - Chronic obstructive pulmonary disease with (acute) exacerbation Status: Acute Assessment and Plan: Still with GASPAR even with mild exertion. CXR repeated. Continue scheduled bronchodilators and pulmozyme. Continue Advair and resume incruse ellipta. Off steroids. Appreciate pulmonary input. Follow. Continue PT/OT. May not get any better than this. CXR showing possible pulmonary edema but could be chronic scarring. Will add lasix IV at 20mg given soft BP. Can't really hold Dilt or metoprolol since trying to control HR. monitor symptoms (2) Pneumonia: Qualifiers: Laterality: bilateral Lung location: unspecified part of lung Pneumonia type: due to unspecified organism Qualified Code(s): J18.9 - Pneumonia, unspecified organism Code(s): J18.9 - Pneumonia, unspecified organism Status: Acute Assessment and Plan: As above. BCx NGTD. Sputum Cx growing yeast and MRSA. MRSA nasal swab positive. Vancomycin added 02/09 at 1230pm. Continue Levaquin through 02/17. Change Vanco to Doxycycline (3) Acute and chronic respiratory failure with hypoxia: Code(s): J96.21 - Acute and chronic respiratory failure with hypoxia Status: Acute Assessment and Plan: As above. Patient presented to the ED with increasing shortness of breath and wheezing and was on 15 L non-rebreather initially. He normally wears 4L at rest and 6-8L with activity. CXR 02/09: Airspace opacities of the right mid and lower lung zones, consistent with atelectasis versus PNA. Probably combination of COPD exacerbation, PNA, AFib/RVR and/or dCHF exacerbation. Anemia contributing to his SOB. Pulmonary embolism unlikely as he is on Eliquis and states compliance. Symptoms slowly improving. (4) Paroxysmal atrial fibrillation: Code(s): I48.0 - Paroxysmal atrial fibrillation Status: Chronic Assessment and Plan: EKG on admission showing AFib with HR 110. Rate was higher in ED and treated with IV Diltiazem. He remains in atrial fibrillation with rate better controlled. HR still elevated at times related to exertion. We continued home metoprolol. Continue higher dose diltiazem. Appreciate Cardiology input. Continue Eliquis. (5) Hypertension: Code(s): I10 - Essential (primary) hypertension Status: Acute Assessment and Plan: Patient's blood pressure was reviewed on 02/15 Blood pressure remains well controlled. Will continue current medications. (6) Microcytic anemia: Code(s): D50.9 - Iron deficiency anemia, unspecified Status: Acute Assessment and Plan: Hemoglobin is nearly 2 g lower than what he typically runs. He was having bright red blood in his stools prior to admission. Iron studies consistent with iron deficiency. Consider GI consult toward the end of his hospital course for colonoscopy if able. Stool is guaiac positive. Probably hemorrhoidal. He completed IV iron. Serial HH showing Hgb low but stable in the 7-8 range. Transfuse as needed. Continue PPI. Continue tucks pads and anusol to treat hemorrhoids. (7) Diarrhea: Code(s): R19.7 - Diarrhea, unspecified Status: Acute Assessment and Plan: Resolved Plan DVT prophylaxis with Eliquis GI prophylaxis not indicated Code status full code Subjective Date/time seen: 02/15/23 13:53 Interval history: 68yo male with chronic respiratory failure on 4 L at rest and 8 L with exertion, COPD, recurrent PTX status post left upper lobectomy, PE and pAFib here for evaluation of shortness of breath found to have MRSA in his sputum. Had increasing SOB with exertion today. No CP. Exam Narrative: AF 99.0 102/59 94 24 93% 5L Gen - NARD lying semi-recumbent in bed Neck - no elevated JVP Chest - distant BS. Inspiratory crackles. CV - Irregularly irregular, S1, S2 Abd - Soft, NT/ND, Positive BS
[2023-02-15] MEDS: FUROSEMIDE INJ 40 MG/4 ML VIAL 20 MG IV PUSH (16:56)
[2023-02-15 16:59] LABS: Glucose Point of Care 116 mg/dl (65-105)
[2023-02-15 20:16] LABS: Glucose Point of Care 128 mg/dl (65-105)
[2023-02-15] MEDS: LEFLUNOMIDE 20 MG TABLET PO (21:25)
[2023-02-15] MEDS: ATORVASTATIN 40 MG TABLET PO (21:26)
[2023-02-16] VITALS (14 sets, daily range): BP systolic 97–98; BP diastolic 52–64; PULSE 90–122; RESP 14–22; TEMP 36.3–36.9; O2SAT 90–100
[2023-02-16] MEDS: LEVALBUTEROL NEB 1.25 MG/3 ML INHALATION ×5 (04:29→21:09)
[2023-02-16 06:21] LABS: Basophils Percent Auto 0.3 % (0.2-1.2); Eosinophils Absolute Auto 0.1 K/mm3 (0-0.3); Eosinophils Percent Auto 0.5 % (0-4.4); Hematocrit 32.4 % (42.0-52.0); Hemoglobin 8.5 g/dL (14.0-18.0); Immature Granulocyte Percent A 4.7 % (0-0.5); Lymphocytes Absolute Auto 0.66 K/mm3 (0.9-3.2); Lymphocytes Percent Auto 5.2 % (18.3-44.2); Mean Corpuscular HGB Conc 26.2 g/dl (32-36); Mean Corpuscular Hemoglobin 19.2 pg (26-34); Mean Corpuscular Volume 73.3 fl (80-100); Mean Platelet Volume 9.8 fl (7.4-10.4); Monocytes Absolute Auto 0.8 K/mm3 (0.1-0.6); Monocytes Percent Auto 6.2 % (2.6-8.5); Neutrophils Absolute Auto 10.6 K/mm3 (1.3-6.7); Neutrophils Percent Auto 83.1 % (45.5-73.1); Nucleated Red Blood Cells Perc 0.2 % (0.0-0.2); Platelet Count Result 252 k/mm3 (150-375); Red Blood Count 4.42 M/mm3 (4.6-6.20); Red Cell Distribution Width 28.1 % (11.5-14.5); White Blood Count 12.7 K/mm3 (4.5-10.0)
[2023-02-16 06:34] LABS: Alanine Aminotransferase 20 U/L (6-50); Albumin Level 2.9 g/dL (3.5-5.1); Alkaline Phosphatase 54 U/L (38-126); Anion Gap 0 mmol/L (8-16); Aspartate Amino Transferase 18 U/L (17-59); Bilirubin,Total 0.8 mg/dL (0.2-1.3); Blood Urea Nitrogen 11 mg/dL (9-20); Calcium 8.1 mg/dL (8.4-10.2); Carbon Dioxide 36 mmol/L (22-30); Chloride 95 mmol/L (98-107); Estimated CRCL calculation 63 ml/min; Estimated Glomerular Filt Rate > 60; Glucose 98 mg/dL (65-110); Magnesium 1.8 mg/dL (1.6-2.3); Potassium 3.2 mmol/L (3.4-5.0); Sodium 131 mmol/L (137-145)
[2023-02-16 06:49] LABS: Hypochromasia 3+ (NORMAL); Ovalocytes 1+ (NORMAL); Platelet Estimate Adequate (Adequate); Schistocytes Rare (NORMAL); Target Cells 2+ (NORMAL)
[2023-02-16] MEDS: DORNASE ALFA INH SOLN 1 MG/ML 2.5 ML AMP 2.5 MG INHALATION ×2 (07:37→21:09)
[2023-02-16] MEDS: UMECLIDINIUM BROMIDE 62.5 MCG ELLIPTA 1 PUFF INHALATION (07:39)
[2023-02-16] MEDS: FLUTICASONE/SALMETEROL 230-21 MCG INHALER 1 PUFF 2 PUFF INHALATION ×2 (07:39→21:10)
[2023-02-16 08:21] LABS: Glucose Point of Care 97 mg/dl (65-105)
[2023-02-16] MEDS: DOXYCYCLINE HYCLATE 100 MG TABLET PO ×2 (08:57→20:46)
[2023-02-16] MEDS: PANTOPRAZOLE 40 MG TABLET PO ×2 (08:57→20:46)
[2023-02-16] MEDS: POTASSIUM CHLORIDE 20 MEQ TABLET 40 MEQ PO (08:57)
[2023-02-16] MEDS: metFORMIN HCL XR 500 MG TAB.SR.24H PO (08:58)
[2023-02-16] MEDS: APIXABAN 5 MG TABLET PO ×2 (08:58→20:46)
[2023-02-16] MEDS: TAMSULOSIN HCL 0.4 MG CAPSULE PO (08:58)
[2023-02-16] MEDS: levoFLOXacin 750 MG TABLET PO (08:58)
[2023-02-16] MEDS: FUROSEMIDE INJ 40 MG/4 ML VIAL 20 MG IV PUSH ×2 (08:58→18:51)
[2023-02-16] MEDS: CYANOCOBALAMIN 1,000 MCG TABLET 1000 MCG PO (08:58)
[2023-02-16] MEDS: METOPROLOL SUCCINATE EXT REL 12.5 MG TABCR PO (08:59)
--- NOTE | 2023-02-16 09:25 | PM.PNPUL ---
Progress Note: A&P Assessment and Plan (1) COPD exacerbation: Code(s): J44.1 - Chronic obstructive pulmonary disease with (acute) exacerbation Status: Acute Assessment and Plan: 68-year-old man with chronic hypoxemic respiratory failure? 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 The patient has been treated with IV steroids antibiotics and bronchodilators with significant improvement. ? He also received treatment for atrial fibrillation with rapid ventricular response. Clinical status is back at baseline.? Currently has been on vancomycin for MRSA in sputum and also in nose.? Oral prednisone has been discontinued.? ? chest x-ray shows no new infiltrates compared to a baseline study in June of 2022. Agree with current antibiotic regimen. 02/14. Respiratory status stable over the last 24 hours. Plan: continue with current regimen. Out of bed to chair, ambulate in room. 02/15> Patient had shortness of breath after using commode at bedside. He has no new respiratory symptoms. physical exam is essentially unchanged except tachycardia with irregular heart rhythm. Plan: repeat EKG and chest x-ray today. Case was discussed with patient's RN and also Dr. Morocho his hospitalist. 02/16. respiratory status stable over the last 12 hours. Chest x-ray done yesterday was essentially unchanged. EKG also no acute changes. Continue with same care. (2) Pulmonary emphysema with fibrosis of lung: Code(s): J43.9 - Emphysema, unspecified; J84.10 - Pulmonary fibrosis, unspecified Status: Acute (3) Atrial fibrillation: Qualifiers: Atrial fibrillation type: paroxysmal Qualified Code(s): I48.0 - Paroxysmal atrial fibrillation Code(s): I48.91 - Unspecified atrial fibrillation Status: Acute (4) Acute respiratory failure: Qualifiers: Respiratory failure complication: hypoxia Qualified Code(s): J96.01 - Acute respiratory failure with hypoxia Code(s): J96.00 - Acute respiratory failure, unspecified whether with hypoxia or hypercapnia Status: Acute (5) Pulmonary hypertension: Code(s): I27.20 - Pulmonary hypertension, unspecified Status: Acute (6) Paroxysmal atrial fibrillation: Code(s): I48.0 - Paroxysmal atrial fibrillation Status: Chronic Subjective Date/time seen: 02/16/23 09:25 Patient had an episode of shortness of breath while using bedside commode yesterday. Currently has no new respiratory symptoms. He thinks he is back at baseline. No change in cough shortness of breath. He has no chest pain. He is afebrile. Review of Systems Review of Systems: All systems reviewed & are unremarkable except as noted in HPI and below ( In HPI and below) Exam Narrative: GENERAL APPEARANCE: Well developed, well nourished, alert and cooperative, and appears to be in mild to moderate respiratory distress while on supplemental oxygen SKIN: Inspection of the skin reveals no rashes, ulcerations or petechiae. HEENT: Sclerae anicteric and conjunctivae pink and moist. Extraocular movements were intact and pupils were equal, round, and reactive to light. The oral mucosa, hard and soft palate, tongue and posterior pharynx were normal. edentulous NECK: Supple. There was no thyroid enlargement, and no tenderness, or masses were felt. LUNGS: crackles at bases posteriorly in distal breath sounds in upper lobes posteriorly CARDIAC: There was a regular rate and rhythm without any murmurs, gallops, rubs. ABDOMEN: Soft and nontender with normal bowel sounds. There was no organomegaly. LYMPH NODES: No lymphadenopathy was appreciated in the neck. EXTREMITIES: No cyanosis, clubbing or edema. NEUROLOGIC: Alert and oriented x 3. Normal affect. Objective Data Vital Signs Vital Signs: Vital Signs - 24 hr 02/15/23 12:23 02/15/23 12:33 02/15/23 14:00 T
[2023-02-16 11:39] LABS: Glucose Point of Care 172 mg/dl (65-105)
--- NOTE | 2023-02-16 11:55 | PCOTNOTE ---
Attempted to see Patient at this time. Upon entering the room, Patient was sitting at the edge of the bed, had his lunch and was attempted to eat stated his . She made a comment that she was happy to see him sitting up. Will try back after lunch.
--- NOTE | 2023-02-16 16:36 | PM.IMPN ---
Progress Note: A&P Assessment and Plan (1) COPD exacerbation: Code(s): J44.1 - Chronic obstructive pulmonary disease with (acute) exacerbation Status: Acute Assessment and Plan: Still with GASPAR even with mild exertion. CXR yesterday showing possible pulmonary edema but could be chronic scarring. He completed his steroids and abx. Lasix IV started for possible pulmonary edema; no change in exam but he feels better Continue scheduled bronchodilators and pulmozyme. Continue Advair and resume incruse ellipta. Appreciate pulmonary input. Continue PT/OT. May not get any better than this; told patient plan for discharge tomorrow. (2) Pneumonia: Qualifiers: Laterality: bilateral Lung location: unspecified part of lung Pneumonia type: due to unspecified organism Qualified Code(s): J18.9 - Pneumonia, unspecified organism Code(s): J18.9 - Pneumonia, unspecified organism Status: Acute Assessment and Plan: As above. BCx NGTD. Sputum Cx growing yeast and MRSA. MRSA nasal swab positive. Vancomycin added 02/09 at 1230pm. Completed Levaquin. Vanco changed to Doxycycline; Stop Doxy after the morning dose of 02/19 (3) Acute and chronic respiratory failure with hypoxia: Code(s): J96.21 - Acute and chronic respiratory failure with hypoxia Status: Acute Assessment and Plan: As above. Patient presented to the ED with increasing shortness of breath and wheezing and was on 15 L non-rebreather initially. He normally wears 4L at rest and 6-8L with activity. Probably combination of COPD exacerbation, PNA, AFib/RVR and/or dCHF exacerbation. Anemia contributing to his SOB. Pulmonary embolism unlikely as he is on Eliquis and states compliance. As above. Symptoms slowly improving. (4) Paroxysmal atrial fibrillation: Code(s): I48.0 - Paroxysmal atrial fibrillation Status: Chronic Assessment and Plan: EKG on admission showing AFib with HR 110. Rate was higher in ED and treated with IV Diltiazem. He remains in atrial fibrillation with rate better controlled. HR still elevated at times related to exertion. We continued home metoprolol. Continue higher dose diltiazem. Appreciate Cardiology input. Continue Eliquis. (5) Hypertension: Code(s): I10 - Essential (primary) hypertension Status: Acute Assessment and Plan: Patient's blood pressure was reviewed on 02/16 Blood pressure soft. Will continue current medications. Place parameters on his meds (6) Microcytic anemia: Code(s): D50.9 - Iron deficiency anemia, unspecified Status: Acute Assessment and Plan: Hemoglobin is nearly 2 g lower than what he typically runs. He was having bright red blood in his stools prior to admission. Iron studies consistent with iron deficiency. Consider GI consult toward the end of his hospital course for colonoscopy if able. Stool is guaiac positive. Probably hemorrhoidal. He completed IV iron. Serial HH showing Hgb low but stable in the 7-8 range. Transfuse as needed. Continue PPI. Continue tucks pads and anusol to treat hemorrhoids. 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 Up to the chair twice today. Still with significant GASPAR but better today then yesterday. Cough is nonproductive. Exam Narrative: AF 98.5 98/64 105 22 100% 8L Gen - NARD lying semi-recumbent in bed Chest - distant BS. Inspiratory crackles. CV - Irregularly irregular, S1, S2 Abd - Soft, NT/ND, Positive
[2023-02-16 17:09] LABS: Glucose Point of Care 120 mg/dl (65-105)
[2023-02-16] MEDS: ATORVASTATIN 40 MG TABLET PO (20:46)
[2023-02-16] MEDS: LEFLUNOMIDE 20 MG TABLET PO (20:46)
[2023-02-17] VITALS (18 sets, daily range): BP systolic 100–108; BP diastolic 46–57; PULSE 83–111; RESP 14–22; TEMP 36.4–36.8; O2SAT 90–100
[2023-02-17] MEDS: LEVALBUTEROL NEB 1.25 MG/3 ML INHALATION ×6 (01:20→20:20)
[2023-02-17 06:43] LABS: Basophils Percent Auto 0.2 % (0.2-1.2); Eosinophils Absolute Auto 0.1 K/mm3 (0-0.3); Eosinophils Percent Auto 0.5 % (0-4.4); Hematocrit 32.1 % (42.0-52.0); Hemoglobin 8.5 g/dL (14.0-18.0); Immature Granulocyte Absolute 0.58 K/mm3 (0.00-0.031); Immature Granulocyte Percent A 5.1 % (0-0.5); Immature Platelet Fraction Pct 4.1 % (0.9-11.2); Lymphocytes Absolute Auto 0.78 K/mm3 (0.9-3.2); Lymphocytes Percent Auto 6.8 % (18.3-44.2); Mean Corpuscular HGB Conc 26.5 g/dl (32-36); Mean Corpuscular Hemoglobin 19.4 pg (26-34); Mean Corpuscular Volume 73.1 fl (80-100); Mean Platelet Volume 9.5 fl (7.4-10.4); Monocytes Absolute Auto 0.8 K/mm3 (0.1-0.6); Monocytes Percent Auto 6.7 % (2.6-8.5); Neutrophils Absolute Auto 9.2 K/mm3 (1.3-6.7); Neutrophils Percent Auto 80.7 % (45.5-73.1); Platelet Count Result 278 k/mm3 (150-375); Red Blood Count 4.39 M/mm3 (4.6-6.20); Red Cell Distribution Width 28.4 % (11.5-14.5); White Blood Count 11.4 K/mm3 (4.5-10.0)
[2023-02-17 06:59] LABS: Alanine Aminotransferase 18 U/L (6-50); Alkaline Phosphatase 57 U/L (38-126); Anion Gap 1 mmol/L (8-16); Aspartate Amino Transferase 17 U/L (17-59); Bilirubin,Total 0.7 mg/dL (0.2-1.3); Blood Urea Nitrogen 11 mg/dL (9-20); Calcium 8.5 mg/dL (8.4-10.2); Carbon Dioxide 35 mmol/L (22-30); Chloride 98 mmol/L (98-107); Estimated CRCL calculation 63 ml/min; Estimated Glomerular Filt Rate > 60; Glucose 115 mg/dL (65-110); Potassium 3.2 mmol/L (3.4-5.0); Sodium 134 mmol/L (137-145)
[2023-02-17 07:18] LABS: Anisocytosis 3+ (NORMAL); Hypochromasia 3+ (NORMAL); Platelet Estimate Adequate (Adequate)
[2023-02-17 07:19] LABS: Ovalocytes 1+ (NORMAL); Schistocytes None Seen (NORMAL); Target Cells 1+ (NORMAL)
[2023-02-17 07:50] LABS: Glucose Point of Care 124 mg/dl (65-105)
[2023-02-17] MEDS: UMECLIDINIUM BROMIDE 62.5 MCG ELLIPTA 1 PUFF INHALATION (09:03)
[2023-02-17] MEDS: FLUTICASONE/SALMETEROL 230-21 MCG INHALER 1 PUFF 2 PUFF INHALATION ×2 (09:04→20:20)
[2023-02-17] MEDS: DORNASE ALFA INH SOLN 1 MG/ML 2.5 ML AMP 2.5 MG INHALATION ×2 (09:04→20:20)
[2023-02-17] MEDS: DOXYCYCLINE HYCLATE 100 MG TABLET PO ×2 (09:17→20:32)
[2023-02-17] MEDS: TAMSULOSIN HCL 0.4 MG CAPSULE PO (09:17)
[2023-02-17] MEDS: METOPROLOL SUCCINATE EXT REL 12.5 MG TABCR PO (09:17)
[2023-02-17] MEDS: APIXABAN 5 MG TABLET PO ×2 (09:17→20:32)
[2023-02-17] MEDS: PANTOPRAZOLE 40 MG TABLET PO ×2 (09:17→20:32)
[2023-02-17] MEDS: metFORMIN HCL XR 500 MG TAB.SR.24H PO (09:18)
[2023-02-17] MEDS: CYANOCOBALAMIN 1,000 MCG TABLET 1000 MCG PO (09:18)
[2023-02-17] MEDS: levoFLOXacin 750 MG TABLET PO (09:18)
[2023-02-17] MEDS: FUROSEMIDE INJ 40 MG/4 ML VIAL 20 MG IV PUSH ×2 (09:18→17:19)
[2023-02-17] MEDS: POTASSIUM CHLORIDE 20 MEQ TABLET 40 MEQ PO (09:33)
--- NOTE | 2023-02-17 09:38 | PM.PNPUL ---
Progress Note: A&P Assessment and Plan (1) COPD exacerbation: Code(s): J44.1 - Chronic obstructive pulmonary disease with (acute) exacerbation Status: Acute Assessment and Plan: 68-year-old man with chronic hypoxemic respiratory failure? 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 The patient has been treated with IV steroids antibiotics and bronchodilators with significant improvement. ? He also received treatment for atrial fibrillation with rapid ventricular response. Clinical status is back at baseline.? Currently has been on vancomycin for MRSA in sputum and also in nose.? Oral prednisone has been discontinued.? ? chest x-ray shows no new infiltrates compared to a baseline study in June of 2022. Agree with current antibiotic regimen. 02/14. Respiratory status stable over the last 24 hours. Plan: continue with current regimen. Out of bed to chair, ambulate in room. 02/15> Patient had shortness of breath after using commode at bedside. He has no new respiratory symptoms. physical exam is essentially unchanged except tachycardia with irregular heart rhythm. Plan: repeat EKG and chest x-ray today. Case was discussed with patient's RN and also Dr. Morocho his hospitalist. 02/16. respiratory status stable over the last 12 hours. Chest x-ray done yesterday was essentially unchanged. EKG also no acute changes. Continue with same care. 02/17. respiratory status stable about baseline. Okay to DC patient home on doxycycline for another 5 days. Consider adding mupirocin nasal ointment to his antibiotic regimen for approximately 5 days. He will remain on maintenance bronchodilators he was taking before coming to the hospital. 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. Will sign off please call with any questions. (2) Pulmonary emphysema with fibrosis of lung: Code(s): J43.9 - Emphysema, unspecified; J84.10 - Pulmonary fibrosis, unspecified Status: Acute (3) Atrial fibrillation: Qualifiers: Atrial fibrillation type: paroxysmal Qualified Code(s): I48.0 - Paroxysmal atrial fibrillation Code(s): I48.91 - Unspecified atrial fibrillation Status: Acute (4) Acute respiratory failure: Qualifiers: Respiratory failure complication: hypoxia Qualified Code(s): J96.01 - Acute respiratory failure with hypoxia Code(s): J96.00 - Acute respiratory failure, unspecified whether with hypoxia or hypercapnia Status: Acute (5) Pulmonary hypertension: Code(s): I27.20 - Pulmonary hypertension, unspecified Status: Acute (6) Paroxysmal atrial fibrillation: Code(s): I48.0 - Paroxysmal atrial fibrillation Status: Chronic Subjective Date/time seen: 02/17/23 09:38 patient has no new respiratory symptoms. Shortness of breath about baseline. Was switched to different antibiotics. Review of Systems Review of Systems: All systems reviewed & are unremarkable except as noted in HPI and below ( HPI and below) Exam Narrative: GENERAL APPEARANCE: Well developed, well nourished, alert and cooperative, and appears to be in mild to moderate respiratory distress while on supplemental oxygen SKIN: Inspection of the skin reveals no rashes, ulcerations or petechiae. HEENT: Sclerae anicteric and conjunctivae pink and moist. Extraocular movements were intact and pupils were equal, round, and reactive to light. The oral mucosa, hard and soft palate, tongue and posterior pharynx were normal. edentulous NECK: Supple. There was no thyroid enlargement, and no tenderness, or masses were felt. LUNGS: crackles at bases posteriorly in distal breath sounds in upper lobes posteriorly CARDIAC: There was a regular rate and rhythm without any murmurs, gallops, rubs. ABDOMEN: Soft and nontender with normal bowel sounds. There was no organomegaly. LYMPH NODES:
[2023-02-17] MEDS: LORATADINE 10 MG TABLET PO (09:53)
[2023-02-17 11:47] LABS: Glucose Point of Care 135 mg/dl (65-105)
--- NOTE | 2023-02-17 16:18 | P.PNIM_ITS ---
Progress Note: A&P Assessment and Plan (1) COPD exacerbation: Code(s): J44.1 - Chronic obstructive pulmonary disease with (acute) exacerbation Status: Acute Assessment and Plan: Still with GASPAR even with mild exertion. CXR yesterday showing possible pulmonary edema but could be chronic scarring. He completed his steroids and abx. Lasix IV started for possible pulmonary edema; no change in exam but he feels better Continue scheduled bronchodilators and pulmozyme. Continue Advair and resume incruse ellipta. Appreciate pulmonary input. Continue PT/OT. May not get any better than this; told patient plan for discharge tomorrow. 02/17/2023 interval history: 68-year-old male presented with complaint of shortness of breath hypoxic with history of pulmonary fibrosis, emphysema p atient had been treated with steroid and bronchodilator there is also concern patient may have a mild pulmonary edema and patient being gently diuresed with IV Lasix 20 mg q.day, today patient is sitting in the chair however patient gets short winded with slight exertion, will continue present management patient is seen by Pulmonary and further recommendation to follow. (2) Pneumonia: Qualifiers: Laterality: bilateral Lung location: unspecified part of lung Pneumonia type: due to unspecified organism Qualified Code(s): J18.9 - Pneumonia, unspecified organism Code(s): J18.9 - Pneumonia, unspecified organism Status: Acute Assessment and Plan: As above. BCx NGTD. Sputum Cx growing yeast and MRSA. MRSA nasal swab positive. Vancomycin added 02/09 at 1230pm. Completed Levaquin. Vanco changed to Doxycycline; Stop Doxy after the morning dose of 02/19 (3) Acute and chronic respiratory failure with hypoxia: Code(s): J96.21 - Acute and chronic respiratory failure with hypoxia Status: Acute Assessment and Plan: As above. Patient presented to the ED with increasing shortness of breath and wheezing and was on 15 L non-rebreather initially. He normally wears 4L at rest and 6-8L with activity. Probably combination of COPD exacerbation, PNA, AFib/RVR and/or dCHF exacerbation. Anemia contributing to his SOB. Pulmonary embolism unlikely as he is on Eliquis and states compliance. As above. Symptoms slowly improving. (4) Paroxysmal atrial fibrillation: Code(s): I48.0 - Paroxysmal atrial fibrillation Status: Chronic Assessment and Plan: EKG on admission showing AFib with HR 110. Rate was higher in ED and treated with IV Diltiazem. He remains in atrial fibrillation with rate better controlled. HR still elevated at times related to exertion. We continued home m etoprolol. Continue higher dose diltiazem. Appreciate Cardiology input. Continue Eliquis. (5) Hypertension: Code(s): I10 - Essential (primary) hypertension Status: Acute Assessment and Plan: Patient's blood pressure was reviewed on 02/16 Blood pressure soft. Will continue current medications. Place parameters on his meds (6) Microcytic anemia: Code(s): D50.9 - Iron deficiency anemia, unspecified Status: Acute Assessment and Plan: Hemoglobin is nearly 2 g lower than what he typically runs. He was having bright red blood in his stools prior to admission. Iron studies consistent with iron deficiency. Consider GI consult toward the end of his hospital course for colonoscopy if able. Stool is guaiac positive. Probably hemorrhoidal. He completed IV iron. Serial HH showing Hgb low but stable in the 7-8 range. Transfuse as needed. Continue PPI. Continue tucks pads and anusol to treat h emorr
[2023-02-17 17:01] LABS: Glucose Point of Care 105 mg/dl (65-105)
[2023-02-17] MEDS: ATORVASTATIN 40 MG TABLET PO (20:32)
[2023-02-17] MEDS: LEFLUNOMIDE 20 MG TABLET PO (20:32)
[2023-02-17 20:53] LABS: Glucose Point of Care 138 mg/dl (65-105)
[2023-02-18] VITALS (12 sets, daily range): BP systolic 94–104; BP diastolic 50–70; PULSE 87–120; RESP 18–20; TEMP 36.2–36.8; O2SAT 91–99
[2023-02-18] MEDS: LEVALBUTEROL NEB 1.25 MG/3 ML INHALATION ×3 (00:10→12:57)
[2023-02-18 06:13] LABS: Basophils Percent Auto 0.3 % (0.2-1.2); Eosinophils Absolute Auto 0.1 K/mm3 (0-0.3); Eosinophils Percent Auto 0.9 % (0-4.4); Hemoglobin 8.2 g/dL (14.0-18.0); Immature Granulocyte Absolute 0.46 K/mm3 (0.00-0.031); Immature Granulocyte Percent A 4.7 % (0-0.5); Lymphocytes Absolute Auto 0.54 K/mm3 (0.9-3.2); Lymphocytes Percent Auto 5.5 % (18.3-44.2); Mean Corpuscular HGB Conc 26.5 g/dl (32-36); Mean Corpuscular Hemoglobin 18.9 pg (26-34); Mean Corpuscular Volume 71.6 fl (80-100); Mean Platelet Volume 9.5 fl (7.4-10.4); Monocytes Absolute Auto 0.8 K/mm3 (0.1-0.6); Monocytes Percent Auto 7.8 % (2.6-8.5); Neutrophils Percent Auto 80.8 % (45.5-73.1); Platelet Count Result 282 k/mm3 (150-375); Red Blood Count 4.33 M/mm3 (4.6-6.20); White Blood Count 9.8 K/mm3 (4.5-10.0)
[2023-02-18 06:21] LABS: Alanine Aminotransferase 17 U/L (6-50); Alkaline Phosphatase 57 U/L (38-126); Anion Gap 3 mmol/L (8-16); Aspartate Amino Transferase 19 U/L (17-59); Bilirubin,Total 0.7 mg/dL (0.2-1.3); Blood Urea Nitrogen 13 mg/dL (9-20); Calcium 8.2 mg/dL (8.4-10.2); Carbon Dioxide 35 mmol/L (22-30); Chloride 94 mmol/L (98-107); Estimated CRCL calculation 58 ml/min; Estimated Glomerular Filt Rate 60; Glucose 110 mg/dL (65-110); Potassium 2.9 mmol/L (3.4-5.0); Sodium 132 mmol/L (137-145)
--- NOTE | 2023-02-18 06:33 | PCRCNOTE ---
Window of time for administration has passed. See next scheduled administration.
[2023-02-18 07:28] LABS: Anisocytosis 2+ (NORMAL); Hypochromasia 2+ (NORMAL); Macrocytosis 1+ (NORMAL); Ovalocytes 1+ (NORMAL); Platelet Estimate Adequate (Adequate); Target Cells 1+ (NORMAL)
[2023-02-18 07:29] LABS: Schistocytes None Seen (NORMAL)
[2023-02-18 07:35] LABS: Glucose Point of Care 107 mg/dl (65-105)
[2023-02-18] MEDS: TAMSULOSIN HCL 0.4 MG CAPSULE PO (08:41)
[2023-02-18] MEDS: metFORMIN HCL XR 500 MG TAB.SR.24H PO (08:41)
[2023-02-18] MEDS: APIXABAN 5 MG TABLET PO (08:42)
[2023-02-18] MEDS: CYANOCOBALAMIN 1,000 MCG TABLET 1000 MCG PO (08:42)
[2023-02-18] MEDS: DOXYCYCLINE HYCLATE 100 MG TABLET PO (08:42)
[2023-02-18] MEDS: METOPROLOL SUCCINATE EXT REL 12.5 MG TABCR PO (08:42)
[2023-02-18] MEDS: PANTOPRAZOLE 40 MG TABLET PO (08:42)
[2023-02-18] MEDS: FUROSEMIDE INJ 40 MG/4 ML VIAL 20 MG IV PUSH (08:43)
[2023-02-18] MEDS: LORATADINE 10 MG TABLET PO (08:43)
[2023-02-18] MEDS: UMECLIDINIUM BROMIDE 62.5 MCG ELLIPTA 1 PUFF INHALATION (09:25)
[2023-02-18] MEDS: DORNASE ALFA INH SOLN 1 MG/ML 2.5 ML AMP 2.5 MG INHALATION (09:25)
[2023-02-18] MEDS: FLUTICASONE/SALMETEROL 230-21 MCG INHALER 1 PUFF 2 PUFF INHALATION (09:25)
[2023-02-18] MEDS: POTASSIUM CHLORIDE 20 MEQ TABLET 40 MEQ PO ×2 (10:02→12:25)
[2023-02-18 11:52] LABS: Glucose Point of Care 93 mg/dl (65-105)
--- NOTE | 2023-02-18 14:50 | PC.NURSE ---
On 02/18/23, the student, Cliff Chiu, provided care and completed [facility] documentation on this patient. I have reviewed the student's documentation and agree with the findings.
--- NOTE | 2023-02-18 14:51 | PM.DS ---
DS: Admitting Diagnosis Discharge Date 02/18/2023 Admitting Diagnosis Shortness of breath DS: Discharge Diagnosis Discharge Diagnosis (1) COPD exacerbation: Code(s): J44.1 - Chronic obstructive pulmonary disease with (acute) exacerbation Status: Acute Assessment and Plan: Still with GASPAR even with mild exertion. CXR yesterday showing possible pulmonary edema but could be chronic scarring. He completed his steroids and abx. Lasix IV started for possible pulmonary edema; no change in exam but he feels better Continue scheduled bronchodilators and pulmozyme. Continue Advair and resume incruse ellipta. Appreciate pulmonary input. Continue PT/OT. May not get any better than this; told patient plan for discharge tomorrow. 02/17/2023 interval history: 68-year-old male presented with complaint of shortness of breath hypoxic with history of pulmonary fibrosis, emphysema patient had been treated with steroid and bronchodilator there is also concern patient may have a mild pulmonary edema and patient being gently diuresed with IV Lasix 20 mg q.day, today patient is sitting in the chair however patient gets short winded with slight exertion, will continue present management patient is seen by Pulmonary and further recommendation to follow. (2) Pneumonia: Qualifiers: Laterality: bilateral Lung location: unspecified part of lung Pneumonia type: due to unspecified organism Qualified Code(s): J18.9 - Pneumonia, unspecified organism Code(s): J18.9 - Pneumonia, unspecified organism Status: Acute Assessment and Plan: As above. BCx NGTD. Sputum Cx growing yeast and MRSA. MRSA nasal swab positive. Vancomycin added 02/09 at 1230pm. Completed Levaquin. Vanco changed to Doxycycline; Stop Doxy after the morning dose of 02/19 (3) Acute and chronic respiratory failure with hypoxia: Code(s): J96.21 - Acute and chronic respiratory failure with hypoxia Status: Acute Assessment and Plan: As above. Patient presented to the ED with increasing shortness of breath and wheezing and was on 15 L non-rebreather initially. He normally wears 4L at rest and 6-8L with activity. Probably combination of COPD exacerbation, PNA, AFib/RVR and/or dCHF exacerbation. Anemia contributing to his SOB. Pulmonary embolism unlikely as he is on Eliquis and states compliance. As above. Symptoms slowly improving. (4) Paroxysmal atrial fibrillation: Code(s): I48.0 - Paroxysmal atrial fibrillation Status: Chronic Assessment and Plan: EKG on admission showing AFib with HR 110. Rate was higher in ED and treated with IV Diltiazem. He remains in atrial fibrillation with rate better controlled. HR still elevated at times related to exertion. We continued home metoprolol. Continue higher dose diltiazem. Appreciate Cardiology input. Continue Eliquis. (5) Hypertension: Code(s): I10 - Essential (primary) hypertension Status: Acute Assessment and Plan: Patient's blood pressure was reviewed on 02/16 Blood pressure soft. Will continue current medications. Place parameters on his meds (6) Microcytic anemia: Code(s): D50.9 - Iron deficiency anemia, unspecified Status: Acute Assessment and Plan: Hemoglobin is nearly 2 g lower than what he typically runs. He was having bright red blood in his stools prior to admission. Iron studies consistent with iron deficiency. Consider GI consult toward the end of his hospital course for colonoscopy if able. Stool is guaiac positive. Probably hemorrhoidal. He completed IV iron. Serial HH showing Hgb low but stable in the 7-8 range. Transfuse as needed. Continue PPI. Continue tucks pads and anusol to treat hemorrhoids. (7) Diarrhea: Code(s): R19.7 - Diarrhea, unspecified Status: Acute Assessment and Plan: Resolved Plan DVT prophylaxis with Eliquis GI prophylaxis not indicated Code status full
== END 2023-02-18 16:15 | disposition home or self-care (01) | DRG 291 ==
LOC: ANHED 13:16 → ANHIMU 16:09 → ANH3MEDSUR 02-11 15:11
PROVIDERS: Emergency Medicine; Internal Medicine; Physician Assistant; Student in an Organized Health Care Education/Training Program; Admitting Provider Hospitalist; Emergency Provider Emergency Medicine; PCP Internal Medicine Pulmonary Disease; Referring Provider Internal Medicine Cardiovascular Disease; Visit Provider Family Medicine
DX: I11.0 Hypertensive heart disease with heart failure (principal); I50.33 Acute on chronic diastolic (congestive) heart failure; J18.9 Pneumonia, unspecified organism; J96.21 Acute and chronic respiratory failure with hypoxia; J43.9 Emphysema, unspecified; Z20.822 Contact with and (suspected) exposure to COVID-19; I48.0 Paroxysmal atrial fibrillation; D50.9 Iron deficiency anemia, unspecified; R19.7 Diarrhea, unspecified; Z99.81 Dependence on supplemental oxygen; Z79.01 Long term (current) use of anticoagulants; Z86.16 Personal history of COVID-19; Z86.711 Personal history of pulmonary embolism; Z87.891 Personal history of nicotine dependence
CPT/HCPCS: 36415; 36600; 71045; 71046; 80048; 80053; 80069; 80202; 82274; 82375; 82607; 82728; 82746; 82805; 82948; 83036; 83050; 83540; 83550; 83605; 83735; 83880; 84100; 84439; 84443; 84480; 84484; 85014; 85018; 85025; 85027; 85046; 85055; 85610; 85730; 86738; 87040; 87070; 87077; 87081; 87186; 87205; 87449; 87637; 87899; 93005; 94640; 96365; 96367; 96375; 97110; 97161; 97165; 97530; 99285; A9270; C8929; G0378; J1120; J1756; J1815; J1940; J1956; J2930; J3370; J3475; J7040; J7512; Q9957